=== PATIENT | female | born 1995 | race Caucasian/White ===

== ENCOUNTER 2022-01-18 06:27 | Emergency (ER) | payer MEDICAID, SELFPAY ==
[2022-01-18 06:31] VITALS: BP 104/82; PULSE 82; RESP 18; TEMP 36.1; O2SAT 98; BMI 37.6
--- NOTE | 2022-01-18 07:02 | CRLHL7_ITS ---
For Patients: As a result of the Century Cures Act, medical imaging exams and procedure reports are released immediately into your electronic medical record. You may view this report before your referring provider. If you have questions, please contact your health care provider. INDICATION: Bright red blood per rectum. Suspect colitis. Family history of Crohn`s. COMPARISON: None TECHNIQUE: CT examination of the abdomen and pelvis was performed following the uneventful intravenous administration of 98 cc of Isovue 370. Thin section axial images were obtained from the lung bases through the pubic symphysis. Oral contrast was not administered. Please note that all CT scans at this facility use dose modulation, iterative reconstruction, and/or weight-based dosing when appropriate to reduce radiation dose to as low as reasonably achievable. FINDINGS: LUNG BASES: The lung bases as visualized appear normal.The heart size is normal at the lung bases. LIVER/BILIARY SYSTEM:The liver is normal in size and configuration. There is no focal mass and there is no intra- or extra hepatic biliary ductal dilatation.Steatosis. Normal-appearing gallbladder ADRENALS: Normal KIDNEYS, URETERS and BLADDER:The kidneys appear normal. No visible mass, calculus or hydronephrosis. The ureters and bladder as visualized appear normal. SPLEEN:Normal appearance. PANCREAS: Appears normal. RETROPERITONEUM and MESENTERY: There is no mass, adenopathy or aortic aneurysm. GASTROINTESTINAL SYSTEM: There is no indication of proctitis, colitis or inflammatory bowel disease CT criteria. No obstruction. Appendix is well seen appears normal. Small bowel appears normal. Unusually prominent diverticular disease for a patient of this age. Most notably involving the sigmoid. I do not directly see bleeding on the current non angiographic exam. PELVIS: No mass, adenopathy or free fluid. OSSEOUS STRUCTURES and ABDOMINAL WALL: There is an age-appropriate appearance of the osseous structures.No significant abdominal wall defect. OTHER: No free fluid or free air. IMPRESSION: 1. No indication proctitis, colitis or any other identifiable inflammatory bowel disease by CT. 2. Unusually prominent diverticulosis for patient age, most notably sigmoid. I do not directly seen bleeding on the current examination. Please note that all CT scans at this facility use dose modulation, iterative reconstruction, and/or weight-based dosing when appropriate to reduce radiation dose to as low as reasonably achievable. Dictated by Jamal Lindo MD @ 01/18/2022 8:19:02 AM (Electronically Signed)
--- NOTE | 2022-01-18 07:09 | ED_ITS ---
HPI - Abdominal Pain General Chief Complaint: Diarrhea <Mamta Aggarwal MD - Last Filed: 01/18/22 08:17> Stated Complaint: Rectal bleeding <Mamta Aggarwal MD - Last Filed: 01/18/22 08:17> Time Seen by Provider: 01/18/22 06:43 <Mamta Aggarwal MD - Last Filed: 01/18/22 08:17> Source: patient <Mamta Aggarwal MD - Last Filed: 01/18/22 08:17> Mode of arrival: ambulatory <Mamta Aggarwal MD - Last Filed: 01/18/22 08:17> Limitations: no limitations <Mamta Aggarwal MD - Last Filed: 01/18/22 08:17> History of Present Illness HPI narrative: 26-year-old otherwise healthy female reports several episodes of bright red blood per rectum mixed with mucus since yesterday evening. States that she ate a typical dinner, then about an hour later had a crampy feeling that she was going to have diarrhea. She does have a notable prior history of irritable bowel syndrome. She states that when she went to the bathroom, she noted that it was bright red blood mixed with mucus and no stool. She carefully checked it was not vaginal bleeding. She has never had an episode similar to this. She has had a colonoscopy last year which was done because her brother was diagnosed with a high-grade colon polyp at age 30 after he had rectal bleeding. Both of her parents happened have Crohn's disease on my specific questioning, father's is very difficult to control. She had 2 other episodes throughout the night, mostly just mucus but blood mixed in. No rectal trauma or injury. No vaginal discharge. She does have some achy constant right lower quadrant abdominal pain that radiates to her back as well, assumes that they are related. No prior his tory of hemorrhoids or other similar episodes in the past. She has not had any fevers, there is no vomiting. Has not tried any medications, Imodium or other similar interventions to help with her symptoms. She denies any pertinent travel. 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 Past medical history is notable for irritable bowel syndrome. Surgical history is notable for prior shoulder surgery, uterine ablation and tubal ligation. She denies any long-term medications. Socially nonsmoker with no pertinent travel. Ros notable for the GI symptoms only otherwise negative times 12 systems. <Mamta Aggarwal MD - Last Filed: 01/18/22 08:17> Related Data Home Medications: Home Medications Medication Instructions Recorded Confirmed No Known Home Medications 01/18/22 01/18/22 <Mamta Aggarwal MD - Last Filed: 01/18/22 08:17> Allergies/Adverse Reactions: Allergies Allergy/AdvReac Type Severity Reaction Status Date / Time ibuprofen Allergy Severe Difficulty Verified 01/18/22 07:57 Breathing naproxen Allergy Intermediate Swelling Verified 01/18/22 07:57 of Lip/Tongue/Throat <Mamta Aggarwal MD - Last Filed: 01/18/22 08:17> [facility] Social History: Social History Smoking Status: Never smoker How often do you have a drink containing alcohol: monthly or less AUDIT-C Alcohol total score: 1 Non-prescribed substance use: denies use <Mamta Aggarwal MD - Last Filed: 01/18/22 08:17> Exam Const: Vital Signs, click to edit/add: Vital Signs - 24 hr 01/18/22 06:31 01/18/22 07:57 Temperature 97 F L Pulse Rate [Pulse Oximeter] 82 79 Respiratory Rate 18 16 Blood Pressure [Ri ght Upper Arm] 104/82 109/77 Pulse Oximetry 98 100 Oxygen Delivery Me thod Room Air Room Air <Mamta Aggarwal MD - Last Filed: 01/18/22 08:17> Vital Signs, click to edit/add: Vital Signs - 24 hr 01/18/22 06:31 01/18/22 07:57 Temperature 97 F L Pulse Rate [Pulse Oximeter] 82 79 Respiratory Rate 18 16 Blood Pressure [Ri ght Upper Arm] 104/82 109/77 Pulse Oximetry 98 100 Oxygen Delivery Me thod Room Air Room Air <Chantal Dey MD - Last Filed: 01/18/22 08:38> Documenting provider has reviewed patient's vital signs: yes <Mamta Aggarwal MD - Last Filed: 01/18/22 08:17> Common normals: no apparent distress <MD Yana Alfaro Last Filed: 01/18/22 08:17> Exam limitations: altered mental status <MD Yana Alfaro Last Filed: 01/18/22 08:17> General appearance: cooperative <MD Yana Alfaro Last Filed: 01/18/22 08:17> Other: Great historian <MD Yana Alfaro Last Filed: 01/18/22 08:17> HENMT: Common normals: normocephalic <MD Yana Alfaro Last Filed: 01/18/22 08:17> Head and scalp: normocephalic <MD Yana Alfaro Last Filed: 01/18/22 08:17> Mouth: oral and palatal mucosa normal <MD Yana Alfaro Last Filed: 01/18/22 08:17> Throat: posterior oropharynx normal <MD Yana Alfaro Last Filed: 01/18/22 08:17> Eye: Common normals: conjunctivae normal and no scleral icterus <MD Yana Alfaro Last Filed: 01/18/22 08:17> Conjunctiva: conjunctiva(e) normal <MD Yana Alfaro Last Filed: 01/18/22 08:17> Neck & C-Spine: Common normals: full ROM and no lymphadenopathy <MD Yana Alfaro Last Filed: 01/18/22 08:17> Resp: Common normals: normal respiratory effort and clear to auscultation bilaterally <MD Yana Alfaro Last Filed: 01/18/22 08:17> Effort & inspection: able to speak in complete sentences <MD Yana Alfaro Last Filed: 01/18/22 08:17> Auscultation: clear to auscultation bilaterally <MD Yana Alfaro Last Filed: 01/18/22 08:17> Cardio: Common normals: regular rate, regular rhythm, no murmurs and peripheral pulses 2+ throughout <MD Yana Alfaro Last Filed: 01/18/22 08:17> Rate: regular rate <Mamta Aggarwal MD - Last Filed: 01/18/22 08:17> Rhythm: regular rhythm <Mamta Aggarwal MD - Last Filed: 01/18/22 08:17> Peripheral pulses: pulses 2+ throughout <Mamta Aggarwal MD - Last Filed: 01/18/22 08:17> GI: Common normals: Normal to inspection, nondistended, normoactive bowel sounds present, no hepatosplenomegaly and no masses <Mamta Aggarwal MD - Last Filed: 01/18/22 08:17> Palpation: no hepatosplenomegaly <Mamta Aggarwal MD - Last Filed: 01/18/22 08:17> Other: Mildly tender to palpation the right lower quadrant but no rebound tenderness nor guarding. <Mamta Aggarwal MD - Last Filed: 01/18/22 08:17> : Other: Rectal exam showing normal external exam. Normal rectal tone. No significant hemorrhoids. No mass. Gloved finger exam showing no abnormalities. No stool or blood visible but occult guaiac is positive. <Mamta Aggarwal MD - Last Filed: 01/18/22 08:17> Extremity: Common normals: normal to inspection and no pedal edema <Mamta Aggarwal MD - Last Filed: 01/18/22 08:17> Neuro: Speech: speech normal <Mamta Aggarwal MD - Last Filed: 01/18/22 08:17> Motor exam: strength 5/5 throughout and no tremor noted <Mamta Aggarwal MD - Last Filed: 01/18/22 08:17> Psych: Common normals: cooperative, affect normal and activity/motor behavior normal <Mamta Aggarwal MD - Last Filed: 01/18/22 08:17> Insight: insight good <Mamta Aggarwal MD - Last Filed: 01/18/22 08:17> Judgement: judgment good <Mamta Aggarwal MD - Last Filed: 01/18/22 08:17> Skin: Common normals: no rashes or lesions noted <Mamta Aggarwal MD - Last Filed: 01/18/22 08:17> General skin exam: no rashes or lesions noted <Mamta Aggarwal MD - Last Filed: 01/18/22 08:17> Course Reevaluation(s) Reevaluation #1: Have reviewed her CT scan report. Will send patient out to collect stool cultures, ova parasite, C diff. will have her follow up in clinic or return to ED if worsening symptoms. At this time stable to discharge for further outpatient workup of her issues. <Chantal Dey MD - Last Filed: 01/18/22 08:38> Time: 08:34 <Chantal Dey MD - Last Filed: 01/18/22 08:38> Vital Signs Vital signs: Initial Vital Signs Temperature 97 F L 01/18/22 06:31 Temperature Source Temporal Artery Scan 01/18/22 06:31 Pulse Rate 82 01/18/22 06:31 Respiratory Rate 18 01/18/22 06:31 Blood Pressure 104/82 01/18/22 06:31 Blood Pressure Mean 89 01/18/22 06:31 Blood Pressure Position Sitting 01/18/22 06:31 Pulse Oximetry 98 01/18/22 06:31 Oxygen Delivery Method 01/18/22 06:31 Vital Signs Temperature 97 F L 01/18/22 06:31 Pulse Rate 82 01/18/22 06:31 Respiratory Rate 18 01/18/22 06:31 Blood Pressure 104/82 01/18/22 06:31 Pulse Oximetry 98 01/18/22 06:31 Oxygen Delivery Method 01/18/22 06:31 Temperature 97 F L 01/18/22 06:31 Pulse Rate 79 01/18/22 07:57 Respiratory Rate 16 01/18/22 07:57 Blood Pressure 109/77 01/18/22 07:57 Pulse Oximetry 100 01/18/22 07:57 Oxygen Delivery Method 01/18/22 07:57 <Mamta Aggarwal MD - Last Filed: 01/18/22 08:17> Initial Vital Signs Temperature 97 F L 01/18/22 06:31 Temperature Source Temporal Artery Scan 01/18/22 06:31 Pulse Rate 82 01/18/22 06:31 Respiratory Rate 18 01/18/22 06:31 Blood Pressure 104/82 01/18/22 06:31 Blood Pressure Mean 89 01/18/22 06:31 Blood Pressure Position Sitting 01/18/22 06:31 Pulse Oximetry 98 01/18/22 06:31 Oxygen Delivery Method 01/18/22 06:31 Vital Signs Temperature 97 F L 01/18/22 06:31 Pulse Rate 82 01/18/22 06:31 Respiratory Rate 18 01/18/22 06:31 Blood Pressure 104/82 01/18/22 06:31 Pulse Oximetry 98 01/18/22 06:31 Oxygen Delivery Method 01/18/22 06:31 Temperature 97 F L 01/18/22 06:31 Pulse Rate 79 01/18/22 07:57 Respiratory Rate 16 01/18/22 07:57 Blood Pressure 109/77 01/18/22 07:57 Pulse Oximetry 100 01/18/22 07:57 Oxygen Delivery Method 01/18/22 07:57 <Chantal Dey MD - Last Filed: 01/18/22 08:38> MDM - Abdominal Pain MDM Narrative Medical decision making narrative: Story is quite suspicious for some form of colitis either infectious or inflammatory. Discussed this with patient. Recommend CT scan and blood work, she is agreeable. She does not think that she needs anything for pain as of yet but will let me know if this changes. IV will be placed to facilitate IV contrast and patient will be updated once results are available. This will likely be after shift change, I will give report to Dr. Abdi. Most likely diagnoses include gastroenteritis, appendicitis, gynecological source, diverticulitis, obstruction. Update 8:10 a.m.: On I have looked at the CT and I need assistance from the radiologist in determining if there is any inflammation at that right lower quadrant. There is quite a bit of stool which I feel like is impairing my abili ty to interpret this. Labs are reassuring. There is no anemia, inflammatory markers look good, normal kidney function electrolytes, etc.. Pharyngeal diagnosis at this point is a diverticular bleed most likely but cannot exclude inflammatory bowel disease or infectious etiology. Patient will likely need a follow-up colonoscopy. Awaiting CT findings. I relayed this information thus far to patient and she is still comfortable declines pain medication. Awaiting CT findings, care handed over to Dr. Dey <Mamta Aggarwal MD - Last Filed: 01/18/22 08:17> Medical Records Medical records narrative: Investigated, no records available. <Mamta Aggarwal MD - Last Filed: 01/18/22 08:17> Lab Data Attestation: I reviewed the patient's lab results. <Mamta Aggarwal MD - Last Filed: 01/18/22 08:17> Labs: Lab Results 01/18/22 01/18/22 01/18/22 Range/Units 07:25 07:25 07:25 WBC 6.04 (4.50-11.00) K/uL RBC 4.14 (4.00-5.20) m/uL Hgb 12.9 (12.0-16.0) gm/dL Hct 36.7 (33.0-51.0) % MCV 89 (80-100) fL MCH 31 (26-34) pg MCHC 35 (32-36) gm/dL RDW Coeff of Ben 11.6 (11.5-15.5) % Plt Count 295 (140-440) K/uL Neut % (Auto) 57.9 (42.0-72.0) % Lymph % (Auto) 31.5 (20-44) % Maries % (Auto) 5.3 (0.0-11.0) % Eos % (Auto) 4.6 (0.0-7.0) % Baso % (Auto) 0.7 (0.0-3.0) % Neut # (Auto) 3.50 (1.7-7.0) K/uL Lymph # (Auto) 1.90 (0.90-2.90) K/uL Maries # (Auto) 0.30 (0.00-0.90) K/UL Eos # (Auto) 0.28 (0.00-0.50) K/uL Baso # (Auto) 0.04 (0.00-0.30) K/uL Abs Immat Gran (auto) 0.00 (0.00-0.30) K/uL INR 1.00 (0.91-1.10) Sodium 139 (135-149) mmol/L Potassium 3.7 (3.6-5.1) mmol/L Chloride 105 (96-114) mmol/L Carbon Dioxide 25 (20-32) mmol/L BUN 12 (5-24) mg/dL Creatinine 0.7 (0.5-1.5) mg/dL Estimated Creat Clear 117.39 Estimated GFR 121 ml/min Glucose 97 (60-115) mg/dL Calcium 9.2 (8.4-10.6) mg/dL Total Bilirubin 0.6 (0.1-1.5) mg/dL AST 20 (12-35) U/L ALT 15 (4-35) U/L Alkaline Phosphatase 65 (40-150) U/L C-Reactive Protein 0.6 (0.5-1.0) mg/dL Total Protein 7.0 (6.0-8.3) g/dL Albumin 4.5 (3.3-5.0) g/dL Lipase 31 (23-300) U/L Urine Color (Yellow) Urine Appearance (Clear) Urine pH (5.0-8.5) Ur Specific Telford (1.000-1.030) Urine Protein (Negative) Urine Glucose (UA) (Negative) Urine Ketones (Negative) Urine Blood (Negative) Urine Nitrite (Negative) Urine Bilirubin (Negative) Urine Urobilinogen (0.2-1.0) Ur Leukocyte Esterase (Negative) 01/18/22 Range/Units 07:45 WBC (4.50-11.00) K/uL RBC (4.00-5.20) m/uL Hgb (12.0-16.0) gm/dL Hct (33.0-51.0) % MCV (80-100) fL MCH (26-34) pg MCHC (32-36) gm/dL RDW Coeff of Ben (11.5-15.5) % Plt Count (140-440) K/uL Neut % (Auto) (42.0-72.0) % Lymph % (Auto) (20-44) % Maries % (Auto) (0.0-11.0) % Eos % (Auto) (0.0-7.0) % Baso % (Auto) (0.0-3.0) % Neut # (Auto) (1.7-7.0) K/uL Lymph # (Auto) (0.90-2.90) K/uL Maries # (Auto) (0.00-0.90) K/UL Eos # (Auto) (0.00-0.50) K/uL Baso # (Auto) (0.00-0.30) K/uL Abs Immat Gran (auto) (0.00-0.30) K/uL INR (0.91-1.10) Sodium (135-149) mmol/L Potassium (3.6-5.1) mmol/L Chloride (96-114) mmol/L Carbon Dioxide (20-32) mmol/L BUN (5-24) mg/dL Creatinine (0.5-1.5) mg/dL Estimated Creat Clear Estimated GFR ml/min Glucose (60-115) mg/dL Calcium (8.4-10.6) mg/dL Total Bilirubin (0.1-1.5) mg/dL AST (12-35) U/L ALT (4-35) U/L Alkaline Phosphatase (40-150) U/L C-Reactive Protein (0.5-1.0) mg/dL Total Protein (6.0-8.3) g/dL Albumin (3.3-5.0) g/dL Lipase (23-300) U/L Urine Color Yellow (Yellow) Urine Appearance Clear (Clear) Urine pH 7.0 (5.0-8.5) Ur Specific Telford 1.025 (1.000-1.030) Urine Protein Negative (Negative) Urine Glucose (UA) Negative (Negative) Urine Ketones Negative (Negative) Urine Blood Negative (Negative) Urine Nitrite Negative (Negative) Urine Bilirubin Negative (Negative) Urine Urobilinogen 0.2 (0.2-1.0) Ur Leukocyte Esterase Negative (Negative) <Mamta Aggarwal MD - Last Filed: 01/18/22 08:17> Lab Results 01/18/22 01/18/22 01/18/22 Range/Units 07:25 07:25 07:25 WBC 6.04 (4.50-11.00) K/uL RBC 4.14 (4.00-5.20) m/uL Hgb 12.9 (12.0-16.0) gm/dL Hct 36.7 (33.0-51.0) % MCV 89 (80-100) fL MCH 31 (26-34) pg MCHC 35 (32-36) gm/dL RDW Coeff of Ben 11.6 (11.5-15.5) % Plt Count 295 (140-440) K/uL Neut % (Auto) 57.9 (42.0-72.0) % Lymph % (Auto) 31.5 (20-44) % Maries % (Auto) 5.3 (0.0-11.0) % Eos % (Auto) 4.6 (0.0-7.0) % Baso % (Auto) 0.7 (0.0-3.0) % Neut # (Auto) 3.50 (1.7-7.0) K/uL Lymph # (Auto) 1.90 (0.90-2.90) K/uL Maries # (Auto) 0.30 (0.00-0.90) K/UL Eos # (Auto) 0.28 (0.00-0.50) K/uL Baso # (Auto) 0.04 (0.00-0.30) K/uL Abs Immat Gran (auto) 0.00 (0.00-0.30) K/uL INR 1.00 (0.91-1.10) Sodium 139 (135-149) mmol/L Potassium 3.7 (3.6-5.1) mmol/L Chloride 105 (96-114) mmol/L Carbon Dioxide 25 (20-32) mmol/L BUN 12 (5-24) mg/dL Creatinine 0.7 (0.5-1.5) mg/dL Estimated Creat Clear 117.39 Estimated GFR 121 ml/min Glucose 97 (60-115) mg/dL Calcium 9.2 (8.4-10.6) mg/dL Total Bilirubin 0.6 (0.1-1.5) mg/dL AST 20 (12-35) U/L ALT 15 (4-35) U/L Alkaline Phosphatase 65 (40-150) U/L C-Reactive Protein 0.6 (0.5-1.0) mg/dL Total Protein 7.0 (6.0-8.3) g/dL Albumin 4.5 (3.3-5.0) g/dL Lipase 31 (23-300) U/L Urine Color (Yellow) Urine Appearance (Clear) Urine pH (5.0-8.5) Ur Specific Telford (1.000-1.030) Urine Protein (Negative) Urine Glucose (UA) (Negative) Urine Ketones (Negative) Urine Blood (Negative) Urine Nitrite (Negative) Urine Bilirubin (Negative) Urine Urobilinogen (0.2-1.0) Ur Leukocyte Esterase (Negative) 01/18/22 Range/Units 07:45 WBC (4.50-11.00) K/uL RBC (4.00-5.20) m/uL Hgb (12.0-16.0) gm/dL Hct (33.0-51.0) % MCV (80-100) fL MCH (26-34) pg MCHC (32-36) gm/dL RDW Coeff of Ben (11.5-15.5) % Plt Count (140-440) K/uL Neut % (Auto) (42.0-72.0) % Lymph % (Auto) (20-44) % Maries % (Auto) (0.0-11.0) % Eos % (Auto) (0.0-7.0) % Baso % (Auto) (0.0-3.0) % Neut # (Auto) (1.7-7.0) K/uL Lymph # (Auto) (0.90-2.90) K/uL Maries # (Auto) (0.00-0.90) K/UL Eos # (Auto) (0.00-0.50) K/uL Baso # (Auto) (0.00-0.30) K/uL Abs Immat Gran (auto) (0.00-0.30) K/uL INR (0.91-1.10) Sodium (135-149) mmol/L Potassium (3.6-5.1) mmol/L Chloride (96-114) mmol/L Carbon Dioxide (20-32) mmol/L BUN (5-24) mg/dL Creatinine (0.5-1.5) mg/dL Estimated Creat Clear Estimated GFR ml/min Glucose (60-115) mg/dL Calcium (8.4-10.6) mg/dL Total Bilirubin (0.1-1.5) mg/dL AST (12-35) U/L ALT (4-35) U/L Alkaline Phosphatase (40-150) U/L C-Reactive Protein (0.5-1.0) mg/dL Total Protein (6.0-8.3) g/dL Albumin (3.3-5.0) g/dL Lipase (23-300) U/L Urine Color Yellow (Yellow) Urine Appearance Clear (Clear) Urine pH 7.0 (5.0-8.5) Ur Specific Telford 1.025 (1.000-1.030) Urine Protein Negative (Negative) Urine Glucose (UA) Negative (Negative) Urine Ketones Negative (Negative) Urine Blood Negative (Negative) Urine Nitrite Negative (Negative) Urine Bilirubin Negative (Negative) Urine Urobilinogen 0.2 (0.2-1.0) Ur Leukocyte Esterase Negative (Negative) <Chantal Dey MD - Last Filed: 01/18/22 08:38> Imaging Data CT scan - abdomen: Attestation: I have reviewed the pertinent imaging results. <Chantal Lin MD - Last Filed: 01/18/22 08:38> Radiologist's impression: Patient: FRANCIA CILNE Facility:?[facility] Patient ID:?[id number] Site Patient ID:?[id number]. Site :?[id number] Study:?CT Abdomen/Pelvis W/98CC [id number]/11/2022 7:56:18 AM Ordering Physician:Nuris Oleary Final Report: INDICATION: Bright red blood per rectum. Suspect colitis. Family history of Crohn`s. COMPARISON: None TECHNIQUE: CT examination of the abdomen and pelvis was performed following the uneventful intravenous administration of 98 cc of Isovue 370. Thin section axial images were obtained from the lung bases through the pubic symphysis. Oral contrast was not administered. Please note that all CT scans at this facility use dose modulation, iterative reconstruction, and/or weight-based dosing when appropriate to reduce radiation dose to as low as reasonably achievable. FINDINGS: LUNG BASES: The lung bases as visualized appear normal.The heart size is normal at the lung bases. LIVER/BILIARY SYSTEM:The liver is normal in size and configuration. There is no focal mass and there is no intra- or extra hepatic biliary ductal dilatation.Steatosis. Normal-appearing gallbladder ADRENALS: Normal KIDNEYS, URETERS and BLADDER:The kidneys appear normal. No visible mass, calculus or hydronephrosis. The ureters and bladder as visualized appear normal. SPLEEN:Normal appearance. PANCREAS: Appears normal. RETROPERITONEUM and MESENTERY: There is no mass, adenopathy or aortic aneurysm. GASTROINTESTINAL SYSTEM: There is no indication of proctitis, colitis or inflamm atory bowel disease CT criteria. No obstruction. Appendix is well seen appears normal. Small bowel appears normal. Unusually prominent diverticular disease for a patient of this age. Most notably involving the sigmoid. I do not directly see bleeding on the current non angiographic exam. PELVIS: No mass, adenopathy or free fluid. OSSEOUS STRUCTURES and ABDOMINAL WALL: There is an age-appropriate appearance of the osseous structures.No significant abdominal wall defect. OTHER: No free fluid or free air. IMPRESSION: 1. No indication proctitis, colitis or any other identifiable inflammatory bowel disease by CT. 2. Unusually prominent diverticulosis for patient age, most notably sigmoid. I do not directly seen bleeding on the current examination. Please note that all CT scans at this facility use dose modulation, iterative reconstruction, and/or weight-based dosing when appropriate to reduce radiation dose to as low as reasonably achievable. Dictated by Jamal Lindo MD @ 01/18/2022 8:19:02 AM (Electronic Signature) <Chantal Dey MD - Last Filed: 01/18/22 08:38> Discharge Plan Discharge Clinical Impression: Diverticular hemorrhage <Mamta Aggarwal MD - Last Filed: 01/18/22 08:17> Patient Disposition: Home w/ Parent or Adult <Mamta Aggarwal MD - Last Filed: 01/18/22 08:17> Condition: Improved <Mamta Aggarwal MD - Last Filed: 01/18/22 08:17> Instructions: Rectal Bleeding (ED) <Mamta Aggarwal MD - Last Filed: 01/18/22 08:17> Additional Instructions: Please collect stool studies as ordered and return back here to the hospital once collected. Should you develop increasing abdominal pain, worsening bloody stools, or vomiting and cannot take orals, do need to seek re- evaluation. Otherwise, need to get a clinic appointment scheduled, may need to have colonoscopy done again. There could be infectious causes for your symptoms but antibiotics are not recommended unless the sources known or if you are significantly worsening. Inflammatory bowel disease is a possibility as well. <Mamta Aggarwal MD - Last Filed: 01/18/22 08:17> Activity Level: Activity as Tolerated and No strenuous activity <Mamta Aggarwal MD - Last Filed: 01/18/22 08:17> Activity as Tolerated and No strenuous activity <Chantal Dey MD - Last Filed: 01/18/22 08:38> Diet Detail: Soft diet with lots of liquids for the next 2 days. <Mamta Aggarwal MD - Last Filed: 01/18/22 08:17> Soft diet with lots of liquids for the next 2 days. <Chantal Dey MD - Last Filed: 01/18/22 08:38> Prescriptions: No Action No Known Home Medications <Mamta Aggarwal MD - Last Filed: 01/18/22 08:17> Follow Up/Referrals: Provider,Not a Local [Primary Care Provider] - 2 Days (In 2-3 days to recheck hemoglobin and arrange outpatient colonoscopy) <Mamta Aggarwal MD - Last Filed: 01/18/22 08:17> Stand Alone Forms: [facility] Info Instructions <Mamta Aggarwal MD - Last Filed: 01/18/22 08:17>
[2022-01-18 07:33] LABS: Basophils Absolute Auto 0.04 K/uL (0.00-0.30); Basophils Percent Auto 0.7 % (0.0-3.0); Eosinophils Absolute Auto 0.28 K/uL (0.00-0.50); Eosinophils Percent Auto 4.6 % (0.0-7.0); Hematocrit 36.7 % (33.0-51.0); Hemoglobin* 12.9 gm/dL (12.0-16.0); Lymphocytes Percent Auto 31.5 % (20-44); Mean Corpuscular HGB Conc 35 gm/dL (32-36); Mean Corpuscular Hemoglobin 31 pg (26-34); Mean Corpuscular Volume 89 fL (80-100); Monocytes Percent Auto 5.3 % (0.0-11.0); Neutrophils Percent Auto 57.9 % (42.0-72.0); Platelet Count* 295 K/uL (140-440); RDW Coefficient of Variation % 11.6 % (11.5-15.5); Red Blood Count 4.14 m/uL (4.00-5.20); White Blood Count* 6.04 K/uL (4.50-11.00)
[2022-01-18 07:37] LABS: Slide Review Reflex No
--- OUTSIDE RECORDS SUMMARY | 2022-01-18 07:46 | XMS_ITS | Encounter Summary ---
:1995 Author Organization [place] Address [address] [place] [address] Care Team Providers Name Role Phone No Ref-Primary, Physician Primary Care Provider [phone] Kari Bingham MD Unavailable [phone] Kari Bingham MD Unavailable [phone] Reason for Visit Reason Comments Referral Encounter Details Date Type Department Care Team Description 01/02/2018 [facility] Ernst Lopez Refe [facility] [address] [address] [phone] Social History Tobacco Use Types Packs/Day Years Used Date Smoking Tobacco: Never Smokeless Tobacco: Never Alcohol Use Standard Drinks/Week Comments No 0 (1 standard drink = 0.6 oz pure alcoho l) Sex Assigned at Date Recorded Not on file COVID-19 Exposure Response Date Recorded In the last month, have you been in contact with No / Unsure 04/20/2020 3:05 PM HYSTER MACHINE OPERATOR someone who was confirmed or suspected to have Coronavirus / COVID-19? documented as of this encounter Plan of Treatment Not on filedocumented as of this encounter Visit Diagnoses Diagnosis Internal hemorrhoid Internal hemorrhoids without mention of complication documented in this encounter Care Teams Drop Wire Hanger Relationship Specialty Start Date End Date No Ref-Primary, Physician PCP - General 10/12/17 11/01/20 Kari Bingham MD Ophthalmology 04/15/20 MD Ruth [address] [address] Kari Bingham Assigned Surgical Provider 10/22/21 MD Ruth [address] [address] documented as of this encounter
--- OUTSIDE RECORDS SUMMARY | 2022-01-18 07:46 | XMS_ITS | Encounter Summary ---
:1995 Author Organization [place] Address [address] [place] [address] Care Team Providers Name Role Phone Kari Bingham MD Unavailable [phone] Kari Bingham MD Unavailable [phone] Joel Lin MD Unavailable Salvatore Jerry MD Primary Care Provider [phone] Encounter Details Date Type Department Care Team Description 11/02/2020 Emergency [facility] Emergency Dept [address] [place] [address] Social History Tobacco Use Types Packs/Day Years Used Date Smoking Tobacco: Never Smokeless Tobacco: Never Alcohol Use Standard Drinks/Week Comments No 0 (1 standard drink = 0.6 oz pure alcoho l) Sex Assigned at Date Recorded Not on file COVID-19 Exposure Response Date Recorded In the last month, have you been in contact with No / Unsure 11/02/2020 8:26 PM CDT someone who was confirmed or suspected to have Coronavirus / COVID-19? documented as of this encounter Last Filed Vital Signs Vital Sign Reading Time Taken Comments Blood Pressure 136/87 11/02/2020 8:24 PM CDT Pulse 85 11/02/2020 8:24 PM CDT Temperature 36.8 ??C (98.3 ??F) 11/02/2020 8:24 PM CDT Respiratory Rate 18 11/02/2020 8:24 PM CDT Oxygen Saturation 100% 11/02/2020 8:24 PM CDT Inhaled Oxygen Concentration - - Weight - - Height - - Body Mass Index - - documented in this encounter ED Notes Azul Mojica RN - 11/02/2020 8:29 PM CDT BG 92 in triage Azul Mojica RN - 11/02/2020 8:21 PM CDT Pt reports right hand tremors in the last 2 weeks. Pt reports tremors are intermittent. Reports headache and blurry vision started associated when tremors come but since Monday, blurry vision and hand tremors have been constant. Reports slight relief if she eats otherwise has been constant. Denies being diabetic. ABCs intact. A&Ox3 documented in this encounter Plan of Treatment Not on filedocumented as of this encounter Procedures Procedure Name Priority Date/Time Associated Diagnosis Comme nts GLUCOSE BY METER STAT 11/02/2020 8:28 PM Resul ts for this CDT procedure are i n the results section. documented in this encounter Results Glucose by meter (11/02/2020 8:28 PM CDT) P athologist Signature GLUCOSE BY 92 70 - 99 11/02/2020 [facility] METER POCT mg/dL 8:36 PM CDT POC Specimen Anatomical Collection Method Collection Time Receive d Time (Source) Location / / Volume Laterality Blood BLOOD SPECIMEN / 11/02/2020 8:28 PM 11/02 8:36 Unknown CDT PM CDT Provider Unknown LAB - BEAK[facility] POCT Performing Organization Address City/State/ZIP Code Phon e Number [place] [address] Care Lab [address] Lab (1st floor, no room number) documented in this encounter Visit Diagnoses Not on filedocumented in this encounter Care Teams Marshmallow Machine Worker Relationship Specialty Start Date End Date Salvatore Jerry MD PCP - General 11/02/20 Kari Bingham MD Ophthalmology 04/15/20 MD Ruth [address] [place] [address] Kari Bingham Assigned Surgical Provider 10/22/21 MD Ruth [address] [place] [address] Joel Lin MD Assigned PCP 09/23/20 11/21/[address] [place] [address] [id number] documented as of this encounter
--- OUTSIDE RECORDS SUMMARY | 2022-01-18 07:46 | XMS_ITS | Encounter Summary ---
:1995 Author Organization [place] Address [address] [place] [address] Care Team Providers Name Role Phone No Ref-Primary, Physician Primary Care Provider [phone] Reason for Visit Reason Comments Follow Up 6 month follow up non ischem ic Central Retinal Vein Occlusion OS Encounter Details Date Type Department Care Team Description 11/29/2017 Office Visit [facility] Eye DOREEN Bingham ( [facility] Kari Miranda, retinal vein Patrice Ramos MD occlusion) (Primary Building [address] [facility] Dx) [address] [facility] [address] [place] [id number] [phone] Social History Tobacco Use Types Packs/Day Years Used Date Smoking Tobacco: Never Smokeless Tobacco: Never Alcohol Use Standard Drinks/Week Comments No 0 (1 standard drink = 0.6 oz pure alcoho l) Sex Assigned at Date Recorded Not on file documented as of this encounter Progress Notes Kari Bingham MD - 11/29/2017 10:15 AM CDT I have confirmed the patient's and reviewed Past Medical History, Past Surgical History, Social History, Family History, Problem List, Medication List and agree with Tech note. CC -??fup central retinal vein occlusion left eye Interval history No change in vision HPI - notices transient decreased vision right eye when covering left,like a curtain covering it in the far periphery then returns to baseline. Floaters stable. Denies flashes Past History Akilah Mills is a?? 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 Lab workup normal, stopped OCPs. Had avastin injection for CME 02/10 with resolution. She states that the floaters are black lines with a baer shadow and intermittent. At any given time, there are 2 floaters and they arevisible >15 times daily CBC- normal, ESR- normal, lupus anticoagulant - negative, PT- normal , PTT- normal, INR- normal, Activated Protein C Resistance - normal, Factor V Leiden- negative, anti-cardiolipin antibody-negative, vasculitis panel (myeloperoxidase antibody & proteinase 3 antibody) - negative, ANCA- negative, RPR-negative, quantiferon gold- negative, SIMRAN- negative, BMP-within normal limits, ? PAST OCULAR HISTORY None FOHx/FMHx: mother with recurrent clots, unclear etiology (mentioned possible Takaysu Arteritis) RETINAL IMAGING: OCT?? 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 LE: (transits) slowed venous filling, extensive blocking from IRH, late leakage from ONH and in macula, diffuse staining of veins, no obvious ischemia OVF 30-2 04-05-16 OD - normal likely OS - diffuse depression, better than prior ASSESSMENT & PLAN 1. Subjective visual disturbance, both eyes -ocular migraine vs PVD -exam and oct grossly normal -VA 20/20 OU -recheck VF 1 year 2.?? 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 H/o CME OS ?- resolved after Avastin #1 on 02/11/16 ?- observe today 4.?? H/o Pain OS with eye movement ?- eval by Dr. Christopher for optic neuritis with MRI negative 5. 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 Dry Eye Syndrome, both eyes - encouraged artificial tears 3-4x daily ? RTC 9 months for dilated fundus exam Kari Bingham MD PhD. Professor & Chair documented in this encounter Nursing Notes Alva Pineda COMT - 11/29/2017 10:15 AM CDT Chief Complaints and History of Present Illnesses Patient presents with ??? 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 No eye pain today. Occasional floaters in BE, no changes. Alva MORTENSEN November 29, 2017 10:41 AM documented in this encounter Plan of Treatment Not on filedocumented as of this encounter Visit Diagnoses Diagnosis CRVO (central retinal vein occlusion) - Primary Central vein occlusion of retina documented in this encounter Care Teams Vascular Ultrasound Technologist Relationship Specialty Start Date End Date No Ref-Primary, Physician PCP - General 10/12/17 11/01/20 documented as of this encounter
--- OUTSIDE RECORDS SUMMARY | 2022-01-18 07:46 | XMS_ITS | Encounter Summary ---
:1994 Author Organization [place] Address [address] [place] [address] Care Team Providers Name Role Phone No Ref-Primary, Physician Primary Care Provider [phone] Kari Bingham MD Unavailable [phone] Kari Bingham MD Unavailable [phone] Joel Lin MD Unavailable Encounter Details Date Type Department Care Team Description 01/25/2018 Records - [facility] CONVERSION Provider, Historica l Social History Tobacco Use Types Packs/Day Years Used Date Smoking Tobacco: Never Smokeless Tobacco: Never Alcohol Use Standard Drinks/Week Comments No 0 (1 standard drink = 0.6 oz pure alcoho l) Sex Assigned at Date Recorded Not on file COVID-19 Exposure Response Date Recorded In the last month, have you been in contact with No / Unsure 04/20/2020 3:05 PM FLAT SORTING MACHINE CLERK someone who was confirmed or suspected to have Coronavirus / COVID-19? documented as of this encounter Plan of Treatment Not on filedocumented as of this encounter Visit Diagnoses Not on filedocumented in this encounter Care Teams Return To Vendor Relationship Specialty Start Date End Date No Ref-Primary, Physician PCP - General 10/12/17 11/01/20 Kari Bingham MD Ophthalmology 04/15/20 MD Ruth 420 [facility] [address] [place] [address] Kari Bingham Assigned Surgical Provider 10/22/21 MD Ruth 420 [facility] [address] [place] [address] Joel Lin MD Assigned PCP 09/23/20 11/21/[address] [place] [id number] documented as of this encounter
--- OUTSIDE RECORDS SUMMARY | 2022-01-18 07:46 | XMS_ITS | Encounter Summary ---
:1995 Author Organization [place] Address [address] [place] [address] Care Team Providers Name Role Phone No Ref-Primary, Physician Primary Care Provider [phone] Kari Bingham MD Unavailable [phone] Reason for Visit Reason Comments Central Retinal Vein Occlusion Follow Up Encounter Details Date Type Department Care Team Description 04/20/2020 Office Visit [facility] Eye DOREEN Bingham ( central [facility] Kari Miranda, retinal vein Patrice Ramos MD occlusion) Building [address] [place] [id number] [address] Clin [address] [place] [id number] [phone] Social History Tobacco Use Types Packs/Day Years Used Date Smoking Tobacco: Never Smokeless Tobacco: Never Alcohol Use Standard Drinks/Week Comments No 0 (1 standard drink = 0.6 oz pure alcoho l) Sex Assigned at Date Recorded Not on file COVID-19 Exposure Response Date Recorded In the last month, have you been in contact with No / Unsure 04/20/2020 3:05 PM LEAD SYSTEMS ANALYST someone who was confirmed or suspected to have Coronavirus / COVID-19? documented as of this encounter Progress Notes Kari Bingham MD - 04/20/2020 3:00 PM CST I have confirmed the patient's and reviewed Past Medical History, Past Surgical History, Social History, Family History, Problem List, Medication List and agree with Tech note. 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 She is known to me with vitreous syneresis causing subjective floaters and also had a mild Central retinal vein occlusion in 2018 Assessment/plan: 1. Vitreomacular traction both eyes - OCT today shows vitreous bases attached to retina both eyes 2. 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 Professor & Chair SYSTEMS ANALYST documented in this encounter Nursing Notes Sanket Molina - 04/20/2020 3:00 PM CST Chief Complaints and History of Present Illnesses Patient presents with ??? Central Retinal Vein Occlusion Follow Up Chief Complaint(s) and History of Present Illness(es) Central Retinal Vein Occlusion Follow Up Laterality: left eye Associated symptoms: floaters and flashes (some LE). Negative for eye pain and dryness. Comments: (fatigue: LE) Pain scale: 0/10 Comments Akilah is here to follow up loreto CRVO (central retinal vein occlusion) LE. 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 The floaters have been present for a long time, but the flashes about a month. Sanket Molina COT 3:17 PM April 20, 2020 SYSTEMS ANALYST documented in this encounter Plan of Treatment Not on filedocumented as of this encounter Procedures Procedure Name Priority Date/Time Associated Comments Diagnosis OCT RETINA Routine 04/20/2020 3:43 PM CRVO (central Results for this SPECTRALIS OU (BOTH LEAD SYSTEMS ANALYST retinal vein procedur e are in EYE) occlusion) the results section. documented in this encounter Results OCT Retina Spectralis OU (both eyes) (04/20/2020 3:43 PM LEAD SYSTEMS ANALYST) Narrative Kari Bingham MD - 02/2021 3:43 PM LEAD SYSTEMS ANALYST Performed by: njo . Patient cooperation: Reliable . Right Eye Reliability of the test: Good . Findings normal/abnormal: Abnormal OCT . Interpretation: Retinal disease . Plan: Monitor . Interval: Same . Left Eye Reliability of the test: Good . Findings normal/abnormal: Abnormal OCT . Interpretation: Retinal disease . Plan: Monitor . Interval: Same . Kari Bingham MD OPHTHALMOLOGY documented in this encounter Visit Diagnoses Diagnosis CRVO (central retinal vein occlusion) Central vein occlusion of retina documented in this encounter Care Teams Shoe Packer Relationship Specialty Start Date End Date No Ref-Primary, Physician PCP - General 10/12/17 11/01/20 Kari Bingham MD MD Ophthalmology 04/15/[address] [place] [address] [address] [place], [place] [address]145 documented as of this encounter
--- OUTSIDE RECORDS SUMMARY | 2022-01-18 07:46 | XMS_ITS | Encounter Summary ---
:1994 Author Organization [facility] Address [address] [place] [address] Care Team Providers Name Role Phone Kari Bingham MD Unavailable [phone] Kari Bingham MD Unavailable [phone] Joel Lin MD Unavailable Salvatore Jerry MD Primary Care Provider [phone] Encounter Details Date Type Department Care Team Description 11/02/2020 Travel Social History Tobacco Use Types Packs/Day Years [...] on filedocumented in this encounter Care Teams Aco Coordinator Relationship Specialty Start Date End Date Salvatore Jerry MD PCP - General 11/02/20 Kari Bingham MD Ophthalmology 04/15/20 MD Ruth 420 [facility] [address] [place] [address] Kari Bingham Assigned Surgical Provider 10/22/21 MD Ruth 420 [facility] [address] [place], [place] [address] Joel Lin MD Assigned PCP 09/23/20 11/21/[address] [place] [address] documented as of this encounter
--- OUTSIDE RECORDS SUMMARY | 2022-01-18 07:46 | XMS_ITS | Encounter Summary ---
:1994 Author Organization [place] Address [address] [place] [address] Care Team Providers Name Role Phone No Ref-Primary, Physician Primary Care Provider [phone] Encounter Details Date Type Department Care Team Description 08/17/2018 Telephone [facility] [address] [facility] [address] Ruth MD [address]th Floor [address] [place] [address] [address] [place], [place] [phone] [place] [address] (Wo rk) Social History Tobacco Use Types Packs/Day Years Used Date Smoking Tobacco: Never Smokeless Tobacco: Never Alcohol Use Standard Drinks/Week Comments No 0 (1 standard drink = 0.6 oz pure alcoho l) Sex Assigned at Date Recorded Not on file documented as of this encounter Miscellaneous Notes Telephone Encounter - Yelitza North - 08/17/2018 2:18 PM CDT Called patient as she has not returned call to schedule. She stated symptoms were a lot better and did not want to schedule today. Also offered appointment tomorrow. She stated she would see how thingsgo through the weekend and will call if still having difficulties on Monday. Call sooner if worsening. Yelitza North on 08/17/2018 at 2:19 PM Telephone Encounter - Yelitza North - 08/17/2018 9:13 AM CDT Received call for patient she states she has increasing floaters in her right eye that she can barely see through them. Just started today. She has had floaters in the past but not this bad and reportsthat it is always in the left eye. Also reports pain that is increasing as the day goes on. I statedwith any new floaters and especially with pain we should have her seen as may be associated with inflammation in the eye. She is hesitant to schedule something today as she does not know if she can getoff work. Gave her triage direct number to contact me after she discusses with her employer. Yelitza North on 08/17/2018 at 9:18 AM documented in this encounter Plan of Treatment Not on filedocumented as of this encounter Visit Diagnoses Not on filedocumented in this encounter Care Teams Community Advocate Relationship Specialty Start Date End Date No Ref-Primary, Physician PCP - General 10/12/17 11/01/20 documented as of this encounter
--- OUTSIDE RECORDS SUMMARY | 2022-01-18 07:46 | XMS_ITS | Encounter Summary ---
:1995 Author Organization [place] Address [address] [place] [address] Care Team Providers Name Role Phone No Ref-Primary, Physician Primary Care Provider [phone] Kari Bingham MD Unavailable [phone] Encounter Details Date Type Department Care Team Description 04/20/2020 Travel Social History Tobacco Use Types Packs/Day Years Used Date Smoking Tobacco: Never Smokeless Tobacco: Never Alcohol Use Standard Drinks/Week Comments No 0 (1 standard drink = 0.6 oz pure alcoho l) Sex Assigned at Date Recorded Not on file COVID-19 Exposure Response Date Recorded In the last month, have you been in contact with No / Unsure 04/20/2020 3:05 PM DIRECTOR INSTRUCTIONAL MATERIAL someone who was confirmed or suspected to have Coronavirus / COVID-19? documented as of this encounter Plan of Treatment Not on filedocumented as of this encounter Visit Diagnoses Not on filedocumented in this encounter Care Teams Special Delivery Mail Carrier Relationship Specialty Start Date End Date No Ref-Primary, Physician PCP - General 10/12/17 11/01/20 Kari Bingham MD MD Ophthalmology 04/15/[address] [address] documented as of this encounter
--- OUTSIDE RECORDS SUMMARY | 2022-01-18 07:46 | XMS_ITS | Encounter Summary ---
:1995 Author Organization [facility] Address [address] [place] [address] Care Team Providers Name Role Phone No Ref-Primary, Physician Primary Care Provider [phone] Kari Bingham MD Unavailable [phone] Kari Bingham MD Unavailable [phone] Reason for Visit Reason Comments Other other; issues after bowel mo vements Encounter Details Date Type Department Care Team Description 11/15/2017 Office Visit - [facility] Joel Lin ids, internal; [facility] Moi Yanez MD [address] [id number] [phone] Social History Tobacco Use Types Packs/Day Years Used Date Smoking Tobacco: Never Smokeless Tobacco: Never Alcohol Use Standard Drinks/Week Comments No 0 (1 standard drink = 0.6 oz pure alcoho l) Sex Assigned at Date Recorded Not on file COVID-19 Exposure Response Date Recorded In the last month, have you been in contact with No / Unsure 04/20/2020 3:05 PM LOCKSTITCH ZIPPER SETTER someone who was confirmed or suspected to have Coronavirus / COVID-19? documented as of this encounter Last Filed Vital Signs Vital Sign Reading Time Taken Comments Blood Pressure - - Pulse - - Temperature - - Respiratory Rate - - Oxygen Saturation - - Inhaled Oxygen Concentration - - Weight 100.2 kg (221 lb) 11/15/2017 4:35 PM CDT Height - - Body Mass Index 34.61 10/12/2017 8:08 AM CDT documented in this encounter Progress Notes Joel Lin MD - 11/15/2017 4:15 PM CDT Subjective: This 21-year-old female comes in for evaluation regarding her bowels. She has had some constipation she states that after bowel movements she feels like there is some tissue sticking out and she has to push it back in. Patient had a recent laparoscopy to evaluate for endometriosis which was negative on 10/2017. Prior to that she had an abdominal CT scan which was negative other than a benign cyst on the ovary. Patient had had some right lower quadrant abdominal pain at the time She does have some irregular bowels mainly constipation. Also has an IUD in We discussed constipation issues regarding increasing water fruits and vegetables and taking MiraLAXdaily. She states that when she takes too much she has some diarrhea Regarding the rectal area she does occasionally get some blood and some itching. Tobacco status: She reports that she has never smoked. She has never used smokeless tobacco. Patient Active Problem List Diagnosis Date Noted ??? Moderate episode of recurrent major depressive disorder (H) 06/23/2017 ??? Binge eating disorder 06/23/2017 Current Outpatient Prescriptions Medication Sig Dispense Refill ??? hydrocortisone 25 mg suppository Insert one per rectum qhs 12 suppository 0 ??? sertraline (ZOLOFT) 50 MG tablet For the first week, split the tablet and take 25 mg once daily.After one week, take 50 mg once daily. 90 tablet 3 No current facility-administered medications for this visit. ROS: Review of systems negative other than as outlined above Objective: BP 112/70 (Patient Site: Left Arm, Patient Position: Sitting, Cuff Size: Adult Large) Pulse 78 Temp 98.2 ??F (36.8 ??C) (Oral) Resp 14 Wt 221 lb (100.2 kg) LMP 10/07/2017 (Exact Date) SpO2 97% BMI 35.4 kg/m2 Body mass index is 35.4 kg/(m^2). General appearance no acute distress vital signs are stable afebrile Abdomen soft bowel sounds normal no guarding or rebound back without CVA pain Skin was normal Rectal exam with anoscope showed evidence of a internal hemorrhoid at the 12 o'clock position. No other abnormalities noted Results for orders placed or performed in visit on 06/23/17 Thyroid Bland Result Value Ref Range TSH 1.44 0.30 - 5.00 uIU/mL Assessment: 1. Hemorrhoids, internal hydrocortisone 25 mg suppository 2. Constipation Internal hemorrhoids will treat with hydrocortisone suppository at bedtime for 12 nights Can use sitz bath during the daytime as well. If persisting problems see colorectal Main issue will be to continue to work on the constipation as outlined above Plan: As noted This data collection specialist uses voice recognition software, which may contain typographical errors. documented in this encounter Plan of Treatment Not on filedocumented as of this encounter Visit Diagnoses Diagnosis Hemorrhoids, internal Internal hemorrhoids without mention of complication Constipation Unspecified constipation documented in this encounter Care Teams Recycling Program Manager Relationship Specialty Start Date End Date No Ref-Primary, Physician PCP - General 10/12/17 11/01/20 Kari Bingham MD Ophthalmology 04/15/20 MD Ruth [address] [place] [address] Kari Bingham Assigned Surgical Provider 10/22/21 MD Ruth [address] [place] [phone] documented as of this encounter
--- OUTSIDE RECORDS SUMMARY | 2022-01-18 07:46 | XMS_ITS | Encounter Summary ---
:1995 Author Organization [facility] Address [address] [place] [address] Care Team Providers Name Role Phone No Ref-Primary, Physician Primary Care Provider [phone] Kari Bingham MD Unavailable [phone] Kari Bingham MD Unavailable [phone] Reason for Visit Reason Comments Hemorrhoids Encounter Details Date Type Department Care Team Description 01/23/2018 Communication - [facility] Centralized Provider, Hemo rrhoids [facility] Scheduling Historical [facility] [place] [address] Social History Tobacco Use Types Packs/Day Years Used Date Smoking Tobacco: Never Smokeless Tobacco: Never Alcohol Use Standard Drinks/Week Comments No 0 (1 standard drink = 0.6 oz pure alcoho l) Sex Assigned at Date Recorded Not on file COVID-19 Exposure Response Date Recorded In the last month, have you been in contact with No / Unsure 04/20/2020 3:05 PM 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 documented as of this encounter Plan of Treatment Not on filedocumented as of this encounter Visit Diagnoses Not on filedocumented in this encounter Care Teams Foundry Technician Relationship Specialty Start Date End Date No Ref-Primary, Physician PCP - General 10/12/17 11/01/20 Kari Bingham MD Ophthalmology 04/15/20 MD Ruth [address] [address] Kari Bingham Assigned Surgical Provider 10/22/21 MD Ruth [address] [place] [address] documented as of this encounter
--- OUTSIDE RECORDS SUMMARY | 2022-01-18 07:46 | XMS_ITS | Encounter Summary ---
:1995 Author Organization [facility] Address [address] [place] [address] Care Team Providers Name Role Phone No Ref-Primary, Physician Primary Care Provider [phone] Kari Bingham MD Unavailable [phone] Kari Bingham MD Unavailable [phone] Encounter Details Date Type Department Care Team Description 11/15/2017 [facility] Provider, Constantino mcneal Social History Tobacco Use Types Packs/Day Years Used Date Smoking Tobacco: Never Smokeless Tobacco: Never Alcohol Use Standard Drinks/Week Comments No 0 (1 standard drink = 0.6 oz pure alcoho l) Sex Assigned at Date Recorded Not on file COVID-19 Exposure Response Date Recorded In the last month, have you been in contact with No / Unsure 04/20/2020 3:05 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 documented as of this encounter Plan of Treatment Not on filedocumented as of this encounter Visit Diagnoses Not on filedocumented in this encounter Care Teams Deckhand Relationship Specialty Start Date End Date No Ref-Primary, Physician PCP - General 10/12/17 11/01/20 Kari Bingham MD Ophthalmology 04/15/20 MD Ruth [address] [facility] [address] [place], [place] [address] Kari Bingham Assigned Surgical Provider 10/22/21 MD Ruth [address] [address] documented as of this encounter
--- OUTSIDE RECORDS SUMMARY | 2022-01-18 07:46 | XMS_ITS | Clinical Summary ---
:1995 Author Organization [facility] Address [address] [place] [address] Care Team Providers Name Role Phone Kari Bingham MD Unavailable [phone] Salvatore Jerry MD Primary Care Provider [phone] Allergies Active Allergy Reactions Severity Noted Date Comments Naproxen Other (See Comments), Swelling, High 5 Anaphylaxis Medications No known medications Active Problems Problem Noted Date Dysmenorrhea 10/10/2017 Dyspareunia in female 10/10/2017 Family History Medical History Relation Comments Cancer Father History of cancer on the paternal side Cancer Mother History of cancer on the maternal side Coronary Artery Disease Mother Hypertension Mother Glaucoma No family hx of Macular Degeneration No family hx of Relation Status Comments Father Mother Social History Tobacco Use Types Packs/Day Years Used Date Smoking Tobacco: Never Smokeless Tobacco: Never Alcohol Use Standard Drinks/Week Comments No 0 (1 standard drink = 0.6 oz pure alcoho l) Sex Assigned at Date Recorded Not on file Last Filed Vital Signs Vital Sign Reading Time Taken Comments Blood Pressure 136/87 11/02/2020 8:24 PM CDT Pulse 85 11/02/2020 8:24 PM CDT Temperature 36.8 ??C (98.3 ??F) 11/02/2020 8:24 PM CDT Respiratory Rate 18 11/02/2020 8:24 PM CDT Oxygen Saturation 100% 11/02/2020 8:24 PM CDT Inhaled Oxygen Concentration - - Weight 100.2 kg (221 lb) 11/15/2017 4:35 PM CDT Height 170.2 cm (5' 7) 10/12/2017 8:08 AM CDT Body Mass Index 34.61 10/12/2017 8:08 AM CDT Plan of Treatment Health Maintenance Due Date Last Done Comments ADVANCE CARE PLANNING 1995 ANNUAL REVIEW OF HM ORDERS 1995 COVID-19 Vaccine (#1) 06/22/1995 HIV SCREENING 2009 HEPATITIS C SCREENING 2012 PAP 12/23/2015 PHQ-2 (once per calendar 04/10/2021 year) YEARLY PREVENTIVE VISIT 04/15/2021 04/15/2020 INFLUENZA VACCINE (#1) 2021 DTAP/TDAP/TD IMMUNIZATION 08/15/2022 08/15/2012, 07/28/2003 , (6 - Td or Tdap) 08/28/1995, Additional history exists HEPATITIS B IMMUNIZATION Completed 06/26/1995, 02/22/1995, 1994 IPV IMMUNIZATION Aged Out 08/28/1995, 06/26/1995, No long er eligible 02/22/1995 based on patient 's age to complete this topic MENINGITIS IMMUNIZATION Aged Out 11/14/2006 No longe r eligible based on patient 's age to complete this topic CHLAMYDIA SCREENING Discontinued 04/10/2014 Pneumococcal Vaccine: Aged Out No longer eligible Pediatrics (0 to 5 Years) based on patient's age and At-Risk Patients (6 to to co mplete this topic 64 Years) Insurance Payer Benefit Plan / Subscriber ID Effective Dates Phone Addre ss Type Group [facility] [id number] 2021-Present [phone] [address] [place] [address] Akilah Mills Personal/Family Self [address] (Home) [place] [address] Care Teams Cartography Technician Relationship Specialty Start Date End Date Salvatore Jerry MD PCP - General 11/02/20 Kari Bingham MD MD Ophthalmology 04/15/[address] [place] [address]
--- OUTSIDE RECORDS SUMMARY | 2022-01-18 07:46 | XMS_ITS | Encounter Summary ---
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 documented as of this encounter Plan of Treatment Not on filedocumented as of this encounter Visit Diagnoses Not on filedocumented in this encounter Care Teams Leakage Tester Relationship Specialty Start Date End Date No Ref-Primary, Physician PCP - General 10/12/17 11/01/20 Kari Bingham MD Ophthalmology 04/15/20 MD Ruth [address] [facility] [address] [place] [address] Kari Bingham Assigned Surgical Provider 10/22/21 MD Ruth [address] [facility] [address] [place] [address] Joel Lin MD Assigned PCP 09/23/20 11/21/[address] [place] [phone] documented as of this encounter
--- OUTSIDE RECORDS SUMMARY | 2022-01-18 07:46 | XMS_ITS | Encounter Summary ---
:1995 Author Organization [facility] Address [address] [place] [address]. [place] [address] Care Team Providers Name Role Phone No Ref-Primary, Physician Primary Care Provider [phone] Reason for Visit Auth/Cert Specialty Diagnoses / Procedures Referred By Contact Refer red To Contact Surgery Diagnoses INCREASING PELVIC PAIN Sh Periop Services Procedures LAPAROSCOPY OPERATIVE ADULT, OPERATIVE HYSTEROSCOPY WITH MORCELLATOR (MABRY & NEPHEW), REMOVE INTRAUTERINE DEVICE, INSERT INTRAUTERINE DEVICE [address], [address] [place] [address] Phone: Referral ID Status Reason Start Date Expiration Date Visits Requ ested Visits Authorized [id number] 1 1 Encounter Details Date Type Department Care Team Description 10/12/2017 Anesthesia Event [facility] Elisha Fitzpatrick MD [place] [address], [address] ANESTHES IOLOGY [address] [place] [address] [place] [address] [phone] (Wo rk) Anesthesia Record Procedure Summary Procedure Name Responsible Anesthesia Start Anesthesia Stop Anesthesiologist Time Time DIAGNOSTIC Arielle Fitzpatrick MD 10/12/17 0901 10/12/17 10 01 LAPAROSCOPY (Abdomen) Events Date Time Event Comment 10/12/2017 0837 0901 An Start 0901 An Start Data 0902 Present 0905 An Induction 0908 An Intubation 0909 AN START SEVO 0925 AN INCISION 0939 AN END SEVO 0954 AN Extubation 0955 an stop data 1001 An Stop Electronically s igned by Glo Mcclure on October 12, 2017 10:01 AM 1143 Present Name Total dexamethasone 4mg/mL 4 mg fentaNYL (SUBLIMAZE) injection 100 mcg glycopyrrolate 0.2mg/mL 0.6 mg lidocaine 2% 80 mg midazolam 1mg/mL 2 mg neostigmine 1mg/mL 4 mg ondansetron 2mg/mL 4 mg propofol (DIPRIVAN) injection 10 mg/mL vial 300 mg propofol infusion (mcg/kg/min) 518.61 mg rocuronium 10mg/mL 50 mg PRE OP antibiotics NOT needed for this surgical proced ure 1 each LR 1,200 mL Agents Name NO HELIOX O2 N2O Air Exp Sevoflurane Exp Isoflurane Exp Desflurane Exp N2O Ins Sevoflurane Ins Isoflurane Ins Desflurane O2 Auxiliary Blood No blood administrations on file. Lines, Drains, and Airways Type Details Placement Removal Incision/Surgical Site 10/12/17; 0941; 10/12/17 0941 by Abdomen; 2 Port Sites Mellisa Martinez RN Incision/Surgical Site 10/12/17; 0948; Vagina 10/12/17 0948 by Mellisa Martinez, SÁNCHEZ Peripheral IV 10/12/17; 0901; 20 G; 10/12/17 0901 by 10/12/17 1228 by Right; Hand Yelitza Stallworth, Torsten Parson RN RETIRED ETT 10/12/17; 0908; Mask 10/12/17 0908 by 10/12/17 0 954 by Ventilation: Easy; Glo Mcclure Dinero, Diana Ease of Intubation: PARAPROFESSIONAL AIDE CARD FEEDER ORLIN Thomson CARD FEEDER Easy; Airway Size: 7; Cuffed; Oral; Blade Type: Heather; Blade Size: 3; Place by: DD; Insertion Attempts: 1; Secured at (cm)to lip: 22 cm; Breath Sounds: Equal, clear and bilateral; End Tidal CO2: Present; Dentition: Intact, Unchanged; Grade View of Cords: 1 documented in this encounter Social History Tobacco Use Types Packs/Day Years Used Date Smoking Tobacco: Never Smokeless Tobacco: Never Alcohol Use Standard Drinks/Week Comments No 0 (1 standard drink = 0.6 oz pure alcoho l) Sex Assigned at Date Recorded Not on file documented as of this encounter OR Notes Anesthesia Postprocedure Evaluation - Arielle Fitzpatrick MD - 10/12/2017 11:43 AM CDT Patient: Akilah Mills Procedure(s): DIAGNOSTIC LAPAROSCOPY - Wound Class: II-Clean Contaminated Diagnosis:INCREASING PELVIC PAIN Diagnosis Additional Information: No value filed. Anesthesia Type: General, ETT Note: Anesthesia Post Evaluation Patient location during evaluation: PACU Patient participation: Able to fully participate in evaluation Level of consciousness: awake and alert Pain management: adequate Airway patency: patent Cardiovascular status: acceptable, hemodynamically stable and blood pressure returned to baseline Respiratory status: acceptable and nasal cannula Hydration status: acceptable PONV: none Anesthetic complications: None Last vitals: Vitals: 10/12/17 1045 10/12/17 1100 10/12/17 1115 BP: 106/70 (!) 89/66 97/62 Resp: 16 Temp: SpO2: 97% 99% 100% Electronically Signed By: Arielle Fitzpatrick MD October 12, 2017 11:43 AM Anesthesia Preprocedure Evaluation - Arielle Fitzpatrick MD - 10/12/2017 6:45 AM CDT Procedure: Procedure(s): LAPAROSCOPY DIAGNOSTIC (WINCH DRIVER) LAPAROSCOPIC ABLATION ENDOMETRIOSIS Preop diagnosis: INCREASING PELVIC PAIN Allergies Allergen Reactions ??? Naproxen Other (See Comments), Swelling and Anaphylaxis Past Medical History: Diagnosis Date ??? CRVO (central retinal vein occlusion) Past Surgical History: Procedure Laterality Date ??? SHOULDER SURGERY Left 03/2016 to remove bone spur ? ? TONSILLECTOMY & ADENOIDECTOMY 2001 Prior to Admission medications Medication Sig Start Date End Date Taking? Authorizing Provider paragard intrauterine copper 1 each by Intrauterine route once Reported, Patient No current [facility]-ordered facility-administered medications on file. Current Outpatient Prescriptions Ordered in [facility] Medication ??? paragard intrauterine copper Wt Readings from Last 1 Encounters: 03/18/16 90.4 kg (199 lb 4.8 oz) Temp Readings from Last 1 Encounters: 03/18/16 37.1 ??C (98.7 ??F) (Oral) BP Readings from Last 6 Encounters: 03/18/16 121/82 02/08/16 124/73 Pulse Readings from Last 4 Encounters: 03/18/16 93 02/08/16 89 Resp Readings from Last 1 Encounters: 02/08/16 16 SpO2 Readings from Last 1 Encounters: 02/08/16 98% Anesthesia Evaluation . ROS/MED HX ENT/Pulmonary: (-) tobacco use, asthma, COPD and sleep apnea Neurologic: (-) seizures, CVA and migraines Cardiovascular: (-) hypertension, CAD, SAUCEDA, arrhythmias, valvular problems/murmurs and dyslipidemia METS/Exercise Tolerance: >4 METS Hematologic: (-) history of blood clots, anemia and other hematologic disorder Musculoskeletal: (-) arthritis GI/Hepatic: (-) GERD and liver disease Renal/Genitourinary: (-) renal disease and nephrolithiasis Endo: (+) Other Endocrine Disorder pelvic pain, endometriosis. Psychiatric: - neg psychiatric ROS Infectious Disease: (-) Recent Fever Malignancy: Other: Physical Exam Normal systems: cardiovascular, pulmonary and dental Airway Mallampati: II TM distance: >3 FB Neck ROM: full Dental Cardiovascular Rhythm and rate: regular and normal (-) no murmur Pulmonary breath sounds clear to auscultation Anesthesia Plan History & Physical Review ASA Status: 2 . NPO Status: > 8 hours Plan for General and ETT with Propofol induction. Maintenance will be Balanced. PONV prophylaxis: Ondansetron (or other 5HT-3) and Dexamethasone or Solumedrol Propofol infusion Postoperative Care Postoperative pain management: Multi-modal analgesia. Consents Anesthetic plan, risks, benefits and alternatives discussed with: Patient.. . documented in this encounter Miscellaneous Notes Anesthesia Care Transfer Note - Glo Mcclure APRN CARD FEEDER - 10/12/2017 10:01 AM CDT Patient: Akilah Mills Procedure(s): DIAGNOSTIC LAPAROSCOPY - Wound Class: II-Clean Contaminated Diagnosis: INCREASING PELVIC PAIN Diagnosis Additional Information: No value filed. Anesthesia Type: General, ETT Note: Airway :Face Mask Patient transferred to:PACU Comments: Extubated awake in OR, exchanging well, to recovery, VSSHandoff Report: Identifed the Patient, Identified the Reponsible Provider, Reviewed the pertinent medical history, Discussed the surgical course, Reviewed Intra-OP anesthesia mangement and issues during anesthesia, Set expectations for post- procedure period and Allowed opportunity for questions and acknowledgement of understanding Vitals: (Last set prior to Anesthesia Care Transfer) CARD FEEDER VITALS 10/12/2017 0925 - 10/12/2017 1001 10/12/2017 Pulse: 83 SpO2: 97 % Resp Rate (observed): (!) 4 Electronically Signed By: Glo Mcclure APRN CARD FEEDER October 12, 2017 10:01 AM documented in this encounter Plan of Treatment Not on filedocumented as of this encounter Visit Diagnoses Not on filedocumented in this encounter Administered Medications Inactive Administered Medications - up to 3 most recent administrations Medication Order MAR Action Action Date Dose Rate Site dexamethasone (DECADRON) injection Given 10/12/2017 9:12 AM CDT 4 mg PRN, Administer over 1 Minutes, Starting on [place] 10/12/17 at 0912, Anesthesia Intra-op fentaNYL (PF) (SUBLIMAZE) injection Given 10/12/2017 9:28 AM CDT 50 mcg PRN, moderate to severe pain, Administer over 3-5 Minutes, Starting on Kenia 10/12/17 at 0905, Anesthesia Intra-op Given 10/12/2017 9:05 AM CDT 50 mcg glycopyrrolate (ROBINUL) injection Given 10/12/2017 9:41 AM CDT 0.6 mg PRN, Administer over 1-2 Minutes, Starting on Kenia 10/12/17 at 0941, Anesthesia Intra-op lactated ringers infusion New Bag 10/12/2017 9:42 AM CDT Intravenous, CONTINUOUS PRN, Anesthesia Intra-op, Starting on Kenia 10/12/17 at 0902, Until Kenia 10/12/17 at 1001 New Bag 10/12/2017 9:02 AM CDT lidocaine injection 2% (MDV) Given 10/12/2017 9:05 AM CDT 80 mg PRN, Starting on Kenia 10/12/17 at 0905, Anesthesia Intra-op midazolam (VERSED) injection Given 10/12/2017 9:02 AM CDT 2 mg Administer over 2 Minutes, PRN, anxiety, Starting on Kenia 18 at 0902, Anesthesia Intra-op neostigmine (PROSTIGMINE) injection Given 10/12/2017 9:41 AM CDT 4 mg Intravenous, PRN, Starting on Kneia 18 at 0941, Anesthesia Intra-op ondansetron (ZOFRAN) injection Given 10/12/2017 9:43 AM CDT 4 mg PRN, nausea, vomiting, Administer over 2-5 Minutes, Starting on Kenia 18 at 0943, Anesthesia Intra-op PRE OP antibiotics NOT needed for this Given 10/12/2017 9:12 AM CDT 1 each surgical procedure CONTINUOUS, Starting on Kenia 10/12/17 at 0815, Until Kenia 10/12/17 at 0957, PRE OP antibiotics NOT needed for this surgical procedure., Pre-procedure propofol (DIPRIVAN) infusion Rate/Dose 10/12/2017 9:12 150 mcg/kg/min 90.6 mL/hr Intravenous, CONTINUOUS PRN, Change AM CDT Starting on Kenia 18 at 0905, Anesthesia Intra-op New Bag 10/12/2017 9:05 AM CDT 200 mcg/kg/min 120.8 mL/hr propofol (DIPRIVAN) injection 10 mg/mL v ial Given 10/12/2017 9:05 AM CDT 300 mg PRN, Starting on Kenia 18 at 0905, Anesthesia Intra-op rocuronium (ZEMURON) injection Given 10/12/2017 9:05 AM CDT 50 mg PRN, Starting on Kenia 10/12/17 at 0905, Anesthesia Intra-op documented in this encounter Care Teams Ems Instructor Relationship Specialty Start Date End Date No Ref-Primary, Physician PCP - General 10/12/17 11/01/20 documented as of this encounter
--- OUTSIDE RECORDS SUMMARY | 2022-01-18 07:47 | XMS_ITS | Encounter Summary ---
:1995 Author Organization [facility] Address [address] [place] [address] Care Team Providers Name Role Phone Destiny Elizondo Primary Care Provider Reason for Visit Reason Comments Central Retinal Vein Occlusion Follow Up Encounter Details Date Type Department Care Team Description 04/05/2016 Office Visit [facility] Eye Jaja Fitzgerald RVO (central retinal Clinic - Fernanda Wilkerson MD vein occlusion) [facility] [address] [facility] [address] [place], [place] 9th [address] Clin [address] [address] [place], [place] [phone] (Work) [phone] Social History Tobacco Use Types Packs/Day Years Used Date Smoking Tobacco: Never Alcohol Use Standard Drinks/Week Comments No 0 (1 standard drink = 0.6 oz pure alcoho l) Sex Assigned at Date Recorded Not on file documented as of this encounter Progress Notes Jaja Fitzgerald MD - 04/05/2016 4:07 PM CST CC - CRVO OS HPI - No change since LAMIN. Saw hematology, stopped OCP, no other abnormal results. Past History Akilah Mills is a 20 year old year-old patient who initially presented for blurred va and moderate pain in the left eye x 3 weeks with worsening that persisted/worsened approximately 1 week prior to presentation Went to [facility] and then was sent to Dr Pyle as va kept getting worse. Was then sent to ED the day before presentation by Dr Pyle and told she may have a CRVO LE and told to see a retinal specialist. Intermittent blurriness and temporal visual field loss started 3 weeks ago, initially present only briefly upon wakening, but progressively increased duration and severity, about 2 weeks ago became constant and has progressively worsened VA and increased field loss. Pain started 1 week ago with eye movement. Went to [facility] 02/03/16, found swollen veins, sent to Dr. Navjot Pyle 02/05/16, saw bleeding in eye and CRVO per patient. Saw [facility] again 02/08/16 d/t worsening, advised to go to ED Monday night. CBC- normal, ESR- normal, lupus anticoagulant - negative, PT- normal , PTT- normal, INR- normal, Activated Protein C Resistance - normal, Factor V Leiden- negative, anti-cardiolipin antibody-negative, vasculitis panel (myeloperoxidase antibody & proteinase 3 antibody) - negative, ANCA- negative, RPR-negative, quantiferon gold- negative, SIMRAN- negative, BMP-within normal limits, UA- - will await H-O evaluation and allow them to order these along with any other indicated tests - if above w/u negative, consider sleep study PAST OCULAR HISTORY None FOHx/FMHx: mother with recurrent clots, unclear etiology (mentioned possible Takaysu Arteritis) RETINAL IMAGING: OCT 03-08-16 right eye- normal contour, no IRF/SRF, stable left eye - no fluid, greatly imrproved US OD- 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 H/o CME OS - resolved after Avastin #1 on 02/11/16 - observe today 3. H/o Pain OS with eye movement - eval by Dr. Christopher for optic neuritis with MRI negative return to clinic: 2 months, OCT OU Amado Fonseca MD Retina Fellow ATTESTATION ATTENDING ATTESTATION: Complete documentation of historical and exam elements from today's encounter can be found in the full encounter summary report (not redupilcated in this progress note). I personally obtained the chiefcomplaint(s) and hisotry of present illness., I have confirmed and edited as necessary the CC, HPI, PMH/PSH, Social history, FMH, ROS, and exam/neuro findings as obtained by the soil conservation technician or others. Tati examined this patient myself. and I personally viewed the image(s) and studies listed above andthe documentation reflects my findings and interpretation. Jaja Fitzgerald MD, PhD Virtual Assistant For Advertisers, Vitreoretinal Surgery Department of Ophthalmology [facility] EMS TEST ANALYST documented in this encounter Nursing Notes Kaitlyn Coleman COT - 04/05/2016 3:26 PM CST Chief Complaints and History of Present Illnesses Patient presents with ??? Central Retinal Vein Occlusion Follow Up HPI Affected eye(s): Left Symptoms: No decreased vision No floaters Flashes Frequency: Constant Do you have eye pain now?: No Comments: Flashes more frequent otherwise VA the same. D/c control, condoms now. Per pt recentBP on the was good. Carito CASTELLON April 05, 2016 3:21 PM EMS TEST ANALYST documented in this encounter Plan of Treatment Not on filedocumented as of this encounter Procedures Procedure Name Priority Date/Time Associated Comments Diagnosis OVF 30-2 TOP OU Routine 04/05/2016 4:26 PM CRVO (central Resul ts for this SYSTEMS TEST ANALYST retinal vein procedure are i n occlusion) the results section. ULTRASOUND B-SCAN OU Routine 04/05/2016 4:07 PM CRVO (central Results for this (BOTH EYES) SYSTEMS TEST ANALYST retinal vein procedure are i n occlusion) the results section. OCT RETINA Routine 04/05/2016 4:07 PM CRVO (central Results for this SPECTRALIS OU (BOTH SYSTEMS TEST ANALYST retinal vein procedur e are in EYE) occlusion) the results section. FUNDUS PHOTOS OU Routine 04/05/2016 4:06 PM CRVO (central Resu lts for this (BOTH EYES) SYSTEMS TEST ANALYST retinal vein procedure are i n occlusion) the results section. documented in this encounter Results OVF 30-2 TOP OU (04/05/2016 4:26 PM SYSTEMS TEST ANALYST) Jaja Urias MD - 04/05/2016 4:27 PM SYSTEMS TEST ANALYST Patient cooperation: Reliable . Right Eye Reliability of the test: Good . Findings: Visual napier normal . Interpretation: Normal . Plan: Monitor . Interval: Same . Left Eye Reliability of the test: Good . Findings: Nonspecific defect . Interpretation: Abnormal . Plan: Monitor . Interval: Better . Jaja Fitzgerald MD OPHTHALMOLOGY Ultrasound B-scan OU (both eyes) (04/05/2016 4:07 PM SYSTEMS TEST ANALYST) Jaja Urias MD - 04/05/2016 4:07 PM SYSTEMS TEST ANALYST Patient cooperation: Reliable . Reliability of the test: Good . Test Findings: Abnormal . Interpretation: Abnormal . Plan: Monitor . Interval: Initial . Jaja Fitzgerald MD OPHTHALMOLOGY OCT Retina Spectralis OU (both eyes) (04/05/2016 4:07 PM SYSTEMS TEST ANALYST) Jaja Urias MD - 04/05/2016 4:07 PM SYSTEMS TEST ANALYST Patient cooperation: Reliable . Right Eye Reliability of the test: Good . Findings normal/abnormal: Normal OCT . Interpretation: Retinal disease . Plan: Monitor . Interval: Same . Left Eye Reliability of the test: Good . Findings normal/abnormal: Normal OCT . Interpretation: Retinal disease . Plan: Monitor . Interval: Same . Jaja Fitzgerald MD OPHTHALMOLOGY Fundus Photos OU (both eyes) (04/05/2016 4:06 PM SYSTEMS TEST ANALYST) Jaja Urias MD - 04/05/2016 4:06 PM SYSTEMS TEST ANALYST Patient cooperation: Reliable . Right Eye Reliability of the test: Good . Findings: Normal disc/macula/vessels . Interpretation: Normal . Plan: Monitor . Interval: Initial . Left Eye Reliability of the test: Good . Findings: Abnormal . Interpretation: Abnormal . Plan: Monitor . Interval: Initial . Jaja Fitzgerald MD OPHTHALMOLOGY documented in this encounter Visit Diagnoses Diagnosis CRVO (central retinal vein occlusion) Central vein occlusion of retina documented in this encounter Care Teams Merchandise Clerk Relationship Specialty Start Date End Date Destiny Elizondo PCP - General 02/08/16 06/22/17 [facility] [address] [facility] [place] [id number] documented as of this encounter
--- OUTSIDE RECORDS SUMMARY | 2022-01-18 07:47 | XMS_ITS | Encounter Summary ---
:1995 Author Organization [facility] Address [address] [place] [address]. [place] [address] Care Team Providers Name Role Phone Destiny Elizondo Primary Care Provider Reason for Visit Reason Comments Follow Up Central Retinal Vein Occlus ion OS Encounter Details Date Type Department Care Team Description 06/02/2016 Office Visit [facility] Eye AMY BinghamVO ( central retinal vein occlusion) (Primary Dx); Clinic - [place] Kari Miranda, Subjective visual disturbanc e - Right Eye; Patrice Ramos MD Drusen of optic disc, bilateral Building [address] [facility] [address] Clin [address] [place] [id number] [phone] Social History Tobacco Use Types Packs/Day Years Used Date Smoking Tobacco: Never Alcohol Use Standard Drinks/Week Comments No 0 (1 standard drink = 0.6 oz pure alcoho l) Sex Assigned at Date Recorded Not on file documented as of this encounter Progress Notes Kari Bingham MD - 06/02/2016 8:15 AM CST CC -?? floaters both eyes HPI - No change since LAMIN.?? Past History Akilah Mills is a?? 20 year old year-old patient with history CRVO 02/2016. Lab workup normal, stopped OCPs. Had avastin injection for CME 02/10 with resolution. Presents with one week history of increasing floaters in left eye, and 1 day history of floaters. Denies flashing light, denies pain. Malcolm notes increasing glare. She states that the floaters are black lines with a baer shadow and intermittent. At any given time, there are 2 floaters and they are visible >15 times daily CBC- normal, ESR- normal, [...] (mentioned possible Takaysu Arteritis) RETINAL IMAGING: OCT?? 03-08-16 right eye- normal contour, no IRF/SRF, [...] OS - diffuse depression, better than prior OCT 04/26/16 and today OD normal contour, no srf/irf OS normal contour, no srf/irf ASSESSMENT & PLAN 1. Subjective visual disturbance, both eyes - ocular migraine favored (no evidence of pvd/breaks on exam) - VA 20/20 OU - RT/RD precautions 2.?? Central Retinal Vein Occlusion OS ?- young patient, unclear etiology ?- onset 02/11/16 ?- likely non-ischemic given excellent vision today ?- saw hematology stopped OCP ?- Possible ON drusen Right eye > Left eye (not seen by Bscan) ?- consider sleep study - rare vitreous cell noted today, has had extensive negative w/u - will monitor 3.?? H/o CME OS ?- resolved after Avastin #1 on 02/11/16 ?- observe today 4.?? H/o Pain OS with eye movement ?- eval by Dr. Christopher for optic neuritis with MRI negative 5. Optic disc drusen both eyes - to consider ON autofluorescence, TONYA OCT once disc edema resolves RTC: [address] Fitzgerald and repeat OVF both eyes Kari Bingham MD PhD. Professor & Chair [employer] MEDIA MARKETING SPECIALIST documented in this encounter Nursing Notes Cleo Verduzco - 06/02/2016 8:15 AM CST Chief Complaints and History of Present Illnesses Patient presents with ??? Follow Up For Central Retinal Vein Occlusion OS HPI Affected eye(s): Both Symptoms: Duration: 1 month Frequency: Constant Do you have eye pain now?: No Comments: Pt. States that she is doing great after having control nexplanon removed. No longer having any symptoms BE. Cleo Verduzco COT 8:13 AM June 02, 2016 AL MEDIA MARKETING SPECIALIST documented in this encounter Plan of Treatment Not on filedocumented as of this encounter Procedures Procedure Name Priority Date/Time Associated Comments Diagnosis FUNDUS AUTOFLUORESCENCE Routine 06/02/2016 9:36 CRVO (central Results for this IMAGE (FAF) OU (BOTH AM SOCIAL MEDIA MARKETING SPECIALIST retinal vein procedu re are in EYES) occlusion) the results Subjective visual section. disturbance - Right Eye OCT RETINA SPECTRALIS OU Routine 06/02/2016 9:36 CRVO (central Results for this (BOTH EYE) AM SOCIAL MEDIA MARKETING SPECIALIST retinal vein procedure are i n occlusion) the results Subjective visual section. disturbance - Right Eye documented in this encounter Results Fundus Autofluorescence Image (FAF) OU (both eyes) (06/02/2016 9:36 AM SOCIAL MEDIA MARKETING SPECIALIST) Kari Morris MD - 9:36 AM SOCIAL MEDIA MARKETING SPECIALIST Patient cooperation: Reliable . Best available. Right Eye Reliability of the test: Good . Findings: Irregular . Interpretation: Retinal Disease . Plan: Monitor . Interval: Same . Left Eye Reliability of the test: Good . Findings: Irregular . Interpretation: Retinal Disease . Plan: Monitor . Interval: Same . Notes Mild signal optic nerve head drusen Kari Bingham MD OPHTHALMOLOGY OCT Retina Spectralis OU (both eyes) (06/02/2016 9:36 AM SOCIAL MEDIA MARKETING SPECIALIST) Kari Morris MD - 9:36 AM SOCIAL MEDIA MARKETING SPECIALIST Performed by: dcm . Patient cooperation: Reliable . Right Eye [...] - Primary Central vein occlusion of retina Subjective visual disturbance - Right Ey e Subjective visual disturbance, unspecifi ed Drusen of optic disc, bilateral documented in this encounter Care Teams Rn Residential Relationship Specialty Start Date End Date Destiny Elizondo PCP - General 02/08/16 06/22/17 [facility] [address] [facility] [place] [address] documented as of this encounter
--- OUTSIDE RECORDS SUMMARY | 2022-01-18 07:47 | XMS_ITS | Encounter Summary ---
:1995 Author Organization [facility] Address [address] [place] [address] Care Team Providers Name Role Phone Destiny Elizondo Primary Care Provider Reason for Visit Reason Comments Central Retinal Vein Occlusion Follow Up orders only f or imaging on 08/18/16 visit Encounter Details Date Type Department Care Team Description 08/18/[address] [facility] Eye Amado Fonseca, Central vein Clinic - [place] occlusion of retina Patrice Ramos [facility] [employer] O F (Primary Dx) [facility] [address] [place] [address] [address] Clin [address] [place] [phone] Social History Tobacco Use Types Packs/Day Years Used Date Smoking Tobacco: Never Alcohol Use Standard Drinks/Week Comments No 0 (1 standard drink = 0.6 oz pure alcoho l) Sex Assigned at Date Recorded Not on file documented as of this encounter Plan of Treatment Not on filedocumented as of this encounter Procedures Procedure Name Priority Date/Time Associated Comments Diagnosis OCT RETINA Routine 08/18/2016 8:31 AM Central vein Results f or this SPECTRALIS OU (BOTH CDT occlusion of retina p rocedure are in EYE) the results section. documented in this encounter Results OCT Retina Spectralis OU (both eyes) (08/18/2016 8:31 AM CDT) Narrative Amado Fonseca MD - 08/18/2016 8: 31 AM CDT Performed by: dcm . Patient cooperation: Reliable . Right Eye Reliability of the test: Good . Findings normal/abnormal: Normal OCT, Normal fovea . Interpretation: Normal . Interval: Same . Left Eye Reliability of the test: Good . Findings normal/abnormal: Normal OCT, Normal fovea . Interpretation: Normal . Plan: Monitor . Interval: Same . Amado Fonseca MD OPHTHALMOLOGY documented in this encounter Visit Diagnoses Diagnosis Central vein occlusion of retina - Prima ry documented in this encounter Care Teams Truck Driving Relationship Specialty Start Date End Date Destiny Elizondo PCP - General 02/08/16 06/22/17 [facility] [address] [place] [address] documented as of this encounter
--- OUTSIDE RECORDS SUMMARY | 2022-01-18 07:47 | XMS_ITS | Encounter Summary ---
:1995 Author Organization [facility] Address [address] [place] [address] Care Team Providers Name Role Phone MikhailSeth mchughth Renata Primary Care Provider Reason for Visit Reason Comments Follow Up Central Retinal Vein Occlusi on OS Encounter Details Date Type Department Care Team Description 03/08/2016 Office Visit [facility] Eye Jaja Fitzgerald RVO (central retinal Clinic - Fernanda Wilkerson MD vein occlusion) [facility] [address] [place] [address] 9th [address] Clin [address] [address] [place], [place] [phone] (Work) [phone] Social History Tobacco Use Types Packs/Day Years Used Date Smoking Tobacco: Never Alcohol Use Standard Drinks/Week Comments No 0 (1 standard drink = 0.6 oz pure alcoho l) Sex Assigned at Date Recorded Not on file documented as of this encounter Progress Notes Jaja Fitzgerald MD - 03/08/2016 2:54 PM CST CC - Blurred painful LE HPI - Patient reports significant improvement in vision since injection on 02/09/2016. Past History Akilah Mills is a 20 [...] week ago with eye movement. Went to [facility] 02/03/16, found swollen veins, sent to Dr. Navjot Pyle 02/05/16, saw bleeding in eye and CRVO per patient. Saw Lash[facility] again 02/08/16 d/t worsening, advised to go to ED Monday night. CBC- normal, ESR- normal, lupus anticoagulant - negative, PT- normal , PTT- normal, INR- normal, Activated Protein C Resistance - normal, Factor V Leiden- negative, anti-cardiolipin antibody-pending, vasculitis panel (myeloperoxidase antibody & proteinase 3 [...] 03-08-16 right eye- normal contour, no IRF/SRF, TRANSFILL TECHNICIAN 266 left eye - no fluid, greatly imrproved FA 02-09-16 RE: normal LE: (transits) slowed venous filling, extensive blocking from IRH, late leakage from ONH and in macula, diffuse staining of veins, no obvious ischemia ASSESSMENT & PLAN 1. 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 CME OS - greatly improved after Avastin #1 on 02/11/16 - observe today 3. H/o Pain OS with eye movement - eval by Dr. Christopher for optic neuritis with MRI negative return to clinic: 3-4 weeks, OCT, B-scan (looking for optic disc drusen OU), Optos photos OU Amado Fonseca MD Retina Fellow ATTESTATION [...] and exam/neuro findings as obtained by the public health technician or others. Tati examined this patient myself. and I personally viewed the image(s) and studies listed above andthe documentation reflects my findings and interpretation. Jaja Fitzgerald MD, PhD Set Up Mold Technician, Vitreoretinal Surgery Department of Ophthalmology [facility] SFILL TECHNICIAN documented in this encounter Nursing Notes Cleo Verduzco - 03/08/2016 2:11 PM CST Chief Complaints and History of Present Illnesses Patient presents with ??? Follow Up For Central Retinal Vein Occlusion OS HPI Affected eye(s): Both Symptoms: Duration: 2 weeks Frequency: Constant Do you have eye pain now?: No Comments: Pt. States that VA has been improving LE. Has been having some discharge in the morning LEJabier Verduzco COT 2:11 PM March 08, 2016 SFILL TECHNICIAN documented in this encounter Plan of Treatment Not on filedocumented as of this encounter Procedures Procedure Name Priority Date/Time Associated Comments Diagnosis OCT RETINA Routine 03/08/2016 3:32 PM CRVO (central Results for this SPECTRALIS OU (BOTH TRANSFILL TECHNICIAN retinal vein procedur e are in EYE) occlusion) the results section. documented in this encounter Results Ultrasound B-scan OU (both eyes) (04/05/2016 4:07 PM TRANSFILL TECHNICIAN) Narrative Jaja Fitzgerald MD - 04/05/2016 4:07 PM TRANSFILL TECHNICIAN Patient cooperation: Reliable . Reliability of the test: Good . Test Findings: Abnormal . Interpretation: Abnormal . Plan: Monitor . Interval: Initial . Jaja Fitzgerald MD OPHTHALMOLOGY OCT Retina Spectralis OU (both eyes) (04/05/2016 4:07 PM TRANSFILL TECHNICIAN) Jaja Urias MD - 04/05/2016 4:07 PM TRANSFILL TECHNICIAN Patient cooperation: Reliable . Right Eye Reliability of the test: Good . Findings normal/abnormal: Normal OCT . Interpretation: Retinal disease . Plan: Monitor . Interval: Same . Left Eye Reliability of the test: Good . Findings normal/abnormal: Normal OCT . Interpretation: Retinal disease . Plan: Monitor . Interval: Same . Jaja Fitzgerald MD OPHTHALMOLOGY Fundus Photos OU (both eyes) (04/05/2016 4:06 PM TRANSFILL TECHNICIAN) Jaja Urias MD - 04/05/2016 4:06 PM TRANSFILL TECHNICIAN Patient cooperation: Reliable . Right Eye Reliability of the test: Good . Findings: Normal disc/macula/vessels . Interpretation: Normal . Plan: Monitor . Interval: Initial . Left Eye Reliability of the test: Good . Findings: Abnormal . Interpretation: Abnormal . Plan: Monitor . Interval: Initial . Jaja Fitzgerald MD OPHTHALMOLOGY OCT Retina Spectralis OU (both eyes) (03/08/2016 3:32 PM TRANSFILL TECHNICIAN) Jaja Urias MD - 03/08/2016 3:32 PM TRANSFILL TECHNICIAN Patient cooperation: Reliable . Right Eye Reliability of the test: Good . Findings normal/abnormal: Normal OCT . Interpretation: Normal . Plan: Monitor . Interval: Same . Left Eye Reliability of the test: Good . Findings normal/abnormal: Abnormal OCT , Normal fovea . Interpretation: Retinal disease . Plan: Monitor . Interval: Better . Jaja Fitzgerald MD OPHTHALMOLOGY documented in this encounter Visit Diagnoses Diagnosis CRVO (central retinal vein occlusion) Central vein occlusion of retina CRVO (central retinal vein occlusion) Central vein occlusion of retina documented in this encounter Care Teams Employment Educational Coord Relationship Specialty Start Date End Date Destiny Elizondo PCP - General 02/08/16 06/22/17 [facility] [address] [facility] [place] [id number] documented as of this encounter
--- OUTSIDE RECORDS SUMMARY | 2022-01-18 07:47 | XMS_ITS | Encounter Summary ---
:1995 Author Organization [facility] Address [address] [place] [address] Care Team Providers Name Role Phone Mikhail, Destiny Yanez Primary Care Provider Encounter Details Date Type Department Care Team Description 03/18/2016 Orders Only [facility] Central retinal vein [address] [facility] [address] occlusion of left eye 1st Floor [place] [phone] Social History Tobacco Use Types Packs/Day Years Used Date Smoking Tobacco: Never Alcohol Use Standard Drinks/Week Comments No 0 (1 standard drink = 0.6 oz pure alcoho l) Sex Assigned at Date Recorded Not on file documented as of this encounter Plan of Treatment Not on filedocumented as of this encounter Procedures Procedure Name Priority Date/Time Associated Comments Diagnosis CARDIOLIPIN CARLOS IGG Routine 03/18/2016 4:01 PM Central retinal Results for this AND IGM [facility] vein occlusion of procedure are in left eye the results section. BETA 2 GLYCOPROTEIN 1 Routine 03/18/2016 4:01 PM Central retin al Results for this ANTIBODY IGM [facility] vein occlusion of procedure are in left eye the results section. BETA 2 GLYCOPROTEIN 1 Routine 03/18/2016 4:01 PM Central retin al Results for this ANTIBODY IGG [facility] vein occlusion of procedure are in left eye the results section. documented in this encounter Results Cardiolipin Acrlos IgG and IgM (03/18/2016 4:01 PM [facility]) [facility] Method Time Signature Cardiolipin <1.6 0.0 [facility] Antibody IgG Negative 19.9 [place] [facility] New method in use March 07, 2016. GPL-U/mL [facility] Cardiolipin 0.5 0.0 - [facility] Antibody IgM 19.9 [facility] MPL-U/mL [facility] Comment: Negative New method in use March 07, 2016. Specimen Anatomical Collection Method Collection Time Receive d Time (Source) Location / / Volume Laterality 03/18/2016 4:01 PM 6 4:03 [facility] PM [facility] Nevaeh Corral PA LAB - BLOOD ORDERABLES Performing Organization Address City/[facility]/ZIP Code Phon e Number [facility] [address] [place] [address] [facility] Beta 2 Glycoprotein 1 Antibody IgM (03/18/2016 4:01 PM [facility]) Patholo gist Method Time Signature Beta 2 <0.9 <7 U/mL [facility] Glycoprotein 1 Negative [facility] Antibody IgM [facility] Specimen Anatomical Collection Method Collection Time Receive d Time (Source) Location / / Volume Laterality Blood specimen 03/18/2016 4:01 PM 016 4:03 (specimen) [facility] PM [facility] Nevaehdeshawn VeeEllis PA LAB - BLOOD ORDERABLES Performing Organization Address City/State/ZIP Code Phon e Number [facility] [address] [place] [address] [facility] Beta 2 Glycoprotein 1 Antibody IgG (03/18/2016 4:01 PM [facility]) Analysis Performed At Patho logist Time Signature Beta 2 0.8 <7 U/mL [facility] Glycoprotein 1 [facility] Antibody IgG [facility] Comment: Negative Specimen Anatomical Collection Method Collection Time Receive d Time (Source) Location / / Volume Laterality Blood specimen 03/18/2016 4:01 PM 016 4:03 (specimen) [facility] PM [facility] Nevaeh Veetier PA LAB - BLOOD ORDERABLES Performing Organization Address City/[facility]/ZIP Code Phon e Number [facility] [address] [place], [place] [id number] [place] [address] documented in this encounter Visit Diagnoses Diagnosis Central retinal vein occlusion of left e ye Central vein occlusion of retina documented in this encounter 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
--- OUTSIDE RECORDS SUMMARY | 2022-01-18 07:47 | XMS_ITS | Encounter Summary ---
:1995 Author Organization [facility] Address [address] [place] [address]. [place] [address] Care Team Providers Name Role Phone Destiny Elizondo Primary Care Provider Reason for Visit (Routine) - Closed Specialty Diagnoses / Procedures Referred By Contact Refer red To Contact Radiology / Radiology. Diagnoses Kristie De La Cruz [phone] Multi: Xray and 2 MRI exams Uu Mri Procedures MR BRAIN AND ORBITS [address] [place] [address] Phone: Referral ID Status Reason Start Date Expiration Date Visits Requ ested Visits Authorized [id number] Closed 02/10/2016 02/09/2017 1 1 Encounter Details Date Type Department Care Team Description 02/11/2016 Hospital Encounter [facility] Amado Fonseca (central [facility] Imaging MD [place] retinal vein [address] [facility] occlusion) [facility] [id number] [phone] [address] [place] [address] (Wo rk) Social History Tobacco Use Types Packs/Day Years Used Date Smoking Tobacco: Never Alcohol Use Standard Drinks/Week Comments No 0 (1 standard drink = 0.6 oz pure alcoho l) Sex Assigned at Date Recorded Not on file documented as of this encounter Medications at Time of Discharge Medication Sig Dispensed Refills Start Date End Date predniSONE (DELTASONE) Take 3.5 tablets (70 25 tablet 0 06/201503/18/2016 20 MG tabletIndications: mg) by mouth daily Left optic neuropathy documented as of this encounter Plan of Treatment Not on filedocumented as of this encounter Procedures Procedure Name Priority Date/Time Associated Diagnosis Comme nts MR BRAIN AND ORBITS Routine 02/11/2016 7:27 PM CRVO (central R esults for this W CONTRAST CDT retinal vein procedure are i n occlusion) the results section. documented in this encounter Results MR Brain and Orbits (02/11/2016 7:27 PM CDT) Anatomical Region Laterality Modality Head, SUBRAD MR NEURO, UMP MR NEURO Magn eti Resonance Specimen (Source) Anatomical Location Collection Method / Collectio n Time Received Time / Laterality Volume Impressions 02/12/2016 9:25 AM CDT Impression: ?? 1. Regarding the orbits and globes, no f indings to suggest optic neuritis. No orbital mass. 2. Regarding the remainder of the brain, no abnormalities are demonstrated. I have personally reviewed the examinati on and initial interpretation and I agree with the findings. NIKIA NO MD Narrative 02/12/2016 9:25 AM CDT MR BRAIN AND ORBITS 02/11/2016 7:27 PM Orbit MRI without and with contrast Brain MRI without and with contrast History: ??possible optic neuritis, Cent ral retinal vein occlusion, unspecified eye, stable. Comparison: No prior similar studies Technique: Orbits: Axial T1-weighted, and axial and coronal T2-weighted images obtained without intravenous contrast. P ost-intravenous contrast (using gadolinium) axial and coronal T1- weighted images were obtained with fat-saturation, focused on the orbi ts. Brain: Axial susceptibility-weighted, di ffusion-weighted and FLAIR sequences were obtained of the whole bra in without intravenous contrast, and postcontrast axial T1-weig hted images were obtained through the whole brain. Contrast: 10 mL Gadavist Findings: Regarding the orbits, no definite mass i s noted of the globe, conal structures, or within the orbital fat on either side. The optic nerves appear normal. Regarding the remainder of the brain, th e ventricles are proportionate to the cerebral sulci. There is no mass effect or midline shift intracranially. The major intracranial v ascular flow-voids are patent. Post-contrast images of the whole brain demonstrate no abnormal intra or extra-axial contrast enhancement. Procedure Note Nikia No MD - 02/12/2016 MR BRAIN AND ORBITS 02/11/2016 7:27 PM Orbit MRI without and with contrast Brain MRI without and with contrast History: possible optic neuritis, Centra l retinal vein occlusion, unspecified eye, stable. Comparison: No prior similar studies Technique: Orbits: Axial T1-weighted, and axial and coronal T2-weighted images obtained without intravenous contrast. P ost-intravenous contrast (using gadolinium) axial and coronal T1- weighted images were obtained with fat-saturation, focused on the orbi ts. Brain: Axial susceptibility-weighted, di ffusion-weighted and FLAIR sequences were obtained of the whole bra in without intravenous contrast, and postcontrast axial T1-weig hted images were obtained through the whole brain. Contrast: 10 mL Gadavist Findings: Regarding the orbits, no definite mass i s noted of the globe, conal structures, or within the orbital fat on either side. The optic nerves appear normal. Regarding the remainder of the brain, th e ventricles are proportionate to the cerebral sulci. There is no mass effect or midline shift intracranially. The major intracranial v ascular flow-voids are patent. Post-contrast images of the whole brain demonstrate no abnormal intra or extra-axial contrast enhancement. Impression: 1. Regarding the orbits and globes, no f indings to suggest optic neuritis. No orbital mass. 2. Regarding the remainder of the brain, no abnormalities are demonstrated. I have personally reviewed the examinati on and initial interpretation and I agree with the findings. 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
--- OUTSIDE RECORDS SUMMARY | 2022-01-18 07:47 | XMS_ITS | Encounter Summary ---
:1995 Author Organization Driver Address [address] [place] [address]. [place] [address] Care Team Providers Name Role Phone No Ref-Primary, Physician Primary Care Provider [phone] Reason for Visit Auth/Cert Specialty Diagnoses / Procedures Referred By Contact Refer red To Contact Surgery Diagnoses INCREASING PELVIC PAIN Sh Periop Services Procedures LAPAROSCOPY OPERATIVE ADULT, OPERATIVE HYSTEROSCOPY WITH MORCELLATOR (MABRY & NEPHEW), REMOVE INTRAUTERINE DEVICE, INSERT INTRAUTERINE DEVICE [address] [place] [address] Phone: Referral ID Status Reason Start Date Expiration Date Visits Requ ested Visits Authorized [id number] 1 1 Encounter Details Date Type Department Care Team Description 10/12/2017 Surgery [facility] Brian Ritter DIAGN OSTIC LAPAROSCOPY [place] Peri Blair Ding MD Services RETIRED [address] [place] [address] Surgery Details Date/Time Status Location OR Service Patient Case Case Traum a Class Class Type Case? 10/12/17 8:55 AM Posted Z SH SD SD 23 Gynecology Same Day Surgery Panel 1 Procedure LRB Anes Op Region Wound Class Commen ts DIAGNOSTIC N/A General Abdomen II-Clean Contaminated ROGER GNOSTIC LAPAROSCOPY LAPAROSCOPY Surgeon Surgeon Role Service Panel Brian Ritter MD Primary Gynecology 1 documented in this encounter Social History Tobacco Use Types Packs/Day Years Used Date Smoking Tobacco: Never Smokeless Tobacco: Never Alcohol Use Standard Drinks/Week Comments No 0 (1 standard drink = 0.6 oz pure alcoho l) Sex Assigned at Date Recorded Not on file documented as of this encounter Last Filed Vital Signs Vital Sign Reading Time Taken Comments Blood Pressure 101/69 10/12/2017 12:20 PM CDT Pulse - - Temperature 36.4 ??C (97.5 ??F) 10/12/2017 8:08 AM CDT Respiratory Rate 18 10/12/2017 12:20 PM CDT Oxygen Saturation 100% 10/12/2017 12:20 PM CDT Inhaled Oxygen Concentration - - Weight 100.7 kg (221 lb 14.4 oz) 10/12/2017 8:08 AM CDT Height 170.2 cm (5' 7) 10/12/2017 8:08 AM CDT Body Mass Index 34.75 10/12/2017 8:08 AM CDT documented in this encounter Discharge Instructions Discharge InstructionsMaribel Lainez RN - 10/12/2017 11:23 AM CDT Same Day Surgery Discharge Instructions for Sedation and General Anesthesia ?? It's not unusual to feel dizzy, light-headed or faint for up to 24 hours after surgery or while taking pain medication. If you have these symptoms: sit for a few minutes before standing and have someone assist you when you get up to walk or use the bathroom. ?? You should rest and relax for the next 24 hours. We recommend you make arrangements to have an adult stay with you for at least 24 hours after your discharge. Avoid hazardous and strenuous activity. ?? DO NOT DRIVE any vehicle or operate mechanical equipment for 24 hours following the end of your surgery. Even though you may feel normal, your reactions may be affected by the medication you have received. ?? Do not drink alcoholic beverages for 24 hours following surgery. ?? Slowly progress to your regular diet as you feel able. It's not unusual to feel nauseated and/or vomit after receiving anesthesia. If you develop these symptoms, drink clear liquids (apple juice, chaz sheldon, broth, 7-up, etc. ) until you feel better. If your nausea and vomiting persists for 24 hours, please notify your surgeon. ?? All narcotic pain medications, along with inactivity and anesthesia, can cause constipation. Drinking plenty of liquids and increasing fiber intake will help. ?? For any questions of a medical nature, call your surgeon. ?? Do not make important decisions for 24 hours. ?? If you had general anesthesia, you may have a sore throat for a couple of days related to the breathing tube used during surgery. You may use Cepacol lozenges to help with this discomfort. If it worsens or if you develop a fever, contact your surgeon. ?? If you feel your pain is not well managed with the pain medications prescribed by your surgeon, please contact your surgeon's office to let them know so they can address your concerns. [facility] D&C OR Laparoscopy Discharge Instructions ACTIVITY: You may restart normal activities as your abdominal discomfort disappears. You may expect some discomfort under the ribs and shoulder area for the first 24 hours. In nearly all cases, this will disappear shortly after the first day. It is certainly permissible to climb stairs, shower, and do ordinary,quiet activities. More vigorous activities such as sports, intercourse and work may be resumed in 48-72 hours as seems to befit your situation. OFFICE VISIT: Please call a day or two after your surgery to make an appointment in approximately 2 weeks to discuss the results of your surgery and have your check-up. VAGINAL DISCHARGE: You may have some bloody vaginal discharge for as long as one week. Ordinary tampons may be used after 3-4 days. INCISIONAL CARE: Keep incisions clean and dry for 24 hours. You may shower tomorrow. No bathing or swimming for 3-5 days. If you have steri-strips, they should remain in place 3-5 days, after which they can be removed. TEMPERATURE: If you develop a temperature elevation of 101?? or higher, please call our office immediately. RESTRICTIONS: Due to the effects of general anesthesia, please do not drive a car, drink alcoholic beverages, nor operate complex machinery in the first 24 hours following surgery. PLEASE FEEL FREE TO CALL OUR OFFICE IF ANY QUESTIONS OR PROBLEMS ARISE. [facility] Sanket Croft M.D. Michael Hood M.D. Brian Ritter M.D. Barbra Meza M.D. Liz Stinson M.D. Akilah Chaparro M.D. Vannessa Harriseler, M.D. Barbra Hernandez M.D. [facility] [address] [facility] [address] [facility] [address] [place] [address] (Telephone) [phone] (Telephone) [facility] If you have questions or concerns about your procedure, Call Dr. Ritter at [phone] Today you received Ibuprofen 800mg at 11:20am. documented in this encounter Medications at Time of Discharge Medication Sig Dispensed Refills Start Date End Date oxyCODONE IR Take 1-2 tablets (5-10 12 tablet 0 10/12/2017 04/20/2020 (ROXICODONE) 5 MG mg) by mouth every 3 tabletIndications: hours as needed for Dysmenorrhea pain or other (Moderate to Severe) paragard intrauterine 1 each by Intrauterine 0 04/20/2020 copper route once documented as of this encounter Progress Notes Brian Ritter MD - 10/12/2017 9:43 AM CDT Op note Diagnostic laparoscopy, Findings -normal pelvis ebl 10 c.c. documented in this encounter Nursing Notes Maribel Lainez RN - 10/12/2017 11:25 AM CDT PNDS met, po per I&O sheet. Pt dressed, up in recliner and transported to Phase 2. documented in this encounter Miscellaneous Notes Op Note - Brian Ritter MD - 10/12/2017 9:49 AM CDT Procedure Date: 10/12/2017 DATE OF SERVICE: 10/12/2017. PREOPERATIVE DIAGNOSIS: Worsening dysmenorrhea, dyspareunia. POSTOPERATIVE DIAGNOSIS: Worsening dysmenorrhea, dyspareunia. PROCEDURE: Laparoscopy. OPERATIVE PROCEDURE: The patient was prepped and draped in the lithotomy position under general anesthetic. Examination at this time revealed the uterus to be slightly bulky and anteverted. A single-tooth tenaculum was applied to the anterior lip of the cervix in a transverse manner and a cervical cannula inserted into the cervix. A small incision was made in the infraumbilical fold. Veress needle was inserted into the peritoneal cavity. Peritoneal cavity was insufflated with 3 liters of carbon dioxide. The Veress needle was then removed. The 5 mm expandable trocar and sheath were then inserted into the incision and the upper abdomen was visualized and found to be normal. Examination of the pelvisrevealed the vesicouterine fold of the peritoneum to be normal. With the aid of a suprapubic 5 mm accessory trocar site, the rest of the pelvis was visualized. Both tubes were normal to their pristine fimbriated ends. Both ovaries were normal on their medial and lateral aspects as were both ovarian fos sa. The cul-de-sac was negative. Uterosacral ligaments were negative as well. No abnormalities were detected. The procedure was then terminated. The peritoneal cavity was emptied of its gas. The incisions closed with Steri-Strips. Total estimated blood loss for the procedure was approximately 10 mL. The patient left the operating room in good condition. BRIAN RITTER MD MT: NTS Name: AKILAH CLINE Account: [id number] : 1995 Procedure Date: 10/12/2017 Document: [id number] documented in this encounter Plan of Treatment Not on filedocumented as of this encounter Procedures Procedure Name Priority Date/Time Associated Comments Diagnosis LAPAROSCOPY 10/12/2017 8:41 AM INCREASING PELVIC CDT PAIN HCG QUANTITATIVE STAT 10/12/2017 8:20 AM Resul ts for this CDT procedure are i n the results section. documented in this encounter Results HCG quantitative (10/12/2017 8:20 AM CDT) P athologist Signature HCG Quantitative <1 0 - 5 IU/L 10/12/2017 HONOBIA Serum 8:48 AM CDT [facility] Specimen Anatomical Collection Method Collection Time Receive d Time (Source) Location / / Volume Laterality Blood specimen 10/12/2017 8:20 AM 018 8:24 (specimen) CDT AM CDT Brian Ritter MD LAB - BLOOD ORDERA BLES Performing Organization Address City/State/ZIP Code Phon e Number M [facility] [address] [address] [phone] [facility] [address] [address], [facility] [phone] documented in this encounter Visit Diagnoses Not on filedocumented in this encounter Administered Medications Inactive Administered Medications - up to 3 most recent administrations Medication Order MAR Action Action Date Dose Rate Site albuterol neb solution 2.5 mg 2.5 mg, Nebulization, EVERY 4 HOURS PRN, shortness of breath / dyspnea, Starting on Kenia 10/12/17 at 1008, PACU fentaNYL (PF) (SUBLIMAZE) injection 25-50 Given 10/12/2017 10:21 AM CDT 50 mcg mcg 25-50 mcg, Intravenous, EVERY 2 MIN PRN, other, acute pain, Starting on Kenia 10/12/17 at 1008, MAX cumulative dose = 250 mcg. Use Fentanyl initially, as a short acting agent for acute pain control. If insufficient, or a longer acting agent is needed, begin Morphine or Hydromorphone if ordered. For ordered doses up to 100 mcg give IV Push undiluted over a minimum of 3-5 minutes., PACU Given 10/12/2017 10:12 AM CDT 50 mcg hydrALAZINE (APRESOLINE) injection 2.5-5 mg 2.5-5 mg, Intravenous, EVERY 10 MIN PRN, high blood pressure, for Systolic Blood Pressure greater than 160 and Heart Rate greater than 60 bpm., Starting on Kenia 10/12/17 at 1008, Max cumulative dose = 20 mg. FOR USE I N PACU ONLY, DC WHEN TRANSFERRED TO FLOOR. For ordered doses up to 40 mg, give IV Push undiluted over 1 minute., PACU HYDROmorphone (PF) (DILAUDID) injection 0.3-0.5 mg 0.3-0.5 mg, Intravenous, EVERY 5 MIN PRN , other, acute pain.?May administer if Respiratory Rate is greater than 10, Sta rting on Kenia 10/12/17 at 1008, If fentanyl is also ordered, use HYDROmorphone if pain control insuff icient with fentanyl or a longer acting agent is needed. Max cumul ative dose = 2 mg For ordered doses up to 4 mg give IV Push undiluted. Administer each 2mg over 2- 5 minutes., PACU ibuprofen (ADVIL/MOTRIN) tablet 800 mg Given 10/12/2017 11:21 AM CDT 800 mg 800 mg, Oral, ONCE, On Kenia 10/12/17 at 1100, For 1 dose, Patient takes ibuprofen 800mg at home and tolerates well., PACU lactated ringers infusion at 100 mL/hr, Intravenous, CONTINUOUS, C ontinue until IV catheter is weaned, PACU, Starting on Kenia 10/12/17 at 1015, Until Kenia 10/12/17 at 14 32 naloxone (NARCAN) injection 0.1-0.4 mg 0.1-0.4 mg, Intravenous, EVERY 2 MIN PRN , opioid reversal, Starting on Kenia 10/12/17 at 1008, For 24 hours, For apnea or imminent respirato ry arrest: give 0.4 mg IV undiluted Q 2 minutes PRN until desired degree of reversal is obtained, stop opioid and notify provider. Continue monitoring until dischar ge criteria are met for a minimum of 2 hours. For severe sedation, decrease in respiratory depth, quality or respiratory rate less than 8: give 0.1 m g IV Q 2 minutes x 3 doses, stop opioid and notify provider. Try to minimize reversa l of analgesia especially in end-of-life patients For ordered doses up to 2mg giv e IVP. Give each 0.4mg over 15 seconds in emergency situations. For non-emergent s ituations further dilute in 9mL of NS to facilitate titration of response., Post-procedure ondansetron (ZOFRAN) injection 4 mg 4 mg, Intravenous, EVERY 30 MIN PRN, jessenia sea, Administer over 2-5 Minutes, Starting on Kenia 10/12/17 at 1008, For 2 doses, MAX total dose = 8 mg, including OR dosing. If not resolved in 15 minutes, then go to step 2 [prochlo rperazine (COMPAZINE), if ordered]. Irritant. For ordered doses up to 4 mg, give IV Push undiluted over 2-5 minutes., PACU ondansetron (ZOFRAN-ODT) ODT tab 4 mg 4 mg, Oral, EVERY 30 MIN PRN, nausea, St arting on Kenia 10/12/17 at 1008, For 2 doses, MAX total dose = 8 mg, including OR dosi ng. If not resolved in 15 minutes, then go to step 2 [prochlorperazine (COMPAZINE), if ordered]. With dry hands, peel back foil backing and gently remove tablet; do not push ora l disintegrating tablet through foil backing; administer immediately on tongue and oral disintegrating tablet dissolves in seconds; then swallo w with saliva; liquid not required., PACU oxyCODONE IR (ROXICODONE) tablet 5 mg Given 10/12/2017 10:49 AM CDT 5 mg 5 mg, Oral, ONCE PRN, other, pain control or improvement in physical function.??, Starting on Kenia 10/12/17 at 1008, For 1 dose, Notify provider to assess for uncontrolled pain or analgesic side effects., Post-procedure prochlorperazine (COMPAZINE) injection 1 0 mg 10 mg, Intravenous, EVERY 6 HOURS PRN, nausea, vomitin g, Administer over 1-2 Minutes, Starting on Kenia 10/12/17 at 1008, This is Step 2 of the nausea and vomiting protocol. If nausea not resolved in 15 minutes, give m etoclopramide (REGLAN) if ordered (step 3 of nausea and vomiting protocol) For o rdered doses up to 10 mg, give IV Push undiluted. Each 5mg over 1 minute., PACU sodium chloride 0.9% Given 10/12/2017 9:25 AM 1,000 mLs Operative (bottle) irrigation CDT Site/Surgical S ite PRN, Starting on Kenia 10/12/17 at 0925, Intra-procedure documented in this encounter Active and Recently Administered Medications Times are shown in CDT. Scheduled Medication Order 10/10/2017 10/11/2017 10/12/2017 ibuprofen (ADVIL/MOTRIN) tablet 800 mg (COMPLETED) 1121 (Given - Provider: Maribel Lainez RN) 800 mg, Oral, ONCE, On Kenia 18 at 110 0, For 1 dose, Patient takes ibuprofen 800mg at home and tolerates well., PACU Continuous Medication Order 10/10/2017 10/11/2017 10/12/2017 lactated ringers infusion 1015 ( Canceled Entry - Provider: Orders Generic Provider - Comment: Automatically canceled at discontinue of medication order) at 100 mL/hr, Intravenous, CONTINUOUS, C ontinue until IV catheter is weaned, PACU, Starting Kenia 10/12/17 at 1015, Until Kenia 718 at 1432 PRE OP antibiotics NOT needed for this surgical procedure (CANCE LED) 0912 (Given - Provider: Glo Rutledge APRN CRNA) CONTINUOUS, Starting Kenia 10/12/17 at 0815, Until Kenia 718 at 0957, PRE OP antibiotics NOT needed for this surgical procedure., Pre-procedure PRN Medication Order 10/10/2017 10/11/2017 10/12/2017 albuterol neb solution 2.5 mg 2.5 mg, Nebulization, EVERY 4 HOURS PRN, shortness of breath / dyspnea, Starting Kenia 18 at 1008, PACU fentaNYL (PF) (SUBLIMAZE) injection 25-50 mcg 1012 (Given - Provider: Maribel Lainez RN)1021 (Given - Provider: Maribel Lainez RN) 25-50 mcg, Intravenous, EVERY 2 MIN PRN, Starting Kenia 7/18 at 1008, other, acute pain, MAX cumulative dose = 250 mcg. Use Fentanyl initially, as a short acting agent for acute pain control. If insuffi cient, or a longer acting agent is neede d, begin Morphine or Hydromorphone if ordered. For ordered doses up to 100 mcg give IV Push undiluted over a minimum of 3-5 minutes., PACU hydrALAZINE (APRESOLINE) injection 2.5-5 mg 2.5-5 mg, Intravenous, EVERY 10 MIN PRN, high blood pressure, for Systolic Blood Pressure greater than 160 and Heart Rate greater than 60 bpm., Starting Kenia 7/08/25 at 1008, Max cumulative dose = 20 mg. FOR USE IN PACU ONLY, DC WHEN TRANSFERRE D TO FLOOR. For ordered doses up to 40 mg, give IV Push undiluted over 1 minute., PACU HYDROmorphone (PF) (DILAUDID) injection 0.3-0.5 mg 0.3-0.5 mg, Intravenous, EVERY 5 MIN PRN , Starting Kenia 7/18 at 1008, Until Kenia 7/18 at 1432, other, acute pain.?May administer if Respiratory Rate is greater than 10, PACU, If fentanyl is also or dered, use HYDROmorphone if pain control insufficient with fentanyl or a longer acting agent is needed. Max cumulative dose = 2 mg For ordered doses up to 4 mg give IV Push undiluted. Administer each 2mg over 2-5 minutes. naloxone (NARCAN) injection 0.1-0.4 mg 0.1-0.4 mg, Intravenous, EVERY 2 MIN PRN , opioid reversal, Starting Kenia 718 at 1008, For 24 hours, For apnea or imminent respiratory arrest: give 0.4 mg IV undiluted Q 2 minutes PRN until desired deg ree of reversal is obtained, stop opioid and notify provider. Continue monitoring until discharge criteria are met for a minimum of 2 hours. For severe sedation, decrease in respiratory depth, quality o r respiratory rate less than 8: give 0.1 mg IV Q 2 minutes x 3 doses, stop opioid and notify provider. Try to minimize reversal of analgesia especially in end-of-life patients For ordered doses up to 2m g give IVP. Give each 0.4mg over 15 seco nds in emergency situations. For non- emergent situations further dilute in 9mL of NS to facilitate titration of response., Post-procedure NO Rho (D) immune globulin (RhoGam) needed - NOT obstetric patie nt CONTINUOUS PRN, Starting Kenia 10/12/17 at 1 008, Until Kenia 10/12/17 at 1432, Post-procedure ondansetron (ZOFRAN) injection 4 mg(Linked Group 1) 4 mg, Intravenous, EVERY 30 MIN PRN, jessenia sea, Administer over 2-5 Minutes, Starting Kenia 10/12/17 at 1008, For 2 doses, MAX total dose = 8 mg, including OR dosing. If not resolved in 15 minutes, then go to step 2 [prochlorperazine (COMPAZINE), if ordered]. Irritant. For ordered doses up to 4 mg, give IV Push undiluted over 2-5 minutes., PACU ondansetron (ZOFRAN-ODT) ODT tab 4 mg(Linked Group 1) 4 mg, Oral, EVERY 30 MIN PRN, nausea, St arting Kenia 10/12/17 at 1008, For 2 doses, MAX total dose = 8 mg, including OR dosing. If not resolved in 15 minutes, then go to step 2 [prochlorperazine (COMPAZINE) , if ordered]. With dry hands, peel back foil backing and gently remove tablet; do not push oral disintegrating tablet through foil backing; administer immediately on tongue and oral disintegrating tabl et dissolves in seconds; then swallow with saliva; liquid not re quired., PACU oxyCODONE IR (ROXICODONE) tablet 5 mg (COMPLETED) 1049 (Given - Provider: Maribel Lainez RN) 5 mg, Oral, ONCE PRN, other, pain contro l or improvement in physical function.??, Starting on Kenia 10/12/17 at 1008, For 1 dose, Notify provider to assess for uncontrolled pain or analgesic side effects., Post-procedure prochlorperazine (COMPAZINE) injection 10 mg 10 mg, Intravenous, EVERY 6 HOURS PRN, n ausea, vomiting, Administer over 1-2 Minutes, Starting Kenia 10/12/17 at 1008, This is Step 2 of the nausea and vomiting protocol. If nausea not resolved in 15 minute s, give metoclopramide (REGLAN) if order ed (step 3 of nausea and vomiting protocol) For ordered doses up to 10 mg, give IV Push undiluted. Each 5mg over 1 minute., PACU sodium chloride 0.9% (bottle) irrigation (CANCELED) 0925 (Given - Provider: Brian Ritter MD) PRN, Starting Kenia 10/12/17 at 0925, Intra-procedure Linked Groups Order Group 1: ondansetron (ZOFRAN-ODT) ODT tab 4 mgJump to med 4 mg, Oral, EVERY 30 MIN PRN, nausea, St arting Kenia 10/12/17 at 1008, For 2 doses
MAX total dose = 8 mg, including OR dosing. If not resolved in 15 minutes, then go to step 2 [prochlorperazine (CO MPAZINE), if ordered]. With dry donald ds, peel back foil backing and gently remove tablet; do not push oral disintegrating tablet through foil backing; administer immediately on tongue and oral di sintegrating tablet dissolves in seconds ; then swallow with saliva; liquid not required.
PACU Or ondansetron (ZOFRAN) injection 4 mgJump to med 4 mg, Intravenous, EVERY 30 MIN PRN, jessenia sea, Administer over 2-5 Minutes, Starting Kenia 10/12/17 at 1008, For 2 doses
MAX total dose = 8 mg, including OR dosing. If not resolved in 15 minutes, the n go to step 2 [prochlorperazine (COMPAZ INE), if ordered]. Irritant. For ordered doses up to 4 mg, give IV Push undiluted over 2-5 minutes.
PACU documented in this encounter Care Teams Torpedoman'S Mate Relationship Specialty Start Date End Date No Ref-Primary, Physician PCP - General 10/12/17 11/01/20 documented as of this encounter
--- OUTSIDE RECORDS SUMMARY | 2022-01-18 07:47 | XMS_ITS | Encounter Summary ---
:1995 Author Organization [place] Address [address] [place] [address]. [place] [address] Care Team Providers Name Role Phone Destiny Elizondo Primary Care Provider Reason for Visit Reason Comments Follow Up Central Retinal Vein Occlusi on OS Encounter Details Date Type Department Care Team Description 05/04/2016 Office Visit [facility] Eye AMY BinghamVO ( central retinal vein occlusion) (Primary Dx); [place] - [place] Kari Miranda, Subjective visual disturbanc e - Right Eye Patrice Ramos MD Building [address] [facility] [address] [address] [address] [place] [id number] [phone] Social History Tobacco Use Types Packs/Day Years Used Date Smoking Tobacco: Never Alcohol Use Standard Drinks/Week Comments No 0 (1 standard drink = 0.6 oz pure alcoho l) Sex Assigned at Date Recorded Not on file documented as of this encounter Progress Notes Kari Bingham MD - 05/04/2016 8:47 AM CST CC -?? floaters both eyes [...] diffuse depression, better than prior OCT 04/26/16 OD normal contour, no srf/irf OS normal [...] for optic neuritis with MRI negative 5. ? 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 Amilcar Fonseca MD Retina Fellow Attestation: I have seen and examined the patient with Dr. Fonseca and agree with the findings in this note. Kari Bingham MD PhD. Professor & Chair L MANAGER documented in this encounter Nursing Notes Maureen Woody - 05/04/2016 8:21 AM CST Chief Complaints and History of Present Illnesses Patient presents with ??? Follow Up For Central Retinal Vein Occlusion OS HPI Affected eye(s): Left Symptoms: No blurred vision No decreased vision Do you have eye pain now?: No Comments: Pt states vision and eyes are stable since last visit. Maureen CASTELLON 8:21 AM May 04, 2016 L MANAGER documented in this encounter Plan of Treatment Not on filedocumented as of this encounter Visit Diagnoses Diagnosis CRVO (central retinal vein occlusion) - Primary Central vein occlusion of retina Subjective visual disturbance - Right Ey e Subjective visual disturbance, unspecifi ed documented in this encounter Care Teams Criminal Defense Attorney Relationship Specialty Start Date End Date Destiny Elizondo PCP - General 02/08/16 06/22/17 [facility] [id number] [place] [id number] documented as of this encounter
--- OUTSIDE RECORDS SUMMARY | 2022-01-18 07:47 | XMS_ITS | Encounter Summary ---
:1995 Author Organization [place] Address [address] [place] [address] Care Team Providers Name Role Phone No Ref-Primary, Physician Primary Care Provider [phone] Kari Bingham MD Unavailable [phone] Kari Bingham MD Unavailable [phone] Ernst Lopez MD Primary Care Provider Encounter Details Date Type Department Care Team Description 06/26/2017 [facility] - [facility] Ernst Lopez, [facility] [address] [address] [phone] Social History Tobacco Use Types Packs/Day Years Used Date Smoking Tobacco: Never Smokeless Tobacco: Never Alcohol Use Standard Drinks/Week Comments No 0 (1 standard drink = 0.6 oz pure alcoho l) Sex Assigned at Date Recorded Not on file COVID-19 Exposure Response Date Recorded In the last month, have you been in contact with No / Unsure 04/20/2020 3:05 PM AVICULTURIST someone who was confirmed or suspected to have Coronavirus / COVID-19? documented as of this encounter Plan of Treatment Not on filedocumented as of this encounter Visit Diagnoses Not on filedocumented in this encounter Care Teams Mink Farmer Relationship Specialty Start Date End Date No Ref-Primary, PCP - General 10/12/17 11/01/20 Physician Ernst Lopez MD PCP - General Family Practice 06/23/17 10/11/17 Kari Bingham MD Ophthalmology 04/15/20 MD Ruth [address] [place] [address] Kari Bingham Assigned Surgical 04/26/20 MD Ruth Provider [address] [place] [address] documented as of this encounter
--- OUTSIDE RECORDS SUMMARY | 2022-01-18 07:47 | XMS_ITS | Encounter Summary ---
:1995 Author Organization [place] Address [address] [place] [address] Care Team Providers Name Role Phone Destiny Elizondo Primary Care Provider Reason for Visit Reason Onset Date Comments Floaters Both Eyes 04/26/2016 Encounter Details Date Type Department Care Team Description 04/26/2016 Telephone [facility] Eye Jaja Fitzgerald loaters Both Eyes [facility] [place] [facility] [place] [address] [facility] [address] [place] [address] Social History Tobacco Use Types Packs/Day Years Used Date Smoking Tobacco: Never Alcohol Use Standard Drinks/Week Comments No 0 (1 standard drink = 0.6 oz pure alcoho l) Sex Assigned at Date Recorded Not on file documented as of this encounter Miscellaneous Notes Telephone Encounter - Tevin Zhang RN - 04/26/2016 1:23 PM CST 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 Pt calling in reporting bilateral large floaters-- giant lines in vision Visual acuity and peripheral vision stable No flashing Pt scheduled today for archie Zhang RN 1:25 PM 04/26/2016 PLANNING ADVISOR documented in this encounter Plan of Treatment Not on filedocumented as of this encounter Visit Diagnoses Not on filedocumented in this encounter Care Teams Shipyard Supervisor Relationship Specialty Start Date End Date Destiny Elizondo PCP - General 02/08/16 06/22/17 [facility] [id number] documented as of this encounter
--- OUTSIDE RECORDS SUMMARY | 2022-01-18 07:47 | XMS_ITS | Encounter Summary ---
:1995 Author Organization [place] Address [address] [place] [address] Care Team Providers Name Role Phone Destiny Elizondo Primary Care Provider Encounter Details Date Type Department Care Team Description 02/09/[address] [facility] Eye Jaja Fitzgerald RVO (central retinal Clinic - Fernanda Wilkerson MD vein occlusion) [address] ( Primary Dx) [address] 9[address] Fl Clin 9A [address] [place], [place] [phone] (Wo rk) [address] [phone] Social History Tobacco Use Types Packs/Day Years Used Date Smoking Tobacco: Never Alcohol Use Standard Drinks/Week Comments No 0 (1 standard drink = 0.6 oz pure alcoho l) Sex Assigned at Date Recorded Not on file documented as of this encounter Plan of Treatment Not on filedocumented as of this encounter Results OCT Retina Spectralis OU (both eyes) (02/09/2016 12:34 PM CDT) Jaja Urias MD - 02/09/2016 12:34 PM CDT Patient cooperation: Reliable . Right Eye Reliability of the test: Good . Findings normal/abnormal: Abnormal OCT . Interpretation: Retinal disease . Plan: Monitor . Interval: Same . Left Eye Reliability of the test: Good . Findings normal/abnormal: Abnormal OCT . Interpretation: Retinal disease . Plan: Monitor . Interval: Same . Jaja Fitzgerald MD OPHTHALMOLOGY documented in this encounter Visit Diagnoses Diagnosis CRVO (central retinal vein occlusion) Central vein occlusion of retina CRVO (central retinal vein occlusion) - Primary Central vein occlusion of retina documented in this encounter Care Teams Complementary Health Therapists Relationship Specialty Start Date End Date Destiny Elizondo PCP - General 02/08/16 06/22/17 [facility] [address] [place] [address] documented as of this encounter
--- OUTSIDE RECORDS SUMMARY | 2022-01-18 07:47 | XMS_ITS | Encounter Summary ---
:1995 Author Organization [place] Address [address] [place] [address] Care Team Providers Name Role Phone No Ref-Primary, Physician Primary Care Provider [phone] Kari Bingham MD Unavailable [phone] Kari Bingham MD Unavailable [phone] Ernst Lopez MD Primary Care Provider Encounter Details Date Type Department Care Team Description 08/03/2017 [facility] [place] [facility] Provider, Constantino mcneal Social [...] with No / Unsure 04/20/2020 3:05 PM IT SYSTEMS ENGINEER someone who was confirmed or suspected to have Coronavirus / COVID-19? documented as of this encounter Plan of Treatment Not on filedocumented as of this encounter Visit Diagnoses Not on filedocumented in this encounter Care Teams Cabin Equipment Supervisor Relationship Specialty Start Date End Date No Ref-Primary, PCP - General 10/12/17 11/01/20 Physician Ernst Lopez MD PCP - General Family Practice 06/23/17 10/11/17 Kari Bingham MD Ophthalmology 04/15/20 MD Ruth [address] [address] Kari Bingham Assigned Surgical 04/26/20 MD Ruth Provider [address] [place] [phone] documented as of this encounter
--- OUTSIDE RECORDS SUMMARY | 2022-01-18 07:47 | XMS_ITS | Encounter Summary ---
:1995 Author Organization [place] Address [address] [place] [address] Care Team Providers Name Role Phone Destiny Elizondo Primary Care Provider Reason for Visit Reason Comments Consult consult with clotting disord er, ruth flores Encounter Details Date Type Department Care Team Description 03/18/2016 Office Visit [facility] Nevaeh Corral PA Central retinal vein Hemophilia Other [address] [facility] occl usion of left eye Services [place] [address] (Primary Dx) [address] [place], [place] 3rd Floor [address] [place], [place] [phone] (Wo rk) [address] [phone] Social History Tobacco Use Types Packs/Day Years Used Date Smoking Tobacco: Never Alcohol Use Standard Drinks/Week Comments No 0 (1 standard drink = 0.6 oz pure alcoho l) Sex Assigned at Date Recorded Not on file documented as of this encounter Last Filed Vital Signs Vital Sign Reading Time Taken Comments Blood Pressure 121/82 03/18/2016 2:56 PM LAWN MOWER OPERATOR Pulse 93 03/18/2016 2:56 PM LAWN MOWER OPERATOR Temperature 37.1 ??C (98.7 ??F) 03/18/2016 2:56 PM LAWN MOWER OPERATOR Respiratory Rate - - Oxygen Saturation - - Inhaled Oxygen Concentration - - Weight 90.4 kg (199 lb 4.8 oz) 03/18/2016 2:56 PM LAWN MOWER OPERATOR Height 167.6 cm (5' 6) 03/18/2016 2:56 PM LAWN MOWER OPERATOR Body Mass Index 32.17 03/18/2016 2:56 PM LAWN MOWER OPERATOR documented in this encounter Progress Notes Nevaeh Corral PA - 03/18/2016 3:26 PM CST Images from the original note were not included. [facility] [address] [place] [address], [address], [place] [address] , . [place] [facility] [place]: Patient: Akilah Mills : 1995 RENEE: March 18, 2016 Reason: CRVO occlusion HPI: This is a 20 year old female with a history of CRVO diagnosed 02/09/16. She states she had symptoms for about 3 weeks of intermittent vision loss before diagnosis. She saw ophthalmology and was given a dose of Avastin and started on prednisone. MRI did not reveal optic neuritis thus steroids were not continued. She did have initial thrombophilia work-up with Factor V Leiden and Lupus antibody negative. She did not have Cardiolipin or Beta 2 glycoprotein antibodies done. She denies previous history of thrombosis. She has one child who is 10 months old and had a Nexplanon placed about 6 months ago. She states she was on Depo- Provera when she became with her child. She had right shoulder surgery one week ago to remove a bone spur. She had no complications with this. ROS: Denies any bleeding issues. No gum bleeding, No nose bleeds. Denies any hematuria or blood in stools. Denies any ecchymosis. Denies any lower extremities swelling or pain. Denies any fever, no chest pain. Denies any shortness of breath. Past Medical History: History reviewed. No pertinent past medical history. Past Surgical History: History reviewed. No pertinent past surgical history. Medications: Current Outpatient Prescriptions Medication Sig Dispense Refill ??? HYDROXYZINE PAMOATE PO Take 25 mg by mouth every 4 hours as needed for itching ??? OXYCODONE HCL PO Take 5 mg by mouth every 4 hours as needed Allergies: Allergies Allergen Reactions ??? Naproxen Social History: Denies any tobacco use. No significant alcohol use. Denies any illicit drug use. 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 Family History: Akilah's mother has had multiple deep vein thromboses-she believes all in the legs. She is not clear on the circumstances around this but states one of these was right after her mother experienced a 2nd trimester loss. Objectives: Pleasant 20 year old female in no acute distress. Vitals: B/P: 121/82, T: 98.7, P: 93, R: Data Unavailable, Wt: 199 lbs 4.8 oz Exam: No exam was done today. She reports normal vision. Labs: Thrombophilia testing done to date: Factor V Leiden/ACP resistance: negative Lupus antibody: negative Cardiolipin and Beta 2 IgG and IgM drawn today and pending Assessment: In summary, Akilah is a 20 year old female who recently experienced a left CRVO. She has had near complete resolution of vision issues. Etiology of this event is unclear but concerning is her recent start of Nexplanon for control and mother's history of clotting. Plan: 1. We discussed that generally we do not think of progestin only control increasing risk of venous thrombosis but when Nexplanon was researched this issue was listed as a contraindication to ongoing use. I have contacted the manufactor [employer] and asked for more information on this issue. If I hear anything back from the company I will contact Taylor. She is planning to have her Nexplanon replaced with an IUD. 2. For prevention of possible recurrent events we will complete the thrombophilia tests which have been associated with CRVO. These tests were negative and thus we are not recommending aspirin therapy. 3. If Taylor is considering we would like to discuss to possibility of preventative anticoagulation given her personal and family history of thrombosis. Plan was discussed with Dr. Tevin Ortez-Director of the [facility]. The patient is given our center's contact information and is instructed to call if she should have any further questions or concerns. Otherwise, we will plan on seeing her back when she is considering Total Time Spent: 60 minutes, all 60 minutes was spent on [id number] consultation of the patient and coordination ofcare in regard to CRVO Nevaeh Corral MPH, PA-C Physician Home Maker [facility] [phone]-main line [phone] pager MOWER OPERATOR documented in this encounter Nursing Notes Merle Yang CMA - 03/18/2016 2:56 PM CST Chief Complaint Patient presents with ??? Consult consult with clotting disorder, ruth flores Initial BP 121/82 mmHg Pulse 93 Temp(Src) 98.7 ??F (37.1 ??C) (Oral) Ht 1.676 m (5' 6) Wt 90.402 kg (199 lb 4.8 oz) BMI 32.18 kg/m2 Estimated body mass index is 32.18 kg/(m^2) as calculated from the following: Height as of this encounter: 1.676 m (5' 6). Weight as of this encounter: 90.402 kg (199 lb 4.8 oz). BP completed using cuff size: regular MOWER OPERATOR documented in this encounter Plan of Treatment Not on filedocumented as of this encounter Results Beta 2 Glycoprotein 1 Antibody IgM (03/18/2016 4:01 PM LAWN MOWER OPERATOR) Patholo gist Method Time Signature Beta 2 <0.9 <7 U/mL [facility] Glycoprotein 1 Negative [place] [facility] Antibody IgM [facility] Specimen Anatomical Collection Method Collection Time Receive d Time (Source) Location / / Volume Laterality Blood specimen 03/18/2016 4:01 PM 016 4:03 (specimen) LAWN MOWER OPERATOR PM LAWN MOWER OPERATOR Nevaeh Corral PA LAB - BLOOD ORDERABLES Performing Organization Address City/[facility] Code Phon e Number [address] Beta 2 Glycoprotein 1 Antibody IgG (03/18/2016 4:01 PM LAWN MOWER OPERATOR) Analysis Performed At Patho logist Time Signature Beta 2 0.8 <7 U/mL [facility] Glycoprotein 1 [place] [facility] Antibody IgG [facility] Comment: Negative Specimen Anatomical Collection Method Collection Time Receive d Time (Source) Location / / Volume Laterality Blood specimen 03/18/2016 4:01 PM 016 4:03 (specimen) LAWN MOWER OPERATOR PM LAWN MOWER OPERATOR Nevaeh Corral PA LAB - BLOOD ORDERABLES Performing Organization Address City/[facility] Code Phon e Number [address] documented in this encounter Visit Diagnoses Diagnosis Central retinal vein occlusion of left e ye - Primary Central vein occlusion of retina documented in this encounter Care Teams Lcpc Relationship Specialty Start Date End Date Destiny Elizondo PCP - General 02/08/16 06/22/17 [facility] [address] [facility] [place] [address] documented as of this encounter
--- OUTSIDE RECORDS SUMMARY | 2022-01-18 07:47 | XMS_ITS | Encounter Summary ---
:1995 Author Organization [place] Address [address] [place] [address] Care Team Providers Name Role Phone Destiny Elizondo Primary Care Provider Encounter Details Date Type Department Care Team Description 02/11/2016 Orders Only [facility] Eye Jaja Fitzgerald entral vein Clinic [facility] MD Rock occlusion of retina Ibrahim [address] ( Primary Dx) [address] 9[address] Fl Clin 9A [address] [place], [place] [phone] (Wo rk) [address] [phone] Social History Tobacco Use Types Packs/Day Years Used Date Smoking Tobacco: Never Alcohol Use Standard Drinks/Week Comments No 0 (1 standard drink = 0.6 oz pure alcoho l) Sex Assigned at Date Recorded Not on file documented as of this encounter Plan of Treatment Not on filedocumented as of this encounter Visit Diagnoses Diagnosis Central vein occlusion of retina - Prima ry documented in this encounter Care Teams Shoe Fitter Relationship Specialty Start Date End Date Destiny Elizondo PCP - General 02/08/16 06/22/17 [facility] [address] [place] [address] documented as of this encounter
--- OUTSIDE RECORDS SUMMARY | 2022-01-18 07:47 | XMS_ITS | Encounter Summary ---
:1995 Author Organization [place] Address [address] [place] [address] Care Team Providers Name Role Phone No Ref-Primary, Physician Primary Care Provider [phone] Kari Bingham MD Unavailable [phone] aKri Bingham MD Unavailable [phone] Ernst Lopez MD Primary Care Provider Encounter Details Date Type Department Care Team Description 06/23/2017 [facility] [facility] Provider, Constantino mcneal [...] No / Unsure 04/20/2020 3:05 PM DIRECTOR OF MARKET RESEARCH someone who was confirmed or suspected to have Coronavirus / COVID-19? documented as of this encounter Plan of Treatment Not on filedocumented as of this encounter Visit Diagnoses Not on filedocumented in this encounter Care Teams Senior Payroll Manager Relationship Specialty Start Date End Date No Ref-Primary, PCP - General 10/12/17 11/01/20 Physician Ernst Lopez MD PCP - General Family Practice 06/23/17 10/11/17 Kari Bingham MD Ophthalmology 04/15/20 MD Ruth [address] [address] Kari Bingham Assigned Surgical 04/26/20 MD Ruth Provider [address] [place] [phone] documented as of this encounter
--- OUTSIDE RECORDS SUMMARY | 2022-01-18 07:47 | XMS_ITS | Encounter Summary ---
:1995 Author Organization [place] Address [address] [place] [address] Care Team Providers Name Role Phone No Ref-Primary, Physician Primary Care Provider [phone] Kari Bingham MD Unavailable [phone] Kari Bingham MD Unavailable [phone] Ernst Lopez MD Primary Care Provider Encounter Details Date Type Department Care Team Description 08/03/2017 [facility] [place] E-VISITS Provider, Constantino mcneal Social [...] with No / Unsure 04/20/2020 3:05 PM OIL FIELD OPERATOR someone who was confirmed or suspected to have Coronavirus / COVID-19? documented as of this encounter Plan of Treatment Not on filedocumented as of this encounter Visit Diagnoses Not on filedocumented in this encounter Care Teams Chiller Tender Relationship Specialty Start Date End Date No Ref-Primary, PCP - General 10/12/17 11/01/20 Physician Ernst Lopez MD PCP - General Family Practice 06/23/17 10/11/17 Kari Bingham MD Ophthalmology 04/15/20 MD Ruth [address] [address] Kari Bingham Assigned Surgical 04/26/20 MD Ruth Provider [address] [place] [phone] documented as of this encounter
--- OUTSIDE RECORDS SUMMARY | 2022-01-18 07:47 | XMS_ITS | Encounter Summary ---
:1995 Author Organization [place] Address [address] [place] [address] Care Team Providers Name Role Phone Destiny Elizondo Primary Care Provider Reason for Visit Reason Comments Follow Up large floater in both eyes Encounter Details Date Type Department Care Team Description 04/26/2016 Office Visit [facility] Eye Rc Lin MD [address] [place] [address] [phone] Subjective visual disturbance - Right Ey e (Primary Dx); Clinic - Gonsalo Núñez MD [address] [place] [address] [phone] CRVO (central retinal vein occlusion) [address] [address] [place] [phone] Social History Tobacco Use Types Packs/Day Years Used Date Smoking Tobacco: Never Alcohol Use Standard Drinks/Week Comments No 0 (1 standard drink = 0.6 oz pure alcoho l) Sex Assigned at Date Recorded Not on file documented as of this encounter Progress Notes Gonsalo Barraza MD - 04/26/2016 4:14 PM CST CC -?? floaters both eyes HPI [...] and oct grossly normal -[place] 20/20 OU -schedule retina follow up one week RTC precautions discussed 2.?? Central Retinal Vein Occlusion OS ?- young patient, unclear etiology ?- onset 02/11/16 ?- likely non-ischemic given excellent vision today ?- saw hematology stopped OCP ?-Possible ON drusen Right eye > Left eye (not seen by Bscan) ?- consider sleep study 3.?? H/o CME OS ?- resolved after Avastin #1 on 02/11/16 ?- observe today 4.?? H/o Pain OS with eye movement ?- eval by Dr. Christopher for optic neuritis with MRI negative 5. ? 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 Aram Barraza MD PGY2, Dept of Ophthalmology [phone] Attending Physician Attestation: I have seen and examined this patient. I have confirmed and edited as necessary the chief complaint(s), history of present illness, review of systems, relevant history,and examination findings as documented by others. I have personally reviewed the relevant tests, images, and reports as documented above. I have confirmed and edited as necessary the assessment and plan and agree with this note. - Aram Lin MD 3:27 PM 04/27/2016 ER/WAITRESS CABIN CLASS documented in this encounter Nursing Notes Mellisa Rubio COA - 04/26/2016 3:00 PM CST Chief Complaints and History of Present Illnesses Patient presents with ??? Follow Up For large floater in both eyes HPI Affected eye(s): Both Symptoms: Decreased vision (Comment: left eye seems a little worse) Floaters (Comment: both eyes) No flashes Duration: 1 day Do you have eye pain now?: No Comments: Pt here for floaters, both eyes Pt has had floaters in the left eye that had gotten worse over the last week or so Floater in right eye started yesterday Mellisa Rubio COA 2:59 PM April 26, 2016 ER/WAITRESS CABIN CLASS documented in this encounter Plan of Treatment Not on filedocumented as of this encounter Visit Diagnoses Diagnosis Subjective visual disturbance - Right Ey e - Primary Subjective visual disturbance, unspecifi ed CRVO (central retinal vein occlusion) Central vein occlusion of retina documented in this encounter Care Teams Assistant Public Defender Relationship Specialty Start Date End Date Destiny Elizondo PCP - General 02/08/16 06/22/17 [facility] [address] [facility] [address] documented as of this encounter
--- OUTSIDE RECORDS SUMMARY | 2022-01-18 07:47 | XMS_ITS | Encounter Summary ---
:1995 Author Organization [place] Address [address] [place] [address] Care Team Providers Name Role Phone Destiny Elizondo Primary Care Provider Encounter Details Date Type Department Care Team Description 04/26/2016 Orders Only Gonsalo Camacho CRVO (centr al retinal Ophthalmology Nils Bolden MD vein occlusion) [address] [place] [address], (Primary Dx) 4th Floor CLINIC [address] [place] [id number] (Wo rk) Social History Tobacco Use Types Packs/Day Years Used Date Smoking Tobacco: Never Alcohol Use Standard Drinks/Week Comments No 0 (1 standard drink = 0.6 oz pure alcoho l) Sex Assigned at Date Recorded Not on file documented as of this encounter Plan of Treatment Pending Results Name Type Priority Associated Diagnoses Date/Ti ny OCT Retina Spectralis Opht Imaging Routine CRVO (central retin al 04/26/2016 1:50 PM OU (both eyes) vein occlusion) MACHINE STAPLER documented as of this encounter Visit Diagnoses Diagnosis CRVO (central retinal vein occlusion) - Primary Central vein occlusion of retina documented in this encounter Care Teams Counterintelligence Specialist Relationship Specialty Start Date End Date Destiny Elizondo PCP - General 02/08/16 06/22/17 [facility] [address] [place] [address] documented as of this encounter
--- OUTSIDE RECORDS SUMMARY | 2022-01-18 07:47 | XMS_ITS | Encounter Summary ---
:1995 Author Organization [facility] Address [address] [place] [address] Care Team Providers Name Role Phone No Ref-Primary, Physician Primary Care Provider Kari Bingham MD Unavailable [phone] Kari Bingham MD Unavailable Ernst Lopez MD Primary Care Provider Reason for Visit Reason Comments Other Other; [facility] Encounter Details Date Type Department Care Team Description 06/23/2017 Office Visit - [facility] Moderate episode of recurrent major depressive disorder (H); [facility] Moi Dukes MD Binge eating disorder [address] [facility] [address] [place] [address] [phone] Social History Tobacco Use Types Packs/Day Years Used Date Smoking Tobacco: Never Smokeless Tobacco: Never Alcohol Use Standard Drinks/Week Comments No 0 (1 standard drink = 0.6 oz pure alcoho l) Sex Assigned at Date Recorded Not on file COVID-19 Exposure Response Date Recorded In the last month, have you been in contact with No / Unsure 04/20/2020 3:05 PM ARCH SUPPORT TECHNICIAN someone who was confirmed or suspected to have Coronavirus / COVID-19? documented as of this encounter Last Filed Vital Signs Vital Sign Reading Time Taken Comments Blood Pressure - - Pulse - - Temperature - - Respiratory Rate - - Oxygen Saturation - - Inhaled Oxygen Concentration - - Weight 96.8 kg (213 lb 5 oz) 06/23/2017 10:31 AM CDT Height - - Body Mass Index 34.43 03/18/2016 2:56 PM ARCH SUPPORT TECHNICIAN documented in this encounter Progress Notes Ernst Lopez MD - 06/23/2017 10:20 AM CDT Over 25 minutes spent greater than 50% of this counseling regarding following issues: Problem List Items Addressed This Visit Unprioritized Moderate episode of recurrent major depressive disorder - Primary Recurrence of depression from adolescence Entertained possibility of bipolar, patient does have rapid mood swings However does not describe anything that truly sounds like faheem Tolerated sertraline in the past Started sertraline 25 mg upping to 50 mg, follow-up 3-4 weeks, referral for therapy. Did not address possibility of in the near future, has a 2-year-old currently. Need to do that both her sertraline would be the best choice Relevant Medications sertraline (ZOLOFT) 50 MG tablet Other Relevant Orders Referral for Psychotherapy Evaluation- Routine Thyroid [place] Binge eating disorder New behavior with depression Patient looking for options for help Recommend because when she has the urge to eat, rule to not eat for 4 5 minutes serve the urge Possibly could be addressed with CBT given referral for depression Consider referral to eating disorder clinic in the future Could consider topiramate in addition to sertraline though patient of childbearing age Relevant Medications sertraline (ZOLOFT) 50 MG tablet TSH ordered Depressed Mood Narrative: goes up and down- then gets very low Sometime up and down in the same day Has started binge eating in the last year Ups are not faheem Duration:this time- had baby 2 years ago, had post depression Onset: after Timing (constant verses episodic): Patient's symptoms come and go with large mood fluctuations throughout the day but always returns to depression Recent life stressors/ Triggers: of child, no other stressors reported Anxiety? Yes, social anxiety since the depression became severe Avoiding social activities? Yes. She has a stable partner but generally stays in the house Physical symptoms: Tired Sleeping well? Yes- but also sleepy Thoughts of harming/killing self? no Severity/ Degree to which it interferes with living: yes Alcohol or other substances/ history of addiction? no/ Personal history of depression of other mental illness? Yes- see below- yes Family history of anxiety of other mental illness? Mom has depression Any history of faheem? Elevated mood? Maybe at time Any history of hallucinations/ voices? no Anything that you have found helpful? Previously was on sertraline which after causing her to feel very tired for a while, started helping Current or previous use of antidepressant medications? Sertraline Current of previous work with a therapist? Yes, referred today well Regular exercise? No-blood boyfriends trying to get her out to do things and knows that she should PHQ9= 17 Comments: previously treated in childhood Tough relationship with dad Had some over the top Adopted brother passing away seem to trigger it. Thinks she may have been diagnosed with bipolar butknows that she was treated with Zoloft alone and tolerated it well. Was never in the hospital. Eventually, depression got better and she stopped taking medication. Did fairly well until she had her baby and thinks she suffered from depression. Patient also reports that she binge eats over the last few months as well. Large amounts and does feel guilty afterwards. She and her boyfriend have been working to try to mitigate this somewhat. She reports that he has been fairly helpful but wondering if there is anything else she can do. documented in this encounter Plan of Treatment Not on filedocumented as of this encounter Procedures Procedure Name Priority Date/Time Associated Diagnosis Comme nts TSH WITH FREE T4 Routine 06/23/2017 11:24 AM Resu lts for this REFLEX CDT procedure are i n the results section. documented in this encounter Results TSH with free T4 reflex (06/23/2017 11:24 AM CDT) P athologist Signature TSH 1.44 0.30 - 5.00 06/23/2017 [facility] uIU/mL 8:00 PM CDT [facility] Specimen Anatomical Collection Method / Collection Time Recei samuel Time (Source) Location / Volume Laterality Blood specimen Venipuncture / 06/23/2017 11:24 018 2:32 (specimen) Unknown AM CDT PM CDT Ernst Lopez MD LAB - BLOOD ORDERABLES Performing Organization Address City/State/ZIP Code Phon e Number [facility] [place] [address] [phone] [facility] [address] [facility] documented in this encounter Visit Diagnoses Diagnosis Moderate episode of recurrent major depr essive disorder (H) Binge eating disorder documented in this encounter Care Teams Hunting Sales Leader Relationship Specialty Start Date End Date No Ref-Primary, PCP - General 10/12/17 11/01/20 Physician Ernst Lopez MD PCP - General Family Practice 06/23/17 10/11/17 Kari Bingham MD Ophthalmology 04/15/20 MD Ruth [address] [address] Kari Bingham Assigned Surgical 04/26/20 MD Ruth Provider [address] [address] documented as of this encounter
--- OUTSIDE RECORDS SUMMARY | 2022-01-18 07:47 | XMS_ITS | Encounter Summary ---
:1995 Author Organization [facility] Address [address] [place] [address] Care Team Providers Name Role Phone Destiny Elizondo Primary Care Provider Reason for Visit (Routine) - Closed Specialty Diagnoses / Procedures Referred By Contact Refer red To Contact Radiology / Radiology. Diagnoses Kristie De La Cruz [id number] Multi: Xray and 2 MRI exams Uu Xray Procedures XR CHEST 2 VIEWS [address] [place] [address] Phone: Referral ID Status Reason Start Date Expiration Date Visits Requ ested Visits Authorized [id number] Closed 02/10/2016 02/09/2017 1 1 Encounter Details Date Type Department Care Team Description 02/11/2016 Hospital Encounter [facility] Amado Fonseca (central [facility] Imaging MD Haroon retinal vein [address] [facility] mirian diez) [place], [place] [address] [phone] [address] [place], [place] [phone] (Wo rk) Social History Tobacco Use Types [...] Name Priority Date/Time Associated Diagnosis Comme nts XR CHEST 2 VIEWS Routine 02/11/2016 8:30 PM CRVO (central Resu lts for this CDT retinal vein procedure are i n occlusion) the results section. documented in this encounter Results XR Chest 2 Views (02/11/2016 8:30 PM CDT) Anatomical Region Laterality Modality Chest Computed Radiography Specimen (Source) Anatomical Location Collection Method / Collectio n Time Received Time / Laterality Volume Impressions 02/11/2016 9:55 PM CDT IMPRESSION: No acute cardiopulmonary findings. I have personally reviewed the examinati on and initial interpretation and I agree with the findings. RODRÍGUEZ MENSAH MD Narrative 02/11/2016 9:55 PM CDT EXAM: XR CHEST 2 VW ??02/11/2016 8:30 PM HISTORY: ??Central retinal vein occlusio n, unspecified eye, stable ?? COMPARISON: ??None available FINDINGS: ??PA and lateral views of the chest are obtained. The cardiomediastinal silhouette is unre markable. The costophrenic angles are sharp. There is no pleural ef fusion or pneumothorax. The pulmonary vasculature is distinct. No fo denisse airspace opacity. Normal lung volumes. The visualized upper abdomen is unremark able. No acute osseous abnormality. Procedure Note Rodríguez Mensah MD - 2015 EXAM: XR CHEST 2 VW 02/11/2016 8:30 PM HISTORY: Central retinal vein occlusion, unspecified eye, stable COMPARISON: None available FINDINGS: PA and lateral views of the ch est are obtained. The cardiomediastinal silhouette is unre markable. The costophrenic angles are sharp. There is no pleural ef fusion or pneumothorax. The pulmonary vasculature is distinct. No fo denisse airspace opacity. Normal lung volumes. The visualized upper abdomen is unremark able. No acute osseous abnormality. IMPRESSION: No acute cardiopulmonary fin dings. I have personally reviewed the examinati on and initial interpretation and I agree with the findings. RODRÍGUEZ MENSAH MD Amado Fonseca MD [facility] DIAGNOSTIC IMAGING ORDER BEHZAD documented in this encounter Visit Diagnoses Diagnosis CRVO (central retinal vein occlusion) Central vein occlusion of retina documented in this encounter Care Teams Vocal Artist Relationship Specialty Start Date End Date Destiny Elizondo PCP - General 02/08/16 06/22/17 [facility] [address] [facility] [place] [address] documented as of this encounter
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
--- OUTSIDE RECORDS SUMMARY | 2022-01-18 07:47 | XMS_ITS | Encounter Summary ---
:1995 Author Organization [facility] Address [address] [place] [address] Care Team Providers Name Role Phone Destiny Elizondo Primary Care Provider Reason for Visit Reason Comments Follow Up CRVO (central retinal vein o cclusion Encounter Details Date Type Department Care Team Description 05/31/2017 Office Visit [facility] Eye DOREEN Bingham ( [facility] Kari Miranda, retinal vein Patrice Ramos MD occlusion) Building [address] [facility] [address] [address] [address] [address] [place] [phone] Social History Tobacco Use Types Packs/Day Years Used Date Smoking Tobacco: Never Smokeless Tobacco: Never Alcohol Use Standard Drinks/Week Comments No 0 (1 standard drink = 0.6 oz pure alcoho l) Sex Assigned at Date Recorded Not on file documented as of this encounter Progress Notes Kari Bingham MD - 05/31/2017 10:15 AM CST I have confirmed the patient's and [...] 02/09/16, unclear etiology - stopped OCP per hemonc ?- s/p Avastin x1 02/2016 ?- likely [...] encouraged artificial tears 3-4x daily ? RTC 6 months Caleb Tabares MD, PhD Vitreoretinal Surgery Fellow Attestation: I have seen and examined the patient with Dr. Tabares and agree with the findings in this note, as well as the interpretations of the diagnostic tests. Kari Bingham MD PhD. Professor & Chair EDICAL SCIENTIST documented in this encounter Nursing Notes Cleo Verduzco - 05/31/2017 10:15 AM CST Chief Complaints and History of Present Illnesses Patient presents with ??? Follow Up For CRVO (central retinal vein occlusion HPI Affected eye(s): Right Symptoms: Duration: 6 months Frequency: Constant Do you have eye pain now?: No Comments: Pt. States that some mornings, RE feels like it can't open. RE is open but it feels like it is closed. No change in VA BE. Still a lot floaters RE. No flashes BE, Cleo Verduzco COT 10:53 AM May 31, 2017 EDICAL SCIENTIST documented in this encounter Plan of Treatment Not on filedocumented as of this encounter Procedures Procedure Name Priority Date/Time Associated Comments Diagnosis OCT RETINA Routine 05/31/2017 11:36 AM CRVO (central Results for this SPECTRALIS OU (BOTH BIOMEDICAL SCIENTIST retinal vein procedur e are in EYE) occlusion) the results section. documented in this encounter Results OCT Retina Spectralis OU (both eyes) (04/20/2020 3:43 PM BIOMEDICAL SCIENTIST) Kari Morris MD - 02/2021 3:43 PM BIOMEDICAL SCIENTIST Performed by: njo . Patient cooperation: Reliable . Right Eye Reliability of the test: Good . Findings normal/abnormal: Abnormal OCT . Interpretation: Retinal disease . Plan: Monitor . Interval: Same . Left Eye Reliability of the test: Good . Findings normal/abnormal: Abnormal OCT . Interpretation: Retinal disease . Plan: Monitor . Interval: Same . Kari Bingham MD OPHTHALMOLOGY OCT Retina Spectralis OU (both eyes) (05/31/2017 11:36 AM BIOMEDICAL SCIENTIST) Kari Morris MD - 07/2017 8:30 AM CDT Performed by: dcm . Patient [...] retina documented in this encounter Care Teams Record Filing Clerk Relationship Specialty Start Date End Date Destiny Elizondo PCP - General 02/08/16 06/22/17 [facility] [address] [facility] [place] [id number] documented as of this encounter
--- OUTSIDE RECORDS SUMMARY | 2022-01-18 07:47 | XMS_ITS | Encounter Summary ---
:1995 Author Organization [facility] Address [address] [place] [address] Care Team Providers Name Role Phone No Ref-Primary, Physician Primary Care Provider [phone] Kari Bingham MD Unavailable [phone] Kari Bingham MD Unavailable [phone] Ernst Lopez MD Primary Care Provider Reason for Visit Reason Comments Follow Up Patient presented for follow up psychotherapy appointment to address symptoms of depression, anxi ety and binge eating. Encounter Details Date Type Department Care Team Description [facility] Mental Health & A, [facility] Binge eating disorder Addiction [address] [place] [address] [phone] Social History Tobacco Use Types Packs/Day Years Used Date Smoking Tobacco: Never Smokeless Tobacco: Never Alcohol Use Standard Drinks/Week Comments No 0 (1 standard drink = 0.6 oz pure alcoho l) Sex Assigned at Date Recorded Not on file COVID-19 Exposure Response Date Recorded In the last month, have you been in contact with No / Unsure 04/20/2020 3:05 PM 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 documented as of this encounter Progress Notes Maureen Medley - 08/17/2017 8:00 AM CDT Mental Health Visit Note 08/17/2017 Start time: 8:10am Stop Time: 9:00am Session # 2 Akilah Mills is a 21 y.o. female is being seen today for Chief Complaint Patient presents with ??? Follow Up Patient presented for follow up psychotherapy appointment to address symptoms of depression, anxiety and binge eating. . New symptoms or complaints: feelings of grief with mother's day approaching. Functional Impairment: Personal: 3 Family: 3 Work: 2 Social:3 Clinical assessment of mental status: Grooming: Well groomed Attire: Appropriate Age: Appears Stated Behavior Towards Examiner: Cooperative Motor Activity: Within normal Eye Contact: Appropriate Mood: Euthymic, Sad when talking about loss. Affect: Congruent w/content of speech, Tearful, Anxious and Depressed Speech/Language: Within normal and Soft Attention: Within normal Concentration: Within normal Thought Process: Within normal Thought Content: Hallucinations: Within noraml Delusions: Within normal Orientation: X 3 Memory: No Evidence of Impairment Judgement: No Evidence of Impairment Estimated Intelligence: Average Demonstrated Insight: Adequate Fund of Knowledge: adequate Suicidal/Homicidal Ideation present: None Reported This Session Patient's impression of their current status: Patient reports work and home life are going well. Shehas been doing morning yoga with her son and doing the practices that were reviewed at last session.She finds the breathing to be helpful. She notes her anxiety has been pretty good even though she has been busy the last 2 weeks. She does express some external stressors regarding a family member with cancer and recently reconnecting with her step father. The contact with her step-father has been positive, although emotional. They have been talking daily and he is now an additional support for her. She reports noticing symptoms of depression once or twice. Her brother and sister in law are experiencing some stressors that patient reports feeling depressed about. She denies any episodes of binge eating. She is packing lunches and using serving sizes. She is taking Zoloft and feels it is helping. Therapist impression of patients current state: Patient presented for follow up psychotherapy session. Mood was euthymic and she was soft spoken. Overall, she is showing signs of improvement in anxiety, depression and binge-eating. She has been planning meals and taking an active role in developing healthier eating habits. Developed insight into how she implemented this sudden change as she has been very successful. She was able to identify that naming the being-eating and admitting in session has helped create this action. Provided positive reinforcement for healthy habits she is developing and noepisodes of binging since last session. Good medication adherence. Provided positive reinforcement for patient engaging in morning yoga practices using the mindfulness movements previously discussed. Encouraged patient to continue implementing deep breathing and yoga/calming movements to manage stress. Processed feelings of grief/loss regarding her grandmother's and Mother's Day this weekend. Discussed ways to honor her grandmother's memory and also normalized feelings of grief. Type of psychotherapeutic technique provided: Insight oriented, Client centered, CBT and motivational interviewing, Progress toward short term goals:Progress as expected, improvements with symptoms. Has been doing mindfulness and relaxation practices to help manage anxiety. Review of fdc goals: Not done at today's visit. Plan Effective 08/03/2017-11/02/2017 Diagnosis: 1. Moderate episode of recurrent major depressive disorder 2. Binge eating disorder Plan and Follow up: Patient is scheduled for follow up psychotherapy every 2 weeks. Patient is scheduled for appointment on 08/31/17. Discharge Criteria/Planning: Patient will continue with follow-up until therapy can be discontinued without return of signs and symptoms. Maureen RAY 08/17/2017 documented in this encounter Plan of Treatment Not on filedocumented as of this encounter Visit Diagnoses Diagnosis Moderate episode of recurrent major depr essive disorder (H) Binge eating disorder documented in this encounter Care Teams Modular Home Crew Member Relationship Specialty Start Date End Date No Ref-Primary, PCP - General 10/12/17 11/01/20 Physician Ernst Lopez MD PCP - General Family Practice 06/23/17 10/11/17 Kari Bingham MD Ophthalmology 04/15/20 MD Ruth [address] [place] [address] Kari Bingham Assigned Surgical 04/26/20 MD Ruth Provider [address] [id number] documented as of this encounter
--- OUTSIDE RECORDS SUMMARY | 2022-01-18 07:47 | XMS_ITS | Encounter Summary ---
:1995 Author Organization [facility] Address [address] [place] [address] Care Team Providers Name Role Phone No Ref-Primary, Physician Primary Care Provider [phone] Kari Bingham MD Unavailable [phone] Kari Bingham MD Unavailable [phone] Ernst Lopez MD Primary Care Provider Reason for Visit Reason Comments Follow Up Patient presented for initia l follow up psychotherapy appointment to address symptoms of depressi on, eating disorder, anxiety . Encounter Details Date Type Department Care Team Description 08/03/2017 [facility] of [facility] Mental Health & A, [facility] Binge eating disorder Addiction [place] [address] [place] [address] [address] [place] [address] [phone] Social History Tobacco Use Types Packs/Day Years Used Date Smoking Tobacco: Never Smokeless Tobacco: Never Alcohol Use Standard Drinks/Week Comments No 0 (1 standard drink = 0.6 oz pure alcoho l) Sex Assigned at Date Recorded Not on file COVID-19 Exposure Response Date Recorded In the last month, have you been in contact with No / Unsure 04/20/2020 3:05 PM BROADCAST OPERATIONS 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 documented as of this encounter Progress Notes Maureen Medley - 08/03/2017 8:00 AM CDT Mental Health Visit Note 08/03/2017 Start time: 8:18am Stop Time: 9:00am Session # 1 (initial after DA) Akilah Mills is a 21 y.o. female is being seen today for Chief Complaint Patient presents with ??? Follow Up Patient presented for initial follow up psychotherapy appointment to address symptoms of depression, eating disorder, anxiety and irritability. . New symptoms or complaints: Anxiety- especially in social situations. Functional Impairment: Personal: 3 Family: 3 Work: 2 Social:3 Clinical assessment of mental status: Grooming: Well groomed Attire: Appropriate Age: Appears Stated Behavior Towards Examiner: Cooperative Motor Activity: Within normal Eye Contact: Appropriate Mood: Euthymic Affect: Congruent w/content of speech, Anxious and Depressed Speech/Language: Within normal and [...] impression of their current status: Patient reports a busy morning at home as she is in the process of potty training her 2 year old. She stated work is going well and things at home are well. Her mood is good with some down moments, but it doesn't last long. She has been taking Zoloftfor 2 weeks and reports it is going well. She contacted [facility] about their eating disorder treatment program, but it does not work with her work schedule. She has been packing her food to bring to work and trying not to snack after dinner. She reports 3 binge episodes in the last 2 weeks where she went to a drive through and snuck food. She notes this is significant improvement. She is open to additi onal support for binge eating if she can find something that works with her schedule. She reports a concern about anxiety, especially in social situations. She reports always feeling anxious in social setting and that it is getting worse. She tends to over think and often wants to back out of the social engagement. She endorses physical symptoms of sweating and shaking. She doesn't like to go to stores alone and does better if her 2 year old son is present. She reports fear of judgment and criticism and how to respond if someone talks to her. She reports general anxiety that comes with high stress moment and recalled some times from school. She reports anxiety started in middle school. She is sle eping well. Therapist impression of patients current state: Patient presented for initial follow up psychotherapy session. She arrived late, was well groomed, and oriented. Mood was euthymic and she was soft spoken. She provided relatively short responses and did not come to session with many concerns. Reviewed re commendations from DA and established treatment plan together. She appears to be functioning well atwork and at home. She continues to have discord with her father and brother, but has created healthyboundaries for those relationships as her father and brother have their own stressors at the moment.She does not want a goal for interpersonal stress as she is happy with the boundaries she has established in those relationships. Therapist recommended looking into a support group for binge-eating as the outpatient treatment centers don't work for her work schedule. Provided psycho-education on anxiety symptoms as she has not learned about anxiety in past therapy. It appears her past therapy was focused on the diagnosis of bipolar disorder and her relationship with her father. She did not learn anycoping skills in past therapy; therefore learning more skills to use outside of session would be helpful. Patient learned belly breathing today and therapist also modeled some calming mindfulness movements. Patient appeared shy and hesitant to engage in the movements in front of therapist. However, she was paying attention and appeared receptive to trying at home to decrease anxiety. Prior to next session, she plans to practice diaphragm breathing and mindfulness movements to manage anxiety. Patient completed Mood Disorder Questionnaire ([employer]) and scored 8: irritability, self-confident,rapid speech, distractible, increased energy, more active, more socially outgoing, risky behavior. Type of psychotherapeutic technique provided: Insight oriented, Client centered, Solution-focused and Mindfulness, Somatic Experiencing Progress toward short term goals:Progress as expected, patient presented for initial follow up session to establish therapeutic relationship and goals for treatment. Review of technician terminal and repeater goals: Treatment Plan updated. Plan Effective 08/03/2017-11/02/2017 Diagnosis: 1. Moderate episode of recurrent major depressive disorder 2. Binge eating disorder Plan and Follow up: Patient is scheduled for follow up psychotherapy every 2 weeks. Discharge Criteria/Planning: Patient will continue with follow-up until therapy can be discontinued without return of signs and symptoms. Maureen RAY 08/03/2017 documented in this encounter Plan of Treatment Not on filedocumented as of this encounter Visit Diagnoses Diagnosis Moderate episode of recurrent major depr essive disorder (H) Binge eating disorder documented in this encounter Care Teams Long Chain Dyeing Machine Operator Relationship Specialty Start Date End Date No Ref-Primary, PCP - General 10/12/17 11/01/20 Physician Ernst Lopez MD PCP - General Family Practice 06/23/17 10/11/17 Kari Bingham MD Ophthalmology 04/15/20 MD Ruth [address] [place] [address] Kari Bingham Assigned Surgical 04/26/20 MD Ruth Provider [address] [id number] documented as of this encounter
--- OUTSIDE RECORDS SUMMARY | 2022-01-18 07:47 | XMS_ITS | Encounter Summary ---
:1995 Author Organization [facility] Address [address] [place] [address] Care Team Providers Name Role Phone No Ref-Primary, Physician Primary Care Provider [phone] Reason for Visit Auth/Cert Specialty Diagnoses / Procedures Referred By Contact Refer red To Contact Surgery Diagnoses INCREASING PELVIC PAIN Sh Periop Services Procedures LAPAROSCOPY OPERATIVE ADULT, OPERATIVE HYSTEROSCOPY WITH MORCELLATOR (MABRY & NEPHEW), REMOVE INTRAUTERINE DEVICE, INSERT INTRAUTERINE DEVICE [address], [address] [place] [address] Phone: Referral ID Status Reason Start Date Expiration Date Visits Requ ested Visits Authorized [id number] 1 1 Encounter Details Date Type Department Care Team Description 10/12/2017 Hospital Encounter [facility], Dysm enorrhea (Primary [place] Phase II Brian Pinto Dx) [address] [place], [place] RETIRED [id number] Social History Tobacco Use Types Packs/Day Years [...] know so they can address your concerns. [facility] D&C OR Laparoscopy Discharge Instructions ACTIVITY: [...] Liz Stinson M.D. Akilah Chaparro M.D. Vannessa Harris M.D. Barbra Hernandez M.D. [facility] [address] [facility] [address] [facility] [address] [place] [address] [place] [address] (Telephone) [phone] (Telephone) Counts Include [address] [facility] At [facility] If you have questions or concerns about your procedure, Call Dr. Ritter at [phone] Today you received Ibuprofen 800mg at 11:20am. [...] documented in this encounter Nursing Notes Maribel Laniez RN - 10/12/2017 11:25 AM CDT PNDS [...] MD MT: NTS Name: AKILAH CLINE Account: [id number] : 1995 Procedure Date: 10/12/2017 Document: [id number] documented in this encounter Plan of Treatment [...] Quantitative <1 0 - 5 IU/L 10/12/2017 CLAIBORNE Serum 8:48 AM CDT [facility] Specimen Anatomical Collection Method Collection Time Receive d Time (Source) Location / / Volume Laterality Blood specimen 10/12/2017 8:20 AM 018 8:24 (specimen) CDT AM CDT Brian Ritter MD LAB - BLOOD ORDERA BLES Performing Organization Address City/State/ZIP Code Phon e Number M [facility] [address] [place] [phone] [facility] [address] [place] [address], [place] [phone] documented in this encounter Visit Diagnoses Diagnosis Dysmenorrhea - Primary Dysmenorrhea Dyspareunia in female documented in this encounter Administered Medications Inactive [...] greater than 60 bpm., Starting on Kenia 7/5/18 at 1008, Max cumulative dose = 20 [...] undiluted. Each 5mg over 1 minute., PACU documented in this encounter Active and Recently Administered Medications Times are shown in CDT. Scheduled Medication Order 10/10/2017 10/11/2017 10/12/2017 ibuprofen (ADVIL/MOTRIN) tablet 800 mg (COMPLETED) 1121 (Given - Provider: Maribel Lainez, SÁNCHEZ) 800 mg, Oral, ONCE, On Kenia 18 [...] Starting Kenia 10/12/17 at 1015, Until Kenia 10/12/17 at 1432 PRE OP antibiotics NOT needed for this surgical procedure (CANCE LED) 0912 (Given - Provider: Glo Rutledge APRN CRNA) CONTINUOUS, Starting Kenia 10/12/17 at 0815, Until Kenia 10/12/17 [...] Intravenous, EVERY 2 MIN PRN, Starting Kenia 718 at 1008, other, acute pain, MAX cumulative [...] Rate greater than 60 bpm., Starting Kenia 10/12/17 at 1008, Max cumulative dose = 20 mg. FOR USE IN PACU ONLY, DC WHEN TRANSFERRE D TO FLOOR. For ordered doses up to 40 mg, give IV Push undiluted over 1 minute., PACU HYDROmorphone (PF) (DILAUDID) injection 0.3-0.5 mg 0.3-0.5 mg, Intravenous, EVERY 5 MIN PRN , Starting Kenia 718 at 1008, Until Kenia 718 at 1432, other, acute pain.?May administer if [...] MIN PRN , opioid reversal, Starting Kenia 10/12/17 at 1008, For 24 hours, [...] obstetric patie nt CONTINUOUS PRN, Starting Kenia 718 at 1 008, Until Kenia 718 at 1432, Post-procedure ondansetron (ZOFRAN) injection 4 [...]
PACU documented in this encounter Care Teams Psychology Teacher Relationship Specialty Start Date End Date No Ref-Primary, Physician PCP - General 10/12/17 11/01/20 documented as of this encounter
--- OUTSIDE RECORDS SUMMARY | 2022-01-18 07:47 | XMS_ITS | Encounter Summary ---
:1995 Author Organization [facility] Address [address] [place] [address]. [place] [address] Care Team Providers Name Role Phone Destiny Elizondo Primary Care Provider Reason for Visit Reason Comments Consult For Central Retinal Vein Occlusi on OS Encounter Details Date Type Department Care Team Description 02/11/2016 Office Visit [facility] Eye Gee Christopher MD Subjective visual disturbance (Primary D x); Clinic - [address] Left optic neuropathy; Patrice Ramos [place], [place] CRVO (central retinal vein occlusion) - Left Eye Building [address] [place] [address] [facility] Clin [address] (Work) [place] [address] Social History Tobacco Use Types Packs/Day Years Used Date Smoking Tobacco: Never Alcohol Use Standard Drinks/Week Comments No 0 (1 standard drink = 0.6 oz pure alcoho l) Sex Assigned at Date Recorded Not on file documented as of this encounter Progress Notes Haroon Christohper MD - 02/11/2016 10:21 AM CDT Assessment & Plan Akilah Mills is a 20 year old female with the following diagnoses: 1. Subjective visual disturbance 2. Left optic neuropathy 3. CRVO (central retinal vein occlusion) - Left Eye She had onset of new periocular headaches 2 months ago and progressive vision loss in the left eye starting 3 weeks ago. There is associated pain with eye movements. She has a left afferent pupillary defect and color vision deficit. Her left optic nerve is severely swollen with surrounding hemorrhagesand she has a left CRVO. This may be all ischemic Central retinal vein occlusion but the pain is a bit unusual plus she is very young. The concern with the pain is that this an inflammatory optic neuropathy. She is set to haveMRI tonight. Blood work up ordered by Dr. Fitzgerald has been negative thus far. Her mother has a history of blood clots and miscarriages. She has already be referred to heme/onc for evaluation of clotting disorder. Will start her on 70 mg prednisone daily for the next 6 days. Will call her with MRI results. If abnormal, then will do inflammatory optic neuritis work-up. If negative, then will stop prednisone and give her the diagnosis of ischemic Central retinal vein occlusion. Her mother has a history concerningfor a blood clotting disorder and would recommend hypercoagulable work-up. Attending Physician Attestation: I have seen and [...] plan and agree with this note. - Haroon Christopher MD 10:21 AM 02/11/2016 documented in this encounter Nursing Notes Cleo Verduzco - 02/11/2016 8:23 AM CDT Chief Complaints and History of Present Illnesses Patient presents with ??? Consult For Central Retinal Vein Occlusion OS HPI Affected eye(s): Left Symptoms: Duration: 2 days Frequency: Constant Do you have eye pain now?: Yes Location: OS Pain Level: Mild Pain (3) Pain Duration: 2 days Pain Frequency: Constant Pain Characteristics: Aching Comments: Pt. States that she started having migraines headaches about 2 months ago. Headaches are frequent, lasting about 4-5 days and then only 1 day headache free. Pt.noticed blurred vision about 3 weeks ago, usually upon waking and then improving throughout the day. Each day VA became worse and blurriness is now constant. LE has had a pulling pain that worsens when moving LE. No c/o VA or comfort RE. Cleo Verduzco COT 8:23 AM February 11, 2016 documented in this encounter Plan of Treatment Not on filedocumented as of this encounter Procedures Procedure Name Priority Date/Time Associated Diagnosis Comme nts GLAUCOMA TOP OU Routine 02/11/2016 11:28 AM Subjective visual Results for this CDT disturbance procedure are i n the results section. documented in this encounter Results Glaucoma Top OU (02/11/2016 11:28 AM CDT) Narrative Haroon Christopher MD - 02/11/2016 11:28 AM CDT Performed by: Jennifer Borrego . Patient cooperation: Reliable . Good fixation. Right Eye Reliability of the test: Good . Test Findings Free Text: superonasal d efect . Interpretation: Abnormal . Plan: Monitor . Interval: Initial . Left Eye Reliability of the test: Fair . Findings: Depressed mean deviation . Test Findings Free Text: dense tempora l defect with smaller defects nasally . Interpretation: Abnormal . Plan: Monitor . Interval: Initial . Haroon Christopher MD OPHTHALMOLOGY documented in this encounter Visit Diagnoses Diagnosis Subjective visual disturbance - Primary Subjective visual disturbance, unspecifi ed Left optic neuropathy Other optic neuritis CRVO (central retinal vein occlusion) - Left Eye Central vein occlusion of retina documented in this encounter Care Teams Buckle Gluer Relationship Specialty Start Date End Date Destiny Elizondo PCP - General 02/08/16 06/22/17 [facility] [address] [facility] [place] [address] documented as of this encounter
--- OUTSIDE RECORDS SUMMARY | 2022-01-18 07:47 | XMS_ITS | Encounter Summary ---
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 involvement at this time. Therapist???s Signature/Supervision/co-signature statement: FLOR Smith 07/17/2017 documented in this encounter Plan of Treatment Not on filedocumented as of this encounter Visit Diagnoses Diagnosis Binge eating disorder Moderate episode of recurrent major depr essive disorder (H) documented in this encounter Care Teams Ham Passer Relationship Specialty Start Date End Date No Ref-Primary, PCP - General 10/12/17 11/01/20 Physician Ernst Lopez MD PCP - General Family Practice 06/23/17 10/11/17 Kari Bingham MD Ophthalmology 04/15/20 MD Ruth [address] [address] Kari Bingham Assigned Surgical 04/26/20 MD Ruth Provider [address] [address] documented as of this encounter
--- OUTSIDE RECORDS SUMMARY | 2022-01-18 07:47 | XMS_ITS | Encounter Summary ---
:1995 Author Organization [place] Address [address] [place] [address] Care Team Providers Name Role Phone Destiny Elizondo Primary Care Provider Encounter Details Date Type Department Care Team Description 02/11/2016 Orders Only [facility] Eye Jaja Fitzgerald entral vein Clinic [facility] MD Rock occlusion of retina Ibrahim [address] ( Primary Dx) [address] 9[address] Fl Clin 9A [address] [place], [place] [phone] (Wo rk) [address] [phone] Social History Tobacco Use Types Packs/Day Years [...] ry documented in this encounter Care Teams Dot Etcher Relationship Specialty Start Date End Date Destiny Elizondo PCP - General 02/08/16 06/22/17 [facility] [address] [place] [address] documented as of this encounter
--- OUTSIDE RECORDS SUMMARY | 2022-01-18 07:47 | XMS_ITS | Encounter Summary ---
:1995 Author Organization [place] Address [address] [place] [address] Care Team Providers Name Role Phone Destiny Elizondo Primary Care Provider Reason for Visit Reason Onset Date Comments Results 02/12/2016 Encounter Details Date Type Department Care Team Description 02/12/2016 Telephone [facility] Haroon Christopher MD Results - [address] [place] [address] [place] [address] [place] [phone] Social History Tobacco Use Types Packs/Day Years Used Date Smoking Tobacco: Never Alcohol Use Standard Drinks/Week Comments No 0 (1 standard drink = 0.6 oz pure alcoho l) Sex Assigned at Date Recorded Not on file documented as of this encounter Miscellaneous Notes Telephone Encounter - Linda Govea - 02/12/2016 3:[address] Christopher, patient was called and informed that her MRI was negative and she did not have optic neuritis. She reported that her vision has not improved on the prednisone. She will follow up with Dr Fitzgerald at the end of February as scheduled. documented in this encounter Plan of Treatment Not on filedocumented as of this encounter Visit Diagnoses Not on filedocumented in this encounter Care Teams Cashier Wrapper Relationship Specialty Start Date End Date Destiny Elizondo PCP - General 02/08/16 06/22/17 [facility] [address] [facility] [place] [address] documented as of this encounter
--- OUTSIDE RECORDS SUMMARY | 2022-01-18 07:47 | XMS_ITS | Encounter Summary ---
:1995 Author Organization [place] Address [address] [place] [address]. [place] [address] Care Team Providers Name Role Phone Destiny Elizondo Primary Care Provider Reason for Visit Reason Comments Follow Up 2.5 month f/u CRVO, left eye - new waves Encounter Details Date Type Department Care Team Description 08/18/2016 Office Visit [facility] Eye Amado Fonseca CRVO ( central retinal vein occlusion) (Primary Dx); Clinic - Fernanda Patiño MD Dry eye syndrome, bilateral Ibrahim Wangensteen [facility] [address] [facility] [address] Clin [address] [place] [address] [phone] (Wo rk) Social History Tobacco Use Types Packs/Day Years Used Date Smoking Tobacco: Never Alcohol Use Standard Drinks/Week Comments No 0 (1 standard drink = 0.6 oz pure alcoho l) Sex Assigned at Date Recorded Not on file documented as of this encounter Progress Notes Amado Fonseca MD - 08/18/2016 7:45 AM CDT CC -?? floaters both eyes Interval History - vision improving, bubble getting smaller, no pain HPI - No change since LAMIN.?? Past [...] (mentioned possible Takaysu Arteritis) RETINAL IMAGING: OCT?? 08/18/16 right eye- normal contour, stable left eye - normal contour, no fluid, stable US (prior) OD- likely ONH drusen OS- ?mild ONH drusen FA 02-09-16 RE: normal ?? LE: (transits) slowed venous filling, extensive blocking from IRH, late leakage from ONH and in macula, diffuse staining of veins, no obvious ischemia OVF 30-2 04-05-16 OD - normal likely OS - diffuse depression, better than prior ASSESSMENT & PLAN 1. Dry Eye Syndrome, both eyes - left > right, likely source of monocular diplopia and vision changes - encouraged artificial tears 3-4x daily 2.?? Central Retinal Vein Occlusion OS ?- young patient, unclear etiology ?- onset 02/11/16 ?- likely non-ischemic given excellent vision ?- saw hematology stopped OCP ?- Possible ON drusen Right eye > Left eye (not seen by Bscan) - no fluid today? 3.?? H/o CME OS ?- resolved after Avastin #1 on 02/11/16 ?- observe today 4.?? H/o Pain OS with eye movement ?- eval by Dr. Christopher for optic neuritis with MRI negative 5. Optic disc drusen both eyes - to consider ON autofluorescence, TONYA OCT once disc edema resolves RTC: 3 months with OVF, OCT; sooner for changes ATTESTATION I have confirmed the CC, PMH, HPI, history, ROS, and exam findings by the cardiopulmonary technician and eeg tech or others, and modified by me where needed. I have confirmed and edited as necessary the relevant ophthalmic history, ROS, eye exam findings, and the neuro exam findings as obtained by others. I have seen and examinedthis patient. I was present for critical portions of the procedure carried out by the resident/fellow and immediately available for the entire procedure and I personally viewed the image(s) and I agreewith the interpretation as documented by the resident/fellow/or others and edited by me. Amado Fonseca MD Retina Fellow documented in this encounter Nursing Notes Mellisa Rubio COA - 08/18/2016 7:45 AM CDT Chief Complaints and History of Present Illnesses Patient presents with ??? Follow Up For 2.5 month f/u CRVO, left eye - new waves HPI Affected eye(s): Left Symptoms: No decreased vision Double vision (Comment: left eye only occasionally) Floaters (Comment: floaters all the time; stable) No flashes Duration: 3 months Do you have eye pain now?: No Comments: 2.5 month f/u CRVO, left eye Pt states she is noting episodes of wavy/staticky vision in the left eye Also having episodes of double vision in the left eye only - doesn't coincide with the staticky vision Mellisa Rubio COA 7:37 AM August 18, 2016 documented in this encounter Plan of Treatment Not on filedocumented as of this encounter Visit Diagnoses Diagnosis CRVO (central retinal vein occlusion) - Primary Central vein occlusion of retina Dry eye syndrome, bilateral documented in this encounter Care Teams Obstetrics Nurse Relationship Specialty Start Date End Date Destiny Elizondo PCP - General 02/08/16 06/22/17 [facility] [address] [facility] [place] [address] documented as of this encounter
--- OUTSIDE RECORDS SUMMARY | 2022-01-18 07:47 | XMS_ITS | Encounter Summary ---
:1995 Author Organization [place] Address [address] [place] [address] Care Team Providers Name Role Phone Destiny Elizondo Primary Care Provider Encounter Details Date Type Department Care Team Description 02/22/[address] [facility] Eye Jaja Fitzgerald entral vein Clinic [facility] MD Rock occlusion of retina Ibrahim [address] ( Primary Dx) [address] 9[address] Fl Clin 9A [address] [place], [place] [phone] (Wo rk) [address] [phone] Social History Tobacco Use Types Packs/Day Years [...] ry documented in this encounter Care Teams Radiator Core Tester Relationship Specialty Start Date End Date Destiny Elizondo PCP - General 02/08/16 06/22/17 [facility] [address] [place] [address] documented as of this encounter
--- OUTSIDE RECORDS SUMMARY | 2022-01-18 07:47 | XMS_ITS | Encounter Summary ---
:1995 Author Organization [facility] Address [address] [place] [address] Care Team Providers Name Role Phone Mikhail Destiny Renata Primary Care Provider Reason for Visit Reason Comments Follow Up CRVO Encounter Details Date Type Department Care Team Description 12/01/2016 Office Visit [facility] Eye DOREEN Bingham ( [facility] Kari Miranda, retinal vein Patrice Ramos MD occlusion) (Primary Building [address] [facility] Dx) [address] [facility] [address] 9[address] Clin [address] [place] [phone] Social History Tobacco Use Types Packs/Day Years Used Date Smoking Tobacco: Never Smokeless Tobacco: Never Alcohol Use Standard Drinks/Week Comments No 0 (1 standard drink = 0.6 oz pure alcoho l) Sex Assigned at Date Recorded Not on file documented as of this encounter Progress Notes Kari Bingham MD - 12/01/2016 7:30 AM CDT I have confirmed the patient's and reviewed Past Medical History, Past Surgical History, Social History, Family History, Problem List, Medication List and agree with Tech note. CC -?? floaters both eyes HPI - notices transient decreased vision right [...] (mentioned possible Takaysu Arteritis) RETINAL IMAGING: OCT?? 12/01/16 right eye- normal contour, no IRF/SRF, stable [...] 20/20 OU -recheck VF 1 year 2.?? Central Retinal Vein Occlusion OS ?- young patient, unclear etiology ?- onset 02/09/16 - s/p Avastin x1 02/2016 ?- likely non-ischemic [...] tears 3-4x daily ? RTC 6 months Gonsalo Barraza MD PGY2, Dept of Ophthalmology [phone] ATTESTATION: I have seen and examined the patient with Dr. Barraza and agree with the findings in this note, aswell as the interpretations of the diagnostic tests. Kari Bingham MD PhD. Professor & Chair documented in this encounter Nursing Notes Yohana King - 12/01/2016 7:30 AM CDT Chief Complaints and History of Present Illnesses Patient presents with ??? Follow Up For CRVO HPI Affected eye(s): Both Symptoms: Frequency: Constant Do you have eye pain now?: No Comments: Noticing out of the RE that objects and letter will disappear then come right back +floaters but not new Yohana King COT 7:57 AM December 01, 2016 documented in this encounter Plan of Treatment Not on filedocumented as of this encounter Procedures Procedure Name Priority Date/Time Associated Comments Diagnosis OCT RETINA Routine 12/01/2016 10:15 AM CRVO (central Results for this SPECTRALIS OU (BOTH CDT retinal vein procedur e are in EYE) occlusion) the results section. documented in this encounter Results OCT Retina Spectralis OU (both eyes) (05/31/2017 11:36 AM GUIDANCE COUNSELOR) Kari Morris MD - 07/2017 8:30 AM [...] OPHTHALMOLOGY OCT Retina Spectralis OU (both eyes) (12/01/2016 10:15 AM CDT) Kari Morris MD - 10:15 AM CDT Performed by: dcm . Patient [...] - Primary Central vein occlusion of retina CRVO (central retinal vein occlusion) Central vein occlusion of retina documented in this encounter Care Teams Tig Welder Relationship Specialty Start Date End Date Destiny Elizondo PCP - General 02/08/16 06/22/17 [facility] [address] [place] [address] documented as of this encounter
--- OUTSIDE RECORDS SUMMARY | 2022-01-18 07:48 | XMS_ITS | Encounter Summary ---
:1995 Author Organization [place] Address [address] [place] [address] Care Team Providers Name Role Phone Denny Thomas MD Primary Care Provider Unavailable Destiny Elizondo Primary Care Provider Reason for Visit Reason Comments Consult screening Ultrasound screening Encounter Details Date Type Department Care Team Description 10/28/2014 PRE VISIT [facility] Samantha, Consult (s creening); Maternal Medicine Noemi, SÁNCHEZ Ultr asound (screening) Center [place] [address] [facility] [address] [place] [address] Social History Tobacco Use Types Packs/Day Years Used Date Smoking Tobacco: Never Assessed Sex Assigned at Date Recorded Not on file documented as of this encounter Plan of Treatment Not on filedocumented as of this encounter Visit Diagnoses Not on filedocumented in this encounter Care Teams Field Services Director Relationship Specialty Start Date End Date Denny Thomas MD PCP - General 10/22/14 02/07/16 Destiny Elizondo PCP - General 02/08/16 06/22/17 [facility] [address] [place] [address] documented as of this encounter
--- OUTSIDE RECORDS SUMMARY | 2022-01-18 07:48 | XMS_ITS | Encounter Summary ---
:1995 Author Organization [place] Address [address] [place] [address]. [place] [address] Care Team Providers Name Role Phone Doctor, None Primary Care Provider Unavailable Destiny Elizondo Primary Care Provider No Ref-Primary, Physician Primary Care Provider [phone] Kari Bingham MD Unavailable [phone] Kari Bingham MD Unavailable [phone] Ernst Lopez MD Primary Care Provider Reason for Visit Reason Comments Establish Care starting in Feb-Mar pt would have lower back spasms. pt states it would be so bad she would fa ll to the ground and not be able to move. Encounter Details Date Type Department Care Team Description 08/15/2014 Office Visit - [facility] Brett Booth MD [facility] [address] [place] [address] [address] [place] [address] [facility] [place] [address] Social History Tobacco Use Types Packs/Day Years Used Date Smoking Tobacco: Never Assessed Sex Assigned at Date Recorded Not on file COVID-19 Exposure Response Date Recorded In the last month, have you been in contact with No / Unsure 04/20/2020 3:05 PM [employer] someone who was confirmed or suspected to have Coronavirus / COVID-19? documented as of this encounter Last Filed Vital Signs Vital Sign Reading Time Taken Comments Blood Pressure - - Pulse - - Temperature - - Respiratory Rate - - Oxygen Saturation - - Inhaled Oxygen Concentration - - Weight 83.5 kg (184 lb 1.6 oz) 08/15/2014 11:50 AM CDT Height 168.3 cm (5' 6.25) 08/15/2014 11:50 AM CDT Body Mass Index 29.49 08/15/2014 11:50 AM CDT documented in this encounter Progress Notes Brett Booth MD - 08/15/2014 11:55 AM CDT ASSESSMENT: Episodic low back pain: X-ray was done since symptoms have been present for many months. No significant abnormalities were detected. Her spells sound like muscle spasm. Since episodes begin very acutely and are short lived, indications would probably not be of major benefit. A physical therapy approach may be of benefit. Health maintenance: She otherwise has been in good health. She is a former smoker, but quit in April. Family history is notable for a mother with a history of ovarian cancer and myocardial infarction. Akilah may benefit from heightened screening in the future. PLAN: LS-spine x-ray was done and reviewed. No significant abnormalities were detected Refer for physical therapy for the episodic low back pain. Old records will be reviewed when available Orders Placed This Encounter Procedures ??? XR Lumbar Spine 2 or 3 VWS Standing Status: Future Number of Occurrences: 1 Standing Expiration Date: 08/16/2015 Order Specific Question: Reason for Exam: Answer: recurrent low back pain Order Specific Question: Is the patient ? Answer: No Order Specific Question: Can the procedure be changed per Radiologist protocol? Answer: Yes ??? Ambulatory referral to Physical Therapy Referral Priority: Routine Referral Type: Physical Therapy Referral Reason: Evaluation and Treatment Requested Specialty: Physical Therapy Number of Visits Requested: 1 There are no discontinued medications. Return if symptoms worsen or fail to improve. ASSESSED PROBLEMS: Problem List Items Addressed This Visit None Visit Diagnoses Low back pain - Primary Relevant Orders XR Lumbar Spine 2 or 3 VWS Ambulatory referral to Physical Therapy CHIEF COMPLAINT: Chief Complaint Patient presents with ??? Establish Care starting in Feb-Mar pt would have lower back spasms. pt states it would be so bad she would fall tothe ground and not be able to move. ??? Establish Care pt states that since Apr it has been progressively getting worse- now happens at least once (if notmore times) a day. ??? Establish Care pt states that the feeling of not being able to control her body/movements last 1-2 min, but the intense pain will last for an hour or more. HISTORY OF PRESENT ILLNESS: Akilah is a 18 y.o. female presenting to the clinic today to establish care and to discuss lower back pain. This began a couple months ago. She describes attacks in her lower back, causing her to fall on the floor in pain. These episodes seem random, but they are becoming more frequent. Attacks arenot brought on by activity; they do not seem to be related to periods. She gains control of her bodywithin one and a half minutes, and pain totally dissipates within 15 minutes . Pain does not radiate. No past back injury. She walks for exercise. REVIEW OF SYSTEMS: She has tendonitis in her left shoulder. Her growth plate is not attached in this shoulder. She has been on muscle relaxants in the past. Comprehensive review of systems is negative, aside from positive responses to asthma and depression. She reports these are not a major issue currently. PFSH: Tonsils and adenoids have been removed, at age [age]. History of cancer on both sides of the family.Hypertension runs on the maternal side. TOBACCO USE: VITALS: Filed Vitals: 08/15/14 1150 BP: 120/74 Pulse: 80 PHYSICAL EXAM: Constitutional: Reveals an alert, pleasant, healthy appearing young female. Affect appropriate, she does not appear to be acutely ill. Vitals: per nursing notes. HEENT: Atraumatic. Neck: Supple, no bruits, adenopathy, or thyromegaly. Back: No abnormal kyphosis or scoliosis. Flexion of the spine appears normal. No localized tenderness over the spine or SI joints. Negative straight leg raise, full internal and external rotation of the hips. Deep tendon reflexes are brisk and symmetrical. Toe raises and heel walking are normal. Xray: Normal Xray ANALYSIS AND SUMMARY OF OLD RECORDS (2): None. RECORDS REQUESTED (1): OTHER HISTORY SUMMARIZED (2) RADIOLOGY TESTS SUMMARIZED (1) (XRAY/CT/MRI/DXA): Today's Xray. LABS REVIEWED (1): None. MEDICINE TEST SUMMARIZED (1) (EKG/ECHO/COLONOSCOPY/EGD): None. INDEPENDENT REVIEW OF EKG OR X-RAY (2): Today's xray, as above The visit lasted a total of 16 minutes face to face with the patient. Over 50% of the time was spentcounseling and educating the patient about her lower back pain. I, Clif Farmer, am scribing for and in the presence of, Dr. Booth. I, Dr. Booth, personally performed the services described in this documentation, as scribed by Clif Farmer in my presence, and it is both accurate and complete. MEDICATIONS: No current outpatient prescriptions on file. No current facility-administered medications for this visit. Total Data Points: 3 documented in this encounter Plan of Treatment Not on filedocumented as of this encounter Visit Diagnoses Diagnosis Low back pain Lumbago documented in this encounter Care Teams Gastroenterology Professor Relationship Specialty Start Date End Date Doctor, Denny, PCP - General 10/22/14 02/07/16 Destiny Elizondo PCP - General 02/08/16 06/22/17 [facility] [address] [place], [place] [address] No Ref-Primary, PCP - General 10/12/17 11/01/20 Physician Ernst Lopez MD PCP - General Family Practice 06/23/17 10/11/17 Kari Bingham MD Ophthalmology 04/15/20 MD Ruth [address] [place] [address] Kari Bingham Assigned Surgical 04/26/20 MD Ruth Provider [address] [place] [address] documented as of this encounter
--- OUTSIDE RECORDS SUMMARY | 2022-01-18 07:48 | XMS_ITS | Encounter Summary ---
:1995 Author Organization [place] Address [address] [place] [address] Care Team Providers Name Role Phone Destiny Elizondo Primary Care Provider Reason for Referral Consultation - Closed Specialty Diagnoses / Procedures Referred By Contact Refer red To Contact Diagnoses CRVO (central retinal vein occlusion) Amado Contreras MD [facility] [address] [address] [place] [id number] [phone] Referral ID Status Reason Start Date Expiration Date Visits Requ ested Visits Authorized [id number] Closed 02/09/2016 02/08/2017 1 1 - Closed Specialty Diagnoses / Procedures Referred By Contact Refer red To Contact Diagnoses CRVO (central retinal vein occlusion) Amado Contreras MD [facility] [address] [address] [place], [place] [address] 4 Referral ID Status Reason Start Date Expiration Date Visits Requ ested Visits Authorized [id number] Closed 02/09/2016 02/08/2017 1 1 Reason for Visit Reason Comments Consult For Vision loss. Sent by ED OS Encounter Details Date Type Department Care Team Description 02/09/2016 Office Visit [facility] Eye Kamila Keller RVO (central retinal Clinic - Fernanda Wilkerson MD vein occlusion) Patrice [place] [address] [facility] [address] [place], [place] 9th Fl Clin 9[address] [address] [place], [place] [phone] (Work) [phone] Social History Tobacco Use Types Packs/Day Years Used Date Smoking Tobacco: Never Alcohol Use Standard Drinks/Week Comments No 0 (1 standard drink = 0.6 oz pure alcoho l) Sex Assigned at Date Recorded Not on file documented as of this encounter Progress Notes Kamila Keller MD - 02/09/2016 10:29 AM CDT CC - Blurred painful LE HPI - Akilah Cline is a 20 year old year-old patient presenting for blurred va and moderate pain in the left eye x 3 weeks. Has had intermittent vision loss/blurring OS that persisted/worsened approximately 1 week ago. Went to [facility] and then was sent to Dr Pyle as va kept getting worse. Was thensent to ED yesterday by Dr Pyle and told she may [...] ago with eye movement. Went to [facility] 02/03/16, found swollen veins, sent to Dr. Navjot Pyle 02/05/16, saw bleeding in eye and CRVO per patient. Saw Lashanda again 02/08/16 d/t worsening, advised to go to ED Monday night. PAST OCULAR HISTORY None FOHx/FMHx: mother with recurrent clots, unclear etiology (mentioned possible Takaysu Arteritis) RETINAL IMAGING: OCT 02-09-16 right eye- normal contour, no IRF/SRF, STATIONARY ENGINEER APPRENTICE 266 left eye - extensive IRF/SRF, distorted foveal contour, STATIONARY ENGINEER APPRENTICE 538 FA 02-09-16 RE: normal LE: (transits) slowed venous filling, extensive blocking from IRH, late leakage from ONH and in macula, diffuse staining of veins, no obvious ischemia ASSESSMENT & PLAN 1. Central Retinal Vein Occlusion OS - presence of APD concerning for ischemic, although VA better than typical for ischemic - blocking from heme and lower lid artifact make determining amount of capillary nonperfusion difficult - young patient, unclear etiology - BP OK in ED, is on OCP but no smoking - will place Hematology-Oncology consult for assessment - Hypercoagulatbility w/u ordered CBC, ESR, CRP, PT, PTT, Protein C, Protein S, Activated Protein C Resistance, Factor V Leiden, anti-cardiolipin antibody, lupus anticoagulant - if above w/u negative, consider sleep study - possible family history of vasculitis - Additional w/u given peculiar systemic family history: SIMRAN, ANCA, RPR, quantiferon gold, BMP, UA,TILESETTER - plan for avastin OS today with f/u in 4 weeks - will also check b-scan of optic discs OU at retina f/u - possibility for optic disc drusen, givenfullness OD (none apparent on FAF, but may be buried) 2. Pain OS with eye movement - concerning for optic neuritis, atypical for CRVO - pain atypical for CRVO, possibility of optic neuritis contributing, but atypical - plan for MRI brain/orbits with contrast and referral to Dr. Christopher, Neuro-Ophth return to clinic: 1 month, OCT, B-scan (looking for optic disc drusen OU) Amado Contreras MD [facility] ATTESTATION ATTENDING ATTESTATION: Complete documentation of historical and exam elements from today's encounter can be found in the full encounter summary report (not redupilcated in this progress note). I personally obtained the chiefcomplaint(s) and hisotry of present illness., I have confirmed and edited as necessary the CC, HPI, PMH/PSH, Social history, FMH, ROS, and exam/neuro findings as obtained by the automotive tire technician or others. Ihave examined this patient myself. and I personally viewed the image(s) and studies listed above andthe documentation reflects my findings and interpretation. Kamila Keller MD, PhD Director Of Music Therapy, Vitreoretinal Surgery Department of Ophthalmology [facility] documented in this encounter Nursing Notes Maureen Woody - 02/09/2016 10:05 AM CDT Chief Complaints and History of Present Illnesses Patient presents with ??? Consult For Vision loss. Sent by ED OS HPI Affected eye(s): Left Symptoms: Blurred vision Decreased vision Do you have eye pain now?: Yes Location: OS Pain Level: Mild Pain (3), Moderate Pain (4) Pain Duration: 3 weeks Pain Frequency: Intermittent Other: pulling pain when she moves her eye. Comments: States vision loss started three weeks ago. Went to [facility] and then was sent to Dr. Pyle. Vision keeps progressively getting worse so was sent to the ED department yesterday by Dr. Pyle. Was at a visit with him and was told since it ws so much worse, he wanted her to go to the ED. Went to ED and was referred her for a retinal specialist. Pt does report she was told by Dr. Pyle thatsea had a CRVO in her LE. Maureen Woody COA 10:05 AM February 09, 2016 documented in this encounter Plan of Treatment Scheduled Referrals Name Type Priority Associated Diagnoses Order S chedule Neuro Eye Referral Referral TIFFANY CRVO (central retinal Ordered: 02/09/2016 vein occlusion) ONC/HEME ADULT REFERRAL Referral TIFFANY CRVO (central ret inal Ordered: 02/09/2016 vein occlusion) documented as of this encounter Procedures Procedure Name Priority Date/Time Associated Comments Diagnosis AVASTIN (BEVACIZUMAB) Routine 02/09/2016 3:36 CRVO (central Re sults for this 1.25 MG INTRAVITREAL PM CDT retinal vein procedu re are in INJECTION OS (LEFT EYE) occlusion) the results section. MYELOPEROXIDASE AND Routine 02/09/2016 2:34 CRVO (central Resu lts for this PROTEINASE 3 PANEL PM CDT retinal vein procedure are in occlusion) the results section. M TUBERCULOSIS BY Routine 02/09/2016 2:33 CRVO (central Result s for this QUANTIFERON PM CDT retinal vein procedure are i n occlusion) the results section. RPR SCREEN WITH REFLEX Routine 02/09/2016 2:33 CRVO (central R esults for this TO CONFIRM PM CDT retinal vein procedure are i n occlusion) the results section. LUPUS ANTICOAGULANT Routine 02/09/2016 2:33 CRVO (central Resu lts for this PANEL PM CDT retinal vein procedure are i n occlusion) the results section. FACTOR 5 LEIDEN MUTATION Routine 02/09/2016 2:33 CRVO (central Results for this ANALYSIS PM CDT retinal vein procedure are i n occlusion) the results section. ERYTHROCYTE Routine 02/09/2016 2:33 CRVO (central Results for this SEDIMENTATION RATE AUTO PM CDT retinal vein proc edure are in occlusion) the results section. CARDIOLIPIN ANTIBODY IGA Routine 02/09/2016 2:33 CRVO (central Results for this PM CDT retinal vein procedure are i n occlusion) the results section. ANTINUCLEAR ANTIBODY Routine 02/09/2016 2:33 CRVO (central Res ults for this SCREEN BY EIA PM CDT retinal vein procedure are in occlusion) the results section. ANTINEUTROPHIL Routine 02/09/2016 2:33 CRVO (central Results f or this CYTOPLASMIC CARLOS IGG PM CDT retinal vein procedur e are in occlusion) the results section. ACTIVATED PROTEIN C Routine 02/09/2016 2:33 CRVO (central Resu lts for this RESISTANCE PM CDT retinal vein procedure are i n occlusion) the results section. BASIC METABOLIC PANEL Routine 02/09/2016 2:33 CRVO (central Re sults for this PM CDT retinal vein procedure are i n occlusion) the results section. CBC WITH PLATELETS Routine 02/09/2016 2:33 CRVO (central Resul ts for this PM CDT retinal vein procedure are i n occlusion) the results section. ROUTINE UA WITH Routine 02/09/2016 2:21 CRVO (central Results for this MICROSCOPIC PM CDT retinal vein procedure are i n occlusion) the results section. FLUORESCEIN ANGIOGRAPHY Routine 02/09/2016 12:35 CRVO (central Results for this OU (BOTH EYES) PM CDT retinal vein procedure are in occlusion) the results section. FUNDUS AUTOFLUORESCENCE Routine 02/09/2016 12:35 CRVO (central Results for this IMAGE (FAF) OU (BOTH PM CDT retinal vein procedu re are in EYES) occlusion) the results section. FUNDUS PHOTOS OU (BOTH Routine 02/09/2016 12:34 CRVO (central Results for this EYES) PM CDT retinal vein procedure are i n occlusion) the results section. OCT RETINA SPECTRALIS OU Routine 02/09/2016 12:34 CRVO (centra l Results for this (BOTH EYE) PM CDT retinal vein procedure are i n occlusion) the results section. documented in this encounter Results OCT Retina Spectralis OU (both eyes) (03/08/2016 3:32 PM STATIONARY ENGINEER APPRENTICE) Narrative Kamila Keller MD - 03/08/2016 3:32 PM STATIONARY ENGINEER APPRENTICE Patient cooperation: Reliable . Right Eye Reliability of the test: Good . Findings normal/abnormal: Normal OCT . Interpretation: Normal . Plan: Monitor . Interval: Same . Left Eye Reliability of the test: Good . Findings normal/abnormal: Abnormal OCT , Normal fovea . Interpretation: Retinal disease . Plan: Monitor . Interval: Better . Kamila Keller MD OPHTHALMOLOGY XR Chest 2 Views (02/11/2016 8:30 PM CDT) Anatomical Region Laterality Modality Chest Computed Radiography Specimen (Source) Anatomical Location Collection Method / Collectio n Time Received Time / Laterality Volume Impressions 02/11/2016 9:55 PM CDT IMPRESSION: No acute cardiopulmonary findings. I have personally reviewed the examinati on and initial interpretation and I agree with the findings. RODRÍGUEZ ARTEAGA MD Narrative 02/11/2016 9:55 PM CDT EXAM: XR CHEST 2 VW ??02/11/2016 8:30 PM HISTORY: ??Central retinal vein occlusio n, unspecified eye, stable ?? COMPARISON: ??None available FINDINGS: ??PA and lateral views of the chest are obtained. The cardiomediastinal silhouette is unre markable. The costophrenic angles are sharp. There is no pleural ef fusion or pneumothorax. The pulmonary vasculature is distinct. No fo dneisse airspace opacity. Normal lung volumes. The visualized upper abdomen is unremark able. No acute osseous abnormality. Procedure Note Rodríguez Arteaga MD - 2015 EXAM: XR CHEST 2 [...] and I agree with the findings. RODRÍGUEZ ARTEAGA MD Amado Contreras MD IMG DIAGNOSTIC IMAGING ORDER BEHZAD MR Brain and Orbits (02/11/2016 7:27 PM CDT) Anatomical Region Laterality Modality Head, SUBRAD MR NEURO, UMP MR NEURO Magn etic Resonance Specimen (Source) Anatomical Location Collection Method [...] and I agree with the findings. NIKIA HERRERA MD Narrative 02/12/2016 9:25 AM CDT MR [...] or extra-axial contrast enhancement. Procedure Note Nikia Herrera MD - 02/12/2016 MR BRAIN AND ORBITS [...] and I agree with the findings. NIKIA HERRERA MD Amado Contreras MD IMG MRI ORDERABLES Avastin (Bevacizumab) 1.25MG Intravitreal Injection OS (left eye) (02/09/2016 3:36 PM CDT) Kamila Urias MD / Kristie Leone COT - 02/09/2016 3:36 PM CDT Sign in/Time Out: Correct patient, Correct medication, Correct procedure, Correct site, Sign in communication comp leted . Time out performed at: 12:00 AM . Plan: Injections . Pre-Procedure Pain: 0 . Post-Procedure Pain: 0 . Sign Out: Sign out discussion complete d, Patient counseled on signs and symptoms for which to call and/or return to clinic, Patient tolerated procedure well with no complications . Notes PROCEDURE DESCRIPTION: ??After informed consent was obtained, the site of the left eye was marked and verified. ?? A drop of proparacaine followed by a drop of Betadine and viscous lidocaine jelly were placed in the eyes. ? A sterile lid speculum was placed. ??Denisse ipers were used to nemesio the conjunctivae 3.5 mm posterior to the petersen bus inferotemporally and an extra drop of Betadine was placed on the nemesio. ??A TB syringe with a 32-gauge needle was used to inject 0.05 ml of Nessa stin into the vitreous. ??The patient's vision was verified to be at l east hand motions in each eye afterwards. The excess Betadine was rins ed from the eyes. ??The patient tolerated the procedure well with no com plications. Pain assessment afterwards revealed a pa in rating of 0 out of 10. Lot:[id number] Exp:03-08-16 Eye:SOY Leone COT 2:31 PM February 09, 2016 Amado Contreras MD OPHTHALMOLOGY Vasculitis panel (02/09/2016 2:34 PM CDT) Component Value Ref Test Analysis Performed At [facility] Prismatic Range Method Time Signature Myeloperoxidase <0.2 0.0 - UNIVERSITY Antibody IgG Negative 0.9 AI OF [place] Antibody index (AI) values reflect qualitative changes in a ntibody MEDICAL concentration that cannot be directly associated with clinical condition or [facility] disease state. CAMPUS Proteinase 3 <0.2 0.0 - UNIVERSITY Antibody IgG Negative 0.9 AI OF [place] Antibody index (AI) values reflect qualitative changes in a ntibody MEDICAL concentration that cannot be directly associated with clinical condition or [facility] disease state. MAZON Specimen Anatomical Collection Method Collection Time Receive d Time (Source) Location / / Volume Laterality Blood specimen 02/09/2016 2:34 PM 016 2:36 (specimen) CDT PM CDT Amado Contreras MD LAB - BLOOD ORDERABLES Performing Organization Address City/State/ZIP Code Phon e Number [facility] [address] [place] [address] [facility] Antinuclear antibody screen by EIA (02/09/2016 2:33 PM CDT) [facility] Prismatic Method Time Signature SIMRAN Screen by <1.0 <1.0 UNIVERSITY OF EIA Interpretation: ??Negative [facility] Specimen Anatomical Collection Method Collection Time Receive d Time (Source) Location / / Volume Laterality 02/09/2016 2:33 PM 6 2:35 CDT PM CDT Amado Contreras MD LAB - BLOOD ORDERABLES Performing Organization Address City/[facility] Code Phon e Number [facility] [address] M Tuberculosis by Quantiferon (02/09/2016 2:33 PM CDT) [facility] Method Time Signature M Tuberculosis Negative NEG UNIVERSITY OF Result [facility] M Tuberculosis 0.29 IU/mL UNIVERSITY OF Antigen Value [facility] Comment: This is a qualitative test. ??The TB ant igen IU/mL value is required for documentation on certain government rep orting forms but this value should not be used to monitor disease progression or response to therapy. Diagnosing or excluding tuberculosis di sease, and assessing the probability of LTBI, require a combination of epidemio logical, historical, medical and diagnostic findings that should be take n into account when interpreting QuantiFERON TB results. Specimen Anatomical Collection Method Collection Time Receive d Time (Source) Location / / Volume Laterality Blood specimen 02/09/2016 2:33 PM 016 2:35 (specimen) CDT PM CDT Amado Contreras MD LAB - BLOOD ORDERABLES Performing Organization Address [facility] Code Phon e Number [facility] [address] RPR screen with reflex to confirm (02/09/2016 2:33 PM CDT) [facility] Signature Rapid Plasma Negative NEG UNIVERSITY OF Reagin [facility] Specimen Anatomical Collection Method Collection Time Receive d Time (Source) Location / / Volume Laterality Blood specimen 02/09/2016 2:33 PM 016 2:35 (specimen) CDT PM CDT Amado Contreras MD LAB - BLOOD ORDERABLES Performing Organization Address City/[facility] Code Phon e Number [facility] [address] Antineutrophil cytoplasmic Carlos IgG (02/09/2016 2:33 PM CDT) Component Value Ref Test Analysis Performed At [facility] Range Method Time Signature Neutrophil <1:20 UNIVERSITY OF Cytoplasmic IgG Reference range: <1:20 M N MEDICAL Antibody (Note) [facility] The ANCA IFA is <1:20; therefore, no further testing will CAMPUS be performed. INTERPRETIVE INFORMATION: Anti-Neutrophil Cyto Ab, IgG Neutrophil Cytoplasmic Antibodies (C-ANCA = granular cytoplasmic staining, P-ANCA = perinuclear staining) are found in the serum of over 90 percent of patients with certain necrotizing systemic vasculitides, and usually in less than 5 percent of patients with collagen vascular disease or arthritis. Performed by [employer], [address] [place] [id number] [email or web address], Alexx Lemons MD, Lab. Director Specimen Anatomical Collection Method Collection Time Receive d Time (Source) Location / / Volume Laterality Blood specimen 02/09/2016 2:33 PM 016 2:35 (specimen) CDT PM CDT Amado Contreras MD LAB - BLOOD ORDERABLES Performing Organization Address City/[facility] Code Phon e Number [address] Cardiolipin antibody IgA (02/09/2016 2:33 PM CDT) Component Value Ref Test Analysis Performed At [facility] Thermal Nomad Method Time Signature Cardiolipin Canceled, Test credited 0 - 11 UNIV ERSITY OF Antibody IgA Specimen not received APL [facility] EDICAL IgA also helps indentify an additional group [facility] of patients whose only presentation is MAZON thrombocytopenia. Assayed at [facility], [place] [address] Specimen Anatomical Collection Method Collection Time Receive d Time (Source) Location / / Volume Laterality Blood specimen 02/09/2016 2:33 PM 016 2:35 (specimen) CDT PM CDT Amado Contreras MD LAB - BLOOD ORDERABLES Performing Organization Address City/[facility] Phon e Number [address] Factor 5 leiden mutation analysis (02/09/2016 2:33 PM CDT) Component Value Ref Test Analysis Performed At [facility] Prismatic Range Method Time Signature Maria Victoriaath Report Patient Name: AKILAH CLINE MR#: [id number] Specimen #: [id number] Collected: 02/09/2016 14:33 Received: 02/10/2016 11:31 Reported: 02/14/2016 11:31 Ordering Phy(s): KAMILA KELLER Additional Phy(s): AMADO CONTRERAS TEST(S) REQUESTED: Factor 5 Leiden Mutation by PCR SPECIMEN DESCRIPTION: Blood METHODOLOGY: ?? The regions of genomic DNA containing the G1 691A Factor 5 gene mutation (Factor V Leiden) and the Factor 2(Prothrombin [id number]) gene mutation were simultaneously amplified using the polyme rase chain reaction. ??The amplified products were digested with restri ction endonuclease TaqI and products were analyzed by gel electrop horesis. RESULTS: Factor V 1691G>A (Leiden) ??RESULTS: Mutation analyzed: ? 1691G>A Factor V 1691G>A (Leiden) ??Interpretation: ?ABSENT Factor V 1691G>A (Leiden) mutation ??genotype: ?G/G INTERPRETATION: The patient is negative for the Factor V 1691G>A (Leiden) mu tation. COMMENTS: If a patient is the recipient of an allogeneic bone marrow t ransplant, this test must be done on a pre-transplant sample or buccal swab. ??A previous allogeneic bone marrow transplant will interfere wi th test results. ??Call the [facility]([phone]) for instructions on sample collection for these patients. This test was developed and its performance characteristics determined by the [facility], ??[facility]. It has not been cleared or approved by the FDA. The laboratory is regulated under CLIA as qualified to perform high-complexity testing. This test is used for clinical purp oses. It should not be regarded as investigational or for research. Electronically Signed Out By: Rachel Anne M.D., [facility] CPT Codes: A: 66093-L0APZ, A6101-[id number] TESTING LAB LOCATION: [address] [address] COLLECTION SITE: Client: ??[facility] Location: ??LUCIANA (B) Specimen Anatomical Collection Method Collection Time Receive d Time (Source) Location / / Volume Laterality Blood specimen 02/09/2016 2:33 PM 016 (specimen) CDT 11:31 AM CDT Kamila Keller MD LAB - GENOMICS Performing Organization Address City/State/ZIP Code Phon e Number [place] Activated protein C resistance (02/09/2016 2:33 PM CDT) P athologist Signature Activated Prot 2.72 >2.12 UN[facility]ITY OF C [facility] MEDICAL [facility] CENTER [facility] Comment: NORMAL Activated Protein C Ratio:The pat ient does not have Activated Protein C Resistance. Specimen Anatomical Collection Method Collection Time Receive d Time (Source) Location / / Volume Laterality Blood specimen 02/09/2016 2:33 PM 016 2:35 (specimen) CDT PM CDT Amado Contreras MD LAB - BLOOD ORDERABLES Performing Organization Address City/[facility]/ZIP Code Phon e Number [facility] [address] [place] [address] [facility] LUPUS BATTERY (INR,PTT,TT) (02/09/2016 2:33 PM CDT) Component Value Ref Test Analysis Performed At [facility] gist Range Method Time Signature Lupus Result Negative NEG [facility] (Note) OR MEDICAL COMMENTS: [facility] The INR is normal. MAZON APTT ratio is elevated. Platelet Neutralization is negative. APTT 1:2 Mix ratio is normal. DRVVT Screen ratio is normal. Thrombin time is normal. NEGATIVE TEST; A LUPUS ANTICOAGULANT WAS NOT DETECTED IN THI S SPECIMEN WITHIN THE LIMITS OF THE TESTING REPERTOIRE. If the clinical picture is strongly suggestive of an antipho spholipid syndrome, recommend anticardiolipin and [id number]-[id number] (IgG and IgM) antibody tests. Platelet Neutralization and APTT 1:2 Mix ratio are suggestiv e of factor deficiency. Recommend factors 8, 9, 11 and 12 (factors VIII, IX, XI, and XII) levels if clinically indicated. Jagdish Sandy M.D. [phone] 02/11/2016 INR = 1.11 ?? Reference range: 0.86-1.14 Thrombin Time= 15.3 ?? Reference range: 13.0-19.0 sec APTT: ?Ratio Patient ??= 1.26 1:2 Mix ??= 1.05 Reference: Negative: Less than or equal to 1.16 Positive: Greater than or equal to 1.17 Platelet Neutralization (seconds): PTT Buffer-PTT Platelet Lysate = -4 Reference: Negative: Less than or equal to 0 Positive: Greater than or equal to 1 DILUTE JORGE L [facility]ER [facility] TEST: Screen Ratio = 0.96 ??Normal is less than 1.21 Specimen Anatomical Collection Method Collection Time Receive d Time (Source) Location / / Volume Laterality Blood specimen 02/09/2016 2:33 PM 016 2:35 (specimen) CDT PM CDT Amado Contreras MD LAB - BLOOD ORDERABLES Performing Organization Address City/[facility] Code Phon e Number [address] Erythrocyte sedimentation rate auto (02/09/2016 2:33 PM CDT) P athologist Signature Sed Rate 6 0 - 20 mm/h [facility] Specimen Anatomical Collection Method Collection Time Receive d Time (Source) Location / / Volume Laterality Blood specimen 02/09/2016 2:33 PM 016 2:35 (specimen) CDT PM CDT Amado Contreras MD LAB - BLOOD ORDERABLES Performing Organization Address City/[facility] Code Phon e Number [address] (ABNORMAL) Basic metabolic panel (02/09/2016 2:33 PM CDT) Patholo gist Method Time Signature Sodium 142 133 - 144 UNIVERSITY OF mmol/L [facility] Potassium 3.4 3.4 - 5.3 UN[facility]ITY OF mmol/L [facility] Chloride 110 (H) 94 - 109 [facility] OF mmol/L [facility] Carbon Dioxide 23 20 - 32 UN[facility]ITY OF mmol/L [facility] Anion Gap 9 3 - 14 [facility] mmol/L [facility] Glucose 113 (H) 70 - 99 [facility] mg/dL [facility] Urea Nitrogen 10 7 - 30 [facility] mg/dL [facility] Creatinine 0.58 0.52 - [facility] 1.04 [facility] mg/dL [facility] GFR Estimate >90 >60 [facility] Non GFR Calc mL/min/1. [place] MEDICAL 7m2 [facility] GFR Estimate >90 >60 [facility] If Black GFR Calc mL/min/1. [place] M EDICAL 7m2 [facility] Calcium 8.9 8.5 - [facility] 10.1 OR MEDICAL mg/dL [facility] Specimen Anatomical Collection Method Collection Time Receive d Time (Source) Location / / Volume Laterality Blood specimen 02/09/2016 2:33 PM 016 2:35 (specimen) CDT PM CDT Amado Contreras MD LAB - BLOOD ORDERABLES Performing Organization Address City/State/ZIP Code Phon e Number [facility] [address] CBC with platelets (02/09/2016 2:33 PM CDT) P athologist Signature WBC 5.6 4.0 - 11.0 [facility] 10e9/L [facility] RBC Count 4.12 3.8 - 5.2 [facility] 10e12/L [facility] Hemoglobin 12.8 11.7 - [facility] 15.7 g/dL [facility] Hematocrit 36.9 35.0 - [facility] 47.0 % [facility] MCV 90 78 - 100 [facility] fl [facility] MCH 31.1 26.5 - [facility] 33.0 pg [facility] MCHC 34.7 31.5 - [facility] 36.5 g/dL [facility] RDW 12.2 10.0 - [facility] 15.0 % [facility] Platelet Count 276 150 - 450 [facility] 10e9/L [facility] Specimen Anatomical Collection Method Collection Time Receive d Time (Source) Location / / Volume Laterality Blood specimen 02/09/2016 2:33 PM 016 2:35 (specimen) CDT PM CDT Amado Contreras MD LAB - BLOOD ORDERABLES Performing Organization Address City/State/ZIP Code Phon e Number [facility] [address] (ABNORMAL) Routine UA with microscopic - No culture (02/09/2016 2:21 PM CDT) Patholo gist Method Time Signature Color Urine Yellow [facility] Appearance Urine Slightly [facility] Cloudy [facility] Glucose Urine Negative NEG mg/dL [facility] Bilirubin Urine Negative NEG [facility] Ketones Urine Negative NEG mg/dL [facility] Specific [place] 1.006 1.003 - [facility]ITY Urine 1.035 [facility] Blood Urine Negative NEG [facility] pH Urine 7.0 5.0 - 7.0 [facility] pH [facility] Protein Albumin Negative NEG mg/dL [facility] Urine [facility] Urobilinogen Normal 0.0 - 2.0 [place] [facility] mg/dL mg/dL [facility] Nitrite Urine Negative NEG [facility] Leukocyte Moderate (A) NEG [facility] Esterase Urine [facility] Source Midstream [facility] Urine [facility] WBC Urine 6 (H) 0 - 2 [facility] /HPF [facility] RBC Urine 1 0 - 2 [facility] /HPF [facility] Bacteria Urine Few (A) NEG /HPF [facility] Squamous 26 (H) 0 - 1 [facility] Epithelial /HPF /HPF [facility] Transitional Epi <1 0 - 1 [facility] /HPF [facility] Mucous Urine Present (A) NEG /LPF [facility] Specimen Anatomical Collection Method Collection Time Receive d Time (Source) Location / / Volume Laterality Urine specimen 02/09/2016 2:21 PM 016 2:22 (specimen) CDT PM CDT Amado Contreras MD LAB - URINE ORDERABLES Performing Organization Address City/State/ZIP Code Phon e Number [facility] [address] [place] [address] [facility] Fluorescein Angiography OU (both eyes) (02/09/2016 12:35 PM CDT) Narrative Kamila Keller MD - 02/09/2016 12:35 PM CDT Patient cooperation: Reliable . On Optos. . Right Eye Reliability of the test: Good . Timing: Arm to eye normal . Filling: Normal . Leakage: None . Test Findings: Normal . Interpretation: Normal . Plan: Monitor . Interval: Initial . Left Eye Reliability of the test: Good . Timing: Arm to eye normal . Filling: CRVO . Leakage: Present . Test Findings: Abnormal . Interpretation: Abnormal . Plan: Monitor . Interval: Initial . Kamila Keller MD OPHTHALMOLOGY Fundus Autofluorescence Image (FAF) OU (both eyes) (02/09/2016 12:35 PM CDT) Kamila Urias MD - 02/09/2016 12:35 PM CDT Patient cooperation: Reliable . Right Eye Reliability of the test: Good . Findings: Regular . Interpretation: Normal . Plan: Monitor . Interval: Initial . Left Eye Reliability of the test: Good . Findings: Irregular . Interpretation: Abnormal . Plan: Monitor . Interval: Initial . Kamila Keller MD OPHTHALMOLOGY Fundus Photos OU (both eyes) (02/09/2016 12:34 PM CDT) Kamila Urias MD - 02/09/2016 12:34 PM CDT Patient cooperation: Reliable . Right Eye Reliability of the test: Good . Findings: Normal disc/macula/vessels . Interpretation: Normal . Plan: Monitor . Interval: Initial . Left Eye Reliability of the test: Good . Findings: Abnormal . Interpretation: Abnormal . Plan: Monitor . Kamila Keller MD OPHTHALMOLOGY OCT Retina Spectralis OU (both eyes) (02/09/2016 12:34 PM CDT) Kamila Urias MD - 02/09/2016 12:34 PM CDT Patient cooperation: Reliable . Right Eye Reliability of the test: Good . Findings normal/abnormal: Abnormal OCT . Interpretation: Retinal disease . Plan: Monitor . Interval: Same . Left Eye Reliability of the test: Good . Findings normal/abnormal: Abnormal OCT . Interpretation: Retinal disease . Plan: Monitor . Interval: Same . Kamila Keller MD OPHTHALMOLOGY documented in this encounter Visit Diagnoses Diagnosis CRVO (central retinal vein occlusion) Central vein occlusion of retina CRVO (central retinal vein occlusion) Central vein occlusion of retina CRVO (central retinal vein occlusion) Central vein occlusion of retina CRVO (central retinal vein occlusion) Central vein occlusion of retina documented in this encounter Care Teams Food Safety Scientist Relationship Specialty Start Date End Date Destiny Elizondo PCP - General 02/08/16 06/22/17 [facility] [address] [place] [address] documented as of this encounter
--- OUTSIDE RECORDS SUMMARY | 2022-01-18 07:48 | XMS_ITS | Encounter Summary ---
:1995 Author Organization [place] Address [address] [place] [address] Care Team Providers Name Role Phone Doctor, Denny ANDREWS Primary Care Provider Unavailable Destiny Elizondo Primary Care Provider No Ref-Primary, Physician Primary Care Provider [phone] Kari Bingham MD Unavailable [phone] Kari Bingham MD Unavailable [phone] Ernst Lopez MD Primary Care Provider Encounter Details Date Type Department Care Team Description 08/15/2014 Communication - [facility] Provider, Constantino mcneal Social History Tobacco Use Types Packs/Day Years Used Date Smoking Tobacco: Never Assessed Sex Assigned at Date Recorded Not on file COVID-19 Exposure Response Date Recorded In the last month, have you been in contact with No / Unsure 04/20/2020 3:05 PM ELECTRICIAN RADIO someone who was confirmed or suspected to have Coronavirus / COVID-19? documented as of this encounter Plan of Treatment Not on filedocumented as of this encounter Visit Diagnoses Not on filedocumented in this encounter Care Teams Exterior Work Helper Relationship Specialty Start Date End Date Doctor, MD Denny PCP - General 10/22/14 02/07/16 Destiny Elizondo PCP - General 02/08/16 06/22/17 [facility] [address] [place] [address] No Ref-Primary, PCP - General 10/12/17 11/01/20 Physician Ernst Lopez MD PCP - General Family Practice 06/23/17 10/11/17 Kari Bingham MD Ophthalmology 04/15/20 MD Ruth [address] [place] [address] Kari Bingham Assigned Surgical 04/26/20 MD Ruth Provider [address] [address] documented as of this encounter
--- OUTSIDE RECORDS SUMMARY | 2022-01-18 07:48 | XMS_ITS | Encounter Summary ---
:1995 Author Organization [place] Address [address] [place] [address]. [place] [address] Care Team Providers Name Role Phone Doctor, None MD Primary Care Provider Unavailable Destiny Elizondo Primary Care Provider No Ref-Primary, Physician Primary Care Provider [phone] Kari Bingham MD Unavailable [phone] Kari Bingham MD Unavailable [phone] Ernst Lopez MD Primary Care Provider Encounter Details Date Type Department Care Team Description 08/15/2014 Records - [facility] Brett Booth MD Low back pain Clinic [address] [address] [facility] [place] [address] Social History Tobacco Use Types Packs/Day Years Used Date Smoking Tobacco: Never Assessed Sex Assigned at Date Recorded Not on file COVID-19 Exposure Response Date Recorded In the last month, have you been in contact with No / Unsure 04/20/2020 3:05 PM SYSTEMS INTEGRATOR someone who was confirmed or suspected to have Coronavirus / COVID-19? documented as of this encounter Plan of Treatment Not on filedocumented as of this encounter Procedures Procedure Name Priority Date/Time Associated Diagnosis Comme nts XR LUMBAR SPINE 05/13 Routine 08/15/2014 12:21 PM Low back pain Results for this VIEWS CDT procedure are i n the results section. documented in this encounter Results XR Lumbar Spine 2/3 Views (08/15/2014 12:21 PM CDT) Anatomical Region Laterality Modality Spine, T-spine, L-spine, Abdomen/Pelvis Other Specimen (Source) Anatomical Location Collection Method / Collectio n Time Received Time / Laterality Volume Narrative 08/16/2014 9:24 PM CDT XR LUMBAR SPINE 2 OR 3 VWS08/15/2014 12:21 PMINDICATION: Lumbar pain.COMPARISON: None.FINDINGS: The sacroiliac joints are within normal limits. There is good anatomic alignment of the lumbar spine. Verteb ral body heights and the disc space heig hts are well-maintained without. There is no randy dence of discrete pars defect.This report was electronically interpreted by: Dr. Tisha Patiño MD ON 08/16/2014 at 21:24 Procedure Note Tisha Patiño MD - 09/13/2020 XR LUMBAR SPINE 2 OR 3 VWS08/15/2014 12:21 PMINDICATION: Lumbar pain.COMPARISON: None.FINDINGS: The sacroiliac joints are within normal limits. There is good anatomic alignment of the lumbar spine. Vertebral body heights and the disc space heights are well-maintained without. There is no randy dence of discrete pars defect.This report was electronically interpreted by: Dr. Tisha Patiño MD ON 08/16/2014 at 21:24 Brett Booth MD IMG DIAGNOSTIC IMAGING ORDER BEHZAD documented in this encounter Visit Diagnoses Diagnosis Low back pain Lumbago documented in this encounter Care Teams Outsole Skiver Relationship Specialty Start Date End Date Doctor, Denny, PCP - General 10/22/14 02/07/16 Destiny Elizondo PCP - General 02/08/16 06/22/17 [facility] [address] [facility] [place] [address] No Ref-Primary, PCP - General 10/12/17 11/01/20 Physician Ernst Lopez MD PCP - General Family Practice 06/23/17 10/11/17 Kari Bingham MD Ophthalmology 04/15/20 MD Ruth [address] [place] [address] Kari Bingham Assigned Surgical 04/26/20 MD Ruth Provider [address] [place] [address] documented as of this encounter
--- OUTSIDE RECORDS SUMMARY | 2022-01-18 07:48 | XMS_ITS | Encounter Summary ---
:1995 Author Organization [place] Address [address] [place] [address] Care Team Providers Name Role Phone Unavailable Primary Care Provider Unavailable Reason for Referral - Closed Specialty Diagnoses / Procedures Referred By Contact Refer red To Contact Diagnoses Unspecified complication of , antepartum Sh Maternal Med [address] [facility] [address] [place] [phone] Referral ID Status Reason Start Date Expiration Date Visits Requ ested Visits Authorized [id number] Closed 10/15/2014 10/15/2015 1 1 Encounter Details Date Type Department Care Team Description 10/15/2014 Orders Only [facility] Brian Lopez Unspe cified Maternal Blair Ding, [facility] Ovidio medina MD , antepartum [address] [facility] RETIRED (Primary Dx) [facility] [address] [place] [address] Social History Tobacco Use Types Packs/Day Years Used Date Smoking Tobacco: Never Assessed Sex Assigned at Date Recorded Not on file documented as of this encounter Plan of Treatment Scheduled Referrals Name Type Priority Associated Diagnoses Order S kay [facility] Referral Routine Complication of 1 Occurrences starting , antepartum 2014 until 10/16/2015 documented as of this encounter Visit Diagnoses Diagnosis Unspecified complication of , a ntepartum - Primary documented in this encounter
--- OUTSIDE RECORDS SUMMARY | 2022-01-18 07:48 | XMS_ITS | Encounter Summary ---
:1994 Author Organization [place] Address [address] [place] [address] Care Team Providers Name Role Phone Denny Thomas MD Primary Care Provider Unavailable Destiny Elizondo Primary Care Provider No Ref-Primary, Physician Primary Care Provider [phone] Kari Bingham MD Unavailable [phone] Kari Bingham MD Unavailable [phone] Ernst Lopez MD Primary Care Provider Encounter Details Date Type Department Care Team Description 08/26/2014 Count Includes [facility] Provider, [facility] Information Management [address] [place] [phone] Social History Tobacco Use Types Packs/Day Years Used Date Smoking Tobacco: Never Assessed Sex Assigned at Date Recorded Not on file COVID-19 Exposure Response Date Recorded In the last month, have you been in contact with No / Unsure 04/20/2020 3:05 PM CLERK ANALYST someone who was confirmed or suspected to have Coronavirus / COVID-19? documented as of this encounter Plan of Treatment Not on filedocumented as of this encounter Visit Diagnoses Not on filedocumented in this encounter Care Teams Park Maintenance Technician Relationship Specialty Start Date End Date Denny Thomas MD PCP - General 10/22/14 02/07/16 Destiny Elizondo PCP - General 02/08/16 06/22/17 [facility] [address] [place] [address] [place] [address] No Ref-Primary, PCP - General 10/12/17 11/01/20 Physician Ernst Lopez MD PCP - General Family Practice 06/23/17 10/11/17 Kari Bingham MD Ophthalmology 04/15/20 MD Ruth [address] [place] [address] Kari Bingham Assigned Surgical 04/26/20 MD Ruth Provider [address] [place] [address] documented as of this encounter
--- OUTSIDE RECORDS SUMMARY | 2022-01-18 07:48 | XMS_ITS | Encounter Summary ---
:1995 Author Organization [place] Address [address] [place] [address] Care Team Providers Name Role Phone DoctorDenny MD Primary Care Provider Unavailable Destiny Elizondo Primary Care Provider No Ref-Primary, Physician Primary Care Provider [phone] Kari Bingham MD Unavailable [phone] Kari Bingham MD Unavailable [phone] Ernst Lopez MD Primary Care Provider Encounter Details Date Type Department Care Team Description 09/05/2014 Office Visit - [facility] Provider, [facility] [address] [phone] Social History Tobacco Use Types Packs/Day Years Used Date Smoking Tobacco: Never Assessed Sex Assigned at Date Recorded Not on file COVID-19 Exposure Response Date Recorded In the last month, have you been in contact with No / Unsure 04/20/2020 3:05 PM VISUAL SUPERVISOR someone who was confirmed or suspected to have Coronavirus / COVID-19? documented as of this encounter Plan of Treatment Not on filedocumented as of this encounter Visit Diagnoses Not on filedocumented in this encounter Care Teams Private Eye Relationship Specialty Start Date End Date Denny Thomas MD PCP - General 10/22/14 02/07/16 Destiny Elizondo PCP - General 02/08/16 06/22/17 [facility] [address] [place], [place] [address] No Ref-Primary, PCP - General 10/12/17 11/01/20 Physician Ernst Lopez MD PCP - General Family Practice 06/23/17 10/11/17 Kari Bingham MD Ophthalmology 04/15/20 MD Ruth [address] [place] [address] Kari Bingham Assigned Surgical 04/26/20 MD Ruth Provider [address] [place] [address] documented as of this encounter
--- OUTSIDE RECORDS SUMMARY | 2022-01-18 07:48 | XMS_ITS | Encounter Summary ---
:1995 Author Organization [place] Address [address] [place] [address]. [place] [address] Care Team Providers Name Role Phone Denny Thomas MD Primary Care Provider Unavailable Destiny Elizondo Primary Care Provider No Ref-Primary, Physician Primary Care Provider Kari Bingham MD Unavailable [phone] Kari Bingham MD Unavailable [phone] Ernst Lopez MD Primary Care Provider Reason for Visit Reason Comments Care Encounter Details Date Type Department Care Team Description 09/12/2014 [facility] Brett Booth MD Care [address] [address] [facility] [place] [address] Social History Tobacco Use Types Packs/Day Years Used Date Smoking Tobacco: Never Assessed Sex Assigned at Date Recorded Not on file COVID-19 Exposure Response Date Recorded In the last month, have you been in contact with No / Unsure 04/20/2020 3:05 PM STATION MANAGER someone who was confirmed or suspected to have Coronavirus / COVID-19? documented as of this encounter Plan of Treatment Not on filedocumented as of this encounter Visit Diagnoses Not on filedocumented in this encounter Care Teams Machine Design Engineer Relationship Specialty Start Date End Date Denny Thomas MD PCP - General 10/22/14 02/07/16 Destiny Elizondo PCP - General 02/08/16 06/22/17 [facility] [address] [facility] [place] [address] No Ref-Primary, PCP - General 10/12/17 11/01/20 Physician Ernst Lopez MD PCP - General Family Practice 06/23/17 10/11/17 Kari Bingham MD Ophthalmology 04/15/20 MD Ruth [address] [place] [address] Kari Bingham Assigned Surgical 04/26/20 MD Ruth Provider [address] [place] [address] documented as of this encounter
--- OUTSIDE RECORDS SUMMARY | 2022-01-18 07:48 | XMS_ITS | Encounter Summary ---
:1994 Author Organization [place] Address [address] [place] [address] Care Team Providers Name Role Phone Doctor, None Primary Care Provider Unavailable Destiny Elizondo Primary Care Provider No Ref-Primary, Physician Primary Care Provider [phone] Kari Bingham MD Unavailable [phone] Kari Bingham MD Unavailable [phone] Ernst Lopez MD Primary Care Provider Encounter Details Date Type Department Care Team Description 10/13/2011 Records - [facility] Provider, [facility] DEPARTMENT [address] [place] [phone] Social History Tobacco Use Types Packs/Day Years Used Date Smoking Tobacco: Never Assessed Sex Assigned at Date Recorded Not on file COVID-19 Exposure Response Date Recorded In the last month, have you been in contact with No / Unsure 04/20/2020 3:05 PM INFORMATION TECHNOLOGY ADVISOR someone who was confirmed or suspected to have Coronavirus / COVID-19? documented as of this encounter Plan of Treatment Not on filedocumented as of this encounter Procedures Procedure Name Priority Date/Time Associated Diagnosis Comme nts XR SHOULDER LEFT 2 Routine 10/13/2011 12:00 AM Re sults for this VIEWS CDT procedure are i n the results section. documented in this encounter Results XR Shoulder Left 2 Views (10/13/2011 12:00 AM CDT) Anatomical Region Laterality Modality Shoulder, Chest, Arm Left Other Specimen (Source) Anatomical Location Collection Method / Collectio n Time Received Time / Laterality Volume Narrative 10/13/2011 12:00 AM CDT See Historical Hospital Medical Record f or documentation Procedure Note Provider, Historical - 09/10/2020Formatt ing of this note might be different from the original. See Historical Hospital Medical Record f or documentation Historical Provider IMG DIAGNOSTIC IMAGING ORDER BEHZAD documented in this encounter Visit Diagnoses Not on filedocumented in this encounter Care Teams Blood Bank Technologist Relationship Specialty Start Date End Date Doctor, Denny, PCP - General 10/22/14 02/07/16 Destiny Elizondo PCP - General 02/08/16 06/22/[address] [facility] [address] [place], [place] [address] No Ref-Primary, PCP - General 10/12/17 11/01/20 Physician Ernst Lopez MD PCP - General Family Practice 06/23/17 10/11/17 Kari Bingham MD Ophthalmology 04/15/20 MD Ruth [address] [place] [address] Kari Bingham Assigned Surgical 04/26/20 MD Ruth Provider [address] [address] documented as of this encounter
--- OUTSIDE RECORDS SUMMARY | 2022-01-18 07:49 | XMS_ITS | Clinical Summary ---
:1995 Author Organization [facility] [facility] [employer] [facility] [place] [address] Care Team Providers Name Role Phone Areli [facility] Primary Care Provi moy Allergies Active Allergy Reactions Severity Noted Date Comments Naproxen Headache, Throat Swelling/Closing High 015 Medications No known medications Active Problems Problem Noted Date Iron deficiency anemia due to chronic blood loss 06/15 Spotting during 09/16/2014 Irregular bleeding 12/20/2013 Asthma 10/13/2012 Immunizations Name Administration Dates Next Due DTP-HIB 08/28/1995, 06/26/1995 DTaP 02/22/1995 Hepatitis A (Peds) 05/31/2007, 11/14/2006 Hepatitis B (Peds) 1994 Hepatitis B, Unspecified 06/26/1995, 02/22/1995 Hib Conjugate, Unspecified 02/22/1995 MMR 09/05/2003, 07/28/2003 Meningococcal Vaccine (Menomune) 11/14/2006 Polio Virus, Unspecified 08/28/1995, 06/26/1995, 02/22/1995 Td (Age >=7 Years) 07/28/2003 Tdap 11/14/2006 Social History Tobacco Use Types Packs/Day Years Used Date Former Smoker Cigarettes 0.3 Quit: 01/16/20 14 Smokeless Tobacco: Never Used Tobacco Cessation: Ready to Quit: No; Co unseling Given: Yes Alcohol Use Standard Drinks/Week Comments Yes 3 (1 standard drink = 0.6 oz pure alcoho l) ocassionally 3 drinks/mo Alcohol Habits Answer Date Recorded How often do you have a drink containing Not asked alcohol? How many drinks containing alcohol do you have Not asked on a typical day when you are drinking? How often do you have six or more drinks on Not asked one occasion? Comment: ocassionally 3 drinks/mo 06/22/2021 Sex Assigned at Date Recorded Not on file Obstetrics History Para Term AB IAB SAB Ectopic Multiple Living Live Births 1 0 0 0 0 0 0 0 0 0 Date Outcome GA Total Labor/2nd/3rd Weight Sex Delivery Anes PTL Kourtney A 1 A5 Name Clin Labor Last Filed Vital Signs Vital Sign Reading Time Taken Comments Blood Pressure 118/70 10/04/2021 3:13 PM CDT Pulse 80 10/04/2021 3:13 PM CDT Temperature 36.4 ??C (97.6 ??F) 06/22/2021 11:09 AM CDT Respiratory Rate 14 06/22/2021 11:09 AM CDT Oxygen Saturation 97% 06/22/2021 11:09 AM CDT Inhaled Oxygen Concentration - - Weight 112 kg (247 lb) 10/04/2021 3:13 PM CDT Height 167.6 cm (5' 6) 10/04/2021 3:13 PM CDT Body Mass Index 39.87 10/04/2021 3:13 PM CDT Plan of Treatment Health Maintenance Due Date Last Done Comments Pneumococcal series for age 19-64 2000 (1 - PCV) Depression screening for age 12+ 2006 Hepatitis C screening for age 0912/22/2012 18-79 Pap test for age 21-65 12/23/2015 Tetanus booster 11/14/2016 11/14/2006, 07/28/2003 COVID-19 vaccine series (2 - 10/06/2020 09/08/2020 Moderna series) Influenza for age 9-49 12/09/2021 BMI (ht and wt on same day) for 10/04/2022 10/04/2021, 06/08, age 18+ 03/23/2018, Additional history exists Tdap Completed 11/14/2006 Results Not on filefrom Last 3 Months Insurance Payer Benefit Plan / Subscriber ID Effective Dates Phone Addre ss Type Group FOUZIA FRAGOSO MA [id number] 2021-Present [address] [place] [address] [address] (Home) [place] [address] [employer] Employer 04/10/2000 [phone] [facility]/Sarahy 0 (Home) [phone] [facility] [place] 3 (Work) [id number] Care Teams Project Financial Analyst Relationship Specialty Start Date End [facility] - [facility] [place] [address] Areli [place], [place] [id number]
[2022-01-18 07:50] LABS: Albumin* 4.5 g/dL (3.3-5.0); Chloride* 105 mmol/L (96-114); Sodium* 139 mmol/L (135-149)
[2022-01-18 07:51] LABS: Potassium* 3.7 mmol/L (3.6-5.1)
[2022-01-18 07:53] LABS: Alkaline Phosphatase* 65 U/L (40-150); Aspartate Amino Transferase* 20 U/L (12-35); Bilirubin Total* 0.6 mg/dL (0.1-1.5); Blood Urea Nitrogen* 12 mg/dL (5-24); Carbon Dioxide* 25 mmol/L (20-32); Creatinine* 0.7 mg/dL (0.5-1.5); Est. Creatinine Clearance* 117.39; Estimated Glomerular Filt Rate 121 ml/min; Glucose* 97 mg/dL (60-115); Lipase* 31 U/L (23-300); Prothrombin Time 13.6 Seconds
[2022-01-18 07:54] LABS: Alanine Aminotransferase* 15 U/L (4-35); Calcium* 9.2 mg/dL (8.4-10.6)
[2022-01-18 07:56] LABS: C Reactive Protein* 0.6 mg/dL (0.5-1.0)
[2022-01-18 07:57] VITALS: BP 109/77; PULSE 79; RESP 16; O2SAT 100
[2022-01-18 08:07] LABS: Appearance Urine Clear (Clear); Bilirubin Urine Negative (Negative); Blood Urine Negative (Negative); Color Urine Yellow (Yellow); Glucose Urine Negative (Negative); Ketones Urine Negative (Negative); Leukocyte Esterase Urine Negative (Negative); Nitrite Urine Negative (Negative); Protein Urine Negative (Negative); Specific Gravity Urine 1.025 (1.000-1.030); Urobilinogen Urine 0.2 (0.2-1.0)
[2022-01-19 21:26] LABS: CDIFFEPI 027 PRESUMPTIVE NEGATIVE (Negative)
[2022-01-19 21:28] LABS: C.Difficile POSITIVE (Negative)
[2022-01-30 12:45] LABS: Ova and Parasite, Fecal Negative (Negative)
== END 2022-01-18 09:00 | disposition home or self-care (01) ==
PROVIDERS: Emergency Provider Family Medicine
DX: K57.91 Diverticulosis of intestine, part unspecified, without perforation or abscess with bleeding (principal)
CPT/HCPCS: 36415; 74177; 80053; 81003; 83690; 85025; 85610; 86140; 87045; 87046; 87077; 87147; 87177; 87209; 87427; 87493; 99284; Q9967

== ENCOUNTER 2022-01-20 11:38 | Emergency (ER) | payer MEDICAID, SELFPAY ==
[2022-01-20 11:47] VITALS: BP 133/90; PULSE 79; RESP 16; TEMP 36.8; O2SAT 99; BMI 37.6
--- NOTE | 2022-01-20 12:11 | ED_ITS ---
HPI - Abdominal Pain General Chief Complaint: Abdominal Pain Stated Complaint: C diff/pain Time Seen by Provider: 01/20/22 11:47 History of Present Illness HPI narrative: This 26-year-old female was seen a few days ago because of some blood in the toilet and occasional diarrhea. She had CT scan and labs drawn which returned with reassuring results. A stool culture was acquired and results came back today that it is positive for Clostridium difficile. A nurse called her with these results and the patient decided to come in. She states that she is having some increased abdominal pain. She states that she has not been on antibiotic treatment for more than several months. 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 She does not report any fevers. Related Data Home Medications Medication Instructions Recorded Confirmed No Known Home Medications 01/18/22 01/18/22 Previous Rx's Medication Instructions Recorded hydrocodone 5 mg-acetaminophen 325 1 tab PO Q4-6H PRN pain #15 tabs 01/20/22 mg tablet ondansetron HCl 4 mg tablet 4 mg PO Q6H #20 tabs 01/20/22 vancomycin 125 mg capsule 125 mg PO QID #40 caps 01/20/22 (Vancocin) Allergies Allergy/AdvReac Type Severity Reaction Status Date / Time ibuprofen Allergy Severe Difficulty Verified 01/18/22 07:57 Breathing naproxen Allergy Intermediate Swelling Verified 01/18/22 07:57 of Lip/Tongue/Throat Review of Systems Status of ROS Reports: 10 or more systems reviewed and unremarkable except as noted in History and below Narrative Constitutional: No fevers, no weight gain or loss. Eyes: No discharge. No vision changes. HENT: No congestion, no sore throat, no ear pain. Cardiovascular: No chest pain, no palpitations. Respiratory: No shortness of breath, no wheezes, no cough. Gastrointestinal: Diffuse abdominal pain. Occasional diarrhea which is containing mucus and blood. Genitourinary: No dysuria, no hematuria. Musculoskeletal: Normal range of motion. Skin: No rashes, no pruritis. Neurological: No dizziness, weakness, sensory change, speech change. Endo/Heme/Allergies: No bruising or bleeding. No polydipsia. Pysch: no suicidality, no anxiety, no insomnia. All other systems reviewed and are negative. PFSH PFSH Social History Smoking Status: Never smoker How often do you have a drink containing alcohol: monthly or less AUDIT-C Alcohol total score: 1 Non-prescribed substance use: denies use Exam Narrative: Exam Narrative: Constitutional: Well-developed, well-nourished, no acute distress. HEENT: Normocephalic, atraumatic. Neck: Normal range of motion. Nontender. Supple. Heart: Intact distal pulses. Lungs: No chest discomfort. No wheezes, rhonchi, or rales. Abdomen: Nontender. Back: Normal range of motion. Extremities: Normal range of motion. No injury. Skin: Intact. No rash. Warm. No erythema or pallor. Neurologic: No altered sensation. No weakness. Alert and oriented. Psychiatric: No suicidality. No anxiety or depression. No insomnia. Nursing notes and vitals signs are reviewed. Const: Vital Signs, click to edit/add: Vital Signs - 24 hr 01/20/22 11:47 Temperature 98.3 F Pulse Rate [Left P ulse Oximeter] 79 Respiratory Rate 16 Blood Pressure [Ri ght Upper Arm] 133/90 H Pulse Oximetry 99 Oxygen Delivery Me thod Room Air Course Vital Signs Vital signs: Initial Vital Signs Temperature 98.3 F 01/20/22 11:47 Temperature Source Temporal Artery Scan 01/20/22 11:47 Pulse Rate 79 01/20/22 11:47 Pulse Rhythm 01/20/22 11:47 Pulse Strength 3+ Normal 01/20/22 11:47 Respiratory Rate 16 01/20/22 11:47 Blood Pressure 133/90 H 01/20/22 11:47 Blood Pressure Mean 104 01/20/22 11:47 Pulse Oximetry 99 01/20/22 11:47 Oxygen Delivery Method 01/20/22 11:47 Vital Signs Temperature 98.3 F 01/20/22 11:47 Pulse Rate 79 01/20/22 11:47 Respiratory Rate 16 01/20/22 11:47 Blood Pressure 133/90 H 01/20/22 11:47 Pulse Oximetry 99 01/20/22 11:47 Oxygen Delivery Method 01/20/22 11:47 Temperature 98.3 F 01/20/22 11:47 Pulse Rate 79 01/20/22 11:47 Respiratory Rate 16 01/20/22 11:47 Blood Pressure 133/90 H 01/20/22 11:47 Pulse Oximetry 99 01/20/22 11:47 Oxygen Delivery Method 01/20/22 11:47 MDM - Abdominal Pain MDM Narrative Medical decision making narrative: This patient comes in after hearing that her stool culture returns positive for Clostridium difficile. This is a non fulminant 1st time occurrence of this condition. A prescription for vancomycin 125 mg every 6 hours for 10 days is supplied. She also received prescription for Zofran and a few tablets of [place]. I advised her regarding signs and symptoms that would indicate a need for return and re-evaluation. Hopefully this regimen will be sufficient to correct this problem. If recurrence happens then she will need to follow-up with her primary physician for ongoing treatment. Discharge Plan Discharge Clinical Impression: C. difficile colitis Patient Disposition: Home, Self-Care Condition: Unchanged Additional Instructions: Take medication as prescribed. Follow up with MD if not improving or return if worsening. Avoid returning to work until symptoms resolve. Prescriptions: New hydrocodone-acetaminophen 5-325 mg tablet 1 tab PO Q4-6H PRN (Reason: pain) Qty: 15 0RF ondansetron HCl 4 mg tablet 4 mg PO Q6H Qty: 20 0RF vancomycin [Vancocin] 125 mg capsule 125 mg PO QID Qty: 40 0RF No Action No Known Home Medications Follow Up/Referrals: Provider,Not a Local [Primary Care Provider] - Stand Alone Forms: Initial [employer] Info Instructions
--- OUTSIDE RECORDS SUMMARY | 2022-01-20 12:12 | XMS_ITS | Encounter Summary ---
:1995 Author Organization [facility] Address [address] [place] [address] Care Team Providers Name Role Phone No Ref-Primary, Physician Primary Care Provider [phone] Kari Bingham MD Unavailable [phone] Kari Bingham MD Unavailable [phone] Reason for Visit Reason Comments Referral Encounter Details Date Type Department Care Team Description 01/02/2018 [facility] Ernst Lopez Refe [facility] [address] [address] [phone] Social History Tobacco Use Types Packs/Day Years Used Date Smoking Tobacco: Never Smokeless Tobacco: Never Alcohol Use Standard Drinks/Week Comments No 0 (1 standard drink = 0.6 oz pure alcoho l) Sex Assigned at Date Recorded Not on file COVID-19 Exposure Response Date Recorded In the last month, have you been in contact with No / Unsure 04/20/2020 3:05 PM LEGEND MAKER someone who was confirmed or suspected to have Coronavirus / COVID-19? documented as of this encounter Plan of Treatment Not on filedocumented as of this encounter Visit Diagnoses Diagnosis Internal hemorrhoid Internal hemorrhoids without mention of complication documented in this encounter Care Teams Assistant Golf Professional Relationship Specialty Start Date End Date No Ref-Primary, Physician PCP - General 10/12/17 11/01/20 Kari Bingham MD Ophthalmology 04/15/20 MD Ruth [address] [address] Kari Bingham Assigned Surgical Provider 10/22/21 MD Ruth [address] [address] documented as of this encounter
--- OUTSIDE RECORDS SUMMARY | 2022-01-20 12:12 | XMS_ITS | Encounter Summary ---
:1995 Author Organization [facility] Address [address] [place] [address] Care Team Providers Name Role Phone No Ref-Primary, Physician Primary Care Provider [phone] Kari Bingham MD Unavailable [phone] Encounter Details Date Type Department Care Team [...] with No / Unsure 04/20/2020 3:05 PM AIRCRAFT SERVICER someone who was confirmed or suspected to have Coronavirus / COVID-19? documented as of this encounter Plan of Treatment Not on filedocumented as of this encounter Visit Diagnoses Not on filedocumented in this encounter Care Teams Barge Master Relationship Specialty Start Date End Date No Ref-Primary, Physician PCP - General 10/12/17 11/01/20 Kari Bingham MD MD Ophthalmology 04/15/[address] [address] documented as of this encounter
--- OUTSIDE RECORDS SUMMARY | 2022-01-20 12:12 | XMS_ITS | Encounter Summary ---
:1995 Author Organization [facility] Address [address] [place] [address] Care Team Providers Name Role Phone No Ref-Primary, Physician Primary Care Provider [phone] Kari Bingham MD Unavailable [phone] Kari Bingham MD Unavailable [phone] Reason for Visit Reason Comments Other other; issues after bowel mo vements Encounter Details Date Type Department Care Team Description 11/15/2017 Office Visit - [facility] Joel Lin ids, internal; [facility] Moi Yanez MD [address] [address] [phone] Social History Tobacco Use Types Packs/Day Years Used Date Smoking Tobacco: Never Smokeless Tobacco: Never Alcohol Use Standard Drinks/Week Comments No 0 (1 standard drink = 0.6 oz pure alcoho l) Sex Assigned at Date Recorded Not on file COVID-19 Exposure Response Date Recorded In the last month, have you been in contact with No / Unsure 04/20/2020 3:05 PM SEWING DEMONSTRATOR someone who was confirmed or suspected to [...] or performed in visit on 06/23/17 Thyroid Borden Result Value Ref Range TSH 1.44 0.30 [...] as outlined above Plan: As noted This investment manager uses voice recognition software, which may contain typographical errors. documented in this encounter Plan of Treatment Not on filedocumented as of this encounter Visit Diagnoses Diagnosis Hemorrhoids, internal Internal hemorrhoids without mention of complication Constipation Unspecified constipation documented in this encounter Care Teams Desk Assistant Relationship Specialty Start Date End Date No Ref-Primary, Physician PCP - General 10/12/17 11/01/20 Kari Bingham MD Ophthalmology 04/15/20 MD Ruth [address] [place] [address] Kari Bingham Assigned Surgical Provider 10/22/21 MD Ruth [address] [place] [phone] documented as of this encounter
--- OUTSIDE RECORDS SUMMARY | 2022-01-20 12:12 | XMS_ITS | Encounter Summary ---
:1995 Author Organization [facility] Address [address] [place] [address] Care Team Providers Name Role Phone No Ref-Primary, Physician Primary Care Provider [phone] Kari Bingham MD Unavailable [phone] Kari Bingham MD Unavailable [phone] Joel Lin MD Unavailable Encounter Details Date Type Department Care Team Description 01/22/2018 Records - [facility] CONVERSION Provider, Historica l Social History Tobacco [...] with No / Unsure 04/20/2020 3:05 PM NUCLEAR OPERATOR someone who was confirmed or suspected to have Coronavirus / COVID-19? documented as of this encounter Plan of Treatment Not on filedocumented as of this encounter Visit Diagnoses Not on filedocumented in this encounter Care Teams Vulcan Crewmember Relationship Specialty Start Date End Date No Ref-Primary, Physician PCP - General 10/12/17 11/01/20 Kari Bingham MD Ophthalmology 04/15/20 MD Ruth [address] [facility] [address] [place] [address] Kari Bingham Assigned Surgical Provider 10/22/21 MD Ruth [address] [facility] [address] [place] [address] Joel Lin MD Assigned PCP 09/23/20 11/21/[address] [place] [phone] documented as of this encounter
--- OUTSIDE RECORDS SUMMARY | 2022-01-20 12:12 | XMS_ITS | Encounter Summary ---
:1995 Author Organization [place] [facility] Address [address] [place] [address] Care Team Providers Name Role Phone No Ref-Primary, Physician Primary Care Provider [phone] Kari Bingham MD Unavailable [phone] Kari Bingham MD Unavailable [phone] Reason for Visit Reason Comments Hemorrhoids Encounter Details Date Type Department Care Team Description 01/23/2018 Communication - [place] [facility] Centralized Provider, Hemo rrhoids [facility] Scheduling Historical [facility] [place] [address] Social History Tobacco Use Types Packs/Day Years Used Date Smoking Tobacco: Never Smokeless Tobacco: Never Alcohol Use Standard Drinks/Week Comments No 0 (1 standard drink = 0.6 oz pure alcoho l) Sex Assigned at Date Recorded Not on file COVID-19 Exposure Response Date Recorded In the last month, have you been in contact with No / Unsure 04/20/2020 3:05 PM SOLUTION DEVELOPER someone who was confirmed or suspected to have Coronavirus / COVID-19? documented as of this encounter Plan of Treatment Not on filedocumented as of this encounter Visit Diagnoses Not on filedocumented in this encounter Care Teams Hostel Parent Relationship Specialty Start Date End Date No Ref-Primary, Physician PCP - General 10/12/17 11/01/20 Kari Bingham MD Ophthalmology 04/15/20 MD Ruth [address] [place] [address] [address] Kari Bingham Assigned Surgical Provider 10/22/21 MD Ruth [address] [place] [address] documented as of this encounter
--- OUTSIDE RECORDS SUMMARY | 2022-01-20 12:12 | XMS_ITS | Encounter Summary ---
:1995 Author Organization [facility] Address [address] [place] [address]. [place] [address] Care Team Providers Name Role Phone No Ref-Primary, Physician Primary Care Provider [phone] Reason for Visit Auth/Cert Specialty Diagnoses / Procedures Referred By Contact Refer red To Contact Surgery Diagnoses INCREASING PELVIC PAIN Sh Periop Services Procedures LAPAROSCOPY OPERATIVE ADULT, OPERATIVE HYSTEROSCOPY WITH MORCELLATOR (MABRY & NEPHEW), REMOVE INTRAUTERINE DEVICE, INSERT INTRAUTERINE DEVICE [address] [place] [address] Phone: Referral ID Status Reason Start Date Expiration Date Visits Requ ested Visits Authorized [id number] 1 1 Encounter Details Date Type Department Care Team Description 10/12/2017 Anesthesia Event [facility] Elisha Fitzpatrick MD [place] [facility] v[facility] [place] [address], [address] ANESTHES IOLOGY [address] [place] [address] [place] [address] [phone] (Wo rk) Anesthesia Record Procedure Summary Procedure [...] Glo Mcclure Dinero, Diana Ease of Intubation: XRAY TECH SHANK SORTER ORLIN Thomson SHANK SORTER Easy; Airway Size: 7; Cuffed; Oral; Blade [...] 6:45 AM CDT Procedure: Procedure(s): LAPAROSCOPY DIAGNOSTIC (BITUMASTIC APPLIER) LAPAROSCOPIC ABLATION ENDOMETRIOSIS Preop diagnosis: INCREASING PELVIC [...] Intrauterine route once Reported, Patient No current [facility]-ordered facility-administered medications on file. Current Outpatient Prescriptions Ordered in [facility] Medication ??? paragard intrauterine copper Wt [...] Care Transfer Note - Glo Mcclure APRN SHANK SORTER - 10/12/2017 10:01 AM CDT Patient: Akilah [...] (Last set prior to Anesthesia Care Transfer) SHANK SORTER VITALS 10/12/2017 0925 - 10/12/2017 1001 10/12/2017 Pulse: 83 SpO2: 97 % Resp Rate (observed): (!) 4 Electronically Signed By: Glo Mcclure APRN SHANK SORTER October 12, 2017 10:01 AM documented in [...] CDT 4 mg Intravenous, PRN, Starting on Kenia 18 at 0941, Anesthesia Intra-op ondansetron (ZOFRAN) [...] Intra-op documented in this encounter Care Teams Printer Machine Relationship Specialty Start Date End Date No Ref-Primary, Physician PCP - General 10/12/17 11/01/20 documented as of this encounter
--- OUTSIDE RECORDS SUMMARY | 2022-01-20 12:12 | XMS_ITS | Encounter Summary ---
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 OS Encounter Details Date Type Department Care Team Description 11/29/2017 Office Visit [facility] Eye DOREEN Bingham ( [facility] Kari Miranda, retinal vein Patrice Ramos MD occlusion) (Primary Building [address] [facility] D[facility]) [address] [facility] [address] [place] [id number] [phone] Social History Tobacco Use Types Packs/Day Years [...] retina documented in this encounter Care Teams Voip Technician Relationship Specialty Start Date End Date No Ref-Primary, Physician PCP - General 10/12/17 11/01/20 documented as of this encounter
--- OUTSIDE RECORDS SUMMARY | 2022-01-20 12:12 | XMS_ITS | Encounter Summary ---
:1995 Author Organization [facility] Address [address] [place] [address] Care Team Providers Name Role Phone No Ref-Primary, Physician Primary Care Provider [phone] Kari Bingham MD Unavailable [phone] Kari Bingham MD Unavailable [phone] Joel Lin MD Unavailable Encounter Details Date Type Department Care Team Description 01/25/2018 Records - [facility] CONVERSION Provider, Historica l Social [...] with No / Unsure 04/20/2020 3:05 PM ORNAMENTAL MACHINE OPERATOR someone who was confirmed or suspected to have Coronavirus / COVID-19? documented as of this encounter Plan of Treatment Not on filedocumented as of this encounter Visit Diagnoses Not on filedocumented in this encounter Care Teams Splunk Dashboard Developer Relationship Specialty Start Date End Date No Ref-Primary, Physician PCP - General 10/12/17 11/01/20 Kari Bingham MD Ophthalmology 04/15/20 MD Ruth 420 [facility] [address] [place] [address] Kari Bingham Assigned Surgical Provider 10/22/21 MD Ruth 420 [facility] [address] [place] [address] Joel Lin MD Assigned PCP 09/23/20 11/21/[address] [place] [phone] documented as of this encounter
--- OUTSIDE RECORDS SUMMARY | 2022-01-20 12:12 | XMS_ITS | Encounter Summary ---
:1995 Author Organization [facility] Address [address] [place] [address] Care Team Providers Name Role Phone No Ref-Primary, Physician Primary Care Provider [phone] Kari Bingham MD Unavailable [phone] Kari Bingham MD Unavailable [phone] Encounter Details Date Type Department Care Team Description [facility]/15/2017 [facility] Provider, Constantino [...] with No / Unsure 04/20/2020 3:[address] EXAMINER someone who was confirmed or suspected to have Coronavirus / COVID-19? documented as of this encounter Plan of Treatment Not on filedocumented as of this encounter Visit Diagnoses Not on filedocumented in this encounter Care Teams Liquefaction Supervisor Relationship Specialty Start Date End Date No Ref-Primary, Physician PCP - General 10/12/17 11/01/20 Kari Bingham MD Ophthalmology 04/15/20 MD Ruth 420 [facility] [address] [place], [place] [address] Kari Bingham Assigned Surgical Provider 10/22/21 MD Ruth [address] [address] documented as of this encounter
--- OUTSIDE RECORDS SUMMARY | 2022-01-20 12:12 | XMS_ITS | Encounter Summary ---
:1995 Author Organization [place] Address [address] [place] [address] Care Team Providers Name Role Phone No Ref-Primary, Physician Primary Care Provider [phone] Kari Bingham MD Unavailable [phone] Reason for Visit Reason Comments Central Retinal Vein Occlusion Follow Up Encounter Details Date Type Department Care Team Description 04/20/2020 Office Visit [facility] Eye DOREEN Bingham ( central [facility] Kari Miranda, retinal vein Patrice Ramos MD occlusion) Building [address] [place] [id number] [address] Clin [address] [place] [phone] Social History Tobacco Use Types Packs/Day Years Used Date Smoking Tobacco: Never Smokeless Tobacco: Never Alcohol Use Standard Drinks/Week Comments No 0 (1 standard drink = 0.6 oz pure alcoho l) Sex Assigned at Date Recorded Not on file COVID-19 Exposure Response Date Recorded In the last month, have you been in contact with No / Unsure 04/20/2020 3:05 PM UTILITY WORKER PRODUCTION someone who was confirmed or suspected to [...] Kari Bingham MD PhD. 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 The floaters have been present for a long time, but the flashes about a month. Sanket Molina COT 3:17 PM April 20, 2020 ITY WORKER PRODUCTION documented in this encounter Plan of Treatment Not on filedocumented as of this encounter Procedures Procedure Name Priority Date/Time Associated Comments Diagnosis OCT RETINA Routine 04/20/2020 3:43 PM CRVO (central Results for this SPECTRALIS OU (BOTH UTILITY WORKER PRODUCTION retinal vein procedur e are in EYE) occlusion) the results section. documented in this encounter Results OCT Retina Spectralis OU (both eyes) (04/20/2020 3:43 PM UTILITY WORKER PRODUCTION) Narrative Kari Bingham MD - 02/2021 3:43 PM UTILITY WORKER PRODUCTION Performed by: njo . Patient cooperation: Reliable [...] retina documented in this encounter Care Teams Protection Agent Relationship Specialty Start Date End Date No Ref-Primary, Physician PCP - General 10/12/17 11/01/20 Kari Bingham MD MD Ophthalmology 04/15/[address] [place] [address] [address] [place], [place] [address] documented as of this encounter
--- OUTSIDE RECORDS SUMMARY | 2022-01-20 12:12 | XMS_ITS | Clinical Summary ---
:1995 Author Organization [place] Address [address] [place] [address] Care Team Providers Name Role Phone Kari Bingham MD Unavailable [phone] Salvatore Jerry MD Primary Care Provider [phone] Allergies Active Allergy Reactions Severity Noted [...] Dates Phone Addre ss Type Group [facility] [email or web address] 2021-Present [phone] [address] [place] [address] Akilah Mills Personal/Family Self [address] (Home) [place] [address] Care Teams Erp Technical Lead Relationship Specialty Start Date End Date Salvatore Jerry MD PCP - General 11/02/20 Kari iBngham MD MD Ophthalmology 04/15/[address] [place] [address]
--- OUTSIDE RECORDS SUMMARY | 2022-01-20 12:12 | XMS_ITS | Encounter Summary ---
:1995 Author Organization [place] Address [address] [place] [address] Care Team Providers Name Role Phone No Ref-Primary, Physician Primary Care Provider [phone] Encounter Details Date Type Department Care Team Description 08/17/2018 Telephone [facility] [address] [facility] [address] Ruth MD 4th Floor [address] [place] [address] 434 [place], [place] [phone] [place] [address] (Wo rk) Social History Tobacco [...] on filedocumented in this encounter Care Teams Caustic Liquor Maker Relationship Specialty Start Date End Date No Ref-Primary, Physician PCP - General 10/12/17 11/01/20 documented as of this encounter
--- OUTSIDE RECORDS SUMMARY | 2022-01-20 12:12 | XMS_ITS | Encounter Summary ---
:1995 Author Organization [place] Address [address] [place] [address] Care Team Providers Name Role Phone Kari Bingham MD Unavailable [phone] Kari Bingham MD Unavailable [phone] Joel Lin MD Unavailable Salvatore Jerry MD Primary Care Provider [phone] Encounter Details Date Type Department Care Team Description 11/02/2020 Emergency [facility] Emergency Dept [address] [place] [address] Social History Tobacco Use Types Packs/Day Years [...] Code Phon e Number [place] [address] Care Lab [address] Lab (1st floor, no room number) documented in this encounter Visit Diagnoses Not on filedocumented in this encounter Care Teams Commercial Crabber Relationship Specialty Start Date End Date Salvatore Jerry MD PCP - General 11/02/20 Kari Bingham MD Ophthalmology 04/15/20 MD Ruth [address] [place] [address] Kari Bingham Assigned Surgical Provider 10/22/21 MD Ruth [address] [place] [address] Joel Lin MD Assigned PCP 09/23/20 11/21/[address] [place] [address] [id number] documented as of this encounter
--- OUTSIDE RECORDS SUMMARY | 2022-01-20 12:12 | XMS_ITS | Encounter Summary ---
:1995 Author Organization [place] Address [address] [place] [address] Care Team Providers Name Role Phone Kari Bingham MD Unavailable [phone] Kari Bingham MD Unavailable [phone] Joel Lin MD Unavailable Salvatore Jerry MD Primary Care Provider [phone] Encounter Details Date Type Department Care Team [...] on filedocumented in this encounter Care Teams Channel Cementer Insole Machine Relationship Specialty Start Date End Date Salvatore Jerry MD PCP - General 11/02/20 Kari Bingham MD Ophthalmology 04/15/20 MD Ruth [address] [facility] [address] [place] [address] Kari Bingham Assigned Surgical Provider 10/22/21 MD Ruth 420 [facility] [address] [place], [place] [address] Joel Lin MD Assigned PCP 09/23/20 11/21/[address] [place] [address] documented as of this encounter
--- OUTSIDE RECORDS SUMMARY | 2022-01-20 12:13 | XMS_ITS | Encounter Summary ---
:1995 Author Organization [place] Address [address] [place] [address] Care Team Providers Name Role Phone Destiny Elizondo Primary Care Provider Reason for Visit Reason Comments Follow Up CRVO (central retinal vein o cclusion Encounter Details Date Type Department Care Team Description 05/31/2017 Office Visit [facility] Eye DOREEN Bingham ( [facility] [place] Kari Miranda, retinal vein Patrice Ramos MD occlusion) Building [address] [facility] [address] [address] [facility] Clin [address] [place] [address] [phone] Social History Tobacco Use Types Packs/Day Years [...] Kari Bingham MD PhD. Professor & Chair ING MACHINE OPERATOR HELPER ARC documented in this encounter Nursing Notes Cleo [...] Verduzco COT 10:53 AM May 31, 2017 ING MACHINE OPERATOR HELPER ARC documented in this encounter Plan of Treatment Not on filedocumented as of this encounter Procedures Procedure Name Priority Date/Time Associated Comments Diagnosis OCT RETINA Routine 05/31/2017 11:36 AM CRVO (central Results for this SPECTRALIS OU (BOTH WELDING MACHINE OPERATOR HELPER ARC retinal vein procedur e are in EYE) occlusion) the results section. documented in this encounter Results OCT Retina Spectralis OU (both eyes) (04/20/2020 3:43 PM WELDING MACHINE OPERATOR HELPER ARC) Kari [place] MD - 02/2021 3:43 PM WELDING MACHINE OPERATOR HELPER ARC Performed by: njo . Patient cooperation: Reliable [...] Spectralis OU (both eyes) (05/31/2017 11:36 AM WELDING MACHINE OPERATOR HELPER ARC) Kari [place] MD - 07/2017 8:30 AM [...] retina documented in this encounter Care Teams Electric Wheelchair Repairer Relationship Specialty Start Date End Date Destiny Elizondo PCP - General 02/08/16 06/22/17 [facility] [address] [facility] [place] [address] documented as of this encounter
--- OUTSIDE RECORDS SUMMARY | 2022-01-20 12:13 | XMS_ITS | Encounter Summary ---
:1995 Author Organization [place] Address [address] [place] [address]. [place] [address] Care Team Providers Name Role Phone Destiny Elizondo Primary Care Provider Reason for Visit Reason Comments Consult For Central Retinal Vein Occlusi on OS Encounter Details Date Type Department Care Team Description 02/11/2016 Office Visit [facility] Eye Gee Christopher MD Subjective visual disturbance (Primary D x); Clinic - [address] Left optic neuropathy; Patrice Ramos [place], [place] CRVO (central retinal vein occlusion) - Left Eye Building [address] [place] [address] [facility] Clin [address] (Work) [place] [address] Social History Tobacco Use Types Packs/Day Years Used Date Smoking Tobacco: Never Alcohol Use Standard Drinks/Week Comments No 0 (1 standard drink = 0.6 oz pure alcoho l) Sex Assigned at Date Recorded Not on file documented as of this encounter Progress Notes Haroon Christopher MD - 02/11/2016 10:21 AM CDT Assessment [...] retina documented in this encounter Care Teams Egg Packer Relationship Specialty Start Date End Date Destiny Elizondo PCP - General 02/08/16 06/22/17 [facility] [address] [facility] [place] [address] documented as of this encounter
--- OUTSIDE RECORDS SUMMARY | 2022-01-20 12:13 | XMS_ITS | Encounter Summary ---
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); [facility] Moi Dukes MD Binge eating disorder 980 [facility] 980 [place] [address] [phone] Social History Tobacco Use Types Packs/Day Years Used Date Smoking Tobacco: Never Smokeless Tobacco: Never Alcohol Use Standard Drinks/Week Comments No 0 (1 standard drink = 0.6 oz pure alcoho l) Sex Assigned at Date Recorded Not on file COVID-19 Exposure Response Date Recorded In the last month, have you been in contact with No / Unsure 04/20/2020 3:05 PM MEDICAL ASSISTANT SUPERVISOR someone who was confirmed or suspected [...] Body Mass Index 34.43 03/18/2016 2:56 PM MEDICAL ASSISTANT SUPERVISOR documented in this encounter Progress Notes Ernst [...] Orders Referral for Psychotherapy Evaluation- Routine Thyroid [place] Binge eating disorder New behavior with depression [...] 06/23/2017 [facility] uIU/mL 8:00 PM CDT [facility] Specimen Anatomical Collection Method / Collection Time Recei samuel Time (Source) Location / Volume Laterality Blood specimen Venipuncture / 06/23/2017 11:24 018 2:32 (specimen) Unknown AM CDT PM CDT Ernst Lopez MD LAB - BLOOD ORDERABLES Performing Organization Address City/State/ZIP Code Phon [place] [address] [facility] [address] [facility] documented in this encounter Visit Diagnoses Diagnosis Moderate episode of recurrent major depr essive disorder (H) Binge eating disorder documented in this encounter Care Teams Track Production Engineer Relationship Specialty Start Date End Date No Ref-Primary, PCP - General 10/12/17 11/01/20 Physician Ernst Lopez MD PCP - General Family Practice 06/23/17 10/11/17 Kari Bingham MD Ophthalmology 04/15/20 MD Ruth [address] [place] [address] [address] Kari Bingham Assigned Surgical 04/26/20 MD Ruth Provider [address] [place] [address] [address] documented as of this encounter
--- OUTSIDE RECORDS SUMMARY | 2022-01-20 12:13 | XMS_ITS | Encounter Summary ---
:1995 Author Organization [place] Address [address] [place] [address] Care Team Providers Name Role Phone Destiny Elizondo Primary Care Provider Encounter Details Date Type Department Care Team Description 02/09/2016 Orders Only [facility] Eye Jaja Fitzgerald RVO (central retinal Clinic - Fernanda Wilkerson MD vein occlusion) [address] ( Primary Dx) [address] 9[address] Fl Clin 9A [address] [place], [place] [phone] (Wo rk) [address] [phone] Social History Tobacco Use Types Packs/Day Years [...] retina documented in this encounter Care Teams Tape Machine Tailer Relationship Specialty Start Date End Date Destiny Elizondo PCP - General 02/08/16 06/22/17 [facility] [address] [place] [address] documented as of this encounter
--- OUTSIDE RECORDS SUMMARY | 2022-01-20 12:13 | XMS_ITS | Encounter Summary ---
:1995 Author Organization [place] Address [address] [place] [address] Care Team Providers Name Role Phone No Ref-Primary, Physician Primary Care Provider [phone] Kari Bingham MD Unavailable [phone] Kari Bingham MD Unavailable [phone] Ernst Lopez MD Primary Care Provider Encounter Details Date Type Department Care Team Description 08/03/2017 [facility] Provider, Constantino mcneal [...] with No / Unsure 04/20/2020 3:05 PM CYBER ENGINEER someone who was confirmed or suspected to have Coronavirus / COVID-19? documented as of this encounter Plan of Treatment Not on filedocumented as of this encounter Visit Diagnoses Not on filedocumented in this encounter Care Teams Rotary Furnace Tender Relationship Specialty Start Date End Date No Ref-Primary, PCP - General 10/12/17 11/01/20 Physician Ernst Lopez MD PCP - General Family Practice 06/23/17 10/11/17 Kari Bingham MD Ophthalmology 04/15/20 MD Ruth [address] [address] Kari Bingham Assigned Surgical 04/26/20 MD Ruth Provider [address] [place] [id number] documented as of this encounter
--- OUTSIDE RECORDS SUMMARY | 2022-01-20 12:13 | XMS_ITS | Encounter Summary ---
:1995 Author Organization [place] Address [address] [place] [address] Care Team Providers Name Role Phone Destiny Elizondo Primary Care Provider Reason for Visit Reason Comments Follow Up large floater in both eyes Encounter Details Date Type Department Care Team Description 04/26/[address] [facility] Eye Rc Lin MD [address] [place] [address] Subjective visual disturbance - Right Ey e (Primary Dx); Clinic - Gonsalo Núñez MD [address] [place] [phone] CRVO (central retinal vein occlusion) [address] Clin [address] [place] [phone] Social History Tobacco Use Types Packs/Day Years [...] Aram Barraza MD PGY2, Dept of Ophthalmology [phone] Attending Physician Attestation: I have seen and [...] - Aram Lin MD 3:27 PM 04/27/2016 L BRAKE FORM OPERATOR documented in this encounter Nursing Notes Mellisa [...] [place] COA 2:59 PM April 26, 2016 L BRAKE FORM OPERATOR documented in this encounter Plan of Treatment Not on filedocumented as of this encounter Visit Diagnoses Diagnosis Subjective visual disturbance - Right Ey e - Primary Subjective visual disturbance, unspecifi ed CRVO (central retinal vein occlusion) Central vein occlusion of retina documented in this encounter Care Teams Maid Cleaning Cooking Relationship Specialty Start Date End Date Destiny Elizondo PCP - General 02/08/16 06/22/17 [facility] [place] [facility] [address] [facility] [place] [address] documented as of this encounter
--- OUTSIDE RECORDS SUMMARY | 2022-01-20 12:13 | XMS_ITS | Encounter Summary ---
:1995 Author Organization [place] Address [address] [place] [address] Care Team Providers Name Role Phone Destiny Elizondo Primary Care Provider Encounter Details Date Type Department Care Team Description 02/22/2016 Orders Only [facility] Eye Jaja Fitzgerald entral vein Clinic [facility] MD [place] occlusion of retina Ibrahim [address] ( Primary Dx) [address] 9[address] Fl Clin 9A [address] [place], [place] [phone] (Wo rk) [address] [phone] Social History Tobacco Use Types Packs/Day Years [...] ry documented in this encounter Care Teams Delimber Operator Relationship Specialty Start Date End Date Destiny Elizondo PCP - General 02/08/16 06/22/17 [facility] [address] [place] [address] documented as of this encounter
--- OUTSIDE RECORDS SUMMARY | 2022-01-20 12:13 | XMS_ITS | Encounter Summary ---
:1995 Author Organization [place] Address [address] [place] [address]. [place] [address] Care Team Providers Name Role Phone Destiny Elizondo Primary Care Provider Reason for Visit (Routine) - Closed Specialty Diagnoses / Procedures Referred By Contact Refer red To Contact Radiology / Radiology. Diagnoses Kristie De La Cruz [id number] Multi: Xray and 2 MRI exams Uu Mri Procedures MR BRAIN AND ORBITS [address] [place] [address] Phone: Referral ID Status Reason Start Date Expiration Date Visits Requ ested Visits Authorized [id number] Closed 02/10/2016 02/09/2017 1 1 Encounter Details Date Type Department Care Team Description 02/11/2016 Hospital Encounter [facility] Amado Fonseca (central [facility] Imaging MD [place] retinal vein [address] [facility] occlusion) [facility] [address] [address] [phone] [address] [place] [address] (Wo rk) Social History Tobacco Use Types [...] or extra-axial contrast enhancement. Procedure Note Nikia oN MD - 02/12/2016 MR BRAIN AND ORBITS [...] findings. NIKIA NO MD Amado Fonseca MD [facility] MRI ORDERABLES documented in this encounter Visit [...] dose documented in this encounter Care Teams Retail Agent Relationship Specialty Start Date End Date Destiny Elizondo PCP - General 02/08/16 06/22/17 [facility] 57[address] [facility] [place] [address] documented as of this encounter
--- OUTSIDE RECORDS SUMMARY | 2022-01-20 12:13 | XMS_ITS | Encounter Summary ---
:1995 Author Organization [place] Address [address] [place] [address] Care Team Providers Name Role Phone Destiny Elizondo Primary Care Provider Reason for Visit (Routine) - Closed Specialty Diagnoses / Procedures Referred By Contact Refer red To Contact Radiology / Radiology. Diagnoses Kristie De La Cruz [id number] Multi: Xray and 2 MRI exams Uu Xray Procedures XR CHEST 2 VIEWS [address] [place] [address] Phone: Referral ID Status Reason Start Date Expiration Date Visits Requ ested Visits Authorized [id number] Closed 02/10/2016 02/09/2017 1 1 Encounter Details Date Type Department Care Team Description 02/11/[address] [facility] Amado Fonseca (central [facility] Imaging MD [place] retinal vein 500 [facility] mirian diez) [place], [place] [address] [address] [address] [place], [place] [phone] (Wo rk) Social History Tobacco Use Types [...] retina documented in this encounter Care Teams Security Operations Engineer Relationship Specialty Start Date End Date Destiny Elizondo PCP - General 02/08/16 06/22/17 [facility] [address] [facility] [place] [address] documented as of this encounter
--- OUTSIDE RECORDS SUMMARY | 2022-01-20 12:13 | XMS_ITS | Encounter Summary ---
:1995 Author Organization [place] Address [address] [place] [address]. [place] [address] Care Team Providers Name Role Phone No Ref-Primary, Physician Primary Care Provider [phone] Reason for Visit Auth/Cert Specialty Diagnoses / Procedures Referred By Contact Refer red To Contact Surgery Diagnoses INCREASING PELVIC PAIN Sh Periop Services Procedures LAPAROSCOPY OPERATIVE ADULT, OPERATIVE HYSTEROSCOPY WITH MORCELLATOR (MABRY & NEPHEW), REMOVE INTRAUTERINE DEVICE, INSERT INTRAUTERINE DEVICE [address] [place] [address] Phone: Referral ID Status Reason Start Date Expiration Date Visits Requ ested Visits Authorized [id number] 1 1 Encounter Details Date Type Department Care Team Description 10/12/2017 Surgery [facility] Brian Ritter DIAGN OSTIC LAPAROSCOPY [place] Peri Blair Ding MD Services RETIRED [address] [place] [address] Surgery Details Date/Time Status Location [...] know so they can address your concerns. [facility] D&C OR Laparoscopy Discharge Instructions ACTIVITY: [...] M.D. Vannessa Harriseler, M.D. Barbra Hernandez M.D. [facility] 9550 [facility] [address] [facility] [address] [place] [address] (Telephone) [phone] (Telephone) [facility] If you have questions or concerns about your procedure, Call Dr. Ritter at [phone] Today you received Ibuprofen 800mg at 11:20am. [...] MD MT: NTS Name: AKILAH CLINE Account: [id number] : 1995 Procedure Date: 10/12/2017 Document: [id number] documented in this encounter Plan of Treatment [...] Quantitative <1 0 - 5 IU/L 10/12/2017 [place] Serum 8:48 AM CDT [facility] Specimen Anatomical Collection Method Collection Time Receive d Time (Source) Location / / Volume Laterality Blood specimen 10/12/2017 8:20 AM 018 8:24 (specimen) CDT AM CDT Brian Ritter MD LAB - BLOOD ORDERA BLES Performing Organization Address City/State/ZIP Code Phon e Number [facility] [address] [place] [address] [phone] [facility] [address] [place] [address], [facility] [phone] documented in this encounter Visit Diagnoses Not [...] 2 MIN PRN , opioid reversal, Starting [place] 718 at 1008, For 24 hours, For [...]
PACU documented in this encounter Care Teams Professional Skater Relationship Specialty Start Date End Date No Ref-Primary, Physician PCP - General 10/12/17 11/01/20 documented as of this encounter
--- OUTSIDE RECORDS SUMMARY | 2022-01-20 12:13 | XMS_ITS | Encounter Summary ---
:1994 Author Organization [place] Address [address] [place] [address] Care Team Providers Name Role Phone Mikhail, Destiny Yanez Primary Care Provider Encounter Details Date Type Department Care Team Description 03/18/2016 Orders Only [facility] Central retinal vein [address] [facility] SE occlusion of left eye 1st Floor [place] [phone] Social History Tobacco Use Types Packs/Day [...] Central retinal Results for this AND IGM LEAD JAVA DEVELOPER ARCHITECT vein occlusion of procedure are in left eye the results section. BETA 2 GLYCOPROTEIN 1 Routine 03/18/2016 4:01 PM Central retin al Results for this ANTIBODY IGM LEAD JAVA DEVELOPER ARCHITECT vein occlusion of procedure are in left eye the results section. BETA 2 GLYCOPROTEIN 1 Routine 03/18/2016 4:01 PM Central retin al Results for this ANTIBODY IGG LEAD JAVA DEVELOPER ARCHITECT vein occlusion of procedure are in left eye the results section. documented in this encounter Results Cardiolipin Carlos IgG and IgM (03/18/2016 4:01 PM LEAD JAVA DEVELOPER ARCHITECT) [facility] Method Time Signature Cardiolipin <1.6 0.0 - [facility] Antibody IgG Negative 19.9 [place] [facility] New method in use March 07, 2016. GPL-U/mL [facility] Cardiolipin 0.5 0.0 - [facility] Antibody IgM 19.9 [place] [facility] MPL-U/mL [facility] Comment: Negative New method in use March 07, 2016. Specimen Anatomical Collection Method Collection Time Receive d Time (Source) Location / / Volume Laterality 03/18/2016 4:01 PM 6 4:03 LEAD JAVA DEVELOPER ARCHITECT PM LEAD JAVA DEVELOPER ARCHITECT Nevaeh Corral PA LAB - BLOOD ORDERABLES Performing Organization Address City/[facility]/ZIP Code Phon e Number [facility] [address] [place] [address] [facility] Beta 2 Glycoprotein 1 Antibody IgM (03/18/2016 4:01 PM LEAD JAVA DEVELOPER ARCHITECT) Patholo gist Method Time Signature Beta 2 <0.9 <7 U/mL [facility] Glycoprotein 1 Negative [place] [facility] Antibody IgM [facility] Specimen Anatomical Collection Method Collection Time Receive d Time (Source) Location / / Volume Laterality Blood specimen 03/18/2016 4:01 PM 016 4:03 (specimen) LEAD JAVA DEVELOPER ARCHITECT PM LEAD JAVA DEVELOPER ARCHITECT Nevaehdeshawn VeeEllis PA LAB - BLOOD ORDERABLES Performing Organization Address City/State/ZIP Code Phon e Number [facility] [address] [place] [address] [facility] Beta 2 Glycoprotein 1 Antibody IgG (03/18/2016 4:01 PM LEAD JAVA DEVELOPER ARCHITECT) Analysis Performed At Patho logist Time Signature Beta 2 0.8 <7 U/mL [facility] Glycoprotein 1 [place] [facility] Antibody IgG [facility] Comment: Negative Specimen Anatomical Collection Method Collection Time Receive d Time (Source) Location / / Volume Laterality Blood specimen 03/18/2016 4:01 PM 016 4:03 (specimen) LEAD JAVA DEVELOPER ARCHITECT PM LEAD JAVA DEVELOPER ARCHITECT Nevaeh Veetier PA LAB - BLOOD ORDERABLES Performing Organization Address City/[facility]/ZIP Code Phon e Number [facility] [address] [place], [place] [phone] [place] [address] documented in this encounter Visit Diagnoses Diagnosis Central retinal vein occlusion of left e ye Central vein occlusion of retina documented in this encounter Care Teams Executive Meeting Manager Relationship Specialty Start Date End Date Destiny Elizondo PCP - General 02/08/16 06/22/17 [facility] [address] [facility] [address] documented as of this encounter
--- OUTSIDE RECORDS SUMMARY | 2022-01-20 12:13 | XMS_ITS | Encounter Summary ---
:1994 Author Organization [place] Address [address] [place] [address] Care Team Providers Name Role Phone No Ref-Primary, Physician Primary Care Provider [phone] Kari Bingham MD Unavailable [phone] Kari Bingham MD Unavailable [phone] Ernst Lopez MD Primary Care Provider Encounter Details Date Type Department Care Team Description 08/03/2017 [facility] Provider, Constantino mcneal [...] with No / Unsure 04/20/2020 3:05 PM LEASE PURCHASE TRUCK DRIVER someone who was confirmed or suspected to have Coronavirus / COVID-19? documented as of this encounter Plan of Treatment Not on filedocumented as of this encounter Visit Diagnoses Not on filedocumented in this encounter Care Teams Insulator Apprentice Relationship Specialty Start Date End Date No Ref-Primary, PCP - General 10/12/17 11/01/20 Physician Ernst Lopez MD PCP - General Family Practice 06/23/17 10/11/17 Kari Bingham MD Ophthalmology 04/15/20 MD Ruth [address] [address] Kari Bingham Assigned Surgical 04/26/20 MD Ruth Provider [address] [place] [address] [phone] documented as of this encounter
--- OUTSIDE RECORDS SUMMARY | 2022-01-20 12:13 | XMS_ITS | Encounter Summary ---
:1994 Author Organization [place] Address [address] [place] [address] Care Team Providers Name Role Phone MikhailSeth mchughth Renata Primary Care Provider Reason for Visit Reason Comments Follow Up Central Retinal Vein Occlusi on OS Encounter Details Date Type Department Care Team Description 03/08/2016 Office Visit [facility] Eye Jaja Fitzgerald RVO (central retinal Clinic - Fernanda Wilkerson MD vein occlusion) Ibrahim [address] [place] [address] 9th Fl Clin 9A [address] [place], [place] [phone] (Work) [phone] Social History Tobacco Use Types Packs/Day Years [...] week ago with eye movement. Went to [place] 02/03/16, found swollen veins, sent to Dr. [...] 03-08-16 right eye- normal contour, no IRF/SRF, NUMERICAL TOOL PROGRAMMER 266 left eye - no fluid, greatly [...] with hematology - limited lab w/u at [facility] negative so far for hypercoaguable or inflammatory [...] and exam/neuro findings as obtained by the cable splicing technician or others. Tati examined this patient myself. and I personally viewed the image(s) and studies listed above andthe documentation reflects my findings and interpretation. Jaja Fitzgerald MD, PhD Study Coordinator, Vitreoretinal Surgery Department of Ophthalmology [facility] RICAL TOOL PROGRAMMER documented in this encounter Nursing Notes Cleo [...] Verduzco COT 2:11 PM March 08, 2016 RICAL TOOL PROGRAMMER documented in this encounter Plan of Treatment Not on filedocumented as of this encounter Procedures Procedure Name Priority Date/Time Associated Comments Diagnosis OCT RETINA Routine 03/08/2016 3:32 PM CRVO (central Results for this SPECTRALIS OU (BOTH NUMERICAL TOOL PROGRAMMER retinal vein procedur e are in EYE) occlusion) the results section. documented in this encounter Results Ultrasound B-scan OU (both eyes) (04/05/2016 4:07 PM NUMERICAL TOOL PROGRAMMER) Narrative Jaja Fitzgerald MD - 04/05/2016 4:07 PM NUMERICAL TOOL PROGRAMMER Patient cooperation: Reliable . Reliability of the test: Good . Test Findings: Abnormal . Interpretation: Abnormal . Plan: Monitor . Interval: Initial . Jaja Fitzgerald MD OPHTHALMOLOGY OCT Retina Spectralis OU (both eyes) (04/05/2016 4:07 PM NUMERICAL TOOL PROGRAMMER) Jaja Urias MD - 04/05/2016 4:07 PM NUMERICAL TOOL PROGRAMMER Patient cooperation: Reliable . Right Eye Reliability of the test: Good . Findings normal/abnormal: Normal OCT . Interpretation: Retinal disease . Plan: Monitor . Interval: Same . Left Eye Reliability of the test: Good . Findings normal/abnormal: Normal OCT . Interpretation: Retinal disease . Plan: Monitor . Interval: Same . Jaja Fitzgerald MD OPHTHALMOLOGY Fundus Photos OU (both eyes) (04/05/2016 4:06 PM NUMERICAL TOOL PROGRAMMER) Jaja Urias MD - 04/05/2016 4:06 PM NUMERICAL TOOL PROGRAMMER Patient cooperation: Reliable . Right Eye Reliability of the test: Good . Findings: Normal disc/macula/vessels . Interpretation: Normal . Plan: Monitor . Interval: Initial . Left Eye Reliability of the test: Good . Findings: Abnormal . Interpretation: Abnormal . Plan: Monitor . Interval: Initial . Jaja Fitzgerald MD OPHTHALMOLOGY OCT Retina Spectralis OU (both eyes) (03/08/2016 3:32 PM NUMERICAL TOOL PROGRAMMER) Jaja Urias MD - 03/08/2016 3:32 PM NUMERICAL TOOL PROGRAMMER Patient cooperation: Reliable . Right Eye Reliability [...] retina documented in this encounter Care Teams Telephone Coin Box Collector Relationship Specialty Start Date End Date Destiny Elizondo PCP - General 02/08/16 06/22/17 [facility] [address] [facility] [place] [address] documented as of this encounter
--- OUTSIDE RECORDS SUMMARY | 2022-01-20 12:13 | XMS_ITS | Encounter Summary ---
:1994 Author Organization [place] Address [address] [place] [address] Care Team Providers Name Role Phone No Ref-Primary, Physician Primary Care Provider [phone] Kari Bingham MD Unavailable [phone] Kari Bingham MD Unavailable [phone] Ernst Lopez MD Primary Care Provider Reason for Visit Reason Comments Other Appointment reminder; psycho therapy evaluation on 07/17/17 Encounter Details Date Type Department Care Team Description 07/13/2017 [facility] Maureen Khan Other [facility] reminder; Addiction [place] [address] [facility] [address] [place] [phone] Social History Tobacco Use Types Packs/Day Years Used Date Smoking Tobacco: Never Smokeless Tobacco: Never Alcohol Use Standard Drinks/Week Comments No 0 (1 standard drink = 0.6 oz pure alcoho l) Sex Assigned at Date Recorded Not on file COVID-19 Exposure Response Date Recorded In the last month, have you been in contact with No / Unsure 04/20/2020 3:05 PM BUDGET CLERK someone who was confirmed or suspected to have Coronavirus / COVID-19? documented as of this encounter Plan of Treatment Not on filedocumented as of this encounter Visit Diagnoses Not on filedocumented in this encounter Care Teams Wrecker Driver Relationship Specialty Start Date End Date No Ref-Primary, PCP - General 10/12/17 11/01/20 Physician Ernst Lopez MD PCP - General Family Practice 06/23/17 10/11/17 Kari Bingham MD Ophthalmology 04/15/20 MD Ruth [address] [place] [address] Kari Bingham Assigned Surgical 04/26/20 MD Ruth Provider [address] [address] documented as of this encounter
--- OUTSIDE RECORDS SUMMARY | 2022-01-20 12:13 | XMS_ITS | Encounter Summary ---
:1994 Author Organization [place] Address [address] [place] [address] Care Team Providers Name Role Phone No Ref-Primary, Physician Primary Care Provider [phone] Kari Bingham MD Unavailable Kari Bingham MD Unavailable [phone] Ernst Lopez MD Primary Care Provider Reason for Visit Reason Comments Follow Up Patient presented for initia l follow up psychotherapy appointment to address symptoms of depressi on, eating disorder, anxiety . Encounter Details Date Type Department Care Team Description 08/03/2017 [facility] of [facility] (H); [facility] Mental [facility] & A, [facility] Binge eating disorder Addiction [place] [address] [place] [address] [address] [place] [address] [phone] Social History Tobacco Use Types Packs/Day Years Used Date Smoking Tobacco: Never Smokeless Tobacco: Never Alcohol Use Standard Drinks/Week Comments No 0 (1 standard drink = 0.6 oz pure alcoho l) Sex Assigned at Date Recorded Not on file COVID-19 Exposure Response Date Recorded In the last month, have you been in contact with No / Unsure 04/20/2020 3:05 PM PUNCH HAND someone who was confirmed or suspected to [...] relationship and goals for treatment. Review of roof bolter operator goals: Treatment Plan updated. Plan Effective 08/03/2017-11/02/2017 [...] disorder documented in this encounter Care Teams Manager Universal Relationship Specialty Start Date End Date No Ref-Primary, PCP - General 10/12/17 11/01/20 Physician Ernst Lopez MD PCP - General Family Practice 06/23/17 10/11/17 Kari Bingham MD Ophthalmology 04/15/20 MD Ruth [address] [place] [address] Kari Bingham Assigned Surgical 04/26/20 MD Ruth Provider [address] [phone] documented as of this encounter
--- OUTSIDE RECORDS SUMMARY | 2022-01-20 12:13 | XMS_ITS | Encounter Summary ---
:1994 Author Organization [place] Address [address] [place] [address]. [place] [address] Care Team Providers Name Role Phone Destiny Elizondo Primary Care Provider Reason for Visit Reason Comments Follow Up 2.5 month f/u CRVO, left eye - new waves Encounter Details Date Type Department Care Team Description 08/18/[address] [facility] Eye Amado Fonseca CRVO ( central retinal vein occlusion) (Primary Dx); Clinic - Fernanda Patiño MD Dry eye syndrome, bilateral Ibrahim Wangensteen [facility] [address] [facility] [address] Clin [address] [place] [address] [phone] (Wo rk) Social History Tobacco Use Types [...] history, ROS, and exam findings by the wheel alignment technician or others, and modified by me where [...] bilateral documented in this encounter Care Teams Microbiology Professor Relationship Specialty Start Date End Date Destiny Elizondo PCP - General 02/08/16 06/22/17 [facility] [address] [facility] [place] [address] documented as of this encounter
--- OUTSIDE RECORDS SUMMARY | 2022-01-20 12:13 | XMS_ITS | Encounter Summary ---
:1994 Author Organization [place] Address [address] [place] [address] Care Team Providers Name Role Phone No Ref-Primary, Physician Primary Care Provider [phone] Kari Bingham MD Unavailable [phone] Kari Bingham MD Unavailable [phone] Ernst Lopez MD Primary Care Provider Encounter Details Date Type Department Care Team Description 06/26/2017 [facility] Ernst Lopez, [facility] [address] [address] [phone] Social History Tobacco Use Types Packs/Day Years Used Date Smoking Tobacco: Never Smokeless Tobacco: Never Alcohol Use Standard Drinks/Week Comments No 0 (1 standard drink = 0.6 oz pure alcoho l) Sex Assigned at Date Recorded Not on file COVID-19 Exposure Response Date Recorded In the last month, have you been in contact with No / Unsure 04/20/2020 3:05 PM ELECTRICAL MAINTENANCE ENGINEER someone who was confirmed or suspected to have Coronavirus / COVID-19? documented as of this encounter Plan of Treatment Not on filedocumented as of this encounter Visit Diagnoses Not on filedocumented in this encounter Care Teams Nuclear Equipment Design Engineer Relationship Specialty Start Date End Date No Ref-Primary, PCP - General 10/12/17 11/01/20 Physician Ernst Lopez MD PCP - General Family Practice 06/23/17 10/11/17 Kari Bingham MD Ophthalmology 04/15/20 MD Ruth [address] [place] [address] Kari Bingham Assigned Surgical 04/26/20 MD Ruth Provider [address] [place] [address] documented as of this encounter
--- OUTSIDE RECORDS SUMMARY | 2022-01-20 12:13 | XMS_ITS | Encounter Summary ---
:1994 Author Organization [place] Address [address] [place] [address] Care Team Providers Name Role Phone Destiny Elizondo Primary Care Provider Encounter Details Date Type Department Care Team Description 04/26/2016 Orders Only Gonsalo Camacho CRVO (centr al retinal Ophthalmology Nils Bolden MD vein occlusion) [address] [place] [address], (Primary Dx) 4th Floor CLINIC [address] [place] [phone] (Wo rk) Social History Tobacco Use Types Packs/Day Years Used Date Smoking Tobacco: Never Alcohol Use Standard Drinks/Week Comments No 0 (1 standard drink = 0.6 oz pure alcoho l) Sex Assigned at Date Recorded Not on file documented as of this encounter Plan of Treatment Pending Results Name Type Priority Associated Diagnoses Date/Ti wa OCT Retina Spectralis Opht Imaging Routine CRVO (central retin al 04/26/2016 1:50 PM OU (both eyes) vein occlusion) LOSS CONTROL CONSULTANT documented as of this encounter Visit Diagnoses Diagnosis CRVO (central retinal vein occlusion) - Primary Central vein occlusion of retina documented in this encounter Care Teams Adult Education Teacher Relationship Specialty Start Date End Date Destiny Elizondo PCP - General 02/08/16 06/22/17 [facility] [address] [place] [address] documented as of this encounter
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
--- OUTSIDE RECORDS SUMMARY | 2022-01-20 12:13 | XMS_ITS | Encounter Summary ---
:1994 Author Organization [place] Address [address] [place] [address]. [place] [address] Care Team Providers Name Role Phone Destiny Elizondo Primary Care Provider Reason for Visit Reason Comments Follow Up Central Retinal Vein Occlusi on OS Encounter Details Date Type Department Care Team Description 05/04/2016 Office Visit [facility] Eye AMY BinghamVO ( central retinal vein occlusion) (Primary Dx); Clinic - [place] Kari Miranda, Subjective visual disturbanc e - Right Eye Patrice Ramos MD Building [address] [facility] [address] [place] [address] 9th In Clin [address] [place] [phone] Social History Tobacco Use Types Packs/Day Years [...] Kari Bingham MD PhD. Professor & Chair S SANDER BELT documented in this encounter Nursing Notes Maureen [...] Maureen CASTELLON 8:21 AM May 04, 2016 S SANDER BELT documented in this encounter Plan of Treatment Not on filedocumented as of this encounter Visit Diagnoses Diagnosis CRVO (central retinal vein occlusion) - Primary Central vein occlusion of retina Subjective visual disturbance - Right Ey e Subjective visual disturbance, unspecifi ed documented in this encounter Care Teams Word Processor Relationship Specialty Start Date End Date Destiny Elizondo PCP - General 02/08/16 06/22/17 [facility] [address] [place] [id number] documented as of this encounter
--- OUTSIDE RECORDS SUMMARY | 2022-01-20 12:13 | XMS_ITS | Encounter Summary ---
:1995 Author Organization [place] Address [address] [place] [address] Care Team Providers Name Role Phone No Ref-Primary, Physician Primary Care Provider [phone] Reason for Visit Auth/Cert Specialty Diagnoses / Procedures Referred By Contact Refer red To Contact Surgery Diagnoses INCREASING PELVIC PAIN Sh Periop Services Procedures LAPAROSCOPY OPERATIVE ADULT, OPERATIVE HYSTEROSCOPY WITH MORCELLATOR (MABRY & NEPHEW), REMOVE INTRAUTERINE DEVICE, INSERT INTRAUTERINE DEVICE [address], [address] [place] [address] Phone: Referral ID Status Reason Start Date Expiration Date Visits Requ ested Visits Authorized [id number] 1 1 Encounter Details Date Type Department Care Team Description 10/12/2017 Hospital Encounter [facility] Czerniecki, Dysm enorrhea (Primary [place] Phase II Brian Pinto Dx) [address] MD [place], [place] RETIRED [address] Social History Tobacco Use [...] know so they can address your concerns. [facility] D&C OR Laparoscopy Discharge Instructions ACTIVITY: [...] M.D. Vannessa Harris M.D. Barbra Hernandez M.D. [facility] 9[address] [facility] [address] 9475 [facility] [address] [place] [address] [place] Laboy [address] (Telephone) [phone] (Telephone) [facility] If you have questions or concerns about your procedure, Call Dr. Ritter at [phone] Today you received Ibuprofen 800mg at 11:20am. [...] MD MT: NTS Name: AKILAH CLINE Account: [id number] : 1995 Procedure Date: 10/12/2017 Document: [id number] documented in this encounter Plan of Treatment [...] Quantitative <1 0 - 5 IU/L 10/12/2017 SHELBY Serum 8:48 AM CDT [facility] Specimen Anatomical Collection Method Collection Time Receive d Time (Source) Location / / Volume Laterality Blood specimen 10/12/2017 8:20 AM 018 8:24 (specimen) CDT AM CDT Brian Ritter MD LAB - BLOOD ORDERA BLES Performing Organization Address City/State/ZIP Code Phon e Number M [facility] [address] [place] [address] [phone] [facility] [address] [place] [address], U [phone] documented in this encounter Visit Diagnoses Diagnosis [...] 4 mg, Intravenous, EVERY 30 MIN PRN, jessneia sea, Administer over 2-5 Minutes, Starting on [...]
PACU documented in this encounter Care Teams Culinary Worker Relationship Specialty Start Date End Date No Ref-Primary, Physician PCP - General 10/12/17 11/01/20 documented as of this encounter
--- OUTSIDE RECORDS SUMMARY | 2022-01-20 12:13 | XMS_ITS | Encounter Summary ---
:1995 Author Organization [place] Address [address] [place] [address] Care Team Providers Name Role Phone Destiny Elizondo Primary Care Provider Encounter Details Date Type Department Care Team Description 02/11/[address] [facility] Eye Jaja Fitzgerald entral vein Clinic [facility] [place] occlusion of retina Ibrahim [address] ( Primary Dx) [address] 9th Fl Clin 9A [address] [place], [place] [phone] (Wo rk) [address] [phone] Social History Tobacco Use Types Packs/Day Years [...] ry documented in this encounter Care Teams Clinical Education Academic Coordinator Relationship Specialty Start Date End Date Destiny Elizondo PCP - General 02/08/16 06/22/17 [facility] [address] [place] [address] documented as of this encounter
--- OUTSIDE RECORDS SUMMARY | 2022-01-20 12:13 | XMS_ITS | Encounter Summary ---
:1995 Author Organization [place] Address [address] [place] [address] Care Team Providers Name Role Phone Destiny Elizondo Primary Care Provider Encounter Details Date Type Department Care Team Description 02/11/2016 Orders Only [facility] Eye Jaja Fitzgerald entral vein Clinic [facility] [place] occlusion of retina Ibrahim [address] ( Primary Dx) [address] 9th Fl Clin 9A [address] [place], [place] [phone] (Wo rk) [address] [phone] Social History Tobacco Use Types Packs/Day Years [...] ry documented in this encounter Care Teams News Photographer Relationship Specialty Start Date End Date Destiny Elizondo PCP - General 02/08/16 06/22/17 [facility] [address] [place] [address] documented as of this encounter
--- OUTSIDE RECORDS SUMMARY | 2022-01-20 12:13 | XMS_ITS | Encounter Summary ---
:1995 Author Organization [place] Address [address] [place] [address] Care Team Providers Name Role Phone No Ref-Primary, Physician Primary Care Provider [phone] Kari Bingham MD Unavailable [phone] Kari Bingham MD Unavailable [phone] Ernst Lopez MD Primary Care Provider Encounter Details Date Type Department Care Team Description 06/23/2017 [facility] Provider, Constantino [...] with No / Unsure 04/20/2020 3:05 PM HEALTH PROMOTION MANAGER someone who was confirmed or suspected to have Coronavirus / COVID-19? documented as of this encounter Plan of Treatment Not on filedocumented as of this encounter Visit Diagnoses Not on filedocumented in this encounter Care Teams Dialysis Rn Relationship Specialty Start Date End Date No Ref-Primary, PCP - General 10/12/17 11/01/20 Physician Ernst Lopez MD PCP - General Family Practice 06/23/17 10/11/17 Kari Bingham MD Ophthalmology 04/15/20 MD Ruth [address] [address] Kari Bingham Assigned Surgical 04/26/20 MD Ruth Provider [address] [place] [phone] documented as of this encounter
--- OUTSIDE RECORDS SUMMARY | 2022-01-20 12:13 | XMS_ITS | Encounter Summary ---
:1995 Author Organization [place] Address [address] [place] [address] Care Team Providers Name Role Phone No Ref-Primary, Physician Primary Care Provider [phone] Kari Bingham MD Unavailable [phone] Kari Bingham MD Unavailable [phone] Ernst Lopez MD Primary Care Provider Reason for Visit Reason Comments Follow Up Patient presented for follow up psychotherapy appointment to address symptoms of depression, anxi ety and binge eating. Encounter Details Date Type Department Care Team Description [facility] of [facility] & A, [facility] Binge eating disorder Addiction [address] [place] [phone] Social History Tobacco Use Types Packs/Day Years Used Date Smoking Tobacco: Never Smokeless Tobacco: Never Alcohol Use Standard Drinks/Week Comments No 0 (1 standard drink = 0.6 oz pure alcoho l) Sex Assigned at Date Recorded Not on file COVID-19 Exposure Response Date Recorded In the last month, have you been in contact with No / Unsure 04/20/2020 3:05 PM STATE FARM AGENT someone who was confirmed or suspected to [...] practices to help manage anxiety. Review of custodial goals: Not done at today's visit. Plan [...] disorder documented in this encounter Care Teams Outpatient Receptionist Relationship Specialty Start Date End Date No Ref-Primary, PCP - General 10/12/17 11/01/20 Physician Ernst Lopez MD PCP - General Family Practice 06/23/17 10/11/17 Kari Bingham MD Ophthalmology 04/15/20 MD Ruth [address] [place] [address] Kari Bingham Assigned Surgical 04/26/20 MD Ruth Provider [address] [id number] documented as of this encounter
--- OUTSIDE RECORDS SUMMARY | 2022-01-20 12:13 | XMS_ITS | Encounter Summary ---
:1995 Author Organization [place] Address [address] [place] [address]. [place] [address] Care Team Providers Name Role Phone Destiny Elizondo Primary Care Provider Reason for Visit Reason Comments Follow Up Central Retinal Vein Occlus ion OS Encounter Details Date Type Department Care Team Description 06/02/2016 Office Visit [facility] Eye AMY BinghamVO ( central retinal vein occlusion) (Primary Dx); Clinic - [place] Kari Miranda, Subjective visual disturbanc e - Right Eye; Patrice Ramos MD [place] of optic disc, bilateral Building [address] [facility] [address] Clin 9A [place] [address] [phone] Social History Tobacco Use Types Packs/Day Years [...] both eyes - to consider ON autofluorescence, TONAY OCT once disc edema resolves RTC: [address] Fitzgerald and repeat OVF both eyes Kari Bingham MD PhD. Professor & Chair LATOR TESTER documented in this encounter Nursing Notes Cleo [...] Verduzco COT 8:13 AM June 02, 2016 LATOR TESTER documented in this encounter Plan of Treatment Not on filedocumented as of this encounter Procedures Procedure Name Priority Date/Time Associated Comments Diagnosis FUNDUS AUTOFLUORESCENCE Routine 06/02/2016 9:36 CRVO (central Results for this IMAGE (FAF) OU (BOTH AM REGULATOR TESTER retinal vein procedu re are in EYES) occlusion) the results Subjective visual section. disturbance - Right Eye OCT RETINA SPECTRALIS OU Routine 06/02/2016 9:36 CRVO (central Results for this (BOTH EYE) AM REGULATOR TESTER retinal vein procedure are i n occlusion) the results Subjective visual section. disturbance - Right Eye documented in this encounter Results Fundus Autofluorescence Image (FAF) OU (both eyes) (06/02/2016 9:36 AM REGULATOR TESTER) Kari Morris MD - 9:36 AM REGULATOR TESTER Patient cooperation: Reliable . Best available. Right [...] Spectralis OU (both eyes) (06/02/2016 9:36 AM REGULATOR TESTER) Kari Morris MD - 9:36 AM REGULATOR TESTER Performed by: dcm . Patient cooperation: Reliable [...] bilateral documented in this encounter Care Teams Molder Helper Relationship Specialty Start Date End Date Destiny Elizondo PCP - General 02/08/16 06/22/17 [facility] [address] [facility] [address] documented as of this encounter
--- OUTSIDE RECORDS SUMMARY | 2022-01-20 12:13 | XMS_ITS | Encounter Summary ---
:1995 Author Organization [place] Address [address] [place] [address] Care Team Providers Name Role Phone No Ref-Primary, Physician Primary Care Provider [phone] Kari Bingham MD Unavailable [phone] Kari Bingham MD Unavailable [phone] Ernst Lopez MD Primary Care Provider Reason for Visit Reason Comments Treatment Plan Encounter Details Date Type Department Care Team Description 08/03/2017 Ambulatory - [facility] [place] Maureen Medley, [facility] Mental Health & CRYSTALIZER OPERATOR Addiction [facility] [address] [place] [address] [place] [address] [phone] (Work) [phone] Social History Tobacco Use Types Packs/Day Years Used Date Smoking Tobacco: Never Smokeless Tobacco: Never Alcohol Use Standard Drinks/Week Comments No 0 (1 standard drink = 0.6 oz pure alcoho l) Sex Assigned at Date Recorded Not on file COVID-19 Exposure Response Date Recorded In the last month, have you been in contact with No / Unsure 04/20/2020 3:05 PM MICROCOMPUTER SUPPORT SPECIALIST someone who was confirmed or suspected to [...] old, female. She does not identify as uatsdin or spiritual. She learned to be kind [...] on filedocumented in this encounter Care Teams Tele Rn Relationship Specialty Start Date End Date No Ref-Primary, PCP - General 10/12/17 11/01/20 Physician Ernst Lopez MD PCP - General Family Practice 06/23/17 10/11/17 Kari Bingham MD Ophthalmology 04/15/20 MD Ruth [address] [place] [phone] Kari Bingham Assigned Surgical 04/26/20 MD Ruth Provider [address] [place] [phone] documented as of this encounter
--- OUTSIDE RECORDS SUMMARY | 2022-01-20 12:13 | XMS_ITS | Encounter Summary ---
:1995 Author Organization [place] Address [address] [place] [address] Care Team Providers Name Role Phone Mikhail Destiny Renata Primary Care Provider Reason for Visit Reason Comments Follow Up CRVO Encounter Details Date Type Department Care Team Description 12/01/2016 Office Visit [facility] Eye DOREEN Bingham ( [facility] Kari Miranda, retinal vein Patrice Ramos MD occlusion) (Primary Building [address] [facility] Dx) [address] [facility] [address] 9th [address] Clin 9A [place] [phone] [phone] Social History Tobacco Use Types Packs/Day Years [...] Gonsalo Barraza MD PGY2, Dept of Ophthalmology [phone] ATTESTATION: I have seen and examined the [...] Spectralis OU (both eyes) (05/31/2017 11:36 AM OFFICE MESSENGER HELPER) Kari Morris MD - 07/2017 8:30 AM [...] retina documented in this encounter Care Teams Medical Dosimetrist Relationship Specialty Start Date End Date Destiny Elizondo PCP - General 02/08/16 06/22/17 [facility] 5700 [place] [address] documented as of this encounter
--- OUTSIDE RECORDS SUMMARY | 2022-01-20 12:13 | XMS_ITS | Encounter Summary ---
:1995 Author Organization [place] Address [address] [place] [address] Care Team Providers Name Role Phone Destiny Elizondo Primary Care Provider Reason for Visit Reason Onset Date Comments Floaters Both Eyes 04/26/2016 Encounter Details Date Type Department Care Team Description 04/26/2016 Telephone [facility] Eye Jaja Fitzgerald loaters Both Eyes [facility] [place] [facility] [place] [address] [facility] Clin 9A [place] [address] Social History Tobacco Use Types [...] for archie Zhang RN 1:25 PM 04/26/2016 PREPARATORY OPERATOR documented in this encounter Plan of Treatment Not on filedocumented as of this encounter Visit Diagnoses Not on filedocumented in this encounter Care Teams Gerentological Physiotherapist Relationship Specialty Start Date End Date Destiny Elizondo PCP - General 02/08/16 06/22/17 [facility] [address] [facility] [phone] documented as of this encounter
--- OUTSIDE RECORDS SUMMARY | 2022-01-20 12:13 | XMS_ITS | Encounter Summary ---
:1995 Author Organization [place] Address [address] [place] [address] Care Team Providers Name Role Phone Destiny Elizondo Primary Care Provider Reason for Visit Reason Comments Central Retinal Vein Occlusion Follow Up Encounter Details Date Type Department Care Team Description 04/05/2016 Office Visit [facility] Eye Jaja Fitzgerald RVO (central retinal Clinic - Fernanda Wilkerson MD vein occlusion) [facility] 516 [facility] 911 6 [place], [place] 9th [place] Clin 9A [address] [place], [place] [phone] [address] (Work) [phone] Social History Tobacco Use Types Packs/Day Years [...] ago with eye movement. Went to [employer] 02/03/16, found swollen veins, sent to Dr. [...] and exam/neuro findings as obtained by the armorer technician or others. Tati examined this patient myself. and I personally viewed the image(s) and studies listed above andthe documentation reflects my findings and interpretation. Jaja Fitzgerald MD, PhD Director Of Events, Vitreoretinal Surgery Department of Ophthalmology [facility] SUPERVISOR documented in this encounter Nursing Notes Kaitlyn [...] Carito CASTELLON April 05, 2016 3:21 PM SUPERVISOR documented in this encounter Plan of Treatment Not on filedocumented as of this encounter Procedures Procedure Name Priority Date/Time Associated Comments Diagnosis OVF 30-2 TOP OU Routine 04/05/2016 4:26 PM CRVO (central Resul ts for this PIT SUPERVISOR retinal vein procedure are i n occlusion) the results section. ULTRASOUND B-SCAN OU Routine 04/05/2016 4:07 PM CRVO (central Results for this (BOTH EYES) PIT SUPERVISOR retinal vein procedure are i n occlusion) the results section. OCT RETINA Routine 04/05/2016 4:07 PM CRVO (central Results for this SPECTRALIS OU (BOTH PIT SUPERVISOR retinal vein procedur e are in EYE) occlusion) the results section. FUNDUS PHOTOS OU Routine 04/05/2016 4:06 PM CRVO (central Resu lts for this (BOTH EYES) PIT SUPERVISOR retinal vein procedure are i n occlusion) the results section. documented in this encounter Results OVF 30-2 TOP OU (04/05/2016 4:26 PM PIT SUPERVISOR) Jaja Urias MD - 04/05/2016 4:27 PM PIT SUPERVISOR Patient cooperation: Reliable . Right Eye Reliability of the test: Good . Findings: Visual napier normal . Interpretation: Normal . Plan: Monitor . Interval: Same . Left Eye Reliability of the test: Good . Findings: Nonspecific defect . Interpretation: Abnormal . Plan: Monitor . Interval: Better . Jaja Fitzgerald MD OPHTHALMOLOGY Ultrasound B-scan OU (both eyes) (04/05/2016 4:07 PM PIT SUPERVISOR) Jaja Urias MD - 04/05/2016 4:07 PM PIT SUPERVISOR Patient cooperation: Reliable . Reliability of the test: Good . Test Findings: Abnormal . Interpretation: Abnormal . Plan: Monitor . Interval: Initial . Jaja Fitzgerald MD OPHTHALMOLOGY OCT Retina Spectralis OU (both eyes) (04/05/2016 4:07 PM PIT SUPERVISOR) Jaja Urias MD - 04/05/2016 4:07 PM PIT SUPERVISOR Patient cooperation: Reliable . Right Eye Reliability of the test: Good . Findings normal/abnormal: Normal OCT . Interpretation: Retinal disease . Plan: Monitor . Interval: Same . Left Eye Reliability of the test: Good . Findings normal/abnormal: Normal OCT . Interpretation: Retinal disease . Plan: Monitor . Interval: Same . Jaja Fitzgerald MD OPHTHALMOLOGY Fundus Photos OU (both eyes) (04/05/2016 4:06 PM PIT SUPERVISOR) Jaja Urias MD - 04/05/2016 4:06 PM PIT SUPERVISOR Patient cooperation: Reliable . Right Eye Reliability [...] retina documented in this encounter Care Teams Correction Warden Relationship Specialty Start Date End Date Destiny Elizondo PCP - General 02/08/16 06/22/17 [facility] [address] [facility] [place] [address] documented as of this encounter
--- OUTSIDE RECORDS SUMMARY | 2022-01-20 12:13 | XMS_ITS | Encounter Summary ---
:1995 Author Organization [place] Address [address] [place] [address] Care Team Providers Name Role Phone Destiny Elizondo Primary Care Provider Reason for Visit Reason Comments Central Retinal Vein Occlusion Follow Up orders only f or imaging on 08/18/16 visit Encounter Details Date Type Department Care Team Description 08/18/2016 Orders Only [facility] Eye Amado Fonseca, Central vein Clinic - [place] occlusion of retina Patrice Ramos [facility] F (Primary Dx) [facility] [address] [place] [address] [address] [place] Clin 9A [address] [place] [phone] Social History Tobacco Use Types Packs/Day Years [...] ry documented in this encounter Care Teams Quality Control Checker Relationship Specialty Start Date End Date Destiny Elizondo PCP - General 02/08/16 06/22/17 [facility] 5700 [place] [address] documented as of this encounter
--- OUTSIDE RECORDS SUMMARY | 2022-01-20 12:13 | XMS_ITS | Encounter Summary ---
:1995 Author Organization [place] Address [address] [place] [address] Care Team Providers Name Role Phone Destiny Elizondo Primary Care Provider Reason for Visit Reason Comments Consult consult with clotting disord er, ruth flores Encounter Details Date Type Department Care Team Description 03/18/2016 Office Visit [facility] Nevaeh Corral PA Central retinal vein Hemophilia Other [address] [address] [facility] occl usion of left eye Services [place] [address] (Primary Dx) [address] [place], [place] 3rd Floor [address] [place], [place] [phone] (Wo rk) [address] [phone] Social History Tobacco Use Types Packs/Day Years Used Date Smoking Tobacco: Never Alcohol Use Standard Drinks/Week Comments No 0 (1 standard drink = 0.6 oz pure alcoho l) Sex Assigned at Date Recorded Not on file documented as of this encounter Last Filed Vital Signs Vital Sign Reading Time Taken Comments Blood Pressure 121/82 03/18/2016 2:56 PM INSPECTOR MULTIFOCAL LENS Pulse 93 03/18/2016 2:56 PM INSPECTOR MULTIFOCAL LENS Temperature 37.1 ??C (98.7 ??F) 03/18/2016 2:56 PM INSPECTOR MULTIFOCAL LENS Respiratory Rate - - Oxygen Saturation - - Inhaled Oxygen Concentration - - Weight 90.4 kg (199 lb 4.8 oz) 03/18/2016 2:56 PM INSPECTOR MULTIFOCAL LENS Height 167.6 cm (5' 6) 03/18/2016 2:56 PM INSPECTOR MULTIFOCAL LENS Body Mass Index 32.17 03/18/2016 2:56 PM INSPECTOR MULTIFOCAL LENS documented in this encounter Progress Notes Nevaeh Corral PA - 03/18/2016 3:26 PM CST Images from the original note were not included. [facility] [address] [place] [address] 713, [address], [place] [address] , . Patient seen at: [facility] Outpatient Visit Note: Patient: Akilah Mills : [...] ongoing use. I have contacted the manufactor That{img} and asked for more information on this [...] minutes, all 60 minutes was spent on avaw-bm-vyiw consultation of the patient and coordination ofcare in regard to CRVO Nevaeh Corral MPH, PA-C Physician Bandage Wrapping Machine Operator [facility] [phone] [phone] pager [employer] documented in this encounter Nursing Notes Merle [...] oz). BP completed using cuff size: regular [employer] documented in this encounter Plan of Treatment Not on filedocumented as of this encounter Results Beta 2 Glycoprotein 1 Antibody IgM (03/18/2016 4:01 PM INSPECTOR MULTIFOCAL LENS) Patholo gist Method Time Signature Beta 2 <0.9 <7 U/mL [facility] Glycoprotein 1 Negative [place] [facility] Antibody IgM [facility] Specimen Anatomical Collection Method Collection Time Receive d Time (Source) Location / / Volume Laterality Blood specimen 03/18/2016 4:01 PM 016 4:03 (specimen) INSPECTOR MULTIFOCAL LENS PM INS[employer] Nevaeh Corral PA LAB - BLOOD ORDERABLES Performing Organization Address City/[facility] Code Phon e Number [address] Beta 2 Glycoprotein 1 Antibody IgG (03/18/2016 4:01 PM INSPECTOR MULTIFOCAL LENS) Analysis Performed At Patho logist Time Signature Beta 2 0.8 <7 U/mL [facility] Glycoprotein 1 [place] [facility] Antibody IgG [facility] Comment: Negative Specimen Anatomical Collection Method Collection Time Receive d Time (Source) Location / / Volume Laterality Blood specimen 03/18/2016 4:01 PM 016 4:03 (specimen) INSPECTOR MULTIFOCAL LENS PM INSPECTOR MULTIF[employer]AL LENS Nevaeh Corral PA LAB - BLOOD ORDERABLES Performing Organization Address City/[facility] Code Phon e Number [address] documented in this encounter Visit Diagnoses Diagnosis 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
--- OUTSIDE RECORDS SUMMARY | 2022-01-20 12:13 | XMS_ITS | Encounter Summary ---
:1994 Author Organization [facility] Address [address] [place] [address] Care Team Providers Name Role Phone Destiny Elizondo Primary Care Provider Reason for Visit Reason Onset Date Comments Results 02/12/2016 Encounter Details Date Type Department Care Team Description 02/12/2016 Telephone [facility] Haroon Christopher MD Results - [phone] [place] [address] [place] [address] [place] [phone] Social History Tobacco Use Types Packs/Day [...] on filedocumented in this encounter Care Teams Crab Fisherman Relationship Specialty Start Date End Date Destiny Elizondo PCP - General 02/08/16 06/22/17 [facility] [address] [facility] [place] [address] documented as of this encounter
--- OUTSIDE RECORDS SUMMARY | 2022-01-20 12:14 | XMS_ITS | Encounter Summary ---
:1994 Author Organization [facility] Address [address] [place] [address]. [place] [address] Care Team Providers Name Role Phone Doctor, None MD Primary Care Provider Unavailable Destiny Elizondo Primary Care Provider No Ref-Primary, Physician Primary Care Provider [phone] Kari Bingham MD Unavailable [phone] Kari Bingham MD Unavailable [phone] Ernst Lopez MD Primary Care Provider Encounter Details Date Type Department Care Team Description 08/15/2014 Records - [facility] Brett Booth MD Low back pain Clinic [address] [address] [facility] [place] [address] Social History Tobacco Use Types Packs/Day Years Used Date Smoking Tobacco: Never Assessed Sex Assigned at Date Recorded Not on file COVID-19 Exposure Response Date Recorded In the last month, have you been in contact with No / Unsure 04/20/2020 3:05 PM SPA DIRECTOR/FINANCE someone who was confirmed or suspected to [...] Lumbago documented in this encounter Care Teams Blacksmith Apprentice Relationship Specialty Start Date End Date Doctor, Denny, PCP - General 10/22/14 02/07/16 Destiny Elizondo PCP - General 02/08/16 06/22/17 [facility] [address] [facility] [place] [address] No Ref-Primary, PCP - General 10/12/17 11/01/20 Physician Ernst Lopez MD PCP - General Family Practice 06/23/17 10/11/17 Kari Bingham MD Ophthalmology 04/15/20 MD Ruth [address] [place] [address] Kari Bingham Assigned Surgical 04/26/20 MD Ruth Provider [address] [place] [address] documented as of this encounter
--- OUTSIDE RECORDS SUMMARY | 2022-01-20 12:14 | XMS_ITS | Encounter Summary ---
:1994 Author Organization [place] Address [address] [place] [address] Care Team Providers Name Role Phone Denny Thomas MD Primary Care Provider Unavailable Destiny Elizondo Primary Care Provider Reason for Visit Reason Comments Consult screening Ultrasound screening Encounter Details Date Type Department Care Team Description 10/28/2014 PRE VISIT [facility] Samantha, Consult (s creening); Maternal Medicine Noemi, [place] Ultr asound (screening) [facility] [place] [address] [facility] [address] [place] [address] Social History Tobacco Use Types Packs/Day Years Used Date Smoking Tobacco: Never Assessed Sex Assigned at Date Recorded Not on file documented as of this encounter Plan of Treatment Not on filedocumented as of this encounter Visit Diagnoses Not on filedocumented in this encounter Care Teams Button Tufter Relationship Specialty Start Date End Date Denny Thomas MD PCP - General 10/22/14 02/07/16 Destiny Elizondo PCP - General 02/08/16 06/22/17 [facility] [address] [place] [address] documented as of this encounter
--- OUTSIDE RECORDS SUMMARY | 2022-01-20 12:14 | XMS_ITS | Encounter Summary ---
:1994 Author Organization [facility] Address [address] [place] [address]. [place] [address] Care Team Providers Name Role Phone Doctor, Denny ANDREWS Primary Care Provider Unavailable Destiny Elizondo Primary Care Provider No Ref-Primary, Physician Primary Care Provider [phone] Kari Bingham MD Unavailable [phone] Kari Bingham MD Unavailable [phone] Ernst Lopez MD Primary Care Provider Encounter Details Date Type Department Care Team Description 09/12/2014 [facility] Jeffy Petersen MD Amenorr batool; [facility] Provider, Historical Vaginal bleeding [place] [address] [place] [address] Social History Tobacco Use Types Packs/Day Years Used Date Smoking Tobacco: Never Assessed Sex Assigned at Date Recorded Not on file COVID-19 Exposure Response Date Recorded In the last month, have you been in contact with No / Unsure 04/20/2020 3:05 PM CEMENT OR CONCRETE FINISHING SUPERVISOR someone who was confirmed or suspected to have Coronavirus / COVID-19? documented as of this encounter Plan of Treatment Not on filedocumented as of this encounter Visit Diagnoses Diagnosis Amenorrhea Absence of menstruation Vaginal bleeding Other specified noninflammatory disorder of vagina documented in this encounter Care Teams Drill Bit Sharpener Relationship Specialty Start Date End Date Denny Thomas MD PCP - General 10/22/14 02/07/16 Destiny Elizondo PCP - General 02/08/16 06/22/17 [facility] [address] [place], [place] [address] No Ref-Primary, PCP - General 10/12/17 11/01/20 Physician Ernst Lopez MD PCP - General Family Practice 06/23/17 10/11/17 Kari Bingham MD Ophthalmology 04/15/20 MD Ruth [address] [place] [address] Kari Bingham Assigned Surgical 04/26/20 MD Ruth Provider [address] [address] documented as of this encounter
--- OUTSIDE RECORDS SUMMARY | 2022-01-20 12:14 | XMS_ITS | Encounter Summary ---
:1994 Author Organization [facility] Address [address] [place] [address] Care Team Providers Name Role Phone DoctorDenny MD Primary Care Provider Unavailable Destiny Elizondo Primary Care Provider No Ref-Primary, Physician Primary Care Provider [phone] Kari Bingham MD Unavailable [phone] Kari Bingham MD Unavailable [phone] Ernst Lopez MD Primary Care Provider Encounter Details Date Type Department Care Team Description 09/05/2014 Office Visit - [facility] Provider, [facility] [address] [id number] Social History Tobacco Use Types Packs/Day Years Used Date Smoking Tobacco: Never Assessed Sex Assigned at Date Recorded Not on file COVID-19 Exposure Response Date Recorded In the last month, have you been in contact with No / Unsure 04/20/2020 3:05 PM ASSOCIATE FINANCIAL PLANNER someone who was confirmed or suspected to have Coronavirus / COVID-19? documented as of this encounter Plan of Treatment Not on filedocumented as of this encounter Visit Diagnoses Not on filedocumented in this encounter Care Teams Principal Automation Engineer Relationship Specialty Start Date End Date Denny Thomas MD PCP - General 10/22/14 02/07/16 Destiny Elizondo PCP - General 02/08/16 06/22/17 [facility] [address] [place] [place], [place] [address] No Ref-Primary, PCP - General 10/12/17 11/01/20 Physician Ernst Lopez MD PCP - General Family Practice 06/23/17 10/11/17 Kari Bingham MD Ophthalmology 04/15/20 MD Ruth [address] [place] [address] Kari Bingham Assigned Surgical 04/26/20 MD Ruth Provider [address] [place] [address] documented as of this encounter
--- OUTSIDE RECORDS SUMMARY | 2022-01-20 12:14 | XMS_ITS | Encounter Summary ---
:1994 Author Organization [facility] Address [address] [place] [address] Care Team Providers Name Role Phone Unavailable Primary Care Provider Unavailable Reason for Referral - Closed Specialty Diagnoses / Procedures Referred By Contact Refer red To Contact Diagnoses Unspecified complication of , antepartum Sh Maternal Med [address] [facility] [address] [place] [phone] Referral ID Status Reason Start Date Expiration Date Visits Requ ested Visits Authorized [id number] Closed 10/15/2014 10/15/2015 1 1 Encounter Details Date Type Department Care Team Description 10/15/2014 Orders Only [facility] Brian Lopez Unspe cified Maternal Blair Ding, [facility] Ovidio medina MD , antepartum [address] [facility] RETIRED (Primary Dx) [facility] [address] [place] [address] Social History Tobacco Use Types [...]
--- OUTSIDE RECORDS SUMMARY | 2022-01-20 12:14 | XMS_ITS | Encounter Summary ---
:1994 Author Organization [facility] Address [address] [place] [address]. [place] [address] Care Team Providers Name Role Phone Destiny Elizondo Primary Care Provider Reason for Visit Reason Comments Loss of Vision Pt c/o loss of vision in L e ye. Pt has blood clots and bleeding behind eye. Pt notes sent by eye do ctor. Encounter Details Date Type Department Care Team Description 02/08/2016 Emergency [facility] Paty Dumont MD Vision loss, left eye Emergency Department [address] [facility] [address] [place] [phone] Social History Tobacco Use Types Packs/Day Years Used Date Smoking Tobacco: Never Alcohol Use Standard Drinks/Week Comments No 0 (1 standard drink = 0.6 oz pure alcoho l) Sex Assigned at Date Recorded Not on file documented as of this encounter Last Filed Vital Signs Vital Sign Reading Time Taken Comments Blood Pressure 124/73 02/08/2016 9:36 PM CDT Pulse 89 02/08/2016 9:36 PM CDT Temperature 36.4 ??C (97.5 ??F) 02/08/2016 9:36 PM CDT Respiratory Rate 16 02/08/2016 9:36 PM CDT Oxygen Saturation 98% 02/08/2016 9:36 PM CDT Inhaled Oxygen Concentration - - Weight 88.4 kg (194 lb 14.2 oz) 02/08/2016 9:53 PM CDT Height - - Body Mass Index 31.22 08/15/2014 11:50 AM CDT documented in this encounter Discharge Instructions Discharge InstructionsAmado Dumont MD - 02/08/2016 10:43 PM CDT Go to the [facility] to be seen by the retina specialist tomorrow morning at 9:15 AM. 9th Floor [facility]. Do not have anything to eat or drink after midnight. [facility], 9th Floor, [address] [place] [address] Eye Clinic (phone: ). documented in this encounter ED Notes Amado Dumont MD - 02/08/2016 10:21 PM CDT History Chief Complaint Patient presents with ??? Loss of Vision Pt c/o loss of vision in L eye. Pt has blood clots and bleeding behind eye. Pt notes sent by eye doctor. HPI Akilah Mills is a 20 year old female who presents to emergency department with progressively worsening vision in her left eye. Patient states that for the past 2-3 weeks, she has had disturbed vision in her left eye. Initially, the patient states that her vision was blurry in the morning. Over thepast week, her symptoms progressed to involve constant blurred vision. Today, the patient began to see sparkles of light along with her blurred vision in the left eye. The patient was seen by an vice president network 5 days ago. At that time, flame hemorrhages were identified in the left eye and Central retinal vein occlusion was suspected. The patient had photographs obtained 3 days ago which revealed flame hemorrhages. Patient was seen today by the vice president network and her symptoms and findings had worsened so she was sent to the emergency department of the [facility]. Patient states that she's been having migraine headaches for the past 2 months. She denies any headache currently. She denies any weakness or numbness. She denies any incoordination. She denies nausea and vomiting. Patient arrives with prescriptions from clinic vice president network with recommendation for hypercoagulable workup as well as MRI. I have reviewed the Medications, Allergies, Past Medical and Surgical History, and Social History inthe [employer] system. Review of Systems Eyes: Positive for visual disturbance. Neurological: Positive for headaches. All other systems reviewed and are negative. Physical Exam BP: 124/73 mmHg Pulse: 89 Temp: 97.5 ??F (36.4 ??C) Resp: 16 Weight: 88.4 kg (194 lb 14.2 oz) SpO2: 98 % Physical Exam Constitutional: She is oriented to person, place, and time. She appears well- developed and well-nourished. HENT: Head: Normocephalic and atraumatic. Eyes: Conjunctivae are normal. Fundoscopic exam: The left eye shows hemorrhage. Neck: Normal range of motion. Neck supple. Cardiovascular: Normal rate, regular rhythm, normal heart sounds and intact distal pulses. Pulmonary/Chest: Effort normal and breath sounds normal. No respiratory distress. Neurological: She is alert and oriented to person, place, and time. She has normal strength. Coordination and gait normal. Nursing note and vitals reviewed. ED Course Procedures Critical Care time: Discussed with on-call ophthalmology resident-Dr. Lane. He recommends retinal specialist follow-up at 9:15 tomorrow morning. Ophtho- did not feel that lab or MRI imaging would necessarily be helpful tonight so will defer until after retinal specialist evaluation tomorrow. Assessments & Plan (with Medical Decision Making) 20 year old female with several weeks of increasing visual disturbance from her left eye. Outside clinic ophthalmology evaluation thus far has revealed some retinal hemorrhages and reported concern forcentral retinal vein occlusion. Her visual disturbance has been worse for approximately one week. She was sent to the emergency department today for [facility] ophthalmology evaluation. The patient will be seen by the retinal specialist at 9:15 AM. No further diagnostic evaluation was desired by the vice president network tonight. Patient will follow-up in the morning. She will be NPO after midnight. I have reviewed the nursing notes. I have reviewed the findings, diagnosis, plan and need for follow up with the patient. There are no discharge medications for this patient. Final diagnoses: Vision loss, left eye 02/08/2016 [facility], EMERGENCY DEPARTMENT Amado Dumont MD 02/09/16 0040 documented in this encounter Plan of Treatment Not on filedocumented as of this encounter Visit Diagnoses Diagnosis Vision loss, left eye Unqualified visual loss, one eye documented in this encounter Care Teams Director Funds Development Relationship Specialty Start Date End Date Destiny Elizondo PCP - General 02/08/16 06/22/17 [facility] [address] [place] [address] documented as of this encounter
--- OUTSIDE RECORDS SUMMARY | 2022-01-20 12:14 | XMS_ITS | Encounter Summary ---
:1994 Author Organization [facility] [place] Address [address] [place] [address]. [place] [address] Care Team Providers Name Role Phone Doctor, None Primary Care Provider Unavailable Destiny Elizondo Primary Care Provider No Ref-Primary, Physician Primary Care Provider Kari Bingham MD Unavailable [phone] Kari Bingham MD Unavailable [phone] Ernst Lopez MD Primary Care Provider Reason for Visit Reason Comments Establish Care starting in Feb-Mar pt would have lower back spasms. pt states it would be so bad she would fa ll to the ground and not be able to move. 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 I, [facility] Farmer, am scribing for and in the [...] Lumbago documented in this encounter Care Teams Jockey Room Custodian Relationship Specialty Start Date End Date Doctor, Denny, PCP - General 10/22/14 02/07/16 Destiny Elizondo PCP - General 02/08/16 06/22/17 [facility] [address] [place], [place] [id number] No Ref-Primary, PCP - General 10/12/17 11/01/20 Physician Ernst Lopez MD PCP - General Family Practice 06/23/17 10/11/17 Kari Bingham MD Ophthalmology 04/15/20 MD Ruth [address] [place] [address] Kari Bingham Assigned Surgical 04/26/20 MD Ruth Provider [address] [place] [address] documented as of this encounter
--- OUTSIDE RECORDS SUMMARY | 2022-01-20 12:14 | XMS_ITS | Encounter Summary ---
:1994 Author Organization [facility] Address [address] [place] [address]. [place] [address] Care Team Providers Name Role Phone Dneny Thomas MD Primary Care Provider Unavailable Destiny Elizondo Primary Care Provider No Ref-Primary, Physician Primary Care Provider [phone] Kari Bingham MD Unavailable [phone] Kari Bingham MD Unavailable [phone] Ernst Lopez MD Primary Care Provider Reason for Visit Reason Comments Care Encounter Details Date Type Department Care Team Description 09/12/2014 [facility] Brett Booth MD Care [address] [address] [facility] [place] [address] Social History Tobacco Use Types Packs/Day Years Used Date Smoking Tobacco: Never Assessed Sex Assigned at Date Recorded Not on file COVID-19 Exposure Response Date Recorded In the last month, have you been in contact with No / Unsure 04/20/2020 3:05 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 documented as of this encounter Plan of Treatment Not on filedocumented as of this encounter Visit Diagnoses Not on filedocumented in this encounter Care Teams Manager Graphic Relationship Specialty Start Date End Date Denny Thomas MD PCP - General 10/22/14 02/07/16 Destiny Elizondo PCP - General 02/08/16 06/22/17 [facility] [address] [facility] [place] [id number] No Ref-Primary, PCP - General 10/12/17 11/01/20 Physician Ernst Lopez MD PCP - General Family Practice 06/23/17 10/11/17 Kari Bingham MD Ophthalmology 04/15/20 MD Ruth [address] [place] [address] Kari Bingham Assigned Surgical 04/26/20 MD Ruth Provider [address] [place] [address] documented as of this encounter
--- OUTSIDE RECORDS SUMMARY | 2022-01-20 12:14 | XMS_ITS | Encounter Summary ---
:1994 Author Organization [facility] Address [address] [place] [address] Care Team Providers Name Role Phone Doctor, Denny ANDREWS Primary Care Provider Unavailable Destiny Elizondo Primary Care Provider No Ref-Primary, Physician Primary Care Provider [phone] Kari Bingham MD Unavailable [phone] Kari Bingham MD Unavailable [phone] Ernst Lopez MD Primary Care Provider Encounter [...] with No / Unsure 04/20/2020 3:05 PM SHALE MINER someone who was confirmed or suspected to have Coronavirus / COVID-19? documented as of this encounter Plan of Treatment Not on filedocumented as of this encounter Visit Diagnoses Not on filedocumented in this encounter Care Teams Library Services Assistant Relationship Specialty Start Date End Date Doctor, MD Denny PCP - General 10/22/14 02/07/16 Destiny Elizondo PCP - General 02/08/16 06/22/17 [facility] [address] [place] [address] No Ref-Primary, PCP - General 10/12/17 11/01/20 Physician Ernst Lopez MD PCP - General Family Practice 06/23/17 10/11/17 Kari Bingham MD Ophthalmology 04/15/20 MD Ruth [address] [place] [address] Kari Bingham Assigned Surgical 04/26/20 MD Ruth Provider [address] [address] documented as of this encounter
--- OUTSIDE RECORDS SUMMARY | 2022-01-20 12:14 | XMS_ITS | Encounter Summary ---
:1995 Author Organization [place] Address [address] [place] [address] Care Team Providers Name Role Phone Destiny Elizondo Primary Care Provider Reason for Referral Consultation - Closed Specialty Diagnoses / Procedures Referred By Contact Refer red To Contact Diagnoses CRVO (central retinal vein occlusion) Amado Contreras MD [facility] [address] [address] [place] [id number] [phone] Referral ID Status Reason Start Date Expiration Date Visits Requ ested Visits Authorized [id number] Closed 02/09/2016 02/08/2017 1 1 - Closed Specialty Diagnoses / Procedures Referred By Contact Refer red To Contact Diagnoses CRVO (central retinal vein occlusion) Amado Contreras MD [facility] [address] [place], [place] [address] 4 Referral ID Status Reason Start Date Expiration Date Visits Requ ested Visits Authorized [id number] Closed 02/09/2016 02/08/2017 1 1 Reason for Visit Reason Comments Consult For Vision loss. Sent by ED OS Encounter Details Date Type Department Care Team Description 02/09/[address] 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 Ihave examined this patient myself. and I personally viewed the image(s) and studies listed above andthe documentation reflects my findings and interpretation. Kamila Keller MD, PhD Cardiothoracic Anesthesia Technician, Vitreoretinal Surgery Department of Ophthalmology [facility] documented in this encounter Nursing Notes Maureen [...] started three weeks ago. Went to [facility] and then was sent to Dr. Pyle. [...] Spectralis OU (both eyes) (03/08/2016 3:32 PM TICKET WORKER) Narrative Kamila Keller MD - 03/08/2016 3:32 PM TICKET WORKER Patient cooperation: Reliable . Right Eye Reliability [...] in rating of 0 out of 10. Lot:[id number] Exp:03-08-16 Eye:SOY Leone COT 2:31 PM February 09, 2016 Amado Contreras MD OPHTHALMOLOGY Vasculitis panel (02/09/2016 2:34 PM CDT) Component Value Ref Test Analysis Performed At [facility] fitaborate Range Method Time Signature Myeloperoxidase <0.2 0.0 - UNIVERSITY Antibody IgG Negative 0.9 AI OF [place] Antibody index (AI) values reflect qualitative changes in a ntibody MEDICAL concentration that cannot be directly associated with clinical condition or [facility] disease state. CAMPUS Proteinase 3 <0.2 0.0 - UNIVERSITY Antibody IgG Negative 0.9 AI OF [place] Antibody index (AI) values reflect qualitative changes in a ntibody MEDICAL concentration that cannot be directly associated with clinical condition or [facility] disease state. [place] Specimen Anatomical Collection Method Collection Time Receive d Time (Source) Location / / Volume Laterality Blood specimen 02/09/2016 2:34 PM 016 2:36 (specimen) CDT PM CDT Amado Contreras MD LAB - BLOOD ORDERABLES Performing Organization Address City/State/ZIP Code Phon e Number [facility] [address] [place] [address] [facility] Antinuclear antibody screen by EIA (02/09/2016 2:33 PM CDT) [facility] fitaborate Method Time Signature SIMRAN Screen by <1.0 <1.0 UNIVERSITY OF EIA Interpretation: ??Negative [facility] Specimen Anatomical Collection Method Collection Time Receive d Time (Source) Location / / Volume Laterality 02/09/2016 2:33 PM 6 2:35 CDT PM CDT Amado Contreras MD LAB - BLOOD ORDERABLES Performing Organization Address City/[facility] Code Phon e Number [facility] [address] M Tuberculosis by Quantiferon (02/09/2016 2:33 PM CDT) [facility] Method Time Signature M Tuberculosis Negative NEG UNIVERSITY OF Result [facility] M Tuberculosis 0.29 IU/mL UNIVERSITY OF Antigen Value [facility] Comment: This is a qualitative test. ??The [...] LAB - BLOOD ORDERABLES Performing Organization Address [facility] Code Phon e Number [facility] [address] RPR screen with reflex to confirm (02/09/2016 2:33 PM CDT) [facility] Time Signature Rapid Plasma Negative NEG UNIVERSITY OF Reagin [facility] Specimen Anatomical Collection Method Collection Time Receive d Time (Source) Location / / Volume Laterality Blood specimen 02/09/2016 2:33 PM 016 2:35 (specimen) CDT PM CDT Amado Contreras MD LAB - BLOOD ORDERABLES Performing Organization Address City/[facility] Code Phon e Number [facility] [address] Antineutrophil cytoplasmic Carlos IgG (02/09/2016 2:33 PM CDT) Component Value Ref Test Analysis Performed At [facility] Range Method Time Signature Neutrophil <1:20 UNIVERSITY [...] collagen vascular disease or arthritis. Performed by [facility], [address] [place] [address] [email or web address], Alexx Lemons MD, Lab. Director Specimen Anatomical Collection Method Collection Time Receive d Time (Source) Location / / Volume Laterality Blood specimen 02/09/2016 2:33 PM 016 2:35 (specimen) CDT PM CDT Amado Contreras MD LAB - BLOOD ORDERABLES Performing Organization Address City/[facility] Code Phon e Number [address] Cardiolipin antibody IgA (02/09/2016 2:33 PM CDT) Component Value Ref Test Analysis Performed At [facility] [employer] Method Time Signature Cardiolipin Canceled, Test credited 0 - 11 UNIV ERSITY OF Antibody IgA Specimen not received APL [facility] EDICAL IgA also helps indentify an additional group [facility] of patients whose only presentation is [place] thrombocytopenia. Assayed at [facility], [place] [address] Specimen Anatomical Collection Method Collection Time Receive d Time (Source) Location / / Volume Laterality Blood specimen 02/09/2016 2:33 PM 016 2:35 (specimen) CDT PM CDT Amado Contreras MD LAB - BLOOD ORDERABLES Performing Organization Address City/[facility] Phon e Number [address] Factor 5 leiden mutation analysis (02/09/2016 2:33 PM CDT) Component Value Ref Test Analysis Performed At [facility] fitaborate Range Method Time Signature Maria Victoriaath Report Patient Name: AKILAH CLINE MR#: [id number] Specimen #: [id number] Collected: 02/09/2016 14:33 Received: 02/10/2016 11:31 Reported: 02/14/2016 11:31 Ordering Phy(s): KAMILA KELLER Additional Phy(s): AMADO CONTRERAS TEST(S) REQUESTED: Factor 5 Leiden Mutation by PCR SPECIMEN DESCRIPTION: Blood METHODOLOGY: ?? The regions of genomic DNA containing the G1 691A Factor 5 gene mutation (Factor V Leiden) and the Factor 2(Prothrombin [id number]) gene mutation were simultaneously amplified using the [...] th test results. ??Call the Molecular Diagn[facility] Lab([phone]) for instructions on sample collection for these patients. This test was developed and its performance characteristics determined by the [facility], ??[facility] Laboratory. It has not been cleared or approved by the FDA. The laboratory is regulated under CLIA as qualified to perform high-complexity testing. This test is used for clinical purp oses. It should not be regarded as investigational or for research. Electronically Signed Out By: Rachel Anne M.D., [facility] CPT Codes: A: 83755-V2AZS, C4138-ENCPMW TESTING LAB LOCATION: [address] [address] COLLECTION SITE: Client: ??[facility] Location: ??[place] (B) Specimen Anatomical Collection Method Collection Time Receive d Time (Source) Location / / Volume Laterality Blood specimen 02/09/2016 2:33 PM 016 (specimen) CDT 11:31 AM CDT Kamila Keller MD LAB - GENOMICS Performing Organization Address City/State/ZIP Code Phon e Number [place] Activated protein C resistance (02/09/2016 2:33 PM CDT) P athologist Signature Activated Prot 2.72 >2.12 UN[facility]ITY OF C [facility] MEDICAL [facility] CENTER [facility] Comment: NORMAL Activated Protein C Ratio:The pat ient does not have Activated Protein C Resistance. Specimen Anatomical Collection Method Collection Time Receive d Time (Source) Location / / Volume Laterality Blood specimen 02/09/2016 2:33 PM 016 2:35 (specimen) CDT PM CDT Amado Contreras MD LAB - BLOOD ORDERABLES Performing Organization Address City/[facility]/ZIP Code Phon e Number [facility] [address] [place] [address] [facility] LUPUS BATTERY (INR,PTT,TT) (02/09/2016 2:33 PM CDT) Component Value Ref Test Analysis Performed At [facility] gist Range Method Time Signature Lupus Result Negative NEG [facility] (Note) [place] MEDICAL COMMENTS: [facility] The INR is normal. [place] APTT ratio is elevated. Platelet Neutralization is negative. APTT 1:2 Mix ratio is normal. DRVVT Screen ratio is normal. Thrombin time is normal. NEGATIVE TEST; A LUPUS ANTICOAGULANT WAS NOT DETECTED IN THI S SPECIMEN WITHIN THE LIMITS OF THE TESTING REPERTOIRE. If the clinical picture is strongly suggestive of an antipho spholipid syndrome, recommend anticardiolipin and [id number] (IgG and IgM) antibody tests. Platelet Neutralization and APTT 1:2 Mix ratio are suggestiv e of factor deficiency. Recommend factors 8, 9, 11 and 12 (factors VIII, IX, XI, and XII) levels if clinically indicated. Jagdish Sandy M.D. [phone] 02/11/2016 INR = 1.11 ?? Reference range: [...] LAB - BLOOD ORDERABLES Performing Organization Address City/[facility] Code Phon e Number [address] Erythrocyte sedimentation rate auto (02/09/2016 2:33 PM CDT) P athologist Signature Sed Rate 6 0 - 20 mm/h [facility] Specimen Anatomical Collection Method Collection Time Receive d Time (Source) Location / / Volume Laterality Blood specimen 02/09/2016 2:33 PM 016 2:35 (specimen) CDT PM CDT Amado Contreras MD LAB - BLOOD ORDERABLES Performing Organization Address City/[facility] Code Phon e Number [address] (ABNORMAL) Basic metabolic panel (02/09/2016 2:33 PM CDT) Patholo gist Method Time Signature Sodium 142 133 - 144 UNIVERSITY OF mmol/L [facility] Potassium 3.4 3.4 - 5.3 [facility] OF mmol/L [facility] Chloride 110 (H) 94 - 109 [facility] OF mmol/L [facility] Carbon Dioxide 23 20 - 32 [facility] OF mmol/L [facility] Anion Gap 9 3 - 14 [facility] mmol/L [facility] Glucose 113 (H) 70 - 99 [facility] OF mg/dL [facility] Urea Nitrogen 10 7 - 30 [facility] OF mg/dL [facility] Creatinine 0.58 0.52 - UNIVERSITY OF 1.04 [facility] mg/dL [facility] GFR Estimate >90 >60 UN[facility]ERS[facility] OF Non GFR Calc mL/min/1. [place] MEDICAL 7m2 [facility] GFR Estimate >90 >60 [facility] OF If Black GFR Calc mL/min/1. [place] M EDICAL 7m2 [facility] Calcium 8.9 8.5 - [facility] 10.1 [place] MEDICAL mg/dL [facility] Specimen Anatomical Collection Method Collection Time Receive d Time (Source) Location / / Volume Laterality Blood specimen 02/09/2016 2:33 PM 016 2:35 (specimen) CDT PM CDT Amado Contreras MD LAB - BLOOD ORDERABLES Performing Organization Address City/State/ZIP Code Phon e Number [facility] [address] CBC with platelets (02/09/2016 2:33 PM CDT) P athologist Signature WBC 5.6 4.0 - 11.0 UNIVERSITY OF 10e9/L [facility] RBC Count 4.12 3.8 - 5.2 [facility] OF 10e12/L [facility] Hemoglobin 12.8 11.7 - UNIVERSITY OF 15.7 g/dL [facility] Hematocrit 36.9 35.0 - UN[facility]ITY OF 47.0 % [facility] MCV 90 78 - 100 [facility] OF fl [facility] MCH 31.1 26.5 - UN[facility] OF 33.0 pg [facility] MCHC 34.7 31.5 - UN[facility]ERSITY OF 36.5 g/dL [facility] RDW 12.2 10.0 - [facility]ITY OF 15.0 % [facility] Platelet Count 276 150 - 450 UN[facility]ITY OF 10e9/L [facility] Specimen Anatomical Collection Method Collection Time Receive d Time (Source) Location / / Volume Laterality Blood specimen 02/09/2016 2:33 PM 016 2:35 (specimen) CDT PM CDT Amado Contreras MD LAB - BLOOD ORDERABLES Performing Organization Address City/State/ZIP Code Phon e Number [facility] [address] (ABNORMAL) Routine UA with microscopic - No culture (02/09/2016 2:21 PM CDT) Patholo gist Method Time Signature Color Urine Yellow [facility] Appearance Urine Slightly [facility]ITY OF Cloudy [facility] Glucose Urine Negative NEG mg/dL [facility] Bilirubin Urine Negative NEG [facility] Ketones Urine Negative NEG mg/dL [facility] Specific [place] 1.006 1.003 - UNIVERSITY Urine 1.035 [facility] Blood Urine Negative NEG [facility] pH Urine 7.0 5.0 - 7.0 [facility]ITY OF pH [facility] Protein Albumin Negative NEG mg/dL [facility] OF Urine [facility] Urobilinogen Normal 0.0 - 2.0 [place] mg/dL mg/dL [facility] Nitrite Urine Negative NEG [facility] Leukocyte Moderate (A) NEG [facility] OF Esterase Urine [facility] Source Midstream UNIVERSITY Urine [facility] WBC Urine 6 (H) 0 - 2 [facility]ITY OF /HPF [facility] RBC Urine 1 0 - 2 [facility] OF /HPF [facility] Bacteria Urine Few (A) NEG /HPF [facility] Squamous 26 (H) 0 - 1 [facility] OF Epithelial /HPF /HPF [facility] Transitional Epi <1 0 - 1 [facility]ITY OF /HPF [facility] Mucous Urine Present (A) NEG /LPF [facility] Specimen Anatomical Collection Method Collection Time Receive d Time (Source) Location / / Volume Laterality Urine specimen 02/09/2016 2:21 PM 016 2:22 (specimen) CDT PM CDT Amado Contreras MD LAB - URINE ORDERABLES Performing Organization Address City/State/ZIP Code Phon e Number [facility] [address] [place] [address] [facility] Fluorescein Angiography OU (both eyes) (02/09/2016 12:35 [...] retina documented in this encounter Care Teams Information Technology Professor Relationship Specialty Start Date End Date Destiny Elizondo PCP - General 02/08/16 06/22/17 [facility] [address] [place] [address] documented as of this encounter
--- OUTSIDE RECORDS SUMMARY | 2022-01-20 12:14 | XMS_ITS | Encounter Summary ---
:1995 Author Organization [place] Address [address] [place] [address] Care Team Providers Name Role Phone Doctor, None Primary Care Provider Unavailable Destiny Elizondo Primary Care Provider No Ref-Primary, Physician Primary Care Provider [phone] Kari Bingham MD Unavailable [phone] Kari Bingham MD Unavailable Ernst Lopez MD Primary Care Provider Encounter Details Date Type Department Care Team Description 10/13/2011 Records - [facility] Provider, [facility] DEPARTMENT [address] [place] [id number] Social History Tobacco Use Types Packs/Day Years Used Date Smoking Tobacco: Never Assessed Sex Assigned at Date Recorded Not on file COVID-19 Exposure Response Date Recorded In the last month, have you been in contact with No / Unsure 04/20/2020 3:05 PM COST ACCOUNTING ANALYST someone who was confirmed or suspected [...] on filedocumented in this encounter Care Teams Roofer Vinyl Coating Relationship Specialty Start Date End Date Doctor, Denny, PCP - General 10/22/14 02/07/16 Destiny Elizondo PCP - General 02/08/16 06/22/[address] [facility] [address] [place], [place] [address] No Ref-Primary, PCP - General 10/12/17 11/01/20 Physician Ernst Lopez MD PCP - General Family Practice 06/23/17 10/11/17 Kari Bingham MD Ophthalmology 04/15/20 MD Ruth [address] [place] [address] Kari Bingham Assigned Surgical 04/26/20 MD Ruth Provider [address] [address] documented as of this encounter
--- OUTSIDE RECORDS SUMMARY | 2022-01-20 12:14 | XMS_ITS | Encounter Summary ---
:1995 Author Organization [place] Address [address] [place] [address] Care Team Providers Name Role Phone Denny Thomas MD Primary Care Provider Unavailable Destiny Elizondo Primary Care Provider No Ref-Primary, Physician Primary Care Provider [phone] Kari Bingham MD Unavailable Kari Bingham MD Unavailable [phone] Ernst Lopez MD Primary Care Provider Encounter Details Date Type Department Care Team Description 08/26/2014 [facility] Provider, [facility] Information Management [address] [place] [phone] Social History Tobacco Use Types Packs/Day Years Used Date Smoking Tobacco: Never Assessed Sex Assigned at Date Recorded Not on file COVID-19 Exposure Response Date Recorded In the last month, have you been in contact with No / Unsure 04/20/2020 3:05 PM PRODUCT DEVELOPMENT ENGINEER someone who was confirmed or suspected to have Coronavirus / COVID-19? documented as of this encounter Plan of Treatment Not on filedocumented as of this encounter Visit Diagnoses Not on filedocumented in this encounter Care Teams Race And Sports Book Writer Relationship Specialty Start Date End Date Denny Thomas MD PCP - General 10/22/14 02/07/16 Destiny Elizondo PCP - General 02/08/16 06/22/17 [facility] [address] [place] [address] [id number] No Ref-Primary, PCP - General 10/12/17 11/01/20 Physician Ernst Lopez MD PCP - General Family Practice 06/23/17 10/11/17 Kari Bingham MD Ophthalmology 04/15/20 MD Ruth [address] [place] [address] Kari Bingham Assigned Surgical 04/26/20 MD Ruth Provider [address] [place] [address] documented as of this encounter
--- OUTSIDE RECORDS SUMMARY | 2022-01-20 12:15 | XMS_ITS | Clinical Summary ---
:1995 Author Organization [employer] [facility] [place] [address] Care Team Providers Name Role Phone Areli [facility] Primary Care Provi moy Allergies Active Allergy [...] Addre ss Type Group FOUZIA FRAGOSO MA [id number] 2021-Present [address] [place] [address] [address] (Home) [place] [address] [employer] Employer 04/10/2000 [phone] [facility]Sarah[place] 0 (Home) [phone] [place] 3 (Work) [address] Care Teams Studio Grip Relationship Specialty Start Date End [facility] - General 10/12/[address] [place] [address] Areli [place], [place] [id number]
== END 2022-01-20 12:24 | disposition home or self-care (01) ==
PROVIDERS: Emergency Provider Emergency Medicine Emergency Medical Services
DX: A04.72 Enterocolitis due to Clostridium difficile, not specified as recurrent (principal)
CPT/HCPCS: 99282; 99283; 99284

== ENCOUNTER 2022-01-27 13:32 | Emergency (ER) | payer MEDICAID, SELFPAY ==
[2022-01-27 13:36] VITALS: BP 129/80; PULSE 76; RESP 16; TEMP 37.1; O2SAT 98; BMI 37.6
--- OUTSIDE RECORDS SUMMARY | 2022-01-27 15:32 | XMS_ITS | Encounter Summary ---
:1995 Author Organization [place] Address [address] [place] [address] Care Team Providers Name Role Phone No Ref-Primary, Physician Primary Care Provider [phone] Kari Bingham MD Unavailable [phone] Encounter Details Date Type Department Care Team [...] with No / Unsure 04/20/2020 3:05 PM GRAPHIC SPECIALIST someone who was confirmed or suspected to have Coronavirus / COVID-19? documented as of this encounter Plan of Treatment Not on filedocumented as of this encounter Visit Diagnoses Not on filedocumented in this encounter Care Teams Toe Stripper Relationship Specialty Start Date End Date No Ref-Primary, Physician PCP - General 10/12/17 11/01/20 Kari Bingham MD MD Ophthalmology 04/15/[address] [address] documented as of this encounter
--- OUTSIDE RECORDS SUMMARY | 2022-01-27 15:32 | XMS_ITS | Clinical Summary ---
:1995 Author Organization [place] Address [address] [place] [address] Care Team Providers Name Role Phone Kari Bingham MD Unavailable [phone] Salvatore Jerry MD Primary Care Provider [phone] Allergies Active Allergy Reactions Severity Noted Date Comments Naproxen Other (See Comments), Swelling, High 5 Anaphylaxis Medications No known medications Active Problems Problem Noted Date Dysmenorrhea 10/10/2017 Dyspareunia in female 10/10/2017 Encounters Date Type Specialty Care Team Description 01/27/2022 Emergency EMERGENCY MEDICINE Jocelyne, Provider 01/27/2022 Travel from Last 3 Months Family History Medical History Relation Comments Cancer [...] Exposure Response Date Recorded In the last 10 days, have you been in contact No / Unsure 01/27/2022 12:51 PM CDT with someone who was confirmed or suspected to have Coronavirus/COVID-19? Last Filed Vital Signs Vital Sign Reading Time Taken Comments Blood Pressure 126/101 01/27/2022 12:54 PM CDT Pulse 84 01/27/2022 12:54 PM CDT Temperature 37 ??C (98.6 ??F) 01/27/2022 12:54 PM CDT Respiratory Rate 16 01/27/2022 12:54 PM CDT Oxygen Saturation 98% 01/27/2022 12:54 PM CDT Inhaled Oxygen Concentration - - Weight 100.2 kg (221 lb) 11/15/2017 4:35 PM CDT Height 170.2 cm (5' 7) 10/12/2017 8:08 AM CDT Body Mass Index 34.61 10/12/2017 8:08 AM CDT Plan of Treatment Health Maintenance Due Date Last Done Comments ADVANCE CARE PLANNING 1995 ANNUAL REVIEW OF HM ORDERS 1994 HIV SCREENING 2009 HEPATITIS C SCREENING 2012 PAP 12/23/2015 COVID-19 Vaccine (2 - 10/06/2020 09/08/2020 Moderna series) PHQ-2 (once per calendar 04/10/2021 year) YEARLY PREVENTIVE VISIT 04/15/2021 04/15/2020 INFLUENZA VACCINE (#1) 2021 DTAP/TDAP/TD IMMUNIZATION 08/15/2022 08/15/2012, 11/14/2006 , (4 - Td or Tdap) 07/28/2003, Additional history exists HEPATITIS B IMMUNIZATION Completed [...] Effective Dates Phone Addre ss Type Group [facility] [id number] 2021-Present [phone] [address] [place] [address] Akilah Mills Personal/Family Self [address] (Home) [place] [address] Care Teams Surplus Property Disposal Agent Relationship Specialty Start Date End Date Salvatore Jerry MD PCP - General 11/02/20 Kari Bingham MD MD Ophthalmology 04/15/[address] [place] [phone]
--- OUTSIDE RECORDS SUMMARY | 2022-01-27 15:32 | XMS_ITS | Encounter Summary ---
:1994 Author Organization [place] Address [address] [place] [address] Care Team Providers Name Role Phone Kari Bingham MD Unavailable [phone] Kari Bingham MD Unavailable [phone] Joel Lin MD Unavailable Salvatore Jerry MD Primary Care Provider [phone] Encounter Details Date Type Department Care Team [...] on filedocumented in this encounter Care Teams Propulsion Engineer Relationship Specialty Start Date End Date Salvatore Jerry MD PCP - General 11/02/20 Kari Bingham MD Ophthalmology 04/15/20 MD Ruth [address] [facility] [address] [place] [address] Kari Bingham Assigned Surgical Provider 10/22/21 MD Ruth [address] [facility] [address] [place], [place] [address] Joel Lin MD Assigned PCP 09/23/20 11/21/[address] [place] [address] documented as of this encounter
--- OUTSIDE RECORDS SUMMARY | 2022-01-27 15:32 | XMS_ITS | Encounter Summary ---
:1994 Author Organization [facility] Address [address] [place] [address] Care Team Providers Name Role Phone No Ref-Primary, Physician Primary Care Provider [phone] Kari Bingham MD Unavailable [phone] Reason for Visit Reason Comments Central Retinal Vein Occlusion Follow Up Encounter Details Date Type Department Care Team Description 04/20/2020 Office Visit [facility] Eye DOREEN Bingham ( central [facility] Kari Miranda, retinal vein Patrice Ramos MD occlusion) Building [address] [place] [address] Clin [address] [place] [id number] [phone] Social History Tobacco Use Types Packs/Day Years Used Date Smoking Tobacco: Never Smokeless Tobacco: Never Alcohol Use Standard Drinks/Week Comments No 0 (1 standard drink = 0.6 oz pure alcoho l) Sex Assigned at Date Recorded Not on file COVID-19 Exposure Response Date Recorded In the last month, have you been in contact with No / Unsure 04/20/2020 3:05 PM FOREIGN STUDENT ADVISER someone who was confirmed or suspected to [...] Kari Bingham MD PhD. 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 The floaters have been present for a long time, but the flashes about a month. Sanket Molina COT 3:17 PM April 20, 2020 IGN STUDENT ADVISER documented in this encounter Plan of Treatment Not on filedocumented as of this encounter Procedures Procedure Name Priority Date/Time Associated Comments Diagnosis OCT RETINA Routine 04/20/2020 3:43 PM CRVO (central Results for this SPECTRALIS OU (BOTH FOREIGN STUDENT ADVISER retinal vein procedur e are in EYE) occlusion) the results section. documented in this encounter Results OCT Retina Spectralis OU (both eyes) (04/20/2020 3:43 PM FOREIGN STUDENT ADVISER) Narrative Kari Bingham MD - 02/2021 3:43 PM FOREIGN STUDENT ADVISER Performed by: njo . Patient cooperation: Reliable [...] retina documented in this encounter Care Teams High School Social Studies Teacher Relationship Specialty Start Date End Date No Ref-Primary, Physician PCP - General 10/12/17 11/01/20 Kari Bingham MD MD Ophthalmology 04/15/[address] [place] [address] [address] [place], [place] [id number] documented as of this encounter
--- OUTSIDE RECORDS SUMMARY | 2022-01-27 15:32 | XMS_ITS | Encounter Summary ---
:1994 Author Organization [facility] Address [address] [place] [address] Care Team Providers Name Role Phone Kari Bingham MD Unavailable [phone] Kari Bingham MD Unavailable [phone] Joel Lin MD Unavailable Salvatore Jerry MD Primary Care Provider [phone] Encounter Details Date Type Department Care Team Description 11/02/2020 Emergency [facility] Emergency Dept [address] [place] [address] Social History Tobacco Use Types Packs/Day Years [...] Code Phon e [place] [address] Care Lab [address] Lab (1st floor, no room number) documented in this encounter Visit Diagnoses Not on filedocumented in this encounter Care Teams Data Conversion Analyst Relationship Specialty Start Date End Date Salvatore Jerry MD PCP - General 11/02/20 Kari Bingham MD Ophthalmology 04/15/20 MD Ruth [address] [place] [address] Kari Bingham Assigned Surgical Provider 10/22/21 MD Ruth [address] [place] [address] Joel Lin MD Assigned PCP 09/23/20 11/21/[address] [place] [id number] documented as of this encounter
--- OUTSIDE RECORDS SUMMARY | 2022-01-27 15:32 | XMS_ITS | Encounter Summary ---
:1994 Author Organization [facility] Address [address] [place] [address] Care Team Providers Name Role Phone Kari Bingham MD Unavailable [phone] Salvatore Jerry MD Primary Care Provider [phone] Reason for Visit Reason Comments Abdominal Pain Encounter Details Date Type Department Care Team Description 01/27/2022 Emergency [facility] Dept [address] [place] [phone] Social History Tobacco Use Types Packs/Day Years [...] was confirmed or suspected to have Coronavirus/COVID-19? documented as of this encounter Last Filed [...] - documented in this encounter ED Notes Vincent Mead RN - 01/27/2022 12:56 PM CDT Pt dx with c-dif after admission last week for blood in her stool. Pt is now on oral vanco and is having increased lower ab pain, left upper ab pain that is wrapping around to her back. Triage Assessment Row Name 01/27/22 1256 Triage Assessment (Adult) Airway WDL WDL Respiratory WDL Respiratory WDL WDL documented in this encounter Plan of Treatment Not on filedocumented as of this encounter Visit Diagnoses Not on filedocumented in this encounter Care Teams Supervisor Receiving And Processing Relationship Specialty Start Date End Date Salvatore Jerry MD PCP - General 11/02/20 Kari Bingham MD MD Ophthalmology 04/15/[address] [place] [id number] documented as of this encounter
--- OUTSIDE RECORDS SUMMARY | 2022-01-27 15:32 | XMS_ITS | Encounter Summary ---
:1994 Author Organization [facility] Address [address] [place] [address] Care Team Providers Name Role Phone Kari Bingham MD Unavailable [phone] Salvatore Jerry MD Primary Care Provider [phone] Encounter Details Date Type Department Care Team Description 01/27/2022 Travel Social History Tobacco Use Types Packs/Day [...] have Coronavirus/COVID-19? documented as of this encounter Plan of Treatment Not on filedocumented as of this encounter Visit Diagnoses Not on filedocumented in this encounter Care Teams Boom Stick Man Relationship Specialty Start Date End Date Salvatore Jerry MD PCP - General 11/02/20 Kari Bingham MD MD Ophthalmology 04/15/[address] [place] [address] 493 [place], [place] [phone] documented as of this encounter
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
--- OUTSIDE RECORDS SUMMARY | 2022-01-27 15:33 | XMS_ITS | Encounter Summary ---
:1994 Author Organization [facility] Address [address] [place] [address] Care Team Providers Name Role Phone No Ref-Primary, Physician Primary Care Provider [phone] Kari Bingham MD Unavailable [phone] Kari Bingham MD Unavailable [phone] Encounter Details Date Type Department Care Team Description 11/15/2017 [facility] Provider, Constantino mcneal Social [...] with No / Unsure 04/20/2020 3:05 PM PROJECT ADMINISTRATOR someone who was confirmed or suspected to have Coronavirus / COVID-19? documented as of this encounter Plan of Treatment Not on filedocumented as of this encounter Visit Diagnoses Not on filedocumented in this encounter Care Teams Change Management Manager Relationship Specialty Start Date End Date No Ref-Primary, Physician PCP - General 10/12/17 11/01/20 Kari Bingham MD Ophthalmology 04/15/20 MD Ruth 420 [facility] [address] [place], [place] [address] Kari Bingham Assigned Surgical Provider 10/22/21 MD Ruth [address] [address] documented as of this encounter
--- OUTSIDE RECORDS SUMMARY | 2022-01-27 15:33 | XMS_ITS | Encounter Summary ---
:1994 Author Organization [facility] Address [address] [place] [address] Care Team Providers Name Role Phone Destiny Elizondo Primary Care Provider Encounter Details Date Type Department Care Team Description 04/26/2016 Orders Only Gonsalo Camacho CRVO (centr al retinal Ophthalmology Nils Bolden MD vein occlusion) [address] [place] [address], (Primary Dx) 4th Floor CLINIC [address] [place] [phone] (Wo rk) Social History Tobacco Use Types Packs/Day Years Used Date Smoking Tobacco: Never Alcohol Use Standard Drinks/Week Comments No 0 (1 standard drink = 0.6 oz pure alcoho l) Sex Assigned at Date Recorded Not on file documented as of this encounter Plan of Treatment Pending Results Name Type Priority Associated Diagnoses Date/Ti mt OCT Retina Spectralis Opht Imaging Routine CRVO (central retin al 04/26/2016 1:50 PM OU (both eyes) vein occlusion) APPRENTICESHIP REPRESENTATIVE documented as of this encounter Visit Diagnoses Diagnosis CRVO (central retinal vein occlusion) - Primary Central vein occlusion of retina documented in this encounter Care Teams Modern Languages Professor Relationship Specialty Start Date End Date Destiny Elizondo PCP - General 02/08/16 06/22/17 [facility] [address] [place] [address] documented as of this encounter
--- OUTSIDE RECORDS SUMMARY | 2022-01-27 15:33 | XMS_ITS | Encounter Summary ---
:1994 Author Organization [facility] Address [address] [place] [address] Care Team Providers Name Role Phone No Ref-Primary, Physician Primary Care Provider [phone] Kari Bingham MD Unavailable [phone] Kari Bingham MD Unavailable [phone] Ernst Lopez MD Primary Care Provider Encounter Details Date Type Department Care Team Description 06/26/2017 [facility] Ernst Lopez, [facility] [address] [address] [phone] Social History Tobacco Use Types Packs/Day Years Used Date Smoking Tobacco: Never Smokeless Tobacco: Never Alcohol Use Standard Drinks/Week Comments No 0 (1 standard drink = 0.6 oz pure alcoho l) Sex Assigned at Date Recorded Not on file COVID-19 Exposure Response Date Recorded In the last month, have you been in contact with No / Unsure 04/20/2020 3:05 PM GRINDER SET UP OPERATOR INTERNAL someone who was confirmed or suspected to have Coronavirus / COVID-19? documented as of this encounter Plan of Treatment Not on filedocumented as of this encounter Visit Diagnoses Not on filedocumented in this encounter Care Teams Supervisor Labor Gang Relationship Specialty Start Date End Date No Ref-Primary, PCP - General 10/12/17 11/01/20 Physician Ernst Lopez MD PCP - General Family Practice 06/23/17 10/11/17 Kari Bingham MD Ophthalmology 04/15/20 MD Ruth [address] [place] [address] Kari Bingham Assigned Surgical 04/26/20 MD Ruth Provider [address] [place] [address] documented as of this encounter
--- OUTSIDE RECORDS SUMMARY | 2022-01-27 15:33 | XMS_ITS | Encounter Summary ---
:1994 Author Organization [place] Address [address] [place] [address] Care Team Providers Name Role Phone No Ref-Primary, Physician Primary Care Provider [phone] Kari Bingham MD Unavailable [phone] Kari Bingham MD Unavailable [phone] Reason for Visit Reason Comments Other other; issues after bowel mo vements Encounter Details Date Type Department Care Team Description 11/15/2017 Office Visit - [facility] Joel Lin ids[facility] Moi Yanez MD [address] [address] [phone] Social History Tobacco Use Types Packs/Day Years Used Date Smoking Tobacco: Never Smokeless Tobacco: Never Alcohol Use Standard Drinks/Week Comments No 0 (1 standard drink = 0.6 oz pure alcoho l) Sex Assigned at Date Recorded Not on file COVID-19 Exposure Response Date Recorded In the last month, have you been in contact with No / Unsure 04/20/2020 3:05 PM MATHEMATICAL ENGINEER someone who was confirmed or suspected [...] or performed in visit on 06/23/17 Thyroid [place] Result Value Ref Range TSH 1.44 0.30 [...] as outlined above Plan: As noted This oral therapist uses voice recognition software, which may contain typographical errors. documented in this encounter Plan of Treatment Not on filedocumented as of this encounter Visit Diagnoses Diagnosis Hemorrhoids, internal Internal hemorrhoids without mention of complication Constipation Unspecified constipation documented in this encounter Care Teams Clinical Athletic Instructor Relationship Specialty Start Date End Date No Ref-Primary, Physician PCP - General 10/12/17 11/01/20 Kari Bingham MD Ophthalmology 04/15/20 MD Ruth [address] [place] [address] Kari Bingham Assigned Surgical Provider 10/22/21 MD [facility] [address] [place] [id number] documented as of this encounter
--- OUTSIDE RECORDS SUMMARY | 2022-01-27 15:33 | XMS_ITS | Encounter Summary ---
:1995 Author Organization [facility] Address [address] [place] [address] Care Team Providers Name Role Phone No Ref-Primary, Physician Primary Care Provider [phone] Reason for Visit Auth/Cert Specialty Diagnoses / Procedures Referred By Contact Refer red To Contact Surgery Diagnoses INCREASING PELVIC PAIN Sh Periop Services Procedures LAPAROSCOPY OPERATIVE ADULT, OPERATIVE HYSTEROSCOPY WITH MORCELLATOR (MABRY & NEPHEW), REMOVE INTRAUTERINE DEVICE, INSERT INTRAUTERINE DEVICE [address], [address] [place] [address] Phone: Referral ID Status Reason Start Date Expiration Date Visits Requ ested Visits Authorized [id number] 1 1 Encounter Details Date Type Department Care Team Description 10/12/2017 Hospital Encounter [facility] Czerniecki, Dysm enorrhea (Primary [place] Phase II Brian Pinto Dx) [address] MD [place], [place] RETIRED [address] Social History Tobacco Use [...] know so they can address your concerns. [facility] D&C OR Laparoscopy Discharge Instructions ACTIVITY: You [...] M.D. Vannessa Harris M.D. Barbra Hernandez M.D. [facility] [address] [facility] [address] [facility] [address] [place] [address] [place] Laboy [address] (Telephone) [phone] (Telephone) [facility] If you have questions or concerns about your procedure, Call Dr. Ritter at [phone] Today you received Ibuprofen 800mg at 11:20am. [...] MD MT: NTS Name: AKILAH CLINE Account: [id number] : 1995 Procedure Date: 10/12/2017 Document: [id number] documented in this encounter Plan of Treatment [...] Quantitative <1 0 - 5 IU/L 10/12/2017 [place] Serum 8:48 AM CDT [facility] Specimen Anatomical Collection Method Collection Time Receive d Time (Source) Location / / Volume Laterality Blood specimen 10/12/2017 8:20 AM 018 8:24 (specimen) CDT AM CDT Brian Ritter MD LAB - BLOOD ORDERA BLES Performing Organization Address City/State/ZIP Code Phon e Number M [facility] [address] [place] [address] [phone] [facility] [address] [place] [address], [phone] documented in this encounter Visit Diagnoses Diagnosis [...] of breath / dyspnea, Starting on Kenia 18 at 1008, PACU fentaNYL (PF) (SUBLIMAZE) injection 25-50 mcg 1012 (Given - Provider: Maribel Lainez RN)1021 (Given - Provider: Maribel Lainez RN) 25-50 mcg, Intravenous, EVERY 2 MIN PRN, other, acute pain, Starting on Kenia 18 at 1008, MAX cumulative dose = 250 mcg. Use Fentanyl initially, as a short acting agent for acute pain control. If insu fficient, or a longer acting agent is ne eded, begin Morphine or Hydromorphone if ordered. For [...] at 1008, Max cumulative dose = 20 m g. FOR USE IN PACU ONLY, DC WHEN TRANSFE RRED TO FLOOR. For ordered doses up to 40 mg, give IV Push undiluted over 1 minute., PACU HYDROmorphone (PF) (DILAUDID) injection 0.3-0.5 mg 0.3-0.5 mg, Intravenous, EVERY 5 MIN PRN , other, acute pain.?May administer if Respiratory Rate is greater than 10, Starting on Kenia 10/12/17 at 1008, If fentanyl is also ordered, use HYDROmorphone if p ain control insufficient with fentanyl o r a longer acting agent is needed. Max cumulative dose = 2 mg For ordered doses up to 4 mg give IV Push undiluted. Administer each 2mg over 2-5 minutes., PACU naloxone (NARCAN) injection 0.1-0.4 mg 0.1-0.4 mg, Intravenous, EVERY 2 MIN PRN , opioid reversal, Starting on Kenia 10/12/17 at 1008, For 24 hours, For apnea or imminent respiratory arrest: give 0.4 mg IV undiluted Q 2 minutes PRN until desired degree of reversal is obtained, stop opi oid and notify provider. Continue monitoring until discharge criteria are met for a minimum of 2 hours. For severe sedation, decrease in respiratory depth, qualit y or respiratory rate less than 8: give 0.1 mg IV Q 2 minutes x 3 doses, stop opioid and notify provider. Try to minimize reversal of analgesia especially in end-of-life patients For ordered doses up to 2mg give IVP. Give each 0.4mg over 15 s econds in emergency situations. For non- emergent situations further dilute in 9mL of NS to facilitate titration of response., Post-procedure NO Rho (D) immune globulin (RhoGam) needed - NOT obstetric patie nt CONTINUOUS PRN, Starting Kenia 10/12/17 at 1 008, Until Eknia 10/12/17 at 1432, Post-procedure ondansetron (ZOFRAN) injection [...] minutes, then go to step 2 [prochlorperazine (COMPAZI NE), if ordered]. With dry hands, peel b ack foil backing and gently remove tablet; do not push oral disintegrating tablet through foil backing; administer immediately on tongue and oral disintegrating t ablet dissolves in seconds; then swallow with saliva; liquid not required., PACU oxyCODONE [...] ausea, vomiting, Administer over 1-2 Minutes, Starting on Kenia 10/12/17 at 1008, This is Step 2 of the nausea and vomiting protocol. If nausea not resolved in 15 min utes, give metoclopramide (REGLAN) if or dered (step 3 of nausea and vomiting protocol) [...] on Kenia 10/12/17 at 1008, For 2 doses
MAX total dose = 8 mg, including OR dosing. If not resolved in 15 minutes, then go to step 2 [prochlorperazine (COMPAZINE), if ordered]. With dry hands, peel back foil backing and gently remove tablet; do not push oral disintegrating tablet through foil backing; administer immediately on tongue and oral disintegrating tablet dissolves in seco nds; then swallow with saliva; liquid not required.
PACU Or ondansetron (ZOFRAN) injection 4 mgJump to med 4 mg, Intravenous, EVERY 30 MIN PRN, jessenia sea, Administer over 2-5 Minutes, Starting on Kenia 10/12/17 at 1008, For 2 doses
MAX total dose = 8 mg, including OR dosing. If not resolved in 15 minutes, then go to step 2 [prochlorperazine (COM PAZINE), if ordered]. Irritant. For ordered doses up to 4 mg, give IV Push undiluted over 2-5 minutes.
PACU documented in this encounter Care Teams Face Hardener Relationship Specialty Start Date End Date No Ref-Primary, Physician PCP - General 10/12/17 11/01/20 documented as of this encounter
--- OUTSIDE RECORDS SUMMARY | 2022-01-27 15:33 | XMS_ITS | Encounter Summary ---
:1995 Author Organization [facility] Address [address] [place] [address]. [place] [address] Care Team Providers Name Role Phone No Ref-Primary, Physician Primary Care Provider Reason for Visit Auth/Cert Specialty Diagnoses / Procedures Referred By Contact Refer red To Contact Surgery Diagnoses INCREASING PELVIC PAIN Sh Periop Services Procedures LAPAROSCOPY OPERATIVE ADULT, OPERATIVE HYSTEROSCOPY WITH MORCELLATOR (MABRY & NEPHEW), REMOVE INTRAUTERINE DEVICE, INSERT INTRAUTERINE DEVICE [address] [place] [address] Phone: Referral ID Status Reason Start Date Expiration Date Visits Requ ested Visits Authorized [id number] 1 1 Encounter Details Date Type Department Care Team Description 10/12/2017 Surgery [facility] Brian Ritter DIAGN OSTIC LAPAROSCOPY [place] Peri Blari Ding MD Services RETIRED [address] [place] [address] Surgery Details Date/Time Status Location [...] know so they can address your concerns. [facility] D&C OR Laparoscopy Discharge Instructions ACTIVITY: [...] M.D. Vannessa Harriseler, M.D. Barbra Hernandez M.D. [facility] [address] [facility] [address] [facility] [address] [place] [address] (Telephone) [phone] (Telephone) [facility] If you have questions or concerns about your procedure, Call Dr. Ritter at [phone] Today you received Ibuprofen 800mg at 11:20am. [...] MD MT: NTS Name: AKILAH CLINE Account: [id number] : 1995 Procedure Date: 10/12/2017 Document: [id number] documented in this encounter Plan of Treatment [...] Quantitative <1 0 - 5 IU/L 10/12/2017 [place] Serum 8:48 AM CDT [facility] Specimen Anatomical Collection Method Collection Time Receive d Time (Source) Location / / Volume Laterality Blood specimen 10/12/2017 8:20 AM 018 8:24 (specimen) CDT AM CDT Brian Ritter MD LAB - BLOOD ORDERA BLES Performing Organization Address City/State/ZIP Code Phon e Number M [facility] [address] [place] [phone] [facility] [address] [place] [address], [facility] [phone] documented in this encounter Visit Diagnoses Not [...]
PACU documented in this encounter Care Teams High School Chemistry Teacher Relationship Specialty Start Date End Date No Ref-Primary, Physician PCP - General 10/12/17 11/01/20 documented as of this encounter
--- OUTSIDE RECORDS SUMMARY | 2022-01-27 15:33 | XMS_ITS | Encounter Summary ---
:1995 Author Organization [facility] Address [address] [place] [address] Care Team Providers Name Role Phone Destiny Elizondo Primary Care Provider Reason for Visit Reason Comments Central Retinal Vein Occlusion Follow Up orders only f or imaging on 08/18/16 visit Encounter Details Date Type Department Care Team Description 08/18/2016 Orders Only [facility] Eye Amado Fonseca, Central vein Clinic - [place] occlusion of retina Patrice Ramos [employer] [employer] (Primary Dx) [facility] [address] [place] [address] [address] Ma Clin [address] [place] [phone] Social History Tobacco Use Types Packs/Day Years [...] ry documented in this encounter Care Teams Pediatric Hospitalist Relationship Specialty Start Date End Date Destiny Elizondo PCP - General 02/08/16 06/22/17 [facility] [address] [place] [address] documented as of this encounter
--- OUTSIDE RECORDS SUMMARY | 2022-01-27 15:33 | XMS_ITS | Encounter Summary ---
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 Encounter Details Date Type Department Care Team Description 11/29/2017 Office Visit [facility] Eye DOREEN Bingham ( [facility] Kari Miranda, retinal vein Patrice Ramos MD occlusion) (Primary Building [address] [facility] Dx) [address] [facility] [address] Clin [address] [place] [address] [phone] Social History Tobacco Use Types Packs/Day Years [...] retina documented in this encounter Care Teams Metal Furniture Glazier Relationship Specialty Start Date End Date No Ref-Primary, Physician PCP - General 10/12/17 11/01/20 documented as of this encounter
--- OUTSIDE RECORDS SUMMARY | 2022-01-27 15:33 | XMS_ITS | Encounter Summary ---
:1995 Author Organization [place] Address [address] [place] [address] Care Team Providers Name Role Phone Mikhail, Destiny Yanez Primary Care Provider Encounter Details Date Type Department Care Team Description 03/18/2016 Orders Only [facility] Central retinal vein [address] [facility] SE occlusion of left eye 1st Floor [place] [phone] Social History Tobacco Use Types Packs/Day [...] Central retinal Results for this AND IGM CRANE RIGGER vein occlusion of procedure are in left eye the results section. BETA 2 GLYCOPROTEIN 1 Routine 03/18/2016 4:01 PM Central retin al Results for this ANTIBODY IGM CRANE RIGGER vein occlusion of procedure are in left eye the results section. BETA 2 GLYCOPROTEIN 1 Routine 03/18/2016 4:01 PM Central retin al Results for this ANTIBODY IGG CRANE RIGGER vein occlusion of procedure are in left eye the results section. documented in this encounter Results Cardiolipin Carlos IgG and IgM (03/18/2016 4:01 PM CRANE RIGGER) [facility] Method Time Signature Cardiolipin <1.6 0.0 [facility] Antibody IgG Negative 19.9 [place] [facility] New method in use March 07, 2016. GPL-U/mL [facility] Cardiolipin 0.5 0.0 - [facility] Antibody IgM 19.9 [place] [facility] MPL-U/mL [facility] Comment: Negative New method in use March 07, 2016. Specimen Anatomical Collection Method Collection Time Receive d Time (Source) Location / / Volume Laterality 03/18/2016 4:01 PM 6 4:03 CRANE RIGGER PM CRANE RIGGER Nevaeh Corral PA LAB - BLOOD ORDERABLES Performing Organization Address City/[facility]/ZIP Code Phon e Number [facility] [address] [place] [address] [facility] Beta 2 Glycoprotein 1 Antibody IgM (03/18/2016 4:01 PM CRANE RIGGER) Patholo gist Method Time Signature Beta 2 <0.9 <7 U/mL [facility] Glycoprotein 1 Negative [place] [facility] Antibody IgM [facility] Specimen Anatomical Collection Method Collection Time Receive d Time (Source) Location / / Volume Laterality Blood specimen 03/18/2016 4:01 PM 016 4:03 (specimen) CRANE RIGGER PM CRANE RIGGER Nevaehdeshawn VeeEllis PA LAB - BLOOD ORDERABLES Performing Organization Address City/State/ZIP Code Phon e Number [facility] [address] [place] [address] [facility] Beta 2 Glycoprotein 1 Antibody IgG (03/18/2016 4:01 PM CRANE RIGGER) Analysis Performed At Patho logist Time Signature Beta 2 0.8 <7 U/mL [facility] Glycoprotein 1 [place] [facility] Antibody IgG [facility] Comment: Negative Specimen Anatomical Collection Method Collection Time Receive d Time (Source) Location / / Volume Laterality Blood specimen 03/18/2016 4:01 PM 016 4:03 (specimen) CRANE RIGGER PM CRANE RIGGER Nevaeh Veetier PA LAB - BLOOD ORDERABLES Performing Organization Address City/[facility]/ZIP Code Phon e Number [facility] [address] [place], [place] [phone] [place] [address] documented in this encounter Visit Diagnoses Diagnosis 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
--- OUTSIDE RECORDS SUMMARY | 2022-01-27 15:33 | XMS_ITS | Encounter Summary ---
:1995 Author Organization [place] Address [address] [place] [address] Care Team Providers Name Role Phone Destiny Elizondo Primary Care Provider Encounter Details Date Type Department Care Team Description 02/22/2016 Orders Only [facility] Eye Jaja Fitzgerald entral vein Clinic [facility] MD [place] occlusion of retina Ibrahim [address] ( Primary Dx) [address] 9[address] Clin 9A [address] [place], [place] [phone] (Wo rk) [address] [phone] Social History Tobacco Use Types Packs/Day Years [...] ry documented in this encounter Care Teams Specification Manager Relationship Specialty Start Date End Date Destiny Elizondo PCP - General 02/08/16 06/22/17 [facility] [address] [place] [address] documented as of this encounter
--- OUTSIDE RECORDS SUMMARY | 2022-01-27 15:33 | XMS_ITS | Encounter Summary ---
:1995 Author Organization [facility] Address [address] [place] [address] Care Team Providers Name Role Phone Destiny Elizondo Primary Care Provider Reason for Visit Reason Comments Consult consult with clotting disord er, ruth flores Encounter Details Date Type Department Care Team Description 03/18/2016 Office Visit [facility] Nevaeh Corral PA Central retinal vein Hemophilia Other [address] [facility] occl usion of left eye Services [place] [address] (Primary Dx) [address] [place], [place] 3rd Floor [address] [place], [place] [phone] (Wo rk) [address] [phone] Social History Tobacco Use Types Packs/Day Years Used Date Smoking Tobacco: Never Alcohol Use Standard Drinks/Week Comments No 0 (1 standard drink = 0.6 oz pure alcoho l) Sex Assigned at Date Recorded Not on file documented as of this encounter Last Filed Vital Signs Vital Sign Reading Time Taken Comments Blood Pressure 121/82 03/18/2016 2:56 PM MINT MACHINE OPERATOR Pulse 93 03/18/2016 2:56 PM MINT MACHINE OPERATOR Temperature 37.1 ??C (98.7 ??F) 03/18/2016 2:56 PM MINT MACHINE OPERATOR Respiratory Rate - - Oxygen Saturation - - Inhaled Oxygen Concentration - - Weight 90.4 kg (199 lb 4.8 oz) 03/18/2016 2:56 PM MINT MACHINE OPERATOR Height 167.6 cm (5' 6) 03/18/2016 2:56 PM MINT MACHINE OPERATOR Body Mass Index 32.17 03/18/2016 2:56 PM MINT MACHINE OPERATOR documented in this encounter Progress Notes Nevaeh Corral PA - 03/18/2016 3:26 PM CST Images from the original note were not included. [facility] [address] [place] [address] [address], [address], [place] [address] , . Patient seen at: [facility] Outpatient Visit Note: Patient: Akilah Mills : [...] ongoing use. I have contacted the manufactor [employer] and asked for more information on this [...] minutes, all 60 minutes was spent on [id number] consultation of the patient and coordination ofcare in regard to CRVO Nevaeh Corral MPH, PA-C Physician Recreation Superintendent [facility] [phone]-main line [phone] pager MACHINE OPERATOR documented in this encounter Nursing Notes [...] oz). BP completed using cuff size: regular MACHINE OPERATOR documented in this encounter Plan of Treatment Not on filedocumented as of this encounter Results Beta 2 Glycoprotein 1 Antibody IgM (03/18/2016 4:01 PM MINT MACHINE OPERATOR) Patholo gist Method Time Signature Beta 2 <0.9 <7 U/mL [facility] Glycoprotein 1 Negative [place] [facility] Antibody IgM [facility] Specimen Anatomical Collection Method Collection Time Receive d Time (Source) Location / / Volume Laterality Blood specimen 03/18/2016 4:01 PM 016 4:03 (specimen) MINT MACHINE OPERATOR PM MINT MACHINE OPERATOR Nevaeh Corral PA LAB - BLOOD ORDERABLES Performing Organization Address City/[facility] Code Phon e Number [address] Beta 2 Glycoprotein 1 Antibody IgG (03/18/2016 4:01 PM MINT MACHINE OPERATOR) Analysis Performed At Patho logist Time Signature Beta 2 0.8 <7 U/mL [facility] Glycoprotein 1 [place] [facility] Antibody IgG [facility] Comment: Negative Specimen Anatomical Collection Method Collection Time Receive d Time (Source) Location / / Volume Laterality Blood specimen 03/18/2016 4:01 PM 016 4:03 (specimen) MINT MACHINE OPERATOR PM MINT MACHINE OPERATOR Nevaeh Corral PA LAB - BLOOD ORDERABLES Performing Organization Address City/[facility] Code Phon e Number [address] documented in this encounter Visit Diagnoses Diagnosis Central retinal vein occlusion of left e ye - Primary Central vein occlusion of retina documented in this encounter Care Teams Civilian Technician Relationship Specialty Start Date End Date Destiny Elizondo PCP - General 02/08/16 06/22/17 [facility] [address] [facility] [place] [address] documented as of this encounter
--- OUTSIDE RECORDS SUMMARY | 2022-01-27 15:33 | XMS_ITS | Encounter Summary ---
:1995 Author Organization [place] Address [address] [place] [address] Care Team Providers Name Role Phone No Ref-Primary, Physician Primary Care Provider [phone] Kari Bingham MD Unavailable [phone] Kari Bingham MD Unavailable [phone] Ernst Lopez MD Primary Care Provider Reason for Visit Reason Comments Follow Up Patient presented for follow up psychotherapy appointment to address symptoms of depression, anxi ety and binge eating. Encounter Details Date Type Department Care Team Description [facility] ([facility], [facility] Binge eating disorder Addiction [address] [place] [phone] Social History Tobacco Use Types Packs/Day Years Used Date Smoking Tobacco: Never Smokeless Tobacco: Never Alcohol Use Standard Drinks/Week Comments No 0 (1 standard drink = 0.6 oz pure alcoho l) Sex Assigned at Date Recorded Not on file COVID-19 Exposure Response Date Recorded In the last month, have you been in contact with No / Unsure 04/20/2020 3:05 PM MONEY MANAGER someone who was confirmed or suspected [...] practices to help manage anxiety. Review of alf goals: Not done at today's visit. Plan [...] disorder documented in this encounter Care Teams Transfer Engineer Relationship Specialty Start Date End Date No Ref-Primary, PCP - General 10/12/17 11/01/20 Physician Ernst Lopez MD PCP - General Family Practice 06/23/17 10/11/17 Kari Bingham MD Ophthalmology 04/15/20 MD Ruth [address] [place] [address] Kari Bingham Assigned Surgical 04/26/20 MD Ruth Provider [address] [id number] documented as of this encounter
--- OUTSIDE RECORDS SUMMARY | 2022-01-27 15:33 | XMS_ITS | Encounter Summary ---
:1994 Author Organization [place] Address [address] [place] [address] Care Team Providers Name Role Phone Destiny Elizondo Primary Care Provider Reason for Visit Reason Comments Central Retinal Vein Occlusion Follow Up Encounter Details Date Type Department Care Team Description 04/05/2016 Office Visit [facility] Eye Jaja Fitzgerald RVO (central retinal Clinic - Fernanda Wilkerson MD vein occlusion) [facility] 516 [facility] 911 6 [place], [place] 9th Al Clin 9A [address] [place], [place] [phone] (Work) [phone] Social History Tobacco Use Types Packs/Day Years [...] ago with eye movement. Went to [facility] 02/03/16, found swollen veins, sent to Dr. [...] and exam/neuro findings as obtained by the dialysis equipment technician or others. Tati examined this patient myself. and I personally viewed the image(s) and studies listed above andthe documentation reflects my findings and interpretation. Jaja Fitzgerald MD, PhD Occupational Health And Safety Adviser, Vitreoretinal Surgery Department of Ophthalmology [facility] EWATER TREATMENT OPERATOR documented in this encounter Nursing Notes Kaitlyn [...] Carito CASTELLON April 05, 2016 3:21 PM EWATER TREATMENT OPERATOR documented in this encounter Plan of Treatment Not on filedocumented as of this encounter Procedures Procedure Name Priority Date/Time Associated Comments Diagnosis OVF 30-2 TOP OU Routine 04/05/2016 4:26 PM CRVO (central Resul ts for this WASTEWATER TREATMENT OPERATOR retinal vein procedure are i n occlusion) the results section. ULTRASOUND B-SCAN OU Routine 04/05/2016 4:07 PM CRVO (central Results for this (BOTH EYES) WASTEWATER TREATMENT OPERATOR retinal vein procedure are i n occlusion) the results section. OCT RETINA Routine 04/05/2016 4:07 PM CRVO (central Results for this SPECTRALIS OU (BOTH WASTEWATER TREATMENT OPERATOR retinal vein procedur e are in EYE) occlusion) the results section. FUNDUS PHOTOS OU Routine 04/05/2016 4:06 PM CRVO (central Resu lts for this (BOTH EYES) WASTEWATER TREATMENT OPERATOR retinal vein procedure are i n occlusion) the results section. documented in this encounter Results OVF 30-2 TOP OU (04/05/2016 4:26 PM WASTEWATER TREATMENT OPERATOR) Jaja Urias MD - 04/05/2016 4:27 PM WASTEWATER TREATMENT OPERATOR Patient cooperation: Reliable . Right Eye Reliability of the test: Good . Findings: Visual napier normal . Interpretation: Normal . Plan: Monitor . Interval: Same . Left Eye Reliability of the test: Good . Findings: Nonspecific defect . Interpretation: Abnormal . Plan: Monitor . Interval: Better . Jaja Fitzgerald MD OPHTHALMOLOGY Ultrasound B-scan OU (both eyes) (04/05/2016 4:07 PM WASTEWATER TREATMENT OPERATOR) Jaja Urias MD - 04/05/2016 4:07 PM WASTEWATER TREATMENT OPERATOR Patient cooperation: Reliable . Reliability of the test: Good . Test Findings: Abnormal . Interpretation: Abnormal . Plan: Monitor . Interval: Initial . Jaja Fitzgerald MD OPHTHALMOLOGY OCT Retina Spectralis OU (both eyes) (04/05/2016 4:07 PM WASTEWATER TREATMENT OPERATOR) Jaja Urias MD - 04/05/2016 4:07 PM WASTEWATER TREATMENT OPERATOR Patient cooperation: Reliable . Right Eye Reliability of the test: Good . Findings normal/abnormal: Normal OCT . Interpretation: Retinal disease . Plan: Monitor . Interval: Same . Left Eye Reliability of the test: Good . Findings normal/abnormal: Normal OCT . Interpretation: Retinal disease . Plan: Monitor . Interval: Same . Jaja Fitzgerald MD OPHTHALMOLOGY Fundus Photos OU (both eyes) (04/05/2016 4:06 PM WASTEWATER TREATMENT OPERATOR) Jaja Urias MD - 04/05/2016 4:06 PM WASTEWATER TREATMENT OPERATOR Patient cooperation: Reliable . Right Eye Reliability [...] retina documented in this encounter Care Teams Cloth Doffer Relationship Specialty Start Date End Date Destiny Elizondo PCP - General 02/08/16 06/22/17 [facility] [address] [facility] [place] BEE [address] documented as of this encounter
--- OUTSIDE RECORDS SUMMARY | 2022-01-27 15:33 | XMS_ITS | Encounter Summary ---
:1994 Author Organization [place] Address [address] [place] [address] Care Team Providers Name Role Phone No Ref-Primary, Physician Primary Care Provider [phone] Kari Bingham MD Unavailable [phone] Kari Bingham MD Unavailable [phone] Ernst Lopez MD Primary Care Provider Encounter Details Date Type Department Care Team Description 08/03/2017 [facility] [...] No / Unsure 04/20/2020 3:05 PM PROJECT TECHNICIAN someone who was confirmed or suspected to have Coronavirus / COVID-19? documented as of this encounter Plan of Treatment Not on filedocumented as of this encounter Visit Diagnoses Not on filedocumented in this encounter Care Teams Filer Metal Patterns Relationship Specialty Start Date End Date No Ref-Primary, PCP - General 10/12/17 11/01/20 Physician Ernst Lopez MD PCP - General Family Practice 06/23/17 10/11/17 Kari Bingham MD Ophthalmology 04/15/20 MD Ruth [address] [address] Kari Bingham Assigned Surgical 04/26/20 MD Ruth Provider [address] [place] [address] [id number] documented as of this encounter
--- OUTSIDE RECORDS SUMMARY | 2022-01-27 15:33 | XMS_ITS | Encounter Summary ---
:1994 Author Organization [place] Address [address] [place] [address] Care Team Providers Name Role Phone No Ref-Primary, Physician Primary Care Provider Kari Bingham MD Unavailable [phone] Kari Bingham MD Unavailable [phone] Ernst Lopez MD Primary Care Provider Reason for Visit Reason Comments Follow Up Patient presented for initia l follow up psychotherapy appointment to address symptoms of depressi on, eating disorder, anxiety . Encounter Details Date Type Department Care Team Description 08/03[facility]2017 [facility] of [facility] Mental Health & A, [facility] Binge eating disorder [facility] [place] [address] [place] [address] [address] [place] [address] [phone] Social History Tobacco Use Types Packs/Day Years Used Date Smoking Tobacco: Never Smokeless Tobacco: Never Alcohol Use Standard Drinks/Week Comments No 0 (1 standard drink = 0.6 oz pure alcoho l) Sex Assigned at Date Recorded Not on file COVID-19 Exposure Response Date Recorded In the last month, have you been in contact with No / Unsure 04/20/2020 3:05 PM OSTEOPATHIC NEUROLOGIST someone who was confirmed or suspected to [...] relationship and goals for treatment. Review of parts counterman goals: Treatment Plan updated. Plan Effective 08/03/2017-11/02/2017 [...] disorder documented in this encounter Care Teams Drop Clipper Relationship Specialty Start Date End Date No Ref-Primary, PCP - General 10/12/17 11/01/20 Physician Ernst Lopez MD PCP - General Family Practice 06/23/17 10/11/17 Kari Bingham MD Ophthalmology 04/15/20 MD Ruth [address] [place] [address] Kari Bingham Assigned Surgical 04/26/20 MD Ruth Provider [address] [phone] documented as of this encounter
--- OUTSIDE RECORDS SUMMARY | 2022-01-27 15:33 | XMS_ITS | Encounter Summary ---
:1994 Author Organization [facility] Address [address] [place] [address] Care Team Providers Name Role Phone No Ref-Primary, Physician Primary Care Provider [phone] Kari Bingham MD Unavailable [phone] Kari Bingham MD Unavailable [phone] Reason for Visit Reason Comments Hemorrhoids Encounter Details Date Type Department Care Team Description 01/23/2018 Communication - [facility] Centralized Provider, Hemo rrhoids [facility] Scheduling Historical [facility] [place] [address] Social History Tobacco Use Types Packs/Day Years Used Date Smoking Tobacco: Never Smokeless Tobacco: Never Alcohol Use Standard Drinks/Week Comments No 0 (1 standard drink = 0.6 oz pure alcoho l) Sex Assigned at Date Recorded Not on file COVID-19 Exposure Response Date Recorded In the last month, have you been in contact with No / Unsure 04/20/2020 3:05 PM DOCUMENTATION BILLING CLERK someone who was confirmed or suspected to have Coronavirus / COVID-19? documented as of this encounter Plan of Treatment Not on filedocumented as of this encounter Visit Diagnoses Not on filedocumented in this encounter Care Teams Uptwister Tender Relationship Specialty Start Date End Date No Ref-Primary, Physician PCP - General 10/12/17 11/01/20 Kari Bingham MD Ophthalmology 04/15/20 MD Ruth [address] [place] [address] [address] Kari iBngham Assigned Surgical Provider 10/22/21 MD Ruth [address] [place] [address] documented as of this encounter
--- OUTSIDE RECORDS SUMMARY | 2022-01-27 15:33 | XMS_ITS | Encounter Summary ---
:1994 Author Organization [place] Address [address] [place] [address] Care Team Providers Name Role Phone No Ref-Primary, Physician Primary Care Provider [phone] Kari Bingham MD Unavailable [phone] Kari Bingham MD Unavailable [phone] Joel Lin MD Unavailable Encounter Details Date Type Department Care Team Description 01/22/2018 Records - [facility] CONVERSION Provider, Historica l Social [...] with No / Unsure 04/20/2020 3:05 PM CONTINUOUS MINING MACHINE COAL MINER someone who was confirmed or suspected to have Coronavirus / COVID-19? documented as of this encounter Plan of Treatment Not on filedocumented as of this encounter Visit Diagnoses Not on filedocumented in this encounter Care Teams Clinical Associate Relationship Specialty Start Date End Date No Ref-Primary, Physician PCP - General 10/12/17 11/01/20 Kari Bingham MD Ophthalmology 04/15/20 MD Ruth 420 [facility] 493 [place] [address] Kari Bingham Assigned Surgical Provider 10/22/21 MD Ruth 420 [facility] 493 [place] [address] Joel Lin MD Assigned PCP 09/23/20 11/21/[address] [place] [phone] documented as of this encounter
--- OUTSIDE RECORDS SUMMARY | 2022-01-27 15:33 | XMS_ITS | Encounter Summary ---
:1994 Author Organization [place] Address [address] [place] [address] Care Team Providers Name Role Phone Mikhail Destiny Renata Primary Care Provider Reason for Visit Reason Comments Follow Up CRVO Encounter Details Date Type Department Care Team Description 12/01/2016 Office Visit [facility] Eye DOREEN Bingham ( [facility] Kari Miranda, retinal vein Patrice Ramos MD occlusion) (Primary Building 420 [facility] Dx) 516 [facility] [address] 9[address] Clin 9A [place] [phone] Social History Tobacco Use Types Packs/Day Years [...] Gonsalo Barraza MD PGY2, Dept of Ophthalmology [phone] ATTESTATION: I have seen and examined the [...] Spectralis OU (both eyes) (05/31/2017 11:36 AM WASTE DISPOSAL ATTENDANT) Kari Morris MD - 07/2017 8:30 AM [...] retina documented in this encounter Care Teams Racking Machine Operator Relationship Specialty Start Date End Date Destiny Elizondo PCP - General 02/08/16 06/22/17 [facility] [address] [place] [address] documented as of this encounter
--- OUTSIDE RECORDS SUMMARY | 2022-01-27 15:33 | XMS_ITS | Encounter Summary ---
:1994 Author Organization [place] Address [address] [place] [address]. [place] [address] Care Team Providers Name Role Phone Destiny Elizondo Primary Care Provider Reason for Visit Reason Comments Follow Up 2.5 month f/u CRVO, left eye - new waves Encounter Details Date Type Department Care Team Description 08/18/2016 Office Visit [facility] Eye Amado Fonseca CRVO ( central retinal vein occlusion) (Primary Dx); Clinic - Fernanda Patiño MD Dry eye syndrome, bilateral Ibrahim Wangensteen [facility] 516 [facility] [address] Clin 9A [address] [place] [address] [phone] (Wo rk) Social History Tobacco Use Types [...] history, ROS, and exam findings by the photovoltaic testing technician or others, and modified by me [...] bilateral documented in this encounter Care Teams Upholsterer Apprentice Relationship Specialty Start Date End Date Destiny Elizondo PCP - General 02/08/16 06/22/17 [facility] 5700 [facility] ANTALY BEE [address] documented as of this encounter
--- OUTSIDE RECORDS SUMMARY | 2022-01-27 15:33 | XMS_ITS | Encounter Summary ---
:1994 Author Organization [facility] Address [address] [place] [address] Care Team Providers Name Role Phone Destiny Elizondo Primary Care Provider Reason for Visit Reason Onset Date Comments Floaters Both Eyes 04/26/2016 Encounter Details Date Type Department Care Team Description 04/26/2016 Telephone [facility] Eye Jaja Fitzgerald loaters Both Eyes [facility] [place] [facility] [place] [address] [facility] Clin 9A [place] [address] Social History Tobacco Use Types [...] for archie Zhang RN 1:25 PM 04/26/2016 INTERFACE DEVELOPER documented in this encounter Plan of Treatment Not on filedocumented as of this encounter Visit Diagnoses Not on filedocumented in this encounter Care Teams Communications Planner Relationship Specialty Start Date End Date Destiny Elizondo PCP - General 02/08/16 06/22/17 [facility] [facility] [id number] documented as of this encounter
--- OUTSIDE RECORDS SUMMARY | 2022-01-27 15:33 | XMS_ITS | Encounter Summary ---
:1994 Author Organization [place] Address [address] [place] [address]. [place] [address] Care Team Providers Name Role Phone Destiny Elizondo Primary Care Provider Reason for Visit Reason Comments Follow Up Central Retinal Vein Occlusi on OS Encounter Details Date Type Department Care Team Description 05/04/2016 Office Visit [facility] Eye AMY BinghamVO ( central retinal vein occlusion) (Primary Dx); Clinic - [place] Kari Miranda, Subjective visual disturbanc e - Right Eye Patrice Ramos MD Building 420 [facility] [address] [place] [address] [address] Clin [address] [place] [phone] Social History Tobacco Use Types Packs/Day Years [...] Kari Bingham MD PhD. Professor & Chair PLER documented in this encounter Nursing Notes Maureen [...] Maureen CASTELLON 8:21 AM May 04, 2016 PLER documented in this encounter Plan of Treatment Not on filedocumented as of this encounter Visit Diagnoses Diagnosis CRVO (central retinal vein occlusion) - Primary Central vein occlusion of retina Subjective visual disturbance - Right Ey e Subjective visual disturbance, unspecifi ed documented in this encounter Care Teams Certified Hearing Instrument Dispenser Relationship Specialty Start Date End Date Destiny Elizondo PCP - General 02/08/16 06/22/17 [facility] [address] [place]O [address] documented as of this encounter
--- OUTSIDE RECORDS SUMMARY | 2022-01-27 15:33 | XMS_ITS | Encounter Summary ---
:1994 Author Organization [place] Address [address] [place] [address] Care Team Providers Name Role Phone No Ref-Primary, Physician Primary Care Provider [phone] Kari Bingham MD Unavailable [phone] Kari Bingham MD Unavailable [phone] Ernst Lopez MD Primary Care Provider Reason for Visit Reason Comments Other Appointment reminder; psycho therapy evaluation on 07/17/17 Encounter Details Date Type Department Care Team Description 07/13/2017 [facility] Maureen Khan Other ([facility], [facility] reminder; [facility] [place] [address] [facility] [address] [place] [phone] Social History Tobacco Use Types Packs/Day Years Used Date Smoking Tobacco: Never Smokeless Tobacco: Never Alcohol Use Standard Drinks/Week Comments No 0 (1 standard drink = 0.6 oz pure alcoho l) Sex Assigned at Date Recorded Not on file COVID-19 Exposure Response Date Recorded In the last month, have you been in contact with No / Unsure 04/20/2020 3:05 PM BOILER PLANT 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 documented as of this encounter Plan of Treatment Not on filedocumented as of this encounter Visit Diagnoses Not on filedocumented in this encounter Care Teams Health Care Law Specialist Relationship Specialty Start Date End Date No Ref-Primary, PCP - General 10/12/17 11/01/20 Physician Ernst Lopez MD PCP - General Family Practice 06/23/17 10/11/17 Kari Bingham MD Ophthalmology 04/15/20 MD Ruth [address] [place] [address] Kari Bingham Assigned Surgical 04/26/20 MD Ruth Provider [address] [address] documented as of this encounter
--- OUTSIDE RECORDS SUMMARY | 2022-01-27 15:33 | XMS_ITS | Encounter Summary ---
:1994 Author Organization [place] Address [address] [place] [address] Care Team Providers Name Role Phone No Ref-Primary, Physician Primary Care Provider [phone] Encounter Details Date Type Department Care Team Description 08/17/2018 Telephone [facility] 9[address] [facility] SE Ruth MD 4th Floor [address] [place] [address] [address] [place], [place] [phone] [place] [address] (Wo rk) Social History Tobacco [...] on filedocumented in this encounter Care Teams Design Teacher Relationship Specialty Start Date End Date No Ref-Primary, Physician PCP - General 10/12/17 11/01/20 documented as of this encounter
--- OUTSIDE RECORDS SUMMARY | 2022-01-27 15:33 | XMS_ITS | Encounter Summary ---
:1994 Author Organization [place] Address [address] [place] [address] Care Team Providers Name Role Phone No Ref-Primary, Physician Primary Care Provider [phone] Kari Bingham MD Unavailable [phone] Kari Bingham MD Unavailable [phone] Ernst Lopez MD Primary Care Provider Reason for Visit Reason Comments Treatment Plan Encounter Details Date Type Department Care Team Description 08/03/2017 Ambulatory - [facility] Maureen Medley, [facility] Mental Health & PORCELAIN ENAMEL SPRAYER Addiction [facility] [address] [place] [address] [place] [address] [phone] (Work) [phone] Social History Tobacco Use Types Packs/Day Years Used Date Smoking Tobacco: Never Smokeless Tobacco: Never Alcohol Use Standard Drinks/Week Comments No 0 (1 standard drink = 0.6 oz pure alcoho l) Sex Assigned at Date Recorded Not on file COVID-19 Exposure Response Date Recorded In the last month, have you been in contact with No / Unsure 04/20/2020 3:05 PM MAINTENANCE SHOP TECHNICIAN someone who was confirmed or suspected [...] old, female. She does not identify as mu-ism or spiritual. She learned to be kind [...] on filedocumented in this encounter Care Teams Sericulturist Relationship Specialty Start Date End Date No Ref-Primary, PCP - General 10/12/17 11/01/20 Physician Ernst Lopez MD PCP - General Family Practice 06/23/17 10/11/17 Kari Bingham MD Ophthalmology 04/15/20 MD Ruth [address] [place] [phone] Kari Bingham Assigned Surgical 04/26/20 MD Ruth Provider [address] [place] [phone] documented as of this encounter
--- OUTSIDE RECORDS SUMMARY | 2022-01-27 15:33 | XMS_ITS | Encounter Summary ---
:1994 Author Organization [place] Address [address] [place] [address] Care Team Providers Name Role Phone No Ref-Primary, Physician Primary Care Provider [phone] Kari Bingham MD Unavailable [phone] Kari Bingham MD Unavailable [phone] Ernst Lopez MD Primary Care Provider Encounter Details Date Type Department Care Team Description 08/03/2017 [facility]-VIS[facility] Provider, Constantino mcneal [...] with No / Unsure 04/20/2020 3:05 PM BOOK MENDER someone who was confirmed or suspected to have Coronavirus / COVID-19? documented as of this encounter Plan of Treatment Not on filedocumented as of this encounter Visit Diagnoses Not on filedocumented in this encounter Care Teams Soup Mixer Relationship Specialty Start Date End Date No Ref-Primary, PCP - General 10/12/17 11/01/20 Physician Ernst Lopez MD PCP - General Family Practice 06/23/17 10/11/17 Kari Bingham MD Ophthalmology 04/15/20 MD Ruth [address] [address] Kari Bingham Assigned Surgical 04/26/20 MD Ruth Provider [address] [place] [address] [phone] documented as of this encounter
--- OUTSIDE RECORDS SUMMARY | 2022-01-27 15:33 | XMS_ITS | Encounter Summary ---
:1994 Author Organization [place] Address [address] [place] [address] Care Team Providers Name Role Phone Destiny Elizondo Primary Care Provider Reason for Visit Reason Comments Follow Up CRVO (central retinal vein o cclusion Encounter Details Date Type Department Care Team Description 05/31/2017 Office Visit [facility] Eye DOREEN Bingham ( [facility] Kari Miranda, retinal vein Patrice Ramos MD occlusion) Building 420 [facility] [address] [place] [address] 9[facility] Clin 9[address] [place] [phone] Social History Tobacco Use Types Packs/Day Years [...] Kari Bingham MD PhD. Professor & Chair TS COMPLEX ATTENDANT documented in this encounter Nursing Notes Cleo [...] Verduzco COT 10:53 AM May 31, 2017 TS COMPLEX ATTENDANT documented in this encounter Plan of Treatment Not on filedocumented as of this encounter Procedures Procedure Name Priority Date/Time Associated Comments Diagnosis OCT RETINA Routine 05/31/2017 11:36 AM CRVO (central Results for this SPECTRALIS OU (BOTH SPORTS COMPLEX ATTENDANT retinal vein procedur e are in EYE) occlusion) the results section. documented in this encounter Results OCT Retina Spectralis OU (both eyes) (04/20/2020 3:43 PM SPORTS COMPLEX ATTENDANT) Kari Morris MD - 02/2021 3:43 PM SPORTS COMPLEX ATTENDANT Performed by: njo . Patient cooperation: Reliable [...] Spectralis OU (both eyes) (05/31/2017 11:36 AM SPORTS COMPLEX ATTENDANT) Kari Morris MD - 07/2017 8:30 [...] retina documented in this encounter Care Teams Forensic Materials Engineer Relationship Specialty Start Date End Date Destiny Elizondo PCP - General 02/08/16 06/22/17 [facility] 57[address] [facility] NATALY BEE [address] documented as of this encounter
--- OUTSIDE RECORDS SUMMARY | 2022-01-27 15:33 | XMS_ITS | Encounter Summary ---
:1994 Author Organization [place] Address [address] [place] [address] Care Team Providers Name Role Phone No Ref-Primary, Physician Primary Care Provider [phone] Kari Bingham MD Unavailable [phone] Kari Bingham MD Unavailable [phone] Joel Lin MD Unavailable Encounter Details Date Type Department Care Team Description 01/25/2018 Records - [facility] CONVERSION Provider, Historica l Social History [...] with No / Unsure 04/20/2020 3:05 PM MOTORCYCLE MAKER someone who was confirmed or suspected to have Coronavirus / COVID-19? documented as of this encounter Plan of Treatment Not on filedocumented as of this encounter Visit Diagnoses Not on filedocumented in this encounter Care Teams Self Pay Collector Relationship Specialty Start Date End Date No Ref-Primary, Physician PCP - General 10/12/17 11/01/20 Kari Bingham MD Ophthalmology 04/15/20 MD Ruth 420 [facility] [address] [place] [address] Kari Bingham Assigned Surgical Provider 10/22/21 MD Ruth 420 [facility] [address] [place] [address] Joel Lin MD Assigned PCP 09/23/20 11/21/[address] [place] [id number] documented as of this encounter
--- OUTSIDE RECORDS SUMMARY | 2022-01-27 15:33 | XMS_ITS | Encounter Summary ---
:1994 Author Organization [place] Address [address] [place] [address]. [place] [address] Care Team Providers Name Role Phone No Ref-Primary, Physician Primary Care Provider [phone] Reason for Visit Auth/Cert Specialty Diagnoses / Procedures Referred By Contact Refer red To Contact Surgery Diagnoses INCREASING PELVIC PAIN Sh Periop Services Procedures LAPAROSCOPY OPERATIVE ADULT, OPERATIVE HYSTEROSCOPY WITH MORCELLATOR (MABRY & NEPHEW), REMOVE INTRAUTERINE DEVICE, INSERT INTRAUTERINE DEVICE [address], [address] [place] [address] Phone: Referral ID Status Reason Start Date Expiration Date Visits Requ ested Visits Authorized [id number] 1 1 Encounter Details Date Type Department Care Team Description 10/12/2017 Anesthesia Event M [facility] Elisha Fitzpatrick MD [place] PeriOP Ser vices [place] [address], [address] ANESTHES IOLOGY [address] [place] [id number] [place] [id number] [phone] (Wo rk) Anesthesia Record Procedure Summary Procedure [...] Glo Mcclure Dinero, Diana Ease of Intubation: CHILD CARE SUPERVISOR PROJECT BUILDER ORLIN Thomson PROJECT BUILDER Easy; Airway Size: 7; Cuffed; Oral; Blade [...] 6:45 AM CDT Procedure: Procedure(s): LAPAROSCOPY DIAGNOSTIC (LOGGING SHOVEL OPERATOR) LAPAROSCOPIC ABLATION ENDOMETRIOSIS Preop diagnosis: INCREASING PELVIC [...] Intrauterine route once Reported, Patient No current [facility]-ordered facility-administered medications on file. Current Outpatient Prescriptions Ordered in [facility] Medication ??? paragard intrauterine copper Wt [...] Care Transfer Note - Glo Mcclure APRN PROJECT BUILDER - 10/12/2017 10:01 AM CDT Patient: Akilah [...] (Last set prior to Anesthesia Care Transfer) PROJECT BUILDER VITALS 10/12/2017 0925 - 10/12/2017 1001 10/12/2017 Pulse: 83 SpO2: 97 % Resp Rate (observed): (!) 4 Electronically Signed By: Glo Mcclure APRN PROJECT BUILDER October 12, 2017 10:01 AM documented in [...] Intra-op documented in this encounter Care Teams Barrel Loader Relationship Specialty Start Date End Date No Ref-Primary, Physician PCP - General 10/12/17 11/01/20 documented as of this encounter
--- OUTSIDE RECORDS SUMMARY | 2022-01-27 15:33 | XMS_ITS | Encounter Summary ---
:1994 Author Organization [place] Address [address] [place] [address] Care Team Providers Name Role Phone No Ref-Primary, Physician Primary Care Provider [phone] Kari Bingham MD Unavailable [phone] Kari Bingham MD Unavailable [phone] Ernst Lopez MD Primary Care Provider Encounter Details Date Type Department Care Team Description 06/23/2017 [facility] Provider, Constantino mcneal [...] with No / Unsure 04/20/2020 3:05 PM DETECTIVE NARCOTICS AND VICE someone who was confirmed or suspected to have Coronavirus / COVID-19? documented as of this encounter Plan of Treatment Not on filedocumented as of this encounter Visit Diagnoses Not on filedocumented in this encounter Care Teams Can Line Operator Relationship Specialty Start Date End Date No Ref-Primary, PCP - General 10/12/17 11/01/20 Physician Ernst Lopez MD PCP - General Family Practice 06/23/17 10/11/17 Kari Bingham MD Ophthalmology 04/15/20 MD Ruth [address] [address] Kari Bingham Assigned Surgical 04/26/20 MD Ruth Provider [address] [place] [phone] documented as of this encounter
--- OUTSIDE RECORDS SUMMARY | 2022-01-27 15:33 | XMS_ITS | Encounter Summary ---
:1994 Author Organization [place] Address [address] [place] [address] Care Team Providers Name Role Phone MikhailSeth mchughth Renata Primary Care Provider Reason for Visit Reason Comments Follow Up Central Retinal Vein Occlusi on OS Encounter Details Date Type Department Care Team Description 03/08/2016 Office Visit [facility] Eye Jaja Fitzgerald RVO (central retinal Clinic - Fernanda Wilkerson MD vein occlusion) Ibrahim [address] [place] [address] 9th Fl Clin 9A [address] [place], [place] [phone] [address] (Work) [phone] Social History Tobacco Use Types Packs/Day Years [...] week ago with eye movement. Went to [facility] 02/03/16, found swollen veins, sent to Dr. [...] 03-08-16 right eye- normal contour, no IRF/SRF, MANNEQUIN MOLD MAKER 266 left eye - no fluid, greatly [...] with hematology - limited lab w/u at [facility] negative so far for hypercoaguable or [...] and exam/neuro findings as obtained by the it technician or others. Tati examined this patient myself. and I personally viewed the image(s) and studies listed above andthe documentation reflects my findings and interpretation. Jaja Fitzgerald MD, PhD Mink Farmer, Vitreoretinal Surgery Department of Ophthalmology [facility] EQUIN MOLD MAKER documented in this encounter Nursing Notes Cleo [...] Verduzco COT 2:11 PM March 08, 2016 EQUIN MOLD MAKER documented in this encounter Plan of Treatment Not on filedocumented as of this encounter Procedures Procedure Name Priority Date/Time Associated Comments Diagnosis OCT RETINA Routine 03/08/2016 3:32 PM CRVO (central Results for this SPECTRALIS OU (BOTH MANNEQUIN MOLD MAKER retinal vein procedur e are in EYE) occlusion) the results section. documented in this encounter Results Ultrasound B-scan OU (both eyes) (04/05/2016 4:07 PM MANNEQUIN MOLD MAKER) Narrative Jaja Fitzgerald MD - 04/05/2016 4:07 PM MANNEQUIN MOLD MAKER Patient cooperation: Reliable . Reliability of the test: Good . Test Findings: Abnormal . Interpretation: Abnormal . Plan: Monitor . Interval: Initial . Jaja Fitzgerald MD OPHTHALMOLOGY OCT Retina Spectralis OU (both eyes) (04/05/2016 4:07 PM MANNEQUIN MOLD MAKER) Jaja Urias MD - 04/05/2016 4:07 PM MANNEQUIN MOLD MAKER Patient cooperation: Reliable . Right Eye Reliability of the test: Good . Findings normal/abnormal: Normal OCT . Interpretation: Retinal disease . Plan: Monitor . Interval: Same . Left Eye Reliability of the test: Good . Findings normal/abnormal: Normal OCT . Interpretation: Retinal disease . Plan: Monitor . Interval: Same . Jaja Fitzgerald MD OPHTHALMOLOGY Fundus Photos OU (both eyes) (04/05/2016 4:06 PM MANNEQUIN MOLD MAKER) Jaja Urias MD - 04/05/2016 4:06 PM MANNEQUIN MOLD MAKER Patient cooperation: Reliable . Right Eye Reliability of the test: Good . Findings: Normal disc/macula/vessels . Interpretation: Normal . Plan: Monitor . Interval: Initial . Left Eye Reliability of the test: Good . Findings: Abnormal . Interpretation: Abnormal . Plan: Monitor . Interval: Initial . Jaja Fitzgerald MD OPHTHALMOLOGY OCT Retina Spectralis OU (both eyes) (03/08/2016 3:32 PM MANNEQUIN MOLD MAKER) Jaja Urias MD - 03/08/2016 3:32 PM MANNEQUIN MOLD MAKER Patient cooperation: Reliable . Right Eye Reliability [...] retina documented in this encounter Care Teams Outboard Motor Mechanic Relationship Specialty Start Date End Date Destiny Elizondo PCP - General 02/08/16 06/22/17 [facility] [address] [facility] [place] [address] documented as of this encounter
--- OUTSIDE RECORDS SUMMARY | 2022-01-27 15:33 | XMS_ITS | Encounter Summary ---
:1994 Author Organization [place] Address [address] [place] [address]. [place] [address] Care Team Providers Name Role Phone Destiny Elizondo Primary Care Provider Reason for Visit Reason Comments Follow Up Central Retinal Vein Occlus ion OS Encounter Details Date Type Department Care Team Description 06/02/2016 Office Visit [facility] Eye AMY BinghamVO ( central retinal vein occlusion) (Primary Dx); Clinic - [place] Kari Miranda, Subjective visual disturbanc e - Right Eye; Patrice Ramos MD [place] of optic disc, bilateral Building 420 [facility] [address] Clin [address] [place] [id number] [phone] Social History Tobacco Use Types Packs/Day Years [...] Kari Bingham MD PhD. Professor & Chair TANK CAR UNLOADER documented in this encounter Nursing Notes Cleo [...] Verduzco COT 8:13 AM June 02, 2016 TANK CAR UNLOADER documented in this encounter Plan of Treatment Not on filedocumented as of this encounter Procedures Procedure Name Priority Date/Time Associated Comments Diagnosis FUNDUS AUTOFLUORESCENCE Routine 06/02/2016 9:36 CRVO (central Results for this IMAGE (FAF) OU (BOTH AM BULK TANK CAR UNLOADER retinal vein procedu re are in EYES) occlusion) the results Subjective visual section. disturbance - Right Eye OCT RETINA SPECTRALIS OU Routine 06/02/2016 9:36 CRVO (central Results for this (BOTH EYE) AM BULK TANK CAR UNLOADER retinal vein procedure are i n occlusion) the results Subjective visual section. disturbance - Right Eye documented in this encounter Results Fundus Autofluorescence Image (FAF) OU (both eyes) (06/02/2016 9:36 AM BULK TANK CAR UNLOADER) Kari Morris MD - 9:36 AM BULK TANK CAR UNLOADER Patient cooperation: Reliable . Best available. Right [...] Spectralis OU (both eyes) (06/02/2016 9:36 AM BULK TANK CAR UNLOADER) Kari Morris MD - 9:36 AM BULK TANK CAR UNLOADER Performed by: dcm . Patient cooperation: Reliable [...] bilateral documented in this encounter Care Teams Materials Planner/Production Planner Relationship Specialty Start Date End Date Destiny Elizondo PCP - General 02/08/16 06/22/17 [facility] [address] [facility] [place] [address] documented as of this encounter
--- OUTSIDE RECORDS SUMMARY | 2022-01-27 15:33 | XMS_ITS | Encounter Summary ---
:1994 Author Organization [place] Address [address] [place] [address] Care Team Providers Name Role Phone No Ref-Primary, Physician Primary Care Provider [phone] Kari Bingham MD Unavailable [phone] Kari Bingham MD Unavailable [phone] Reason for Visit Reason Comments Referral Encounter Details Date Type Department Care Team Description 01/02/2018 [facility] Ernst Lopez Refe [facility] [address] [address] [phone] Social History Tobacco Use Types Packs/Day Years Used Date Smoking Tobacco: Never Smokeless Tobacco: Never Alcohol Use Standard Drinks/Week Comments No 0 (1 standard drink = 0.6 oz pure alcoho l) Sex Assigned at Date Recorded Not on file COVID-19 Exposure Response Date Recorded In the last month, have you been in contact with No / Unsure 04/20/2020 3:05 PM DAIRY CATTLE FARM MANAGER someone who was confirmed or suspected to have Coronavirus / COVID-19? documented as of this encounter Plan of Treatment Not on filedocumented as of this encounter Visit Diagnoses Diagnosis Internal hemorrhoid Internal hemorrhoids without mention of complication documented in this encounter Care Teams Hat Body Inspector Relationship Specialty Start Date End Date No Ref-Primary, Physician PCP - General 10/12/17 11/01/20 Kari Bingham MD Ophthalmology 04/15/20 MD Ruth [address] [address] Kari Bingham Assigned Surgical Provider 10/22/21 MD Ruth [address] [address] documented as of this encounter
--- OUTSIDE RECORDS SUMMARY | 2022-01-27 15:33 | XMS_ITS | Encounter Summary ---
:1994 Author Organization [place] Address [address] [place] [address] Care Team Providers Name Role Phone Destiny Elizondo Primary Care Provider Reason for Visit Reason Onset Date Comments Results 02/12/2016 Encounter Details Date Type Department Care Team Description 02/12/2016 Telephone [facility] Haroon Christopher MD Results - [id number] [place] [address] [place] [address] [place] [phone] Social History Tobacco Use Types Packs/Day [...] on filedocumented in this encounter Care Teams Metallurgical Laboratory Assistant Relationship Specialty Start Date End Date Destiny Elizondo PCP - General 02/08/16 06/22/17 [facility] [address] [facility] [place] [address] documented as of this encounter
--- OUTSIDE RECORDS SUMMARY | 2022-01-27 15:33 | XMS_ITS | Encounter Summary ---
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); [facility] Moi Dukes MD Binge eating disorder 9[address] [facility] 980 [place] [address] [phone] Social History Tobacco Use Types Packs/Day Years Used Date Smoking Tobacco: Never Smokeless Tobacco: Never Alcohol Use Standard Drinks/Week Comments No 0 (1 standard drink = 0.6 oz pure alcoho l) Sex Assigned at Date Recorded Not on file COVID-19 Exposure Response Date Recorded In the last month, have you been in contact with No / Unsure 04/20/2020 3:05 PM VE TEACHER someone who was confirmed or suspected to [...] Body Mass Index 34.43 03/18/2016 2:56 PM VE TEACHER documented in this encounter Progress Notes Ernst [...] Orders Referral for Psychotherapy Evaluation- Routine Thyroid [place] Binge eating disorder New behavior with depression [...] 06/23/2017 [facility] uIU/mL 8:00 PM CDT [facility] Specimen Anatomical Collection Method / Collection Time Recei samuel Time (Source) Location / Volume Laterality Blood specimen Venipuncture / 06/23/2017 11:24 018 2:32 (specimen) Unknown AM CDT PM CDT Ernst Lopez MD LAB - BLOOD ORDERABLES Performing Organization Address City/State/ZIP Code Phon [place] [address] [facility] [address] [facility] documented in this encounter Visit Diagnoses Diagnosis Moderate episode of recurrent major depr essive disorder (H) Binge eating disorder documented in this encounter Care Teams Regional Tanker Truck Driver Relationship Specialty Start Date End Date No Ref-Primary, PCP - General 10/12/17 11/01/20 Physician Ernst Lopez MD PCP - General Family Practice 06/23/17 10/11/17 Kari Bingham MD Ophthalmology 04/15/20 MD Ruth [address] [place] [address] [address] Kari Bingham Assigned Surgical 04/26/20 MD Ruth Provider [address] [place] [address] [address] documented as of this encounter
--- OUTSIDE RECORDS SUMMARY | 2022-01-27 15:33 | XMS_ITS | Encounter Summary ---
:1994 Author Organization [place] Address [address] [place] [address] Care Team Providers Name Role Phone Destiny Elizondo Primary Care Provider Reason for Visit Reason Comments Follow Up large floater in both eyes Encounter Details Date Type Department Care Team Description 04/26/2016 Office Visit [facility] Rc Lin MD [address] [place] [address] Subjective visual disturbance - Right Ey e (Primary Dx); Clinic - [place] Núñez MD [address] [place] [address] CRVO (central retinal vein occlusion) [address] [address] [place] [phone] Social History Tobacco Use Types Packs/Day Years [...] Aram Barraza MD PGY2, Dept of Ophthalmology [phone] Attending Physician Attestation: I have seen and [...] - Aram Lin MD 3:27 PM 04/27/2016 DENTIAL ELECTRICIAN documented in this encounter Nursing Notes Mellisa [...] Rubio COA 2:59 PM April 26, 2016 DENTIAL ELECTRICIAN documented in this encounter Plan of Treatment Not on filedocumented as of this encounter Visit Diagnoses Diagnosis Subjective visual disturbance - Right Ey e - Primary Subjective visual disturbance, unspecifi ed CRVO (central retinal vein occlusion) Central vein occlusion of retina documented in this encounter Care Teams Program Coordinator Executive Education Relationship Specialty Start Date End Date Destiny Elizondo PCP - General 02/08/16 06/22/17 [facility] [address] [facility] [place] [address] documented as of this encounter
--- OUTSIDE RECORDS SUMMARY | 2022-01-27 15:34 | XMS_ITS | Encounter Summary ---
:1994 Author Organization [place] Address [address] [place] [address] Care Team Providers Name Role Phone Denny Thomas MD Primary Care Provider Unavailable Destiny Elizondo Primary Care Provider Reason for Visit Reason Comments Consult screening Ultrasound screening Encounter Details Date Type Department Care Team Description 10/28/2014 PRE VISIT [facility] Samantha, Consult (s creening); Maternal Medicine Noemi, SÁNCHEZ Ultr asound (screening) Center [place] [address] [facility] [address] [place] [address] Social History Tobacco Use Types Packs/Day Years Used Date Smoking Tobacco: Never Assessed Sex Assigned at Date Recorded Not on file documented as of this encounter Plan of Treatment Not on filedocumented as of this encounter Visit Diagnoses Not on filedocumented in this encounter Care Teams Lozenge Maker Helper Relationship Specialty Start Date End Date Denny Thomas MD PCP - General 10/22/14 02/07/16 Destiny Elizondo PCP - General 02/08/16 06/22/17 [facility] [address]00 [place] [address] documented as of this encounter
--- OUTSIDE RECORDS SUMMARY | 2022-01-27 15:34 | XMS_ITS | Encounter Summary ---
:1994 Author Organization [place] Address [address] [place] [address] Care Team Providers Name Role Phone DoctorDenny MD Primary Care Provider Unavailable Destiny Elizondo Primary Care Provider No Ref-Primary, Physician Primary Care Provider [phone] Kari Bingham MD Unavailable [phone] Kari Bingham MD Unavailable [phone] Ernst Lopez MD Primary Care Provider Encounter Details Date Type Department Care Team Description 09/05/2014 Office Visit - [facility] Provider, [facility] [address] [phone] Social History Tobacco Use Types Packs/Day Years Used Date Smoking Tobacco: Never Assessed Sex Assigned at Date Recorded Not on file COVID-19 Exposure Response Date Recorded In the last month, have you been in contact with No / Unsure 04/20/2020 3:05 PM RADIOLOGY TRANSCRIPTIONIST someone who was confirmed or suspected to have Coronavirus / COVID-19? documented as of this encounter Plan of Treatment Not on filedocumented as of this encounter Visit Diagnoses Not on filedocumented in this encounter Care Teams Floatlight Powder Mixer Relationship Specialty Start Date End Date Denny Thomas MD PCP - General 10/22/14 02/07/16 Destiny Elizondo PCP - General 02/08/16 06/22/17 [facility] [address] [place], [place] [address] No Ref-Primary, PCP - General 10/12/17 11/01/20 Physician Ernst Loepz MD PCP - General Family Practice 06/23/17 10/11/17 Kari Bingham MD Ophthalmology 04/15/20 MD Ruth [address] [place] [address] Kari Bingham Assigned Surgical 04/26/20 MD Ruth Provider [address] [place] [address] documented as of this encounter
--- OUTSIDE RECORDS SUMMARY | 2022-01-27 15:34 | XMS_ITS | Encounter Summary ---
:1994 Author Organization [place] Address [address] [place] [address]. [place] [address] Care Team Providers Name Role Phone Denny Thomas MD Primary Care Provider Unavailable Destiny Elizondo Primary Care Provider No Ref-Primary, Physician Primary Care Provider [phone] Kari Bingham MD Unavailable [phone] Kari Bingham MD Unavailable Ernst Lopez MD Primary Care Provider Reason for Visit Reason Comments Care Encounter Details Date Type Department Care Team Description 09/12/2014 [facility] Brett Booth MD Care [address] [address] [facility] [place] [address] Social History Tobacco Use Types Packs/Day Years Used Date Smoking Tobacco: Never Assessed Sex Assigned at Date Recorded Not on file COVID-19 Exposure Response Date Recorded In the last month, have you been in contact with No / Unsure 04/20/2020 3:05 PM RAD TECHNOLOGIST someone who was confirmed or suspected to have Coronavirus / COVID-19? documented as of this encounter Plan of Treatment Not on filedocumented as of this encounter Visit Diagnoses Not on filedocumented in this encounter Care Teams Straight Ruling Machine Operator Relationship Specialty Start Date End Date Denny Thomas MD PCP - General 10/22/14 02/07/16 Destiny Elizondo PCP - General 02/08/16 06/22/17 [facility] [address] [facility] [place] [address] No Ref-Primary, PCP - General 10/12/17 11/01/20 Physician Ernst Lopez MD PCP - General Family Practice 06/23/17 10/11/17 Kari Bingham MD Ophthalmology 04/15/20 MD Ruth [address] [place] [address] Kari Bingham Assigned Surgical 04/26/20 MD Ruth Provider [address] [place] [address] documented as of this encounter
--- OUTSIDE RECORDS SUMMARY | 2022-01-27 15:34 | XMS_ITS | Encounter Summary ---
:1994 Author Organization [place] Address [address] [place] [address] Care Team Providers Name Role Phone Destiny Elizondo Primary Care Provider Encounter Details Date Type Department Care Team Description 02/11/2016 Orders Only [facility] Eye Jaja Fitzgerald entral vein Clinic [facility] MD Rock occlusion of retina Ibrahim [address] ( Primary Dx) [address] 9th Fl Clin 9A [address] [place], [place] [phone] (Wo rk) [address] [phone] Social History Tobacco Use Types Packs/Day Years [...] ry documented in this encounter Care Teams Director Of Marketing Relationship Specialty Start Date End Date Destiny Elizondo PCP - General 02/08/16 06/22/17 [facility] [address] [place] [address] documented as of this encounter
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
--- OUTSIDE RECORDS SUMMARY | 2022-01-27 15:34 | XMS_ITS | Encounter Summary ---
:1995 Author Organization [place] Address [address] [place] [address] Care Team Providers Name Role Phone Destiny Elizondo Primary Care Provider Encounter Details Date Type Department Care Team Description 02/09/2016 Orders Only [facility] Eye Jaja Fitzgerald RVO (central retinal Clinic - Fernanda Wilkerson MD vein occlusion) [address] ( Primary Dx) [address] 9th Fl Clin 9A [address] [place], [place] [phone] (Wo rk) [address] [phone] Social History Tobacco Use Types Packs/Day Years [...] retina documented in this encounter Care Teams Stapler Hand Relationship Specialty Start Date End Date Destiny Elizondo PCP - General 02/08/16 06/22/17 [facility] [address] [place] [address] documented as of this encounter
--- OUTSIDE RECORDS SUMMARY | 2022-01-27 15:34 | XMS_ITS | Encounter Summary ---
:1995 Author Organization [place] Address [address] [place] [address] Care Team Providers Name Role Phone Destiny Elizondo Primary Care Provider Reason for Visit (Routine) - Closed Specialty Diagnoses / Procedures Referred By Contact Refer red To Contact Radiology / Radiology. Diagnoses Kristie De La Cruz [id number] Multi: Xray and 2 MRI exams Uu Xray Procedures XR CHEST 2 VIEWS [address] [place] [address] Phone: Referral ID Status Reason Start Date Expiration Date Visits Requ ested Visits Authorized [id number] Closed 02/10/2016 02/09/2017 1 1 Encounter Details Date Type Department Care Team Description 02/11/[address] [facility] Amado Fonseca (central [facility] Imaging MD Har[place] retinal vein [address] [facility] mirian diez) [place], [place] [address] [phone] [address] [place], [place] [phone] (Wo rk) Social History Tobacco Use Types [...] retina documented in this encounter Care Teams Rope Making Machine Operator Relationship Specialty Start Date End Date Destiny Elizondo PCP - General 02/08/16 06/22/17 [facility] [address] [facility] [place] [address] documented as of this encounter
--- OUTSIDE RECORDS SUMMARY | 2022-01-27 15:34 | XMS_ITS | Encounter Summary ---
:1995 Author Organization [place] Address [address] [place] [address]. [place] [address] Care Team Providers Name Role Phone Destiny Elizondo Primary Care Provider Reason for Visit (Routine) - Closed Specialty Diagnoses / Procedures Referred By Contact Refer red To Contact Radiology / Radiology. Diagnoses Kristie De La Cruz [id number] Multi: Xray and 2 MRI exams Uu Mri Procedures MR BRAIN AND ORBITS [address] [place] [address] Phone: Referral ID Status Reason Start Date Expiration Date Visits Requ ested Visits Authorized [id number] Closed 02/10/2016 02/09/2017 1 1 Encounter Details Date Type Department Care Team Description 02/11/2016 Hospital Encounter [facility] Amado Fonseca (central [facility] Imaging MD [place] retinal vein [address] [facility] occlusion) [facility] [address] [address] [phone] [address] [place] [address] (Wo rk) Social History Tobacco Use Types [...] findings. NIKIA NO MD Amado Fonseca MD [facility] ORDERABLES documented in this encounter Visit [...] dose documented in this encounter Care Teams Courtroom Clerk Relationship Specialty Start Date End Date Destiny Elizondo PCP - General 02/08/16 06/22/17 [facility] [address] [facility] [place] [address] documented as of this encounter
--- OUTSIDE RECORDS SUMMARY | 2022-01-27 15:34 | XMS_ITS | Encounter Summary ---
:1995 Author Organization [place] Address [address] [place] [address] Care Team Providers Name Role Phone Destiny Elizondo Primary Care Provider Encounter Details Date Type Department Care Team Description 02/11/2016 Orders Only [facility] Eye Jaja Fitzgerald entral vein Clinic [facility] MD Rock occlusion of retina Ibrahim [address] ( Primary Dx) [address] 9[address] Fl Clin 9A [address] [place], [place] [phone] (Wo rk) [address] [phone] Social History Tobacco Use Types Packs/Day Years [...] ry documented in this encounter Care Teams Blacking Machine Operator Relationship Specialty Start Date End Date Destiny Elizondo PCP - General 02/08/16 06/22/17 [facility] [address] [place] [address] documented as of this encounter
--- OUTSIDE RECORDS SUMMARY | 2022-01-27 15:34 | XMS_ITS | Encounter Summary ---
:1995 Author Organization [place] Address [address] [place] [address] Care Team Providers Name Role Phone Unavailable Primary Care Provider Unavailable Reason for Referral - Closed Specialty Diagnoses / Procedures Referred By Contact Refer red To Contact Diagnoses Unspecified complication of , antepartum Sh Maternal Med [address] [facility] [address] [place] [phone] Referral ID Status Reason Start Date Expiration Date Visits Requ ested Visits Authorized [id number] Closed 10/15/2014 10/15/2015 1 1 Encounter Details Date Type Department Care Team Description 10/15/2014 Orders Only [facility] Brian Lopez Unspe cified Maternal Blair Ding, [facility] Ovidio medina MD , antepartum [address] [facility] RET[facility] (Primary Dx) [facility] [address] [place] [address] Social History Tobacco Use Types [...]
--- OUTSIDE RECORDS SUMMARY | 2022-01-27 15:34 | XMS_ITS | Encounter Summary ---
:1995 Author Organization [place] Address [address] [place] [address]. [place] [address] Care Team Providers Name Role Phone Destiny Elizondo Primary Care Provider Reason for Visit Reason Comments Consult For Central Retinal Vein Occlusi on OS Encounter Details Date Type Department Care Team Description 02/11/2016 Office Visit [facility] Eye Gee Christopher MD Subjective visual disturbance (Primary D x); Clinic - [address] Left optic neuropathy; Patrice Ramos [place], [place] CRVO (central retinal vein occlusion) - Left Eye Building [address] [place] [address] [facility] 9A (Work) [place] [address] Social History Tobacco Use Types [...] retina documented in this encounter Care Teams Automotive Light Mechanic Relationship Specialty Start Date End Date Destiny Elizondo PCP - General 02/08/16 06/22/17 [facility] [address] [facility] [place] [address] documented as of this encounter
--- OUTSIDE RECORDS SUMMARY | 2022-01-27 15:34 | XMS_ITS | Encounter Summary ---
:1995 Author Organization [place] Address [address] [place] [address]. [place] [address] Care Team Providers Name Role Phone Doctor, Denny ANDREWS Primary Care Provider Unavailable Destiny Elizondo Primary Care Provider No Ref-Primary, Physician Primary Care Provider [phone] Kari Bingham MD Unavailable Kari Bingham MD Unavailable [phone] Ernst Lopez MD Primary Care Provider Encounter Details Date Type Department Care Team Description 09/12/2014 [facility] Jeffy Petersen MD [place] batool; [facility] Provider, Historical Vaginal bleeding [place] [address] [place] [address] Social History Tobacco Use Types Packs/Day Years Used Date Smoking Tobacco: Never Assessed Sex Assigned at Date Recorded Not on file COVID-19 Exposure Response Date Recorded In the last month, have you been in contact with No / Unsure 04/20/2020 3:05 PM COLD PRESS OPERATOR someone who was confirmed or suspected to have Coronavirus / COVID-19? documented as of this encounter Plan of Treatment Not on filedocumented as of this encounter Visit Diagnoses Diagnosis Amenorrhea Absence of menstruation Vaginal bleeding Other specified noninflammatory disorder of vagina documented in this encounter Care Teams Hand Woodworking Sander Relationship Specialty Start Date End Date Denny Thomas MD PCP - General 10/22/14 02/07/16 Destiny Elizondo PCP - General 02/08/16 06/22/[address] [facility] [address] [place], [place] [phone] No Ref-Primary, PCP - General 10/12/17 11/01/20 Physician Ernst Lopez MD PCP - General Family Practice 06/23/17 10/11/17 Kari Bingham MD Ophthalmology 04/15/20 MD Ruth [address] [place] [address] Kari Bingham Assigned Surgical 04/26/20 MD Ruth Provider [address] [address] documented as of this encounter
--- OUTSIDE RECORDS SUMMARY | 2022-01-27 15:34 | XMS_ITS | Encounter Summary ---
:1995 Author Organization [facility] Address [address] [place] [address] Care Team Providers Name Role Phone Destiny Elizondo Primary Care Provider Reason for Referral Consultation - Closed Specialty Diagnoses / Procedures Referred By Contact Refer red To Contact Diagnoses CRVO (central retinal vein occlusion) Amado Contreras MD [facility] [address] [address] [place] [id number] [phone] Referral ID Status Reason Start Date Expiration Date Visits Requ ested Visits Authorized [id number] Closed 02/09/2016 02/08/2017 1 1 - Closed Specialty Diagnoses / Procedures Referred By Contact Refer red To Contact Diagnoses CRVO (central retinal vein occlusion) Amado Contreras MD [facility] [address] [address] [place], [place] [address] 4 Referral ID Status Reason Start Date Expiration Date Visits Requ ested Visits Authorized [id number] Closed 02/09/2016 02/08/2017 1 1 Reason for Visit Reason Comments Consult For Vision loss. Sent by ED OS Encounter Details Date Type Department Care Team Description 02/09/[address] [facility] Eye Kamila Keller RVO (central retinal Clinic - Fernanda Wilkerson MD vein occlusion) Patrice Archerteen 516 [facility] 911 [address] [place], [place] 9th Fl Clin [address] [address] [place], [place] [phone] [address] (Work) [phone] Social History Tobacco Use Types Packs/Day Years [...] 02-09-16 right eye- normal contour, no IRF/SRF, PREDATORY ANIMAL TRAPPER 266 left eye - extensive IRF/SRF, distorted foveal contour, PREDATORY ANIMAL TRAPPER 538 FA 02-09-16 RE: normal LE: (transits) [...] history: SIMRAN, ANCA, RPR, quantiferon gold, BMP, UA,ANIMAL ECOLOGIST - plan for avastin OS today with [...] and exam/neuro findings as obtained by the transfill technician or others. Ihave examined this patient myself. and I personally viewed the image(s) and studies listed above andthe documentation reflects my findings and interpretation. Kamila Keller MD, PhD Service Establishment Attendant, Vitreoretinal Surgery Department of Ophthalmology [facility] documented in this encounter Nursing Notes [...] started three weeks ago. Went to [facility] and then was sent to Dr. Pyle. [...] Spectralis OU (both eyes) (03/08/2016 3:32 PM PREDATORY ANIMAL TRAPPER) Narrative Kamila Keller MD - 03/08/2016 3:32 PM PREDATORY ANIMAL TRAPPER Patient cooperation: Reliable . Right Eye Reliability [...] in rating of 0 out of 10. Lot:[id number] Exp:03-08-16 Eye:SOY Leone COT 2:31 PM February 09, 2016 Amado Contreras MD OPHTHALMOLOGY Vasculitis panel (02/09/2016 2:34 PM CDT) Component Value Ref Test Analysis Performed At [facility] [employer] Range Method Time Signature Myeloperoxidase <0.2 0.0 - UNIVERSITY Antibody IgG Negative 0.9 [place] OF [place] Antibody index (AI) values reflect qualitative changes in a ntibody MEDICAL concentration that cannot be directly associated with clinical condition or [facility] disease state. CAMPUS Proteinase 3 <0.2 0.0 - UNIVERSITY Antibody IgG Negative 0.9 [place] Antibody index (AI) values reflect qualitative changes in a ntibody MEDICAL concentration that cannot be directly associated with clinical condition or [facility] disease state. MARTELLE Specimen Anatomical Collection Method Collection Time Receive d Time (Source) Location / / Volume Laterality Blood specimen 02/09/2016 2:34 PM 016 2:36 (specimen) CDT PM CDT Amado Contreras MD LAB - BLOOD ORDERABLES Performing Organization Address City/State/ZIP Code Phon e Number [facility] [address] [place] [address] [facility] Antinuclear antibody screen by EIA (02/09/2016 2:33 PM CDT) [facility] [employer] Method Time Signature SIMRAN Screen by <1.0 <1.0 UNIVERSITY OF EIA Interpretation: ??Negative [facility] Specimen Anatomical Collection Method Collection Time Receive d Time (Source) Location / / Volume Laterality 02/09/2016 2:33 PM 6 2:35 CDT PM CDT Amado Contreras MD LAB - BLOOD ORDERABLES Performing Organization Address City/[facility] Code Phon e Number [facility] [address] M Tuberculosis by Quantiferon (02/09/2016 2:33 PM CDT) [facility] Method Time Signature M Tuberculosis Negative NEG UNIVERSITY OF Result [facility] M Tuberculosis 0.29 IU/mL UNIVERSITY OF Antigen Value [facility] Comment: This is a qualitative test. [...] LAB - BLOOD ORDERABLES Performing Organization Address [facility] Code Phon e Number [facility] [address] RPR screen with reflex to confirm (02/09/2016 2:33 PM CDT) [facility] Time Signature Rapid Plasma Negative NEG UNIVERSITY OF Reagin [facility] Specimen Anatomical Collection Method Collection Time Receive d Time (Source) Location / / Volume Laterality Blood specimen 02/09/2016 2:33 PM 016 2:35 (specimen) CDT PM CDT Amado Contreras MD LAB - BLOOD ORDERABLES Performing Organization Address City/[facility] Code Phon e Number [facility] [address] Antineutrophil cytoplasmic Carlos IgG (02/09/2016 2:33 PM CDT) Component Value Ref Test Analysis Performed At [facility] Range Method Time Signature Neutrophil <1:20 [...] collagen vascular disease or arthritis. Performed by [facility], [address] [place] [id number] [email or web address], Aelxx Lemons MD, Lab. Director Specimen Anatomical Collection Method Collection Time Receive d Time (Source) Location / / Volume Laterality Blood specimen 02/09/2016 2:33 PM 016 2:35 (specimen) CDT PM CDT Amado Contreras MD LAB - BLOOD ORDERABLES Performing Organization Address City/[facility] Code Phon e Number [address] Cardiolipin antibody IgA (02/09/2016 2:33 PM CDT) Component Value Ref Test Analysis Performed At [facility] [employer] Method Time Signature Cardiolipin Canceled, Test credited 0 - 11 UNIV ERSITY OF Antibody IgA Specimen not received [facility] IgA also helps indentify an additional group [facility] of patients whose only presentation is MARTELLE thrombocytopenia. Assayed at [facility], [place] [address] Specimen Anatomical Collection Method Collection Time Receive d Time (Source) Location / / Volume Laterality Blood specimen 02/09/2016 2:33 PM 016 2:35 (specimen) CDT PM CDT Amado Contreras MD LAB - BLOOD ORDERABLES Performing Organization Address City/[facility] Phon e Number [address] Factor 5 leiden mutation analysis (02/09/2016 2:33 PM CDT) Component Value Ref Test Analysis Performed At [facility] [employer] Range Method Time Signature Maria Victoriaath Report Patient Name: AKILAH CLINE MR#: [id number] Specimen #: [id number] Collected: 02/09/2016 14:33 Received: 02/10/2016 11:31 Reported: 02/14/2016 11:31 Ordering Phy(s): KAMILA KELLER Additional Phy(s): AMADO CONTRERAS TEST(S) REQUESTED: Factor 5 Leiden Mutation by PCR SPECIMEN DESCRIPTION: Blood METHODOLOGY: ?? The regions of genomic DNA containing the G1 691A Factor 5 gene mutation (Factor V Leiden) and the Factor 2(Prothrombin [id number]) gene mutation were simultaneously amplified using the [...] th test results. ??Call the [facility]([phone]) for instructions on sample collection for these patients. This test was developed and its performance characteristics determined by the [facility], ??[facility]. It has not been cleared or approved by the FDA. The laboratory is regulated under CLIA as qualified to perform high-complexity testing. This test is used for clinical purp oses. It should not be regarded as investigational or for research. Electronically Signed Out By: Rachel Anne M.D., [facility] CPT Codes: A: 85146-Q3JRZ, [id number] TESTING LAB LOCATION: [address] [address] COLLECTION SITE: Client: ??[facility] Location: ??LUCIANA (B) Specimen Anatomical Collection Method Collection Time Receive d Time (Source) Location / / Volume Laterality Blood specimen 02/09/2016 2:33 PM 016 (specimen) CDT 11:31 AM CDT Kamila Keller MD LAB - GENOMICS Performing Organization Address City/State/ZIP Code Phon e Number [place] Activated protein C resistance (02/09/2016 2:33 PM CDT) P athologist Signature Activated Prot 2.72 >2.12 [facility] OF C [facility] MEDICAL [facility]ENTER [facility] Comment: NORMAL Activated Protein C Ratio:The pat ient does not have Activated Protein C Resistance. Specimen Anatomical Collection Method Collection Time Receive d Time (Source) Location / / Volume Laterality Blood specimen 02/09/2016 2:33 PM 016 2:35 (specimen) CDT PM CDT Amado Contreras MD LAB - BLOOD ORDERABLES Performing Organization Address City/[facility]/ZIP Code Phon e Number [facility] [address] [place] [address] [facility] LUPUS BATTERY (INR,PTT,TT) (02/09/2016 2:33 PM CDT) Component Value Ref Test Analysis Performed At [facility] gist Range Method Time Signature Lupus Result Negative NEG [facility] (Note) [place] MEDICAL COMMENTS: [facility] The INR is normal. MARTELLE APTT ratio is elevated. Platelet Neutralization is negative. APTT 1:2 Mix ratio is normal. DRVVT Screen ratio is normal. Thrombin time is normal. NEGATIVE TEST; A LUPUS ANTICOAGULANT WAS NOT DETECTED IN THI S SPECIMEN WITHIN THE LIMITS OF THE TESTING REPERTOIRE. If the clinical picture is strongly suggestive of an antipho spholipid syndrome, recommend anticardiolipin and uwso-3-oqxbrovrnbjw (IgG and IgM) antibody tests. Platelet Neutralization and APTT 1:2 Mix ratio are suggestiv e of factor deficiency. Recommend factors 8, 9, 11 and 12 (factors VIII, IX, XI, and XII) levels if clinically indicated. Jagdish Sandy M.D. [phone] 02/11/2016 INR = 1.11 ?? Reference range: [...] LAB - BLOOD ORDERABLES Performing Organization Address City/[facility] Code Phon e Number [address] Erythrocyte sedimentation rate auto (02/09/2016 2:33 PM CDT) P athologist Signature Sed Rate 6 0 - 20 mm/h [facility] Specimen Anatomical Collection Method Collection Time Receive d Time (Source) Location / / Volume Laterality Blood specimen 02/09/2016 2:33 PM 016 2:35 (specimen) CDT PM CDT Amado Contreras MD LAB - BLOOD ORDERABLES Performing Organization Address City/[facility] Code Phon e Number [address] (ABNORMAL) Basic metabolic panel (02/09/2016 2:33 PM CDT) Patholo gist Method Time Signature Sodium 142 133 - 144 UN[facility]ITY OF mmol/L [facility] Potassium 3.4 3.4 - 5.3 [facility]ITY OF mmol/L [facility] Chloride 110 (H) 94 - 109 [facility] OF mmol/L [facility] Carbon Dioxide 23 20 - 32 [facility] OF mmol/L [facility] Anion Gap 9 3 - 14 [facility] OF mmol/L [facility] Glucose 113 (H) 70 - 99 UN[facility]ITY OF mg/dL [facility] Urea Nitrogen 10 7 - 30 [facility] OF mg/dL [facility] Creatinine 0.58 0.52 - UNIVERSITY OF 1.04 [facility] mg/dL [facility] GFR Estimate >90 >60 UNIVERSITY OF Non GFR Calc mL/min/1. [place] MEDICAL 7m2 [facility] GFR Estimate >90 >60 [facility] OF If Black GFR Calc mL/min/1. [place] M EDICAL 7m2 [facility] Calcium 8.9 8.5 - UNIVERSITY OF 10.1 [place] [facility] mg/dL [facility] Specimen Anatomical Collection Method Collection Time Receive d Time (Source) Location / / Volume Laterality Blood specimen 02/09/2016 2:33 PM 016 2:35 (specimen) CDT PM CDT Amado Contreras MD LAB - BLOOD ORDERABLES Performing Organization Address City/State/ZIP Code Phon e Number [facility] [address] CBC with platelets (02/09/2016 2:33 PM CDT) P athologist Signature WBC 5.6 4.0 - 11.0 UNIVERSITY OF 10e9/L [facility] RBC Count 4.12 3.8 - 5.2 UN[facility]ITY OF 10e12/L [facility] Hemoglobin 12.8 11.7 - UNIVERSITY OF 15.7 g/dL [facility] Hematocrit 36.9 35.0 - UNIVERSITY OF 47.0 % [facility] MCV 90 78 - 100 [facility] OF fl [facility] MCH 31.1 26.5 - UNIVERSITY OF 33.0 pg [facility] MCHC 34.7 31.5 - UNIVERSITY OF 36.5 g/dL [facility] RDW 12.2 10.0 - UNIVERSITY OF 15.0 % [facility] Platelet Count 276 150 - 450 UN[facility]ITY OF 10e9/L [facility] Specimen Anatomical Collection Method Collection Time Receive d Time (Source) Location / / Volume Laterality Blood specimen 02/09/2016 2:33 PM 016 2:35 (specimen) CDT PM CDT Amado Contreras MD LAB - BLOOD ORDERABLES Performing Organization Address City/State/ZIP Code Phon e Number [facility] [address] (ABNORMAL) Routine UA with microscopic - No culture (02/09/2016 2:21 PM CDT) Patholo gist Method Time Signature Color Urine Yellow [facility] Appearance Urine Slightly [facility]ITY OF Cloudy [facility] Glucose Urine Negative NEG mg/dL [facility] Bilirubin Urine Negative NEG [facility] Ketones Urine Negative NEG mg/dL [facility] Specific Richards 1.006 1.003 - UNIVERSITY Urine 1.035 [facility] Blood Urine Negative NEG [facility] pH Urine 7.0 5.0 - 7.0 UNIVERSITY OF pH [facility] Protein Albumin Negative NEG mg/dL [facility]ITY OF Urine [facility] Urobilinogen Normal 0.0 - 2.0 [facility] mg/dL mg/dL [facility] Nitrite Urine Negative NEG [facility] Leukocyte Moderate (A) NEG [facility]ITY OF Esterase Urine [facility] Source Midstream UNIVERSITY Urine [facility] WBC Urine 6 (H) 0 - 2 UN[facility]ITY OF /HPF [facility] RBC Urine 1 0 - 2 [facility]ITY OF /HPF [facility] Bacteria Urine Few (A) NEG /HPF [facility] Squamous 26 (H) 0 - 1 [facility] OF Epithelial /HPF /HPF [facility] Transitional Epi <1 0 - 1 [facility]ITY OF /HPF [facility] Mucous Urine Present (A) NEG /LPF [facility] Specimen Anatomical Collection Method Collection Time Receive d Time (Source) Location / / Volume Laterality Urine specimen 02/09/2016 2:21 PM 016 2:22 (specimen) CDT PM CDT Amado Contreras MD LAB - URINE ORDERABLES Performing Organization Address City/State/ZIP Code Phon e Number [facility] [address] [place] [address] [facility] Fluorescein Angiography OU (both eyes) (02/09/2016 [...] retina documented in this encounter Care Teams Research Study Assistant Relationship Specialty Start Date End Date Destiny Elizondo PCP - General 02/08/16 06/22/17 [facility] [address] [place] [address] documented as of this encounter
--- OUTSIDE RECORDS SUMMARY | 2022-01-27 15:35 | XMS_ITS | Encounter Summary ---
:1995 Author Organization [facility] Address [address] [place] [address] Care Team Providers Name Role Phone Doctor, None Primary Care Provider Unavailable Destiny Elizondo Primary Care Provider No Ref-Primary, Physician Primary Care Provider [phone] Kari Bingham MD Unavailable [phone] Kari Bingham MD Unavailable [phone] Ernst Lopez MD Primary Care Provider Encounter Details Date Type Department Care Team Description 10/13/2011 Records - [facility] Provider, [facility] DEPARTMENT [address] [place] [phone] Social History Tobacco Use Types Packs/Day Years Used Date Smoking Tobacco: Never Assessed Sex Assigned at Date Recorded Not on file COVID-19 Exposure Response Date Recorded In the last month, have you been in contact with No / Unsure 04/20/2020 3:05 PM WASHERY ENGINEER someone who was confirmed or suspected [...] on filedocumented in this encounter Care Teams Retort Loader Relationship Specialty Start Date End Date Doctor, Denny, PCP - General 10/22/14 02/07/16 Destiny Elizondo PCP - General 02/08/16 06/22/17 [facility] [address] [place], [place] [address] No Ref-Primary, PCP - General 10/12/17 11/01/20 Physician Ernst Lopez MD PCP - General Family Practice 06/23/17 10/11/17 Kari Bingham MD Ophthalmology 04/15/20 MD Ruth [address] [place] [address] Kari Bingham Assigned Surgical 04/26/20 MD Ruth Provider [address] [address] documented as of this encounter
--- OUTSIDE RECORDS SUMMARY | 2022-01-27 15:35 | XMS_ITS | Clinical Summary ---
:1995 Author Organization [facility] [facility] [place] [address] Care Team Providers Name Role Phone Areli [facility] Primary Care Provi moy Allergies [...] Addre ss Type Group FOUZIA FRAGOSO MA [id number] 2021-Present [address] [place] [address] J y [address] (Home) [place] [address] [employer] Employer 04/10/2000 [phone] [facility]/Sarahy 0 (Home) [phone] [facility] [place] 3 (Work) [phone] Care Teams Chocolate Production Machine Operator Relationship Specialty Start Date End [facility] - General 10/12/[address] [place] [address] Areli [place], [place] [id number]
--- OUTSIDE RECORDS SUMMARY | 2022-01-27 15:35 | XMS_ITS | Encounter Summary ---
:1995 Author Organization [facility] Address [address] [place] [address]. [place] [address] Care Team Providers Name Role Phone Doctor, None Primary Care Provider Unavailable Destiny Elizondo Primary Care Provider No Ref-Primary, Physician Primary Care Provider [phone] Kari Bingham MD Unavailable [phone] Kari Bingham MD Unavailable [phone] Ernst Lopez MD Primary Care Provider Reason for Visit Reason Comments Establish Care starting in Feb-Mar pt would have lower back spasms. pt states it would be so bad she would fa ll to the ground and not be able to move. Encounter Details Date Type Department Care Team Description 08/15/2014 Office Visit - [facility] Brett Booth MD [facility] [address] [place] [address] [address] [place] [address] [place] [address] Social History Tobacco Use Types Packs/Day Years Used Date Smoking Tobacco: Never Assessed Sex Assigned at Date Recorded Not on file COVID-19 Exposure Response Date Recorded In the last month, have you been in contact with No / Unsure 04/20/2020 3:05 PM BLUE PRINTS TRIMMER someone who was confirmed or suspected [...] Lumbago documented in this encounter Care Teams Counterintelligence Agent Relationship Specialty Start Date End Date Doctor, Denny, PCP - General 10/22/14 02/07/16 Destiny Elizondo PCP - General 02/08/16 06/22/[address] [facility] [address] [place], [place] [address] No Ref-Primary, PCP - General 10/12/17 11/01/20 Physician Ernst Lopez MD PCP - General Family Practice 06/23/17 10/11/17 Kari Bingham MD Ophthalmology 04/15/20 MD Ruth [address] [place] [address] Kari Bingham Assigned Surgical 04/26/20 MD Ruth Provider [address] [place] [address] documented as of this encounter
--- OUTSIDE RECORDS SUMMARY | 2022-01-27 15:35 | XMS_ITS | Encounter Summary ---
:1995 Author Organization [place] Address [address] [place] [address] Care Team Providers Name Role Phone Denny Thomas MD Primary Care Provider Unavailable Destiny Elizondo Primary Care Provider No Ref-Primary, Physician Primary Care Provider [phone] Kari Bingham MD Unavailable [phone] Kari Bingham MD Unavailable [phone] Ernst Lopez MD Primary Care Provider Encounter Details Date Type Department Care Team Description 08/26/2014 [facility] Provider, [facility] Information Management [address] [place] [phone] Social History Tobacco Use Types Packs/Day Years Used Date Smoking Tobacco: Never Assessed Sex Assigned at Date Recorded Not on file COVID-19 Exposure Response Date Recorded In the last month, have you been in contact with No / Unsure 04/20/2020 3:05 PM 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 documented as of this encounter Plan of Treatment Not on filedocumented as of this encounter Visit Diagnoses Not on filedocumented in this encounter Care Teams Digester Capper Relationship Specialty Start Date End Date Denny Thomas MD PCP - General 10/22/14 02/07/16 Destiny Elizondo PCP - General 02/08/16 06/22/17 [facility] [address] [place] [address] [place] [address] No Ref-Primary, PCP - General 10/12/17 11/01/20 Physician Ernst Lopez MD PCP - General Family Practice 06/23/17 10/11/17 Kari Bingham MD Ophthalmology 04/15/20 MD Ruth [address] [place] [address] Kari Bingham Assigned Surgical 04/26/20 MD Ruth Provider [address] [place] [address] documented as of this encounter
--- OUTSIDE RECORDS SUMMARY | 2022-01-27 15:35 | XMS_ITS | Encounter Summary ---
:1995 Author Organization [place] Address [address] [place] [address] Care Team Providers Name Role Phone Doctor, Denny ANDREWS Primary Care Provider Unavailable Destiny Elizondo Primary Care Provider No Ref-Primary, Physician Primary Care Provider [phone] Kari Bingham MD Unavailable [phone] Kari Bingham MD Unavailable [phone] Ernst Lopez MD Primary Care Provider Encounter [...] with No / Unsure 04/20/2020 3:05 PM DIGITAL PUBLISHING SPECIALIST someone who was confirmed or suspected to have Coronavirus / COVID-19? documented as of this encounter Plan of Treatment Not on filedocumented as of this encounter Visit Diagnoses Not on filedocumented in this encounter Care Teams Automation And Controls Manager Relationship Specialty Start Date End Date Doctor, MD Denny PCP - General 10/22/14 02/07/16 Destiny Elizondo PCP - General 02/08/16 06/22/17 [facility] [address] [place] [address] No Ref-Primary, PCP - General 10/12/17 11/01/20 Physician Ernst Lopez MD PCP - General Family Practice 06/23/17 10/11/17 Kari Bingham MD Ophthalmology 04/15/20 MD Ruth [address] [place] [address] Kari Bingham Assigned Surgical 04/26/20 MD Ruth Provider [address] [address] documented as of this encounter
--- OUTSIDE RECORDS SUMMARY | 2022-01-27 15:35 | XMS_ITS | Encounter Summary ---
:1995 Author Organization [facility] Address [address] [place] [address]. [place] [address] Care Team Providers Name Role Phone Doctor, None MD Primary Care Provider Unavailable Destiny Elizondo Primary Care Provider No Ref-Primary, Physician Primary Care Provider [phone] Kari Bingham MD Unavailable [phone] Kari Bingham MD Unavailable [phone] Ernst Lopez MD Primary Care Provider Encounter Details Date Type Department Care Team Description 08/15/2014 Records - [facility] Brett Booth MD [facility] [address] [address] [facility] [place] [address] Social History Tobacco Use Types Packs/Day Years Used Date Smoking Tobacco: Never Assessed Sex Assigned at Date Recorded Not on file COVID-19 Exposure Response Date Recorded In the last month, have you been in contact with No / Unsure 04/20/2020 3:05 PM [employer] someone who was confirmed or suspected to [...] Lumbago documented in this encounter Care Teams Shoe Dresser Relationship Specialty Start Date End Date Doctor, Denny, PCP - General 10/22/14 02/07/16 Destiny Elizondo PCP - General 02/08/16 06/22/17 [facility] [address] [facility] [place] [id number] No Ref-Primary, PCP - General 10/12/17 11/01/20 Physician Ernst Lopez MD PCP - General Family Practice 06/23/17 10/11/17 Kari Bingham MD Ophthalmology 04/15/20 MD Ruth [address] [place] [id number] Kari Bingham Assigned Surgical 04/26/20 MD Ruth Provider [address] [place] [id number] documented as of this encounter
--- NOTE | 2022-01-27 15:53 | CRLHL7_ITS ---
For Patients: As a result of the Cures Act, medical imaging exams and procedure reports are released immediately into your electronic medical record. You may view this report before your referring provider. If you have questions, please contact your health care provider. INDICATION: Possible C diff colitis. TECHNIQUE: CT abdomen and pelvis acquired with 118 mL Isovue 370 contrast. COMPARISON: CT of the size pelvis dated 01/18/2022. FINDINGS: Lower chest: No focal consolidation. Liver: Too small to characterize hypodense hepatic lesion, likely benign in the absence of a known malignancy. Gallbladder and bile ducts: Unremarkable. Pancreas: Unremarkable. Spleen: Unremarkable. Adrenal glands: Unremarkable. Kidneys: Kidneys enhance symmetrically, without hydronephrosis. Retroperitoneum: No lymphadenopathy. Bowel and mesentery: Bowel is nonobstructed. No significant pericolonic inflammatory changes are identified. Normal appendix. No significant ascites. No pneumoperitoneum. Bladder: Unremarkable for degree of distension. Reproductive organs: Unremarkable. Pelvic lymph nodes: No lymphadenopathy. Vessels: Unremarkable. Abdominal wall: No acute abdominal wall abnormality. Bones: Multilevel degenerative changes of the spine. No suspicious/aggressive focal osseous lesion. IMPRESSION: 1. No significant pericolonic inflammatory changes are identified. 2. Bowel is not obstructed. Normal appendix. Please note that all CT scans at this facility use dose modulation, iterative reconstruction, and/or weight-based dosing when appropriate to reduce radiation dose to as low as reasonably achievable. Dictated by Noel Hung MD @ 01/27/2022 5:00:28 PM (Electronically Signed)
--- NOTE | 2022-01-27 15:56 | ED_ITS ---
HPI - Abdominal Pain General Chief Complaint: Abdominal Pain Stated Complaint: C Diff/Abdominal Pain Time Seen by Provider: 01/27/22 14:31 History of Present Illness HPI narrative: This 26-year-old female has abdominal pain with diarrhea that is sometimes bloody. This is due to a Clostridium difficile infection that was identified about a week ago. She is currently taking vancomycin orally. She did have a follow-up appointment with [facility] yesterday. She called them this morning stating that her pain was worse. She was advised to come in here for further evaluation and treatment. She does not report any fevers. She feels like she is getting worse despite taking the vancomycin. She arrives with normal vital signs. Related Data Home Medications Medication Instructions Recorded Confirmed No Known Home Medications 01/18/22 01/18/22 Previous Rx's Medication Instructions Recorded hydrocodone 5 mg-acetaminophen 325 1 tab PO Q4-6H PRN pain #15 tabs 01/20/22 mg tablet ondansetron HCl 4 mg tablet 4 mg PO Q6H #20 tabs 01/20/22 vancomycin 125 mg capsule 125 mg PO QID #40 caps 01/20/22 (Vancocin) hydrocodone 5 mg-acetaminophen 325 1 tab PO Q4-6H PRN pain #20 tabs 01/27/22 mg tablet ondansetron 4 mg disintegrating 4 mg PO Q6H #20 tabs 01/27/22 tablet vancomycin 125 mg capsule 125 mg PO QID #40 caps 01/27/22 (Vancocin) Allergies Allergy/AdvReac Type Severity Reaction Status Date / Time ibuprofen Allergy Severe Difficulty Verified 01/27/22 16:46 Breathing naproxen Allergy Intermediate Swelling Verified 01/27/22 16:46 of Lip/Tongue/Throat Review of Systems Status of ROS Reports: 10 or more systems reviewed and unremarkable except as noted in History and below Narrative Constitutional: No fevers, no weight gain or loss. Eyes: No discharge. No vision changes. HENT: No congestion, no sore throat, no ear pain. Cardiovascular: No chest pain, no palpitations. Respiratory: No shortness of breath, no wheezes, no cough. Gastrointestinal: Diffuse abdominal pain. Diarrhea. Genitourinary: No dysuria, no hematuria. Musculoskeletal: Normal range of motion. Skin: No rashes, no pruritis. Neurological: No dizziness, weakness, sensory change, speech change. Endo/Heme/Allergies: No bruising or bleeding. No polydipsia. Pysch: no suicidality, no anxiety, no insomnia. All other systems reviewed and are negative. [facility] Social History Smoking Status: Never smoker How often do you have a drink containing alcohol: monthly or less AUDIT-C Alcohol total score: 1 Non-prescribed substance use: denies use Exam Narrative: Exam Narrative: Constitutional: Well-developed, well-nourished, no acute distress. HEENT: Normocephalic, atraumatic. Neck: Normal range of motion. Nontender. Supple. Heart: Regular. No murmurs. Normal rate. Intact distal pulses. Lungs: Clear to auscultation. No chest discomfort. No wheezes, rhonchi, or rales. Abdomen: Normal bowel sounds. Diffuse abdominal pain. No guarding. No rebound tenderness. Genitalia: Deferred. Back: No midline tenderness. Normal range of motion. Extremities: Normal range of motion. No injury. Skin: Intact. No rash. Warm. No erythema or pallor. Neurologic: No altered sensation. No weakness. Alert and oriented. Psychiatric: No suicidality. No anxiety or depression. No insomnia. Nursing notes and vitals signs are reviewed. Const: Vital Signs, click to edit/add: Vital Signs - 24 hr 01/27/22 13:36 01/27/22 16:51 Temperature 98.7 F Pulse Rate [Pulse Oximeter] 76 79 Respiratory Rate 16 Blood Pressure [Ri ght Upper Arm] 129/80 138/88 Pulse Oximetry 98 99 Oxygen Delivery Me thod Room Air Course Vital Signs Vital signs: Initial Vital Signs Temperature 98.7 F 01/27/22 13:36 Temperature Source Temporal Artery Scan 01/27/22 13:36 Pulse Rate 76 01/27/22 13:36 Pulse Rhythm 01/27/22 13:36 Respiratory Rate 16 01/27/22 13:36 Blood Pressure 129/80 01/27/22 13:36 Blood Pressure Mean 96 01/27/22 13:36 Blood Pressure Position Sitting 01/27/22 13:36 Pulse Oximetry 98 01/27/22 13:36 Vital Signs Temperature 98.7 F 01/27/22 13:36 Pulse Rate 76 01/27/22 13:36 Respiratory Rate 16 01/27/22 13:36 Blood Pressure 129/80 01/27/22 13:36 Pulse Oximetry 98 01/27/22 13:36 Temperature 98.7 F 01/27/22 13:36 Pulse Rate 79 01/27/22 16:51 Respiratory Rate 16 01/27/22 13:36 Blood Pressure 138/88 01/27/22 16:51 Pulse Oximetry 99 01/27/22 16:51 Oxygen Delivery Method 01/27/22 16:51 MDM - Abdominal Pain MDM Narrative Medical decision making narrative: This patient has known Clostridium difficile infection and is currently taking vancomycin orally. She did see a service establishment attendant yesterday. She was instructed to come here because she is feeling more pain. The GI clinic instructed her to come here for further evaluation and treatment. She arrives with normal vital signs. She did state that she feels like people are blowing her off with regard to her symptoms. I reassured her that this is often a difficult infection to treat with prolonged symptoms. I did order a CT scan with IV contrast and took lab studies. These all returned with reassuring findings. The patient did receive an IV dose of metronidazole 500 mg. Additionally a half a mg of Dilaudid was administered. She states that she has 2 days left of her 10 day course of vancomycin. I repeated this prescription for her along with some tablets of [place] and Zofran. She is okay to return home and is instructed to follow-up with her GI clinic. Lab Data Labs: Lab Results 01/27/22 01/27/22 Range/Units 16:15 16:15 WBC 7.03 (4.50-11.00) K/uL RBC 4.29 (4.00-5.20) m/uL Hgb 13.6 (12.0-16.0) gm/dL Hct 38.2 (33.0-51.0) % MCV 89 (80-100) fL MCH 32 (26-34) pg MCHC 36 (32-36) gm/dL RDW Coeff of Ben 11.7 (11.5-15.5) % Plt Count 354 (140-440) K/uL Neut % (Auto) 57.9 (42.0-72.0) % Lymph % (Auto) 32.7 (20-44) % Pettis % (Auto) 5.5 (0.0-11.0) % Eos % (Auto) 3.4 (0.0-7.0) % Baso % (Auto) 0.4 (0.0-3.0) % Neut # (Auto) 4.06 (1.7-7.0) K/uL Lymph # (Auto) 2.30 (0.90-2.90) K/uL Pettis # (Auto) 0.40 (0.00-0.90) K/UL Eos # (Auto) 0.24 (0.00-0.50) K/uL Baso # (Auto) 0.03 (0.00-0.30) K/uL Abs Immat Gran (auto) 0.01 (0.00-0.30) K/uL Sodium 139 (135-149) mmol/L Potassium 3.6 (3.6-5.1) mmol/L Chloride 102 (96-114) mmol/L Carbon Dioxide 26 (20-32) mmol/L BUN 12 (5-24) mg/dL Creatinine 0.6 (0.5-1.5) mg/dL Estimated Creat Clear 136.96 Estimated GFR 126 ml/min Glucose 87 (60-115) mg/dL Calcium 9.8 (8.4-10.6) mg/dL Imaging Data CT scan - abdomen: Radiologist's impression: 1. No significant pericolonic inflammatory changes are identified. 2. Bowel is not obstructed. Normal appendix. Discharge Plan Discharge Clinical Impression: C. difficile colitis Patient Disposition: Home, Self-Care Condition: Stable Prescriptions: New hydrocodone-acetaminophen 5-325 mg tablet 1 tab PO Q4-6H PRN (Reason: pain) Qty: 20 0RF vancomycin [Vancocin] 125 mg capsule 125 mg PO QID Qty: 40 0RF ondansetron 4 mg tablet,disintegrating 4 mg PO Q6H Qty: 20 0RF No Action hydrocodone-acetaminophen 5-325 mg tablet 1 tab PO Q4-6H PRN (Reason: pain) Qty: 15 0RF ondansetron HCl 4 mg tablet 4 mg PO Q6H Qty: 20 0RF vancomycin [Vancocin] 125 mg capsule 125 mg PO QID Qty: 40 0RF No Known Home Medications Follow Up/Referrals: Provider,Not a Local [Primary Care Provider] - Stand [facility]one [facility] Inst[facility]
[2022-01-27 16:31] LABS: Basophils Absolute Auto 0.03 K/uL (0.00-0.30); Basophils Percent Auto 0.4 % (0.0-3.0); Eosinophils Absolute Auto 0.24 K/uL (0.00-0.50); Eosinophils Percent Auto 3.4 % (0.0-7.0); Hematocrit 38.2 % (33.0-51.0); Hemoglobin* 13.6 gm/dL (12.0-16.0); Immature Granulocytes Abs Auto 0.01 K/uL (0.00-0.30); Lymphocytes Percent Auto 32.7 % (20-44); Mean Corpuscular HGB Conc 36 gm/dL (32-36); Mean Corpuscular Hemoglobin 32 pg (26-34); Mean Corpuscular Volume 89 fL (80-100); Monocytes Percent Auto 5.5 % (0.0-11.0); Neutrophils Absolute Auto 4.06 K/uL (1.7-7.0); Neutrophils Percent Auto 57.9 % (42.0-72.0); Platelet Count* 354 K/uL (140-440); RDW Coefficient of Variation % 11.7 % (11.5-15.5); Red Blood Count 4.29 m/uL (4.00-5.20); White Blood Count* 7.03 K/uL (4.50-11.00)
[2022-01-27] MEDS: metroNIDAZOLE 500 MG/100 ML PIGGYBACK IVPB (16:47)
[2022-01-27 16:51] VITALS: BP 138/88; PULSE 79; O2SAT 99
[2022-01-27 16:54] LABS: Chloride* 102 mmol/L (96-114); Sodium* 139 mmol/L (135-149)
[2022-01-27 16:55] LABS: Potassium* 3.6 mmol/L (3.6-5.1)
[2022-01-27 16:57] LABS: Carbon Dioxide* 26 mmol/L (20-32); Creatinine* 0.6 mg/dL (0.5-1.5); Est. Creatinine Clearance* 136.96; Estimated Glomerular Filt Rate 126 ml/min
[2022-01-27 16:58] LABS: Blood Urea Nitrogen* 12 mg/dL (5-24); Calcium* 9.8 mg/dL (8.4-10.6); Glucose* 87 mg/dL (60-115)
[2022-01-27 17:00] LABS: Slide Review Reflex No
[2022-01-27 17:15] VITALS: BP 123/78; PULSE 83; O2SAT 99
[2022-01-27] MEDS: HYDROmorphone 0.5 mg/0.5 ml inj IVP (17:57)
[2022-01-27 18:00] VITALS: BP 129/84; PULSE 79; O2SAT 99
== END 2022-01-27 18:29 | disposition home or self-care (01) ==
PROVIDERS: Emergency Provider Emergency Medicine Emergency Medical Services
DX: R19.7 Diarrhea, unspecified (principal); A04.72 Enterocolitis due to Clostridium difficile, not specified as recurrent
CPT/HCPCS: 36415; 74177; 80048; 85025; 96365; 96366; 96375; 99284; 99285; J1170; Q9967; S0030

== ENCOUNTER 2022-02-07 20:52 | Emergency (ER) | payer MEDICAID, SELFPAY ==
[2022-02-07 21:06] VITALS: BP 127/85; PULSE 75; RESP 18; TEMP 36.9; O2SAT 98; BMI 37.6
--- NOTE | 2022-02-07 21:24 | ED_ITS ---
HPI - Abdominal Pain General Time Seen by Provider: 21:25 Date Seen: 02/07/22 Chief Complaint: Abdominal Pain Stated Complaint: C-diff, back/side pain Time Seen by Provider: 02/07/22 21:24 Source: patient, RN notes reviewed and old records reviewed Mode of arrival: ambulatory Limitations: no limitations History of Present Illness HPI narrative: Akilah is a very pleasant 26-year-old female with a history of IBS and lactose intolerance and recent diagnosis of C diff who comes to the emergency room with increasing abdominal pain and passing blood. Patient notes the onset of passing blood clots and mucus on January 18. This was associated with cramping abdominal pain and she was seen in the ED at which time a CT and blood work was reassuring. Unfortunately she had a stool sample that tested positive for C diff. She had no known exposures to C diff and had not been on any recent antibiotics. On January 20 she started oral vancomycin and did not feel that it made a great impact. On the she was seen in the emergency room and although she heads had decreasing blood in her stool. Stool she had increasing pain. At that point she was running fevers on and off that never exceeded 100.0. A repeat CT was done which was normal and patient tells me her blood work was normal at that time. She received an IV antibiotic that is unknown to her and she was discharged home on 10 more days of oral vancomycin. On January 31 she seemed to have a decreased stools and felt constipated any the even had improvement of her pain to 2/10. However pain began increasing on the and stools beginning to be more loose on the and on the unfortunately she started having blood in her stool once again. She has been in contact with [facility] at this time. On MondayFebruary 04 when she had the onset of the bloody stools she did talk to a GI doctor and they were going to wait and see how things went over the weekend. Today patient has passing more mucus and blood. She has had repeated small amounts of stool that route are rather shape list. She notes that she has not had a fever but she has persistent discomfort in her right lower quadrant. This has always been the site of her discomfort. She notes she also has pain across her low back. Today she has had nausea but no vomiting and she has been able to eat a brat diet. Eduard De Los Santos thought that she should come in and possibly receive IV antibiotics and be admitted. Patient's parents both have Crohn's disease and father has to have IV infusions. Mother also has IBS. A brother has IBS and also has been diagnosed with pre cancel the cancerous colonic lesions. Patient did have a colonoscopy earlier this year and there were no abnormalities including no evidence of Crohn's. Related Data Home Medications Medication Instructions Recorded Confirmed No Known Home Medications 01/18/22 01/18/22 Previous Rx's Medication Instructions Recorded hydrocodone 5 mg-acetaminophen 325 1 tab PO Q4-6H PRN pain #15 tabs 01/20/22 mg tablet ondansetron HCl 4 mg tablet 4 mg PO Q6H #20 tabs 01/20/22 vancomycin 125 mg capsule 125 mg PO QID #40 caps 01/20/22 (Vancocin) hydrocodone 5 mg-acetaminophen 325 1 tab PO Q4-6H PRN pain #20 tabs 01/27/22 mg tablet ondansetron 4 mg disintegrating 4 mg PO Q6H #20 tabs 01/27/22 tablet vancomycin 125 mg capsule 125 mg PO QID #40 caps 01/27/22 (Vancocin) Allergies Allergy/AdvReac Type Severity Reaction Status Date / Time ibuprofen Allergy Severe Difficulty Verified 02/07/22 21:09 Breathing naproxen Allergy Intermediate Swelling Verified 02/07/22 21:09 of Lip/Tongue/Throat Review of Systems Status of ROS Reports: 10 or more systems reviewed and unremarkable except as noted in History and below Const Reports: change in weight (2 lb weight loss); Denies: fever ENMT Denies: throat pain or difficulty swallowing Cardio Denies: chest pain or shortness of breath with exertion Resp Denies: shortness of breath or cough GI Denies: difficulty swallowing Denies: painful urination, urinary frequency or blood in urine Musculo Reports: back pain; Denies: extremity pain Neuro Denies: headache Endo Denies: excessive urination PFSH PFSH Social History Smoking Status: Never smoker How often do you have a drink containing alcohol: monthly or less AUDIT-C Alcohol total score: 1 Non-prescribed substance use: denies use Exam Narrative: Exam Narrative: Patient is alert and oriented. She is bright and nontoxic in appearance. Well spoken. External ears eyes nose clear heart with regular rate and rhythm and lungs are clear bilaterally. Abdomen is soft but she does have some tenderness non rebound in the right lower quadrant right lateral abdomen. No significant CVA tenderness with percussion. Const: Vital Signs, click to edit/add: Vital Signs - 24 hr 02/07/22 21:06 02/07/22 22:30 02/07/22 23:45 Temperature 98.4 F Pulse Rate [Left P ulse Oximeter] 75 78 77 Respiratory Rate 18 18 Blood Pressure [Le ft Upper Arm] 107/75 107/74 Blood Pressure [Ri ght Upper Arm] 127/85 Pulse Oximetry 98 99 99 Oxygen Delivery Me thod Room Air Room Air Room Air 02/07/22 23:30 02/08/22 00:00 02/08/22 00:30 Temperature Pulse Rate [Left P ulse Oximeter] 84 96 81 Respiratory Rate 16 16 Blood Pressure [Le ft Upper Arm] 104/71 100/54 L 102/61 Blood Pressure [Ri ght Upper Arm] Pulse Oximetry 100 97 98 Oxygen Delivery Me thod Room Air Room Air 02/08/22 01:00 Temperature Pulse Rate [Left P ulse Oximeter] 86 Respiratory Rate 16 Blood Pressure [Le ft Upper Arm] 110/72 Blood Pressure [Ri ght Upper Arm] Pulse Oximetry 96 Oxygen Delivery Me thod Room Air Course Course Hospital Course: Patient will have IV placed. She has an allergy to NSAIDs and therefore will give her small dose of morphine 2 mg as well as IV fluids and Zofran. Will check a CBC, comprehensive panel, CRP, ESR as well as urinalysis. At this time will hold off on any more imaging as she has had 2 CTs within the last few weeks. Will also then consult with [facility]. Reevaluation(s) Reevaluation #1: Patient received morphine 2 mg, Zofran 4 mg and 1 L of normal saline. Her laboratory values appear to be within normal limits including CRP and white count. Sed rate is 13. Patient has been unable to produce stool since she has been here. And look at previous CTs showed no abnormalities. In addition there is no evidence of increased inflammatory markers. We have a call into his [facility]. Vital Signs Vital signs: Initial Vital Signs Temperature 98.4 F 02/07/22 21:06 Temperature Source Temporal Artery Scan 02/07/22 21:06 Pulse Rate 75 02/07/22 21:06 Respiratory Rate 18 02/07/22 21:06 Blood Pressure 127/85 02/07/22 21:06 Blood Pressure Mean 99 02/07/22 21:06 Blood Pressure Position Sitting 02/07/22 21:06 Pulse Oximetry 98 02/07/22 21:06 Oxygen Delivery Method 02/07/22 21:06 Vital Signs Temperature 98.4 F 02/07/22 21:06 Pulse Rate 75 02/07/22 21:06 Respiratory Rate 18 02/07/22 21:06 Blood Pressure 127/85 02/07/22 21:06 Pulse Oximetry 98 02/07/22 21:06 Oxygen Delivery Method 02/07/22 21:06 Temperature 98.4 F 02/07/22 21:06 Pulse Rate 86 02/08/22 01:00 Respiratory Rate 16 02/08/22 01:00 Blood Pressure 110/72 02/08/22 01:00 Pulse Oximetry 96 02/08/22 01:00 Oxygen Delivery Method 02/08/22 01:00 MDM - Abdominal Pain MDM Narrative Medical decision making narrative: 1. History of C diff-patient describes predominant symptom of blood and not copious diarrhea. She has had 2- CTs on January 18 and then January 27 without any evidence of a colitis. During that time and including today's visit she has had normal white counts, normal CRP is. Today she also had a negative or normal sed rate. Vital signs have been without tachycardia, hypotension or fever. At this point I think we have to question the validity of the C diff positive test given the fact that patient is not at risk for such illness. She has not used recent antibiotics and has not had exposure to others with C diff. She also had no previous history of C diff. she will continue on her vancomycin but at this point she has been on vancomycin since January 20. 2. Abdominal pain-patient has no evidence of UTI, leukocytosis. Her pain has been consistent and the same since January 20 and there is no evidence of appendicitis or any other abnormality on CT with the exception of diverticulosis. Patient does describe blood in her stools but since she has been in the emergency room for a number of hours she has not been able to produce a stool sample. A rectal exam shows no evidence of bleeding hemorrhoids nor any evidence of blood on rectal exam. Patient has been switched prescribed Ruffin out of the emergency room x2. Because of the normality of patient's vital signs and laboratory values I elected not to pursue a 3rd CT at this time. As we must be sensitive to radiation exposure in a 26-year-old female. 3. Disposition- I did impress upon her the importance of follow-up with primary care or her [facility] physician at the emergency room is not equipped to handle what has now become a subacute issue. She had originally wanted admission as her GI doctor told her she may need to be admitted with IV antibiotics. At this time I find no reason for admission. Certainly this is frustrating for the patient. I did state that I would try to contact her [facility] physician tomorrow and stressed the importance of follow-up with specialty care. Patient may be in need of repeat colonoscopy. We will provide copies of both CTs done here for patient to hand carry with her. Patient can be reached at a personal cell phone at [phone]. 02/08/22 0857 I was able to contact [facility] this morning. I did discuss CT and laboratory findings as well as vital signs. They will reach out to the patient today to bring her in for a clinic appointment. I do believe that this is the best course of action as laboratory values and CT do not correspond with C diff infection. Patient has been on oral vancomycin since January 20. I did place a call to the patient so that she knows to expect some sort of communication from [facility]. Medical Records Attestation: I reviewed the patient's medical records. Lab Data Attestation: I reviewed the patient's lab results. Labs: Lab Results 02/07/22 02/07/22 02/07/22 Range/Units 22:15 22:15 22:15 WBC 9.09 (4.50-11.00) K/uL RBC 4.09 (4.00-5.20) m/uL Hgb 12.9 (12.0-16.0) gm/dL Hct 36.3 (33.0-51.0) % MCV 89 (80-100) fL MCH 32 (26-34) pg MCHC 36 (32-36) gm/dL RDW Coeff of Ben 11.6 (11.5-15.5) % Plt Count 330 (140-440) K/uL Neut % (Auto) 60.0 (42.0-72.0) % Lymph % (Auto) 31.4 (20-44) % Sierra % (Auto) 5.9 (0.0-11.0) % Eos % (Auto) 1.9 (0.0-7.0) % Baso % (Auto) 0.2 (0.0-3.0) % Neut # (Auto) 5.46 (1.7-7.0) K/uL Lymph # (Auto) 2.85 (0.90-2.90) K/uL Sierra # (Auto) 0.50 (0.00-0.90) K/UL Eos # (Auto) 0.17 (0.00-0.50) K/uL Baso # (Auto) 0.02 (0.00-0.30) K/uL Abs Immat Gran (auto) 0.05 (0.00-0.30) K/uL ESR 13 (2-20) mm/hr Sodium 139 (135-149) mmol/L Potassium 3.9 (3.6-5.1) mmol/L Chloride 103 (96-114) mmol/L Carbon Dioxide 23 (20-32) mmol/L BUN 13 (5-24) mg/dL Creatinine 0.6 (0.5-1.5) mg/dL Estimated Creat Clear 136.96 Estimated GFR 126 ml/min Glucose 86 (60-115) mg/dL Calcium 9.4 (8.4-10.6) mg/dL Total Bilirubin 0.7 (0.1-1.5) mg/dL AST 24 (12-35) U/L ALT 28 (4-35) U/L Alkaline Phosphatase 74 (40-150) U/L C-Reactive Protein < 0.5 L (0.5-1.0) mg/dL Total Protein 7.5 (6.0-8.3) g/dL Albumin 4.8 (3.3-5.0) g/dL Amylase 65 (18-89) U/L Lipase 55 (23-300) U/L Urine Color (Yellow) Urine Appearance (Clear) Urine pH (5.0-8.5) Ur Specific [place] (1.000-1.030) Urine Protein (Negative) Urine Glucose (UA) (Negative) Urine Ketones (Negative) Urine Blood (Negative) Urine Nitrite (Negative) Urine Bilirubin (Negative) Urine Urobilinogen (0.2-1.0) Ur Leukocyte Esterase (Negative) Urine RBC (0-2) Urine WBC (0-5) Ur Squamous Epith Cells (None-Few) Urine Bacteria (None) 02/07/22 Range/Units 22:40 WBC (4.50-11.00) K/uL RBC (4.00-5.20) m/uL Hgb (12.0-16.0) gm/dL Hct (33.0-51.0) % MCV (80-100) fL MCH (26-34) pg MCHC (32-36) gm/dL RDW Coeff of Ben (11.5-15.5) % Plt Count (140-440) K/uL Neut % (Auto) (42.0-72.0) % Lymph % (Auto) (20-44) % Sierra % (Auto) (0.0-11.0) % Eos % (Auto) (0.0-7.0) % Baso % (Auto) (0.0-3.0) % Neut # (Auto) (1.7-7.0) K/uL Lymph # (Auto) (0.90-2.90) K/uL Sierra # (Auto) (0.00-0.90) K/UL Eos # (Auto) (0.00-0.50) K/uL Baso # (Auto) (0.00-0.30) K/uL Abs Immat Gran (auto) (0.00-0.30) K/uL ESR (2-20) mm/hr Sodium (135-149) mmol/L Potassium (3.6-5.1) mmol/L Chloride (96-114) mmol/L Carbon Dioxide (20-32) mmol/L BUN (5-24) mg/dL Creatinine (0.5-1.5) mg/dL Estimated Creat Clear Estimated GFR ml/min Glucose (60-115) mg/dL Calcium (8.4-10.6) mg/dL Total Bilirubin (0.1-1.5) mg/dL AST (12-35) U/L ALT (4-35) U/L Alkaline Phosphatase (40-150) U/L C-Reactive Protein (0.5-1.0) mg/dL Total Protein (6.0-8.3) g/dL Albumin (3.3-5.0) g/dL Amylase (18-89) U/L Lipase (23-300) U/L Urine Color Yellow (Yellow) Urine Appearance Slightly Cloudy A (Clear) Urine pH 7.0 (5.0-8.5) Ur Specific [place] >= 1.030 (1.000-1.030) Urine Protein Negative (Negative) Urine Glucose (UA) Negative (Negative) Urine Ketones Trace A (Negative) Urine Blood Trace-intact A (Negative) Urine Nitrite Negative (Negative) Urine Bilirubin Negative (Negative) Urine Urobilinogen 0.2 (0.2-1.0) Ur Leukocyte Esterase Negative (Negative) Urine RBC 2-5 A (0-2) Urine WBC 0-2 (0-5) Ur Squamous Epith Cells Few (None-Few) Urine Bacteria None (None) Discharge Plan Discharge Clinical Impression: History of Clostridium difficile infection, Abdominal pain Patient Disposition: Home, Self-Care Condition: Improved Additional Instructions: Push fluids. Tylenol as needed. Await phone call from [facility]. I will attempt to arrange follow-up for you with your specialist. If we cannot do that we will have you start seen 1 of the primary care physician's at the [facility]. Prescriptions: No Action hydrocodone-acetaminophen 5-325 mg tablet 1 tab PO Q4-6H PRN (Reason: pain) Qty: 15 0RF ondansetron HCl 4 mg tablet 4 mg PO Q6H Qty: 20 0RF vancomycin [Vancocin] 125 mg capsule 125 mg PO QID Qty: 40 0RF No Known Home Medications hydrocodone-acetaminophen 5-325 mg tablet 1 tab PO Q4-6H PRN (Reason: pain) Qty: 20 0RF vancomycin [Vancocin] 125 mg capsule 125 mg PO QID Qty: 40 0RF ondansetron 4 mg tablet,disintegrating 4 mg PO Q6H Qty: 20 0RF Follow Up/Referrals: Provider,Not a Local [Primary Care Provider] - Stand Alone Forms: [facility] Info Instructions
--- OUTSIDE RECORDS SUMMARY | 2022-02-07 21:56 | XMS_ITS | Encounter Summary ---
:1995 Author Organization [facility] Address [address] [place] [address] Care Team Providers Name Role Phone No Ref-Primary, Physician Primary Care Provider [phone] Kari Bingham MD Unavailable [phone] Encounter Details Date Type Department Care Team [...] with No / Unsure 04/20/2020 3:05 PM ADMISSIONS DEAN someone who was confirmed or suspected to have Coronavirus / COVID-19? documented as of this encounter Plan of Treatment Not on filedocumented as of this encounter Visit Diagnoses Not on filedocumented in this encounter Care Teams Fishing Rod Marker Relationship Specialty Start Date End Date No Ref-Primary, Physician PCP - General 10/12/17 11/01/20 Kari Bingham MD MD Ophthalmology 04/15/[address] [address] documented as of this encounter
--- OUTSIDE RECORDS SUMMARY | 2022-02-07 21:56 | XMS_ITS | Encounter Summary ---
:1995 Author Organization [facility] Address [address] [place] [address] Care Team Providers Name Role Phone No Ref-Primary, Physician Primary Care Provider [phone] Kari Bingham MD Unavailable [phone] Kari Bingham MD Unavailable [phone] Joel Lin MD Unavailable Encounter Details Date Type Department Care Team Description 01/25/2018 Records - [facility] CONVERSION Provider, Historica l Social History [...] with No / Unsure 04/20/2020 3:05 PM JAVA SECURITY ARCHITECT someone who was confirmed or suspected to have Coronavirus / COVID-19? documented as of this encounter Plan of Treatment Not on filedocumented as of this encounter Visit Diagnoses Not on filedocumented in this encounter Care Teams Animal Caretaker Relationship Specialty Start Date End Date No Ref-Primary, Physician PCP - General 10/12/17 11/01/20 Kari Bingham MD Ophthalmology 04/15/20 MD Ruth [address] [facility] [address] [place] [address] Kari Bingham Assigned Surgical Provider 10/22/21 MD Ruth [address] [facility] [address] [place] [address] Joel Lin MD Assigned PCP 09/23/20 11/21/[address] [place] [id number] documented as of this encounter
--- OUTSIDE RECORDS SUMMARY | 2022-02-07 21:56 | XMS_ITS | Encounter Summary ---
:1995 Author Organization [facility] Address [address] [place] [address] Care Team Providers Name Role Phone No Ref-Primary, Physician Primary Care Provider [phone] Kari Bingham MD Unavailable [phone] Kari Bingham MD Unavailable [phone] Ernst Lopez MD Primary Care Provider Reason for Visit Reason Comments Treatment Plan Encounter Details Date Type Department Care Team Description 08/03/2017 Ambulatory - [facility] Maureen Medley, [facility] & CLOUD ENGAGEMENT PARTNER Addiction [facility] [address] [place] [id number] [place] [address] [phone] (Work) [phone] Social History Tobacco Use Types Packs/Day Years Used Date Smoking Tobacco: Never Smokeless Tobacco: Never Alcohol Use Standard Drinks/Week Comments No 0 (1 standard drink = 0.6 oz pure alcoho l) Sex Assigned at Date Recorded Not on file COVID-19 Exposure Response Date Recorded In the last month, have you been in contact with No / Unsure 04/20/2020 3:05 PM PANEL INSTALLER someone who was confirmed or suspected to [...] old, female. She does not identify as druze or spiritual. She learned to be kind [...] on filedocumented in this encounter Care Teams Track Patrol Relationship Specialty Start Date End Date No Ref-Primary, PCP - General 10/12/17 11/01/20 Physician Ernst Lopez MD PCP - General Family Practice 06/23/17 10/11/17 Kari Bingham MD Ophthalmology 04/15/20 MD Ruth [address] [place] [phone] Kari Bingham Assigned Surgical 04/26/20 MD Ruth Provider [address] [place] [phone] documented as of this encounter
--- OUTSIDE RECORDS SUMMARY | 2022-02-07 21:56 | XMS_ITS | Encounter Summary ---
:1995 Author Organization [facility] Address [address] [place] [address]. [place] [address] Care Team Providers Name Role Phone No Ref-Primary, Physician Primary Care Provider [phone] Reason for Visit Auth/Cert Specialty Diagnoses / Procedures Referred By Contact Refer red To Contact Surgery Diagnoses INCREASING PELVIC PAIN Sh Periop Services Procedures LAPAROSCOPY OPERATIVE ADULT, OPERATIVE HYSTEROSCOPY WITH MORCELLATOR (MABRY & NEPHEW), REMOVE INTRAUTERINE DEVICE, INSERT INTRAUTERINE DEVICE [address], [address] [place] [address] Phone: Referral ID Status Reason Start Date Expiration Date Visits Requ ested Visits Authorized [id number] 1 1 Encounter Details Date Type Department Care Team Description 10/12/2017 Anesthesia Event M [facility] Elisha Fitzpatrick MD [place] [facility] [address], [address] ANESTHES IOLOGY [address] [place] [address] [place] [address] [phone] (Wo rk) Anesthesia Record Procedure Summary Procedure [...] Glo Mcclure Dinero, Diana Ease of Intubation: MANAGER MAC WELL SERVICE DERRICK WORKER ORLIN Thomson WELL SERVICE DERRICK WORKER Easy; Airway Size: 7; Cuffed; Oral; Blade [...] 6:45 AM CDT Procedure: Procedure(s): LAPAROSCOPY DIAGNOSTIC (COPIER FIELD SERVICE TECHNICIAN) LAPAROSCOPIC ABLATION ENDOMETRIOSIS Preop diagnosis: INCREASING PELVIC [...] Intrauterine route once Reported, Patient No current [facility]-ordered facility-administered medications on file. Current Outpatient Prescriptions Ordered in [facility] Medication ??? paragard intrauterine copper Wt [...] Care Transfer Note - Glo Mcclure APRN WELL SERVICE DERRICK WORKER - 10/12/2017 10:01 AM CDT Patient: Akilah [...] (Last set prior to Anesthesia Care Transfer) WELL SERVICE DERRICK WORKER VITALS 10/12/2017 0925 - 10/12/2017 1001 10/12/2017 Pulse: 83 SpO2: 97 % Resp Rate (observed): (!) 4 Electronically Signed By: Glo Mcclure APRN WELL SERVICE DERRICK WORKER October 12, 2017 10:01 AM documented in [...] Intra-op documented in this encounter Care Teams Inspector Rubber Stamp Die Relationship Specialty Start Date End Date No Ref-Primary, Physician PCP - General 10/12/17 11/01/20 documented as of this encounter
--- OUTSIDE RECORDS SUMMARY | 2022-02-07 21:56 | XMS_ITS | Encounter Summary ---
:1995 Author Organization [facility] Address [address] [place] [address] Care Team Providers Name Role Phone No Ref-Primary, Physician Primary Care Provider [phone] Kari Bingham MD Unavailable [phone] Reason for Visit Reason Comments Central Retinal Vein Occlusion Follow Up Encounter Details Date Type Department Care Team Description 04/20/2020 Office Visit [facility] Eye DOREEN Bingham ( central [facility] [place] Kari Miranda, retinal vein Patrice Ramos MD occlusion) [address] [place] [id number] [facility] [address] [place] [id number] [phone] Social History Tobacco Use Types Packs/Day Years Used Date Smoking Tobacco: Never Smokeless Tobacco: Never Alcohol Use Standard Drinks/Week Comments No 0 (1 standard drink = 0.6 oz pure alcoho l) Sex Assigned at Date Recorded Not on file COVID-19 Exposure Response Date Recorded In the last month, have you been in contact with No / Unsure 04/20/2020 3:05 PM PHYSIOLOGICAL CHEMIST someone who was confirmed or suspected to [...] Kari Bingham MD PhD. 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 The floaters have been present for a long time, but the flashes about a month. Sanket Molina COT 3:17 PM April 20, 2020 IOLOGICAL CHEMIST documented in this encounter Plan of Treatment Not on filedocumented as of this encounter Procedures Procedure Name Priority Date/Time Associated Comments Diagnosis OCT RETINA Routine 04/20/2020 3:43 PM CRVO (central Results for this SPECTRALIS OU (BOTH PHYSIOLOGICAL CHEMIST retinal vein procedur e are in EYE) occlusion) the results section. documented in this encounter Results OCT Retina Spectralis OU (both eyes) (04/20/2020 3:43 PM PHYSIOLOGICAL CHEMIST) Narrative Kari Bingham MD - 02/2021 3:43 PM PHYSIOLOGICAL CHEMIST Performed by: njo . Patient cooperation: Reliable [...] retina documented in this encounter Care Teams Cuff Stitcher Relationship Specialty Start Date End Date No Ref-Primary, Physician PCP - General 10/12/17 11/01/20 Kari Bingham MD MD Ophthalmology 04/15/[address] [place] [address] [address] [place], [place] [address] documented as of this encounter
--- OUTSIDE RECORDS SUMMARY | 2022-02-07 21:56 | XMS_ITS | Encounter Summary ---
:1995 Author Organization [place] Address [address] [place] [address] Care Team Providers Name Role Phone No Ref-Primary, Physician Primary Care Provider [phone] Kari Bingham MD Unavailable [phone] Kari Bingham MD Unavailable [phone] Reason for Visit Reason Comments Hemorrhoids Encounter Details Date Type Department Care Team Description 01/23/2018 Communication - [facility] Centralized Provider, Hemo rrhoids [facility] Scheduling Historical [facility] [place] [address] Social History Tobacco Use Types Packs/Day Years Used Date Smoking Tobacco: Never Smokeless Tobacco: Never Alcohol Use Standard Drinks/Week Comments No 0 (1 standard drink = 0.6 oz pure alcoho l) Sex Assigned at Date Recorded Not on file COVID-19 Exposure Response Date Recorded In the last month, have you been in contact with No / Unsure 04/20/2020 3:05 PM EMBOSSOGRAPH OPERATOR someone who was confirmed or suspected to have Coronavirus / COVID-19? documented as of this encounter Plan of Treatment Not on filedocumented as of this encounter Visit Diagnoses Not on filedocumented in this encounter Care Teams Front Desk Administrator Relationship Specialty Start Date End Date No Ref-Primary, Physician PCP - General 10/12/17 11/01/20 Kari Bingham MD Ophthalmology 04/15/20 MD Ruth [address] [place] [address] [address] Kari Bingham Assigned Surgical Provider 10/22/21 MD Ruth [address] [place] [address] documented as of this encounter
--- OUTSIDE RECORDS SUMMARY | 2022-02-07 21:56 | XMS_ITS | Encounter Summary ---
:1995 Author Organization [place] Address [address] [place] [address] Care Team Providers Name Role Phone No Ref-Primary, Physician Primary Care Provider [phone] Kari Bingham MD Unavailable [phone] Kari Bingham MD Unavailable [phone] Ernst Lopez MD Primary Care Provider Reason for Visit Reason Comments Follow Up Patient presented for follow up psychotherapy appointment to address symptoms of depression, anxi ety and binge eating. Encounter Details Date Type Department Care Team Description [facility] of [facility] Mental Health & A, [facility] Binge eating disorder Addiction [address] [place] [phone] Social History Tobacco Use Types Packs/Day Years Used Date Smoking Tobacco: Never Smokeless Tobacco: Never Alcohol Use Standard Drinks/Week Comments No 0 (1 standard drink = 0.6 oz pure alcoho l) Sex Assigned at Date Recorded Not on file COVID-19 Exposure Response Date Recorded In the last month, have you been in contact with No / Unsure 04/20/2020 3:05 PM SENIOR SQL SERVER DEVELOPER someone who was confirmed or suspected [...] practices to help manage anxiety. Review of detention goals: Not done at today's visit. Plan [...] disorder documented in this encounter Care Teams Collar Tailor Relationship Specialty Start Date End Date No Ref-Primary, PCP - General 10/12/17 11/01/20 Physician Ernst Lopez MD PCP - General Family Practice 06/23/17 10/11/17 Kari Bingham MD Ophthalmology 04/15/20 MD Ruth [address] [place] [address] Kari Bingham Assigned Surgical 04/26/20 MD Ruth Provider [address] [address] documented as of this encounter
--- OUTSIDE RECORDS SUMMARY | 2022-02-07 21:56 | XMS_ITS | Encounter Summary ---
:1995 Author Organization [place] Address [address] [place] [address] Care Team Providers Name Role Phone No Ref-Primary, Physician Primary Care Provider [phone] Reason for Visit Auth/Cert Specialty Diagnoses / Procedures Referred By Contact Refer red To Contact Surgery Diagnoses INCREASING PELVIC PAIN Sh Periop Services Procedures LAPAROSCOPY OPERATIVE ADULT, OPERATIVE HYSTEROSCOPY WITH MORCELLATOR (MABRY & NEPHEW), REMOVE INTRAUTERINE DEVICE, INSERT INTRAUTERINE DEVICE [address] [place] [address] Phone: Referral ID Status Reason Start Date Expiration Date Visits Requ ested Visits Authorized [id number] 1 1 Encounter Details Date Type Department Care Team Description 10/12/2017 Hospital Encounter [facility] Czerniecki, Dysm enorrhea (Primary [place] Phase II Brian Pinto Dx) [address] MD [place], [place] RETIRED [address] Social History Tobacco Use [...] know so they can address your concerns. [facility] D&C OR Laparoscopy Discharge Instructions ACTIVITY: You [...] M.D. Vannessa Harris M.D. Barbra Hernandez M.D. [facility] [address] [facility] [address] [facility] [address] [place] [address] [place] [address] (Telephone) [phone] (Telephone) [facility] If you have questions or concerns about your procedure, Call Dr. Ritter at [phone] Today you received Ibuprofen 800mg at 11:20am. [...] MD MT: NTS Name: AKILAH CLINE Account: [id number] : 1995 Procedure Date: 10/12/2017 Document: [id number] documented in this encounter Plan of Treatment [...] Quantitative <1 0 - 5 IU/L 10/12/2017 [place] Serum 8:48 AM CDT [facility] Specimen Anatomical Collection Method Collection Time Receive d Time (Source) Location / / Volume Laterality Blood specimen 10/12/2017 8:20 AM 018 8:24 (specimen) CDT AM CDT Brian Ritter MD LAB - BLOOD ORDERA BLES Performing Organization Address City/State/ZIP Code Phon e Number M [facility] [address] [place] [address] [phone] [facility] [address] [place] [address], [place] [phone] documented in this encounter Visit Diagnoses Diagnosis [...]
PACU documented in this encounter Care Teams Logging Engineer Relationship Specialty Start Date End Date No Ref-Primary, Physician PCP - General 10/12/17 11/01/20 documented as of this encounter
--- OUTSIDE RECORDS SUMMARY | 2022-02-07 21:56 | XMS_ITS | Encounter Summary ---
:1995 Author Organization [place] Address [address] [place] [address] Care Team Providers Name Role Phone No Ref-Primary, Physician Primary Care Provider [phone] Kari Bingham MD Unavailable [phone] Kari Bingham MD Unavailable [phone] Encounter Details Date Type Department Care Team Description 11/15/2017 [facility] Provider, Constantino [...] with No / Unsure 04/20/2020 3:05 PM PARTY COORDINATOR someone who was confirmed or suspected to have Coronavirus / COVID-19? documented as of this encounter Plan of Treatment Not on filedocumented as of this encounter Visit Diagnoses Not on filedocumented in this encounter Care Teams Aromatherapist Relationship Specialty Start Date End Date No Ref-Primary, Physician PCP - General 10/12/17 11/01/20 Kari Bingham MD Ophthalmology 04/15/20 MD Ruth [address] [facility] [address] [place], [place] [address] Kari Bingham Assigned Surgical Provider 10/22/21 MD Ruth [address] [address] documented as of this encounter
--- OUTSIDE RECORDS SUMMARY | 2022-02-07 21:56 | XMS_ITS | Encounter Summary ---
:1995 Author Organization [place] Address [address] [place] [address] Care Team Providers Name Role Phone No Ref-Primary, Physician Primary Care Provider [phone] Kari Bingham MD Unavailable [phone] Kari Bingham MD Unavailable [phone] Joel Lin MD Unavailable Encounter Details Date Type Department Care Team Description 01/22/2018 Records - [facility] CONVERSION Provider, Historica l Social History Tobacco [...] with No / Unsure 04/20/2020 3:05 PM BOX CAR LOADER someone who was confirmed or suspected to have Coronavirus / COVID-19? documented as of this encounter Plan of Treatment Not on filedocumented as of this encounter Visit Diagnoses Not on filedocumented in this encounter Care Teams Forecast Analyst Relationship Specialty Start Date End Date No Ref-Primary, Physician PCP - General 10/12/17 11/01/20 Kari Bingham MD Ophthalmology 04/15/20 MD Ruth 420 [facility] [address] [place] [address] Kari Bingham Assigned Surgical Provider 10/22/21 MD Ruth 420 [facility] [address] [place] [address] Joel Lin MD Assigned PCP 09/23/20 11/21/[address] [place] [id number] documented as of this encounter
--- OUTSIDE RECORDS SUMMARY | 2022-02-07 21:56 | XMS_ITS | Encounter Summary ---
:1995 Author Organization [place] Address [address] [place] [address] Care Team Providers Name Role Phone No Ref-Primary, Physician Primary Care Provider [phone] Kari Bingham MD Unavailable [phone] Kari Bingham MD Unavailable [phone] Ernst Lopez MD Primary Care Provider Reason for Visit Reason Comments Follow Up Patient presented for initia l follow up psychotherapy appointment to address symptoms of depressi on, eating disorder, anxiety . Encounter Details Date Type Department Care Team Description 08/03/2017 [facility] of [facility] (H); [facility] Mental Health & A, [facility] Binge eating disorder Addiction [facility] [address] [place] [address] [address] [place] [phone] Social History Tobacco Use Types Packs/Day Years Used Date Smoking Tobacco: Never Smokeless Tobacco: Never Alcohol Use Standard Drinks/Week Comments No 0 (1 standard drink = 0.6 oz pure alcoho l) Sex Assigned at Date Recorded Not on file COVID-19 Exposure Response Date Recorded In the last month, have you been in contact with No / Unsure 04/20/2020 3:05 PM REPAIRER SCREEN CRUSHER someone who was confirmed or suspected to [...] relationship and goals for treatment. Review of terminal operations supervisor goals: Treatment Plan updated. Plan Effective 08/03/2017-11/02/2017 [...] disorder documented in this encounter Care Teams Steel Post Installer Relationship Specialty Start Date End Date No Ref-Primary, PCP - General 10/12/17 11/01/20 Physician Ernst Lopez MD PCP - General Family Practice 06/23/17 10/11/17 Kari Bingham MD Ophthalmology 04/15/20 MD Ruth [address] [place] [address] Kari Bingham Assigned Surgical 04/26/20 MD Ruth Provider [address] [phone] documented as of this encounter
--- OUTSIDE RECORDS SUMMARY | 2022-02-07 21:56 | XMS_ITS | Encounter Summary ---
:1995 Author Organization [place] Address [address] [place] [address]. [place] [address] Care Team Providers Name Role Phone No Ref-Primary, Physician Primary Care Provider [phone] Reason for Visit Auth/Cert Specialty Diagnoses / Procedures Referred By Contact Refer red To Contact Surgery Diagnoses INCREASING PELVIC PAIN Sh Periop Services Procedures LAPAROSCOPY OPERATIVE ADULT, OPERATIVE HYSTEROSCOPY WITH MORCELLATOR (MABRY & NEPHEW), REMOVE INTRAUTERINE DEVICE, INSERT INTRAUTERINE DEVICE [address] [place] [address] Phone: Referral ID Status Reason Start Date Expiration Date Visits Requ ested Visits Authorized [id number] 1 1 Encounter Details Date Type Department Care Team Description 10/12/2017 Surgery [facility] Brian Ritter DIAGN OSTIC LAPAROSCOPY [place] Peri Blair Ding MD Services RETIRED [address] [place] [address] Surgery Details Date/Time Status Location [...] know so they can address your concerns. [facility] D&C OR Laparoscopy Discharge Instructions ACTIVITY: You [...] M.D. Vannessa Harriseler, M.D. Barbra Hernandez M.D. [facility] 9550 [facility] [address] [facility] [address] [place] [address] (Telephone) [phone] (Telephone) [facility] If you have questions or concerns about your procedure, Call Dr. Ritter at [phone] Today you received Ibuprofen 800mg at 11:20am. [...] BRIAN RITTER MD MT: NTS Name: AKILAH MILLS Account: [id number] : 1995 Procedure Date: 10/12/2017 Document: [id number] documented in this encounter Plan of Treatment [...] Quantitative <1 0 - 5 IU/L 10/12/2017 [place] Serum 8:[address] [facility] Specimen Anatomical Collection Method Collection Time Receive d Time (Source) Location / / Volume Laterality Blood specimen 10/12/2017 8:20 AM 018 8:24 (specimen) CDT AM CDT Brian Ritter MD LAB - BLOOD ORDERA BLES Performing Organization Address City/State/ZIP Code Phon e Number M [facility] [address] [place] [address] [phone] [facility] [address] [place] [address], [facility] [phone] documented in this encounter Visit Diagnoses Not [...] on [place] 10/12/17 at 1015, Until [place] 718 at 1432 PRE OP antibiotics NOT needed for this surgical procedure (CANCE LED) 0912 (Given - Provider: Glo Rutledge APRN VOCATIONAL HORTICULTURE INSTRUCTOR) CONTINUOUS, Starting [place] 10/12/17 at 0815, Until [...]
PACU documented in this encounter Care Teams Customer Account Administrator Relationship Specialty Start Date End Date No Ref-Primary, Physician PCP - General 10/12/17 11/01/20 documented as of this encounter
--- OUTSIDE RECORDS SUMMARY | 2022-02-07 21:56 | XMS_ITS | Encounter Summary ---
:1995 Author Organization [place] Address [address] [place] [address] Care Team Providers Name Role Phone No Ref-Primary, Physician Primary Care Provider [phone] Reason for Visit Reason Comments Follow Up 6 month follow up non ischem ic Central Retinal Vein Occlusion OS Encounter Details Date Type Department Care Team Description 11/29/[address] [facility] Eye DOREEN Bingham ( [facility] Kari Miranda, retinal vein Patrice Ramos MD occlusion) (Primary Building [address] [facility] Dx) [address] [facility] [address] [place] [phone] Social History Tobacco Use Types Packs/Day Years [...] retina documented in this encounter Care Teams Automobile Bumper Straightener Relationship Specialty Start Date End Date No Ref-Primary, Physician PCP - General 10/12/17 11/01/20 documented as of this encounter
--- OUTSIDE RECORDS SUMMARY | 2022-02-07 21:56 | XMS_ITS | Encounter Summary ---
:1995 Author Organization [place] Address [address] [place] [address] Care Team Providers Name Role Phone Kari Bingham MD Unavailable [phone] Salvatore Jerry MD Primary Care Provider [phone] Encounter Details Date Type Department Care Team [...] on filedocumented in this encounter Care Teams Director Of Veterans Affairs Relationship Specialty Start Date End Date Salvatore Jerry MD PCP - General 11/02/20 Kari Bingham MD MD Ophthalmology 04/15/[address] [place] [address] [address] [place], [place] [phone] documented as of this encounter
--- OUTSIDE RECORDS SUMMARY | 2022-02-07 21:56 | XMS_ITS | Encounter Summary ---
:1995 Author Organization [place] Address [address] [place] [address] Care Team Providers Name Role Phone No Ref-Primary, Physician Primary Care Provider [phone] Kari Bingham MD Unavailable [phone] Kari Bingham MD Unavailable [phone] Reason for Visit Reason Comments Other other; issues after bowel mo vements Encounter Details Date Type Department Care Team Description 11/15/2017 Office Visit - [facility] Joel Lin ids, internal; [facility] Moi Yanez MD [address] [address] [phone] Social History Tobacco Use Types Packs/Day Years Used Date Smoking Tobacco: Never Smokeless Tobacco: Never Alcohol Use Standard Drinks/Week Comments No 0 (1 standard drink = 0.6 oz pure alcoho l) Sex Assigned at Date Recorded Not on file COVID-19 Exposure Response Date Recorded In the last month, have you been in contact with No / Unsure 04/20/2020 3:05 PM PLANT WORKER someone who was confirmed or [...] or performed in visit on 06/23/17 Thyroid [place] Result Value Ref Range TSH 1.44 0.30 [...] as outlined above Plan: As noted This stud dairy cattle farmer uses voice recognition software, which may contain typographical errors. documented in this encounter Plan of Treatment Not on filedocumented as of this encounter Visit Diagnoses Diagnosis Hemorrhoids, internal Internal hemorrhoids without mention of complication Constipation Unspecified constipation documented in this encounter Care Teams Account Management Assistant Relationship Specialty Start Date End Date No Ref-Primary, Physician PCP - General 10/12/17 11/01/20 Kari Bingham MD Ophthalmology 04/15/20 MD Ruth [address] [place] [address] Kari Bingham Assigned Surgical Provider 10/22/21 MD Ruth [address] [place] [phone] documented as of this encounter
--- OUTSIDE RECORDS SUMMARY | 2022-02-07 21:56 | XMS_ITS | Encounter Summary ---
:1995 Author Organization [place] Address [address] [place] [address] Care Team Providers Name Role Phone Kari Bingham MD Unavailable [phone] Kari Bingham MD Unavailable [phone] Joel Lin MD Unavailable Salvatore Jerry MD Primary Care Provider [phone] Encounter Details Date Type Department Care Team [...] on filedocumented in this encounter Care Teams Public Safety Director Relationship Specialty Start Date End Date Salvatore Jerry MD PCP - General 11/02/20 Kari Bingham MD Ophthalmology 04/15/20 MD Ruth 420 [facility] [address] [place] [address] Kari Bingham Assigned Surgical Provider 10/22/21 MD Ruth 420 [facility] [address] [place], [place] [address] Joel Lin MD Assigned PCP 09/23/20 11/21/[address] [place] [address] documented as of this encounter
--- OUTSIDE RECORDS SUMMARY | 2022-02-07 21:57 | XMS_ITS | Encounter Summary ---
:1995 Author Organization [place] Address [address] [place] [address] Care Team Providers Name Role Phone Denny Thomas MD Primary Care Provider Unavailable Destiny Elizondo Primary Care Provider No Ref-Primary, Physician Primary Care Provider [phone] Kari Bingham MD Unavailable [phone] Kari Bingham MD Unavailable [phone] Ernst Lopez MD Primary Care Provider Encounter Details Date Type Department Care Team Description 08/26/2014 [facility], [facility] Provider, [facility] Information Management [address] [place] [address] Social History Tobacco Use Types Packs/Day Years Used Date Smoking Tobacco: Never Assessed Sex Assigned at Date Recorded Not on file COVID-19 Exposure Response Date Recorded In the last month, have you been in contact with No / Unsure 04/20/2020 3:05 PM DIRECTOR MEDICAL ECONOMICS someone who was confirmed or suspected to have Coronavirus / COVID-19? documented as of this encounter Plan of Treatment Not on filedocumented as of this encounter Visit Diagnoses Not on filedocumented in this encounter Care Teams Neuropsychology Director Relationship Specialty Start Date End Date Denny Thomas MD PCP - General 10/22/14 02/07/16 Destiny Elizondo PCP - General 02/08/16 06/22/17 [facility] [address] [place] [address] [place] [id number] No Ref-Primary, PCP - General 10/12/17 11/01/20 Physician Ernst Lopez MD PCP - General Family Practice 06/23/17 10/11/17 Kari Bingham MD Ophthalmology 04/15/20 MD Ruth [address] [place] [address] Kari Bingham Assigned Surgical 04/26/20 MD Ruth Provider [address] [place] [address] documented as of this encounter
--- OUTSIDE RECORDS SUMMARY | 2022-02-07 21:57 | XMS_ITS | Encounter Summary ---
:1995 Author Organization [place] Address [address] [place] [address]. [place] [address] Care Team Providers Name Role Phone Destiny Elizondo Primary Care Provider Reason for Visit Reason Comments Consult For Central Retinal Vein Occlusi on OS Encounter Details Date Type Department Care Team Description 02/11/2016 Office Visit [facility] Eye Gee Christopher MD Subjective visual disturbance (Primary D x); Clinic - [address] Left optic neuropathy; Patrice Ramos [place] CRVO (central retinal vein occlusion) - Left Eye Building [address] [place] [address] [facility] Clin 9A (Work) [place] [address] Social History Tobacco Use Types [...] retina documented in this encounter Care Teams Biofuels Product Manager Relationship Specialty Start Date End Date Destiny Elizondo PCP - General 02/08/16 06/22/17 [facility] [address] [facility] [place] [address] documented as of this encounter
--- OUTSIDE RECORDS SUMMARY | 2022-02-07 21:57 | XMS_ITS | Encounter Summary ---
:1995 Author Organization [place] Address [address] [place] [address] Care Team Providers Name Role Phone No Ref-Primary, Physician Primary Care Provider [phone] Kari Bingham MD Unavailable [phone] Kari Bingham MD Unavailable [phone] Ernst Lopez MD Primary Care Provider Encounter Details Date Type Department Care Team Description 06/26/2017 [facility] Ernst Lopez, [facility] [address] [address] [phone] Social History Tobacco Use Types Packs/Day Years Used Date Smoking Tobacco: Never Smokeless Tobacco: Never Alcohol Use Standard Drinks/Week Comments No 0 (1 standard drink = 0.6 oz pure alcoho l) Sex Assigned at Date Recorded Not on file COVID-19 Exposure Response Date Recorded In the last month, have you been in contact with No / Unsure 04/20/2020 3:05 PM BOILERMAKER ASSEMBLY AND ERECTION someone who was confirmed or suspected to have Coronavirus / COVID-19? documented as of this encounter Plan of Treatment Not on filedocumented as of this encounter Visit Diagnoses Not on filedocumented in this encounter Care Teams Mixing Supervisor Relationship Specialty Start Date End Date No Ref-Primary, PCP - General 10/12/17 11/01/20 Physician Ernst Lopez MD PCP - General Family Practice 06/23/17 10/11/17 Kari Bingham MD Ophthalmology 04/15/20 MD Ruth [address] [place] [address] Kari Bingham Assigned Surgical 04/26/20 MD Ruth Provider [address] [place] [address] documented as of this encounter
--- OUTSIDE RECORDS SUMMARY | 2022-02-07 21:57 | XMS_ITS | Encounter Summary ---
:1995 Author Organization [place] Address [address] [place] [address]. [place] [address] Care Team Providers Name Role Phone Destiny Elizondo Primary Care Provider Reason for Visit (Routine) - Closed Specialty Diagnoses / Procedures Referred By Contact Refer red To Contact Radiology / Radiology. Diagnoses Kristie De La Cruz [id number] Multi: Xray and 2 MRI exams Uu Mri Procedures MR BRAIN AND ORBITS [address] [place] [address] Phone: Referral ID Status Reason Start Date Expiration Date Visits Requ ested Visits Authorized [id number] Closed 02/10/2016 02/09/2017 1 1 Encounter Details Date Type Department Care Team Description 02/11/2016 Hospital Encounter [facility] Amado Fonseca (central [facility] Imaging MD Har[place] retinal vein [address] [facility] [employer] occlusion) [facility] [address] [address] [phone] [address] [place] [address] (Wo rk) Social History Tobacco Use Types [...] findings. NIKIA NO MD Amado Fonseca MD [facility] MRI ORDERABLES documented in this encounter Visit [...] dose documented in this encounter Care Teams Wafer Fabrication Operator Relationship Specialty Start Date End Date Destiny Elizondo PCP - General 02/08/16 06/22/17 [facility] [address] [facility] [place] [address] documented as of this encounter
--- OUTSIDE RECORDS SUMMARY | 2022-02-07 21:57 | XMS_ITS | Encounter Summary ---
:1994 Author Organization [place] Address [address] [place] [address] Care Team Providers Name Role Phone No Ref-Primary, Physician Primary Care Provider [phone] Kari Bingham MD Unavailable [phone] Kari Bingham MD Unavailable [phone] Ernst Lopez MD Primary Care Provider Encounter Details Date Type Department Care Team Description 08/03/2017 [facility] Provider, [...] with No / Unsure 04/20/2020 3:05 PM DYNAMOMETER MECHANIC someone who was confirmed or suspected to have Coronavirus / COVID-19? documented as of this encounter Plan of Treatment Not on filedocumented as of this encounter Visit Diagnoses Not on filedocumented in this encounter Care Teams Loom Operator Relationship Specialty Start Date End Date No Ref-Primary, PCP - General 10/12/17 11/01/20 Physician Ernst Lopez MD PCP - General Family Practice 06/23/17 10/11/17 Kari Bingham MD Ophthalmology 04/15/20 MD Ruth [address] [address] Kari Bingham Assigned Surgical 04/26/20 MD Ruth Provider [address] [place] [address] [phone] documented as of this encounter
--- OUTSIDE RECORDS SUMMARY | 2022-02-07 21:57 | XMS_ITS | Encounter Summary ---
:1994 Author Organization [place] Address [address] [place] [address] Care Team Providers Name Role Phone Destiny Elizondo Primary Care Provider Reason for Visit (Routine) - Closed Specialty Diagnoses / Procedures Referred By Contact Refer red To Contact Radiology / Radiology. Diagnoses Kristie De La Cruz [id number] Multi: Xray and 2 MRI exams Uu Xray Procedures XR CHEST 2 VIEWS 500 [place] [address] Phone: Referral ID Status Reason Start Date Expiration Date Visits Requ ested Visits Authorized [id number] Closed 02/10/2016 02/09/2017 1 1 Encounter Details Date Type Department Care Team Description 02/11/2016 Hospital Encounter [facility] Amado Fonseca (central [facility] Imaging MD Har[place] retinal vein 500 [facility] mirian diez) [place], [place] [address] [address] [address] [place], [place] [phone] (Wo rk) Social History Tobacco Use Types [...] retina documented in this encounter Care Teams Radio Director Relationship Specialty Start Date End Date Destiny Elizondo PCP - General 02/08/16 06/22/17 [facility] [address] [facility] [place] BEE [address] documented as of this encounter
--- OUTSIDE RECORDS SUMMARY | 2022-02-07 21:57 | XMS_ITS | Encounter Summary ---
:1994 Author Organization [place] Address [address] [place] [address] Care Team Providers Name Role Phone No Ref-Primary, Physician Primary Care Provider [phone] Kari Bingham MD Unavailable [phone] Kari Bingham MD Unavailable [phone] Ernst Lopez MD Primary Care Provider Encounter Details Date Type Department Care Team Description 06/23/2017 [facility] Provider, Constantino [...] with No / Unsure 04/20/2020 3:05 PM PULVERIZER TENDER someone who was confirmed or suspected to have Coronavirus / COVID-19? documented as of this encounter Plan of Treatment Not on filedocumented as of this encounter Visit Diagnoses Not on filedocumented in this encounter Care Teams Private Mortgage Banker Safe Relationship Specialty Start Date End Date No Ref-Primary, PCP - General 10/12/17 11/01/20 Physician Ernst Lopez MD PCP - General Family Practice 06/23/17 10/11/17 Kari Bingham MD Ophthalmology 04/15/20 MD Ruth [address] [address] Kari Bingham Assigned Surgical 04/26/20 MD Ruth Provider [address] [place] [address] [phone] documented as of this encounter
--- OUTSIDE RECORDS SUMMARY | 2022-02-07 21:57 | XMS_ITS | Encounter Summary ---
:1994 Author Organization [place] Address [address] [place] [address] Care Team Providers Name Role Phone DoctorDenny MD Primary Care Provider Unavailable Destiny Elizondo Primary Care Provider No Ref-Primary, Physician Primary Care Provider Kari Bingham MD Unavailable [phone] Kari Bingham MD Unavailable [phone] Ernst Lopez MD Primary Care Provider Encounter Details Date Type Department Care Team Description 09/05/2014 Office Visit - [facility] Provider, [facility] [address] [phone] Social History Tobacco Use Types Packs/Day Years Used Date Smoking Tobacco: Never Assessed Sex Assigned at Date Recorded Not on file COVID-19 Exposure Response Date Recorded In the last month, have you been in contact with No / Unsure 04/20/2020 3:05 PM BAND INSTRUMENT MAKER someone who was confirmed or suspected to have Coronavirus / COVID-19? documented as of this encounter Plan of Treatment Not on filedocumented as of this encounter Visit Diagnoses Not on filedocumented in this encounter Care Teams Front Tender Relationship Specialty Start Date End Date Denny Thomas MD PCP - General 10/22/14 02/07/16 Destiny Elizondo PCP - General 02/08/16 06/22/17 [facility] [address] [place], [place] [address] No Ref-Primary, PCP - General 10/12/17 11/01/20 Physician Ernst Lopez MD PCP - General Family Practice 06/23/17 10/11/17 Kari Bingham MD Ophthalmology 04/15/20 MD Ruth [address] [place] [address] Kari Bingham Assigned Surgical 04/26/20 MD Ruth Provider [address] [place] [address] documented as of this encounter
--- OUTSIDE RECORDS SUMMARY | 2022-02-07 21:57 | XMS_ITS | Encounter Summary ---
:1994 Author Organization [place] Address [address] [place] [address] Care Team Providers Name Role Phone Destiny Elizondo Primary Care Provider Reason for Visit Reason Comments Follow Up large floater in both eyes Encounter Details Date Type Department Care Team Description 04/26/[address] [facility] Eye Rc Lin MD [address] [place] [address] [phone] Subjective visual disturbance - Right Ey e (Primary Dx); Clinic - Gonsalo Núñez MD [address] [place] [address] [phone] CRVO (central retinal vein occlusion) [address] 9[facility] [address] [place] [address] [phone] Social History Tobacco Use Types Packs/Day Years [...] Aram Barraza MD PGY2, Dept of Ophthalmology [phone] Attending Physician Attestation: I have seen and [...] - Aram Lin MD 3:27 PM 04/27/2016 ECTOR CLIP ON SUNGLASSES documented in this encounter Nursing Notes Mellisa [...] Rubio COA 2:59 PM April 26, 2016 ECTOR CLIP ON SUNGLASSES documented in this encounter Plan of Treatment Not on filedocumented as of this encounter Visit Diagnoses Diagnosis Subjective visual disturbance - Right Ey e - Primary Subjective visual disturbance, unspecifi ed CRVO (central retinal vein occlusion) Central vein occlusion of retina documented in this encounter Care Teams Enterprise Sales Person Relationship Specialty Start Date End Date Destiny Elizondo PCP - General 02/08/16 06/22/17 [facility] [address] [place] [address] documented as of this encounter
--- OUTSIDE RECORDS SUMMARY | 2022-02-07 21:57 | XMS_ITS | Encounter Summary ---
:1994 Author Organization [place] Address [address] [place] [address] Care Team Providers Name Role Phone Destiny Elizondo Primary Care Provider Reason for Visit Reason Comments Central Retinal Vein Occlusion Follow Up Encounter Details Date Type Department Care Team Description 04/05/2016 Office Visit [facility] Eye Jaja Fitzgerald RVO (central retinal Clinic - Fernanda Wilkerson MD vein occlusion) [facility] 516 [facility] 911 [address] [place], [place] [address]th [place] [facility] 9[address] [address] [place], [place] [phone] (Work) [phone] Social History Tobacco Use Types Packs/Day Years [...] ago with eye movement. Went to [facility] 02/03/16, found swollen veins, sent to Dr. [...] and exam/neuro findings as obtained by the voip network technician or others. Tati examined this patient myself. and I personally viewed the image(s) and studies listed above andthe documentation reflects my findings and interpretation. Jaja Fitzgerald MD, PhD Can Bander Operator, Vitreoretinal Surgery Department of Ophthalmology [facility] OMER SOLUTIONS REPRESENTATIVE documented in this encounter Nursing Notes Kaitlyn [...] Carito CASTELLON April 05, 2016 3:21 PM OMER SOLUTIONS REPRESENTATIVE documented in this encounter Plan of Treatment Not on filedocumented as of this encounter Procedures Procedure Name Priority Date/Time Associated Comments Diagnosis OVF 30-2 TOP OU Routine 04/05/2016 4:26 PM CRVO (central Resul ts for this CUSTOMER SOLUTIONS REPRESENTATIVE retinal vein procedure are i n occlusion) the results section. ULTRASOUND B-SCAN OU Routine 04/05/2016 4:07 PM CRVO (central Results for this (BOTH EYES) CUSTOMER SOLUTIONS REPRESENTATIVE retinal vein procedure are i n occlusion) the results section. OCT RETINA Routine 04/05/2016 4:07 PM CRVO (central Results for this SPECTRALIS OU (BOTH CUSTOMER SOLUTIONS REPRESENTATIVE retinal vein procedur e are in EYE) occlusion) the results section. FUNDUS PHOTOS OU Routine 04/05/2016 4:06 PM CRVO (central Resu lts for this (BOTH EYES) CUSTOMER SOLUTIONS REPRESENTATIVE retinal vein procedure are i n occlusion) the results section. documented in this encounter Results OVF 30-2 TOP OU (04/05/2016 4:26 PM CUSTOMER SOLUTIONS REPRESENTATIVE) Jaja Urias MD - 04/05/2016 4:27 PM CUSTOMER SOLUTIONS REPRESENTATIVE Patient cooperation: Reliable . Right Eye Reliability of the test: Good . Findings: Visual napier normal . Interpretation: Normal . Plan: Monitor . Interval: Same . Left Eye Reliability of the test: Good . Findings: Nonspecific defect . Interpretation: Abnormal . Plan: Monitor . Interval: Better . Jaja Fitzgerald MD OPHTHALMOLOGY Ultrasound B-scan OU (both eyes) (04/05/2016 4:07 PM CUSTOMER SOLUTIONS REPRESENTATIVE) Jaja Urias MD - 04/05/2016 4:07 PM CUSTOMER SOLUTIONS REPRESENTATIVE Patient cooperation: Reliable . Reliability of the test: Good . Test Findings: Abnormal . Interpretation: Abnormal . Plan: Monitor . Interval: Initial . Jaja Fitzgerald MD OPHTHALMOLOGY OCT Retina Spectralis OU (both eyes) (04/05/2016 4:07 PM CUSTOMER SOLUTIONS REPRESENTATIVE) Jaja Urias MD - 04/05/2016 4:07 PM CUSTOMER SOLUTIONS REPRESENTATIVE Patient cooperation: Reliable . Right Eye Reliability of the test: Good . Findings normal/abnormal: Normal OCT . Interpretation: Retinal disease . Plan: Monitor . Interval: Same . Left Eye Reliability of the test: Good . Findings normal/abnormal: Normal OCT . Interpretation: Retinal disease . Plan: Monitor . Interval: Same . Jaja Fitzgerald MD OPHTHALMOLOGY Fundus Photos OU (both eyes) (04/05/2016 4:06 PM CUSTOMER SOLUTIONS REPRESENTATIVE) Jaja Urias MD - 04/05/2016 4:06 PM CUSTOMER SOLUTIONS REPRESENTATIVE Patient cooperation: Reliable . Right Eye Reliability [...] retina documented in this encounter Care Teams Ceramic Tile Mechanic Relationship Specialty Start Date End Date Destiny Elizondo PCP - General 02/08/16 06/22/17 [facility] [address] [facility] [place] [address] documented as of this encounter
--- OUTSIDE RECORDS SUMMARY | 2022-02-07 21:57 | XMS_ITS | Encounter Summary ---
:1994 Author Organization [place] Address [address] [place] [address] Care Team Providers Name Role Phone Destiny Elizondo Primary Care Provider Reason for Visit Reason Onset Date Comments Floaters Both Eyes 04/26/2016 Encounter Details Date Type Department Care Team Description 04/26/2016 Telephone [facility] Jaja Fitzgerald loaters Both Eyes [facility] [place] [facility] [place] [address] [facility] [address] [place] [address] Social History Tobacco Use Types [...] for archie Zhang RN 1:25 PM 04/26/2016 OR CONSUMER INSIGHTS CONSULTANT documented in this encounter Plan of Treatment Not on filedocumented as of this encounter Visit Diagnoses Not on filedocumented in this encounter Care Teams Stereotyper Helper Relationship Specialty Start Date End Date Destiny Elizondo PCP - General 02/08/16 06/22/17 [facility] [address] [facility] [phone] documented as of this encounter
--- OUTSIDE RECORDS SUMMARY | 2022-02-07 21:57 | XMS_ITS | Encounter Summary ---
:1994 Author Organization [place] Address [address] [place] [address]. [place] [address] Care Team Providers Name Role Phone Destiny Elizondo Primary Care Provider Reason for Visit Reason Comments Follow Up Central Retinal Vein Occlus ion OS Encounter Details Date Type Department Care Team Description 06/02/2016 Office Visit [facility] Eye AMY BinghamVO ( central retinal vein occlusion) (Primary Dx); Clinic - [place] Kari Miranda, Subjective visual disturbanc e - Right Eye; Patrice Ramos MD [place] of optic disc, bilateral Building [address] [facility] [address] Clin [address] [place] [phone] Social History Tobacco Use Types Packs/Day Years [...] Kari Bingham MD PhD. Professor & Chair IM ADVOCATE documented in this encounter Nursing Notes Cleo [...] Verduzco COT 8:13 AM June 02, 2016 IM ADVOCATE documented in this encounter Plan of Treatment Not on filedocumented as of this encounter Procedures Procedure Name Priority Date/Time Associated Comments Diagnosis FUNDUS AUTOFLUORESCENCE Routine 06/02/2016 9:36 CRVO (central Results for this IMAGE (FAF) OU (BOTH AM VICTIM ADVOCATE retinal vein procedu re are in EYES) occlusion) the results Subjective visual section. disturbance - Right Eye OCT RETINA SPECTRALIS OU Routine 06/02/2016 9:36 CRVO (central Results for this (BOTH EYE) AM VICTIM ADVOCATE retinal vein procedure are i n occlusion) the results Subjective visual section. disturbance - Right Eye documented in this encounter Results Fundus Autofluorescence Image (FAF) OU (both eyes) (06/02/2016 9:36 AM VICTIM ADVOCATE) Kari Morris MD - 9:36 AM VICTIM ADVOCATE Patient cooperation: Reliable . Best available. Right [...] Spectralis OU (both eyes) (06/02/2016 9:36 AM VICTIM ADVOCATE) Kari Morris MD - 9:36 AM VICTIM ADVOCATE Performed by: dcm . Patient cooperation: Reliable [...] bilateral documented in this encounter Care Teams Division Chief Relationship Specialty Start Date End Date Destiny Elizondo PCP - General 02/08/16 06/22/17 [facility] [address] [facility] [place] [address] documented as of this encounter
--- OUTSIDE RECORDS SUMMARY | 2022-02-07 21:57 | XMS_ITS | Encounter Summary ---
:1994 Author Organization [place] Address [address] [place] [address]. [place] [address] Care Team Providers Name Role Phone Denny Thomas MD Primary Care Provider Unavailable Destiny Elizondo Primary Care Provider No Ref-Primary, Physician Primary Care Provider [phone] Kari Bingham MD Unavailable [phone] Kari Bingham MD Unavailable [phone] Ernst Lopez MD Primary Care Provider Reason for Visit Reason Comments Care Encounter Details Date Type Department Care Team Description 09/12/2014 [facility] Brett Booth MD Care [address] [address] [facility] [place] [address] Social History Tobacco Use Types Packs/Day Years Used Date Smoking Tobacco: Never Assessed Sex Assigned at Date Recorded Not on file COVID-19 Exposure Response Date Recorded In the last month, have you been in contact with No / Unsure 04/20/2020 3:05 PM TICKET SPECULATOR someone who was confirmed or suspected to have Coronavirus / COVID-19? documented as of this encounter Plan of Treatment Not on filedocumented as of this encounter Visit Diagnoses Not on filedocumented in this encounter Care Teams Cement Tile Maker Relationship Specialty Start Date End Date Dneny Thomas MD PCP - General 10/22/14 02/07/16 Destiny Elizondo PCP - General 02/08/16 06/22/17 [facility] [address] [facility] [place] [id number] No Ref-Primary, PCP - General 10/12/17 11/01/20 Physician Ernst Lopez MD PCP - General Family Practice 06/23/17 10/11/17 Kari Bingham MD Ophthalmology 04/15/20 MD Ruth [address] [place] [address] Kari Bingham Assigned Surgical 04/26/20 MD Ruth Provider [address] [place] [address] documented as of this encounter
--- OUTSIDE RECORDS SUMMARY | 2022-02-07 21:57 | XMS_ITS | Encounter Summary ---
:1994 Author Organization [place] Address [address] [place] [address] Care Team Providers Name Role Phone Mikhail, Destiny Yanez Primary Care Provider Encounter Details Date Type Department Care Team Description 03/18/2016 Orders Only [facility] Central retinal vein [address] [facility] SE occlusion of left eye 1st Floor [place] [phone] Social History Tobacco Use Types Packs/Day [...] Central retinal Results for this AND IGM LASER PRINT OPERATOR vein occlusion of procedure are in left eye the results section. BETA 2 GLYCOPROTEIN 1 Routine 03/18/2016 4:01 PM Central retin al Results for this ANTIBODY IGM LASER PRINT OPERATOR vein occlusion of procedure are in left eye the results section. BETA 2 GLYCOPROTEIN 1 Routine 03/18/2016 4:01 PM Central retin al Results for this ANTIBODY IGG LASER PRINT OPERATOR vein occlusion of procedure are in left eye the results section. documented in this encounter Results Cardiolipin Acrlos IgG and IgM (03/18/2016 4:01 PM LASER PRINT OPERATOR) [facility] Method Time Signature Cardiolipin <1.6 0.0 - [facility] Antibody IgG Negative 19.9 [place] [facility] New method in use March 07, 2016. GPL-U/mL [facility] Cardiolipin 0.5 0.0 - [facility] Antibody IgM 19.9 [place] [facility] MPL-U/mL [facility] Comment: Negative New method in use March 07, 2016. Specimen Anatomical Collection Method Collection Time Receive d Time (Source) Location / / Volume Laterality 03/18/2016 4:01 PM 6 4:03 LASER PRINT OPERATOR PM LASER PRINT OPERATOR Nevaeh Corral PA LAB - BLOOD ORDERABLES Performing Organization Address City/[facility]/ZIP Code Phon e Number [facility] [address] [place] [address] [facility] Beta 2 Glycoprotein 1 Antibody IgM (03/18/2016 4:01 PM LASER PRINT OPERATOR) Patholo gist Method Time Signature Beta 2 <0.9 <7 U/mL [facility] Glycoprotein 1 Negative [place] [facility] Antibody IgM [facility] Specimen Anatomical Collection Method Collection Time Receive d Time (Source) Location / / Volume Laterality Blood specimen 03/18/2016 4:01 PM 016 4:03 (specimen) LASER PRINT OPERATOR PM LASER PRINT OPERATOR Nevaehdeshawn VeeEllis PA LAB - BLOOD ORDERABLES Performing Organization Address City/State/ZIP Code Phon e Number [facility] [address] [place] [address] [facility] Beta 2 Glycoprotein 1 Antibody IgG (03/18/2016 4:01 PM LASER PRINT OPERATOR) Analysis Performed At Patho logist Time Signature Beta 2 0.8 <7 U/mL [facility] Glycoprotein 1 [place] [facility] Antibody IgG [facility] Comment: Negative Specimen Anatomical Collection Method Collection Time Receive d Time (Source) Location / / Volume Laterality Blood specimen 03/18/2016 4:01 PM 016 4:03 (specimen) LASER PRINT OPERATOR PM LASER PRINT OPERATOR Nevaeh Veetier PA LAB - BLOOD ORDERABLES Performing Organization Address City/[facility]/ZIP Code Phon e Number [facility] [address] [place], [place] [id number] [place] [address] documented in this encounter Visit Diagnoses Diagnosis Central retinal vein occlusion of left e ye Central vein occlusion of retina documented in this encounter Care Teams Youth Care Specialist Relationship Specialty Start Date End Date Destiny Elizondo PCP - General 02/08/16 06/22/17 [facility] [address] [facility] [address] documented as of this encounter
--- OUTSIDE RECORDS SUMMARY | 2022-02-07 21:57 | XMS_ITS | Encounter Summary ---
:1994 Author Organization [place] Address [address] [place] [address] Care Team Providers Name Role Phone Destiny Elizondo Primary Care Provider Reason for Visit Reason Comments Follow Up CRVO (central retinal vein o cclusion Encounter Details Date Type Department Care Team Description 05/31/2017 Office Visit [facility] Eye DOREEN Bingham ( [facility] [place] Kari Miranda, retinal vein Patrice Ramos MD occlusion) Building [address] [facility] [address] [place] [address] 9[facility] [address] [place] [address] [phone] Social History Tobacco Use Types Packs/Day Years [...] Kari Bingham MD PhD. Professor & Chair O TECHNOLOGIST documented in this encounter Nursing Notes Cleo [...] Verduzco COT 10:53 AM May 31, 2017 O TECHNOLOGIST documented in this encounter Plan of Treatment Not on filedocumented as of this encounter Procedures Procedure Name Priority Date/Time Associated Comments Diagnosis OCT RETINA Routine 05/31/2017 11:36 AM CRVO (central Results for this SPECTRALIS OU (BOTH PHOTO TECHNOLOGIST retinal vein procedur e are in EYE) occlusion) the results section. documented in this encounter Results OCT Retina Spectralis OU (both eyes) (04/20/2020 3:43 PM PHOTO TECHNOLOGIST) Kari Morris MD - 02/2021 3:43 PM PHOTO TECHNOLOGIST Performed by: njo . Patient cooperation: Reliable [...] Spectralis OU (both eyes) (05/31/2017 11:36 AM PHOTO TECHNOLOGIST) Kari Morris MD - 07/2017 8:30 AM [...] retina documented in this encounter Care Teams Pool Technician Relationship Specialty Start Date End Date Destiny Elizondo PCP - General 02/08/16 06/22/17 [facility] [address] [facility] [place] [address] documented as of this encounter
--- OUTSIDE RECORDS SUMMARY | 2022-02-07 21:57 | XMS_ITS | Encounter Summary ---
:1994 Author Organization [place] Address [address] [place] [address] Care Team Providers Name Role Phone Destiny Elizondo Primary Care Provider Encounter Details Date Type Department Care Team Description 04/26/2016 Orders Only Gonsalo Camacho CRVO (centr al retinal Ophthalmology Nils Bolden MD vein occlusion) [address] [place] [address], (Primary Dx) 4th Floor CLINIC [address] [place] [phone] (Wo rk) Social History Tobacco Use Types Packs/Day Years Used Date Smoking Tobacco: Never Alcohol Use Standard Drinks/Week Comments No 0 (1 standard drink = 0.6 oz pure alcoho l) Sex Assigned at Date Recorded Not on file documented as of this encounter Plan of Treatment Pending Results Name Type Priority Associated Diagnoses Date/Ti co OCT Retina Spectralis Opht Imaging Routine CRVO (central retin al 04/26/2016 1:50 PM OU (both eyes) vein occlusion) BUSINESS PROCESS LEAD documented as of this encounter Visit Diagnoses Diagnosis CRVO (central retinal vein occlusion) - Primary Central vein occlusion of retina documented in this encounter Care Teams Music Department Chair Relationship Specialty Start Date End Date Destiny Elizondo PCP - General 02/08/16 06/22/17 [facility] [address] [place] [address] documented as of this encounter
--- OUTSIDE RECORDS SUMMARY | 2022-02-07 21:57 | XMS_ITS | Encounter Summary ---
:1994 Author Organization [place] Address [address] [place] [address] Care Team Providers Name Role Phone Destiny Elizondo Primary Care Provider Encounter Details Date Type Department Care Team Description 02/22/2016 Orders Only [facility] Eye Jaja Fitzgerald entral vein Clinic [facility] MD [place] occlusion of retina Ibrahim [address] ( Primary Dx) [address] 9th Fl Clin 9A [address] [place], [place] [phone] (Wo rk) [address] [phone] Social History Tobacco Use Types Packs/Day Years [...] ry documented in this encounter Care Teams Branch Lead Relationship Specialty Start Date End Date Destiny Elizondo PCP - General 02/08/16 06/22/17 [facility] [address] [place] [address] documented as of this encounter
--- OUTSIDE RECORDS SUMMARY | 2022-02-07 21:57 | XMS_ITS | Encounter Summary ---
:1994 Author Organization [place] Address [address] [place] [address] Care Team Providers Name Role Phone MikhailSeth mchughth Renata Primary Care Provider Reason for Visit Reason Comments Follow Up Central Retinal Vein Occlusi on OS Encounter Details Date Type Department Care Team Description 03/08/2016 Office Visit [facility] Eye Jaja Fitzgerald RVO (central retinal Clinic - Fernanda Wilkerson MD vein occlusion) Ibrahim [address] [place] [address] 9th Fl Clin 9A [address] [place], [place] [phone] [address] (Work) [phone] Social History Tobacco Use Types Packs/Day Years [...] week ago with eye movement. Went to [facility] 02/03/16, found swollen veins, sent to Dr. [...] 03-08-16 right eye- normal contour, no IRF/SRF, RECONCILIATION ANALYST 266 left eye - no fluid, greatly [...] with hematology - limited lab w/u at [facility] negative so far for hypercoaguable or inflammatory [...] and exam/neuro findings as obtained by the process maintenance technician or others. Tati examined this patient myself. and I personally viewed the image(s) and studies listed above andthe documentation reflects my findings and interpretation. Jaja Fitzgerald MD, PhD Loader Demolder, Vitreoretinal Surgery Department of Ophthalmology [facility] NCILIATION ANALYST documented in this encounter Nursing Notes Cleo [...] Verduzco COT 2:11 PM March 08, 2016 NCILIATION ANALYST documented in this encounter Plan of Treatment Not on filedocumented as of this encounter Procedures Procedure Name Priority Date/Time Associated Comments Diagnosis OCT RETINA Routine 03/08/2016 3:32 PM CRVO (central Results for this SPECTRALIS OU (BOTH RECONCILIATION ANALYST retinal vein procedur e are in EYE) occlusion) the results section. documented in this encounter Results Ultrasound B-scan OU (both eyes) (04/05/2016 4:07 PM RECONCILIATION ANALYST) Narrative Jaja Fitzgerald MD - 04/05/2016 4:07 PM RECONCILIATION ANALYST Patient cooperation: Reliable . Reliability of the test: Good . Test Findings: Abnormal . Interpretation: Abnormal . Plan: Monitor . Interval: Initial . Jaja Fitzgerald MD OPHTHALMOLOGY OCT Retina Spectralis OU (both eyes) (04/05/2016 4:07 PM RECONCILIATION ANALYST) Jaja Urias MD - 04/05/2016 4:07 PM RECONCILIATION ANALYST Patient cooperation: Reliable . Right Eye Reliability of the test: Good . Findings normal/abnormal: Normal OCT . Interpretation: Retinal disease . Plan: Monitor . Interval: Same . Left Eye Reliability of the test: Good . Findings normal/abnormal: Normal OCT . Interpretation: Retinal disease . Plan: Monitor . Interval: Same . Jaja Fitzgerald MD OPHTHALMOLOGY Fundus Photos OU (both eyes) (04/05/2016 4:06 PM RECONCILIATION ANALYST) Jaja Urias MD - 04/05/2016 4:06 PM RECONCILIATION ANALYST Patient cooperation: Reliable . Right Eye Reliability of the test: Good . Findings: Normal disc/macula/vessels . Interpretation: Normal . Plan: Monitor . Interval: Initial . Left Eye Reliability of the test: Good . Findings: Abnormal . Interpretation: Abnormal . Plan: Monitor . Interval: Initial . Jaja Fitzgerald MD OPHTHALMOLOGY OCT Retina Spectralis OU (both eyes) (03/08/2016 3:32 PM RECONCILIATION ANALYST) Jaja Urias MD - 03/08/2016 3:32 PM RECONCILIATION ANALYST Patient cooperation: Reliable . Right Eye [...] retina documented in this encounter Care Teams Rental Car Deliverer Relationship Specialty Start Date End Date Destiny Elizondo PCP - General 02/08/16 06/22/17 [facility] [address] [facility] [place] [address] documented as of this encounter
--- OUTSIDE RECORDS SUMMARY | 2022-02-07 21:57 | XMS_ITS | Encounter Summary ---
:1994 Author Organization [place] Address [address] [place] [address] Care Team Providers Name Role Phone Unavailable Primary Care Provider Unavailable Reason for Referral - Closed Specialty Diagnoses / Procedures Referred By Contact Refer red To Contact Diagnoses Unspecified complication of , antepartum Sh Maternal Med [address] [facility] [address] [place] [phone] Referral ID Status Reason Start Date Expiration Date Visits Requ ested Visits Authorized [id number] Closed 10/15/2014 10/15/2015 1 1 Encounter Details Date Type Department Care Team Description 10/15/2014 Orders Only [facility] Brian Lopez Unspe cified Maternal Blair Ding, [employer] Ovidio medina MD , antepartum [address] [facility] RETIRED (Primary Dx) [facility] [address] [place] [address] Social History Tobacco Use Types [...]
--- OUTSIDE RECORDS SUMMARY | 2022-02-07 21:57 | XMS_ITS | Encounter Summary ---
:1994 Author Organization [place] Address [address] [place] [address] Care Team Providers Name Role Phone Destiny Elizondo Primary Care Provider Reason for Visit Reason Comments Central Retinal Vein Occlusion Follow Up orders only f or imaging on 08/18/16 visit Encounter Details Date Type Department Care Team Description 08/18/2016 Orders Only [facility] Eye Amado Fonseca, Central vein Clinic - [place] occlusion of retina Patrice Ramos [facility] O F (Primary Dx) [facility] [address] [place] [address] [address] Or Clin 9A [address] [place] [phone] Social History Tobacco Use Types Packs/Day Years [...] ry documented in this encounter Care Teams Material Handling Warehouse Supervisor Relationship Specialty Start Date End Date Destiny Elizondo PCP - General 02/08/16 06/22/17 [facility] [address] [place] [address] documented as of this encounter
--- OUTSIDE RECORDS SUMMARY | 2022-02-07 21:57 | XMS_ITS | Encounter Summary ---
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); [facility] Moi Dukes MD Binge eating disorder [address] [facility] [address] [place] [address] [phone] Social History Tobacco Use Types Packs/Day Years Used Date Smoking Tobacco: Never Smokeless Tobacco: Never Alcohol Use Standard Drinks/Week Comments No 0 (1 standard drink = 0.6 oz pure alcoho l) Sex Assigned at Date Recorded Not on file COVID-19 Exposure Response Date Recorded In the last month, have you been in contact with No / Unsure 04/20/2020 3:05 PM STRADDLE BUG DRIVER someone who was confirmed or suspected [...] Body Mass Index 34.43 03/18/2016 2:56 PM STRADDLE BUG DRIVER documented in this encounter Progress Notes Ernst [...] Orders 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 Binge eating disorder New behavior with depression [...] 06/23/2017 [facility] uIU/mL 8:00 PM CDT [facility] Specimen Anatomical Collection Method / Collection Time Recei samuel Time (Source) Location / Volume Laterality Blood specimen Venipuncture / 06/23/2017 11:24 018 2:32 (specimen) Unknown AM CDT PM CDT Ernst Lopez MD LAB - BLOOD ORDERABLES Performing Organization Address City/State/ZIP Code Phon [place] [address] [phone] [facility] [address] [facility] documented in this encounter Visit Diagnoses Diagnosis Moderate episode of recurrent major depr essive disorder (H) Binge eating disorder documented in this encounter Care Teams Grain Origination Specialist Relationship Specialty Start Date End Date No Ref-Primary, PCP - General 10/12/17 11/01/20 Physician Ernst Lopez MD PCP - General Family Practice 06/23/17 10/11/17 Kari Bingham MD Ophthalmology 04/15/20 MD Ruth [address] [address] [address] Kari Bingham Assigned Surgical 04/26/20 MD Ruth Provider [address] [address] documented as of this encounter
--- OUTSIDE RECORDS SUMMARY | 2022-02-07 21:57 | XMS_ITS | Encounter Summary ---
:1994 Author Organization [place] Address [address] [place] [address] Care Team Providers Name Role Phone Destiny Elizondo Primary Care Provider Reason for Visit Reason Onset Date Comments Results 02/12/2016 Encounter Details Date Type Department Care Team Description 02/12/2016 Telephone [facility] Eye Clinic Haroon Christopher MD Results - [id number] [place] [address] [place] [address] [place] [phone] Social History Tobacco Use Types Packs/Day [...] on filedocumented in this encounter Care Teams Ob/Gyn Relationship Specialty Start Date End Date Destiny Elizondo PCP - General 02/08/16 06/22/17 [facility] [address] [facility] [place] [address] documented as of this encounter
--- OUTSIDE RECORDS SUMMARY | 2022-02-07 21:57 | XMS_ITS | Encounter Summary ---
:1994 Author Organization [place] Address [address] [place] [address] Care Team Providers Name Role Phone Denny Thomas MD Primary Care Provider Unavailable Destiny Elizondo Primary Care Provider Reason for Visit Reason Comments Consult screening Ultrasound screening Encounter Details Date Type Department Care Team Description 10/28/2014 PRE VISIT [facility] Samantha, Consult (s creening); Maternal Medicine Noemi, S[place] Ultr asound (screening) [facility] [place] [address] [facility] [address] [place] [address] Social History Tobacco Use Types Packs/Day Years Used Date Smoking Tobacco: Never Assessed Sex Assigned at Date Recorded Not on file documented as of this encounter Plan of Treatment Not on filedocumented as of this encounter Visit Diagnoses Not on filedocumented in this encounter Care Teams Pediatric Anesthesiologist Relationship Specialty Start Date End Date Denny Thomas MD PCP - General 10/22/14 02/07/16 Destiny Elizondo PCP - General 02/08/16 06/22/17 [facility] [address] [place] [address] documented as of this encounter
--- OUTSIDE RECORDS SUMMARY | 2022-02-07 21:57 | XMS_ITS | Encounter Summary ---
:1994 Author Organization [place] Address [address] [place] [address] Care Team Providers Name Role Phone Destiny Elizondo Primary Care Provider Reason for Visit Reason Comments Consult consult with clotting disord er, ruth flores Encounter Details Date Type Department Care Team Description 03/18/2016 Office Visit [facility] Nevaeh Corral PA Central retinal vein Hemophilia Other [address] [facility] occl usion of left eye Services [place] [address] (Primary Dx) [address] [place], [place] 3rd Floor [address] [place], [place] [phone] (Wo rk) [address] [phone] Social History Tobacco Use Types Packs/Day Years Used Date Smoking Tobacco: Never Alcohol Use Standard Drinks/Week Comments No 0 (1 standard drink = 0.6 oz pure alcoho l) Sex Assigned at Date Recorded Not on file documented as of this encounter Last Filed Vital Signs Vital Sign Reading Time Taken Comments Blood Pressure 121/82 03/18/2016 2:56 PM MANAGER SEARCH Pulse 93 03/18/2016 2:56 PM MANAGER SEARCH Temperature 37.1 ??C (98.7 ??F) 03/18/2016 2:56 PM MANAGER SEARCH Respiratory Rate - - Oxygen Saturation - - Inhaled Oxygen Concentration - - Weight 90.4 kg (199 lb 4.8 oz) 03/18/2016 2:56 PM MANAGER SEARCH Height 167.6 cm (5' 6) 03/18/2016 2:56 PM MANAGER SEARCH Body Mass Index 32.17 03/18/2016 2:56 PM MANAGER SEARCH documented in this encounter Progress Notes Nevaeh Corral PA - 03/18/2016 3:26 PM CST Images from the original note were not included. [facility] [address] [place] [address], [address], [place] [address] , . Patient seen at: [facility] Outpatient Visit Note: Patient: Akilah Mills : [...] ongoing use. I have contacted the manufactor [employer] and asked for more information on this [...] minutes, all 60 minutes was spent on [id number] consultation of the patient and coordination ofcare in regard to CRVO Nevaeh Corral MPH, PA-C Physician Director Of Pharmacy [facility] [phone] [phone] pager GER SEARCH documented in this encounter Nursing Notes Merle [...] oz). BP completed using cuff size: regular GER SEARCH documented in this encounter Plan of Treatment Not on filedocumented as of this encounter Results Beta 2 Glycoprotein 1 Antibody IgM (03/18/2016 4:01 PM MANAGER SEARCH) Patholo gist Method Time Signature Beta 2 <0.9 <7 U/mL [facility] Glycoprotein 1 Negative [place] [facility] Antibody IgM [facility] Specimen Anatomical Collection Method Collection Time Receive d Time (Source) Location / / Volume Laterality Blood specimen 03/18/2016 4:01 PM 016 4:03 (specimen) MANAGER SEARCH PM MANAGER SEARCH Nevaeh Corral PA LAB - BLOOD ORDERABLES Performing Organization Address City/[facility] Code Phon e Number [address] Beta 2 Glycoprotein 1 Antibody IgG (03/18/2016 4:01 PM MANAGER SEARCH) Analysis Performed At Patho logist Time Signature Beta 2 0.8 <7 U/mL [facility] Glycoprotein 1 [facility] Antibody IgG [facility] Comment: Negative Specimen Anatomical Collection Method Collection Time Receive d Time (Source) Location / / Volume Laterality Blood specimen 03/18/2016 4:01 PM 016 4:03 (specimen) MANAGER SEARCH PM MANAGER SEARCH Nevaeh Corral PA LAB - BLOOD ORDERABLES Performing Organization Address City/[facility] Code Phon e Number [address] documented in this encounter Visit Diagnoses Diagnosis Central retinal vein occlusion of left e ye - Primary Central vein occlusion of retina documented in this encounter Care Teams Sales Service Technician Relationship Specialty Start Date End Date Destiny Elizondo PCP - General 02/08/16 06/22/17 [facility] [address] [facility] [place] [address] documented as of this encounter
--- OUTSIDE RECORDS SUMMARY | 2022-02-07 21:57 | XMS_ITS | Encounter Summary ---
:1994 Author Organization [place] Address [address] [place] [address] Care Team Providers Name Role Phone Destiny Elizondo Primary Care Provider Encounter Details Date Type Department Care Team Description 02/09/2016 Orders Only [facility] Eye Jaja Fitzgerald RVO (central retinal Clinic - Fernanda Wilkerson MD vein occlusion) [address] ( Primary Dx) [address] 9th Fl Clin 9A [address] [place], [place] [phone] (Wo rk) [address] [phone] Social History Tobacco Use Types Packs/Day Years [...] retina documented in this encounter Care Teams Glass Blowing Instructor Relationship Specialty Start Date End Date Destiny Elizondo PCP - General 02/08/16 06/22/17 [facility] [address] [place] [address] documented as of this encounter
--- OUTSIDE RECORDS SUMMARY | 2022-02-07 21:57 | XMS_ITS | Encounter Summary ---
:1994 Author Organization [place] Address [address] [place] [address] Care Team Providers Name Role Phone No Ref-Primary, Physician Primary Care Provider [phone] Kari Bingham MD Unavailable [phone] Kari Bingham MD Unavailable [phone] Ernst Lopez MD Primary Care Provider Encounter Details Date Type Department Care Team Description 08/03/2017 [facility] E-VISITS Provider, Constantino mcneal [...] with No / Unsure 04/20/2020 3:05 PM GEOPHYSICAL PROSPECTING PERMIT AGENT someone who was confirmed or suspected to have Coronavirus / COVID-19? documented as of this encounter Plan of Treatment Not on filedocumented as of this encounter Visit Diagnoses Not on filedocumented in this encounter Care Teams Spinner Concrete Pipe Relationship Specialty Start Date End Date No Ref-Primary, PCP - General 10/12/17 11/01/20 Physician Ernst Lopez MD PCP - General Family Practice 06/23/17 10/11/17 Kari Bingham MD Ophthalmology 04/15/20 MD Ruth [address] [address] Kari Bingham Assigned Surgical 04/26/20 MD Ruth Provider [address] [place] [phone] documented as of this encounter
--- OUTSIDE RECORDS SUMMARY | 2022-02-07 21:57 | XMS_ITS | Encounter Summary ---
:1994 Author Organization [place] Address [address] [place] [address] Care Team Providers Name Role Phone Destiny Elizondo Primary Care Provider Encounter Details Date Type Department Care Team Description 02/11/[address] [facility] Eye Jaja Fitzgerald entral vein Clinic [facility] [place] occlusion of retina Ibrahim [address] ( Primary Dx) [address] 9th Fl Clin 9A [address] [place], [place] [phone] (Wo rk) [address] [phone] Social History Tobacco Use Types Packs/Day Years [...] ry documented in this encounter Care Teams Technical Communicator Relationship Specialty Start Date End Date Destiny Elizondo PCP - General 02/08/16 06/22/17 [facility] [address] [place] [address] documented as of this encounter
--- OUTSIDE RECORDS SUMMARY | 2022-02-07 21:57 | XMS_ITS | Encounter Summary ---
:1994 Author Organization [place] Address [address] [place] [address]. [place] [address] Care Team Providers Name Role Phone Destiny Elizondo Primary Care Provider Reason for Visit Reason Comments Follow Up 2.5 month f/u CRVO, left eye - new waves Encounter Details Date Type Department Care Team Description 08/18/2016 Office Visit [facility] Eye Amado Fonseca CRVO ( central retinal vein occlusion) (Primary Dx); Clinic - Fernanda Patiño MD Dry eye syndrome, bilateral Ibrahim Wangen[place]en [facility] [address] [facility] [address] Clin 9A [address] [place] [address] [phone] (Wo rk) Social History Tobacco Use Types [...] history, ROS, and exam findings by the solid waste landfill technician or others, and modified by me [...] bilateral documented in this encounter Care Teams Safety Director Relationship Specialty Start Date End Date Destiny Elizondo PCP - General 02/08/16 06/22/17 [facility] [address] [facility] [place] [address] documented as of this encounter
--- OUTSIDE RECORDS SUMMARY | 2022-02-07 21:57 | XMS_ITS | Encounter Summary ---
:1995 Author Organization [facility] Address [address] [place] [address] Care Team Providers Name Role Phone No Ref-Primary, Physician Primary Care Provider [phone] Kari Bingham MD Unavailable [phone] Kari Bingham MD Unavailable [phone] Ernst Lopez MD Primary Care Provider Reason for Visit Reason Comments Behavioral Health Diagnostic Assessment Patient presen luis for diagnostic assessment as referred by PCP for sympt oms of depression, mood swings, and binge eating. 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 Lives in [place]. Siblings ( order, ages, significant issues): 2 older brothers (26 and 28). One lives in [place], [place]- close relationship- talk on the phone. One lives in the [facility] area- don't talk. Climate in family of origin (how does the patient perceive their childhood experience): Born in the [facility]. When parents were still , mom would stay at home. Dad was a truck headlight assembler and only home 2 days a week. Dad was an alcoholic. They moved to [place] when patient was 1 and then back to [place] after the divorce. Her father is originally from [place]. Mother remarried. Step dad was amazing. Mom worked a lot. Patient spent a lot of time with grandma. Step-dad and mom when patient was 12/13 years old as he cheated on her mother with the girl blindmaker leader. They haven't talked since. 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 Started the job 2 weeks ago. Doesn't [...] years (the one who [place] the [facility]- currently in [place]) Grandmother's - May [...] the relationship quality (Co-worker???s, neighbor???s, AA groups, catholic peers, etc.): Boyfriend. Mother. Brother. Sister in Law No friend Support network(s)/Resources (including strength and quality of social networks, who does the clientconsider supportive, other agencies or services patient uses): No other social networks, agencies or services. Belief system: Not christian or spiritual. Denies any other beliefs. Cultural influences and impact on patient (ask about all aspects of culture and ask which are relevant to the patient. Go beyond nationality and ethnicity. Consider biases, life style, community style,i.e.: urban, poverty, abuse, etc). See page 5 Diagnostic Assessment, Clinical Training for descriptors): Patient is a 21 year old female. She reports her grandmother was very christian and that she took some of that; however, she reports she is not christian. She learned to be kind and always [...] and medicine. She does not report any christian or cultural beliefs that impact her willingness to receive treatment. She has established primary care at [facility]. Legal Problems (DUI???S, divorce, law suits, [...] Hx of Mental Health Treatment or Services: [facility]. Attended 5-6 sessions of therapy. Was referred [...] Provided printout of contact information for [facility] crisis, suicide hotline, and urgent care. Homicidal: [...] primary care physician, Dr. Lopez, at the [facility] for symptoms of mood swings and binge eating. Therapist and patient reviewed consent and privacy policy. Patient reported understanding and signed document- sent to be scanned into EMR. Patient presented on time, was well- groomed and oriented. Patient was born and raised in [place]. She also lived in [place] for part of her childhood as her father is [place]. Patient's parents got when she was 5 [...] never completed it. 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 She has been at her job for 2weeks and enjoys it. Prior to that, she was a superintendent schools. Patient endorses the following concerns that are [...] dealing with others. She is working time clerk and feels she is able to function [...] in future session. Review of records from [facility] would also be beneficial. Patient signed [...] (H) documented in this encounter Care Teams Core Cutter Relationship Specialty Start Date End Date No Ref-Primary, PCP - General 10/12/17 11/01/20 Physician Ernst Lopez MD PCP - General Family Practice 06/23/17 10/11/17 Kari Bingham MD Ophthalmology 04/15/20 MD Ruth [address] [address] Kari Bingham Assigned Surgical 04/26/20 MD Ruth Provider [address] [address] documented as of this encounter
--- OUTSIDE RECORDS SUMMARY | 2022-02-07 21:57 | XMS_ITS | Encounter Summary ---
:1995 Author Organization [facility] Address [address] [place] [address] Care Team Providers Name Role Phone Destiny Elizondo Primary Care Provider Reason for Referral Consultation - Closed Specialty Diagnoses / Procedures Referred By Contact Refer red To Contact Diagnoses CRVO (central retinal vein occlusion) Amado Contreras MD [facility] [address] [facility] [address] [place] [phone] Referral ID Status Reason Start Date Expiration Date Visits Requ ested Visits Authorized [id number] Closed 02/09/2016 02/08/2017 1 1 - Closed Specialty Diagnoses / Procedures Referred By Contact Refer red To Contact Diagnoses CRVO (central retinal vein occlusion) Amado Contreras MD [facility] [address] [facility] [address] [address] [place], [place] [address] 4 Referral ID Status Reason Start Date Expiration Date Visits Requ ested Visits Authorized [id number] Closed 02/09/2016 02/08/2017 1 1 Reason for Visit Reason Comments Consult For Vision loss. Sent by ED OS Encounter Details Date Type Department Care Team Description 02/09/[address] [facility] Eye Kamila Keller RVO (central retinal Clinic - Fernanda Wilkerson MD vein occlusion) Patrice Archerteen [address] [facility] 911 [address] [place], [place] 9th Fl Clin 9A [address] [place], [place] [phone] (Work) [phone] Social History Tobacco Use Types Packs/Day Years [...] 02-09-16 right eye- normal contour, no IRF/SRF, DISEASE INTERVENTION SPECIALIST 266 left eye - extensive IRF/SRF, distorted foveal contour, DISEASE INTERVENTION SPECIALIST 538 FA 02-09-16 RE: normal LE: (transits) [...] history: SIMRAN, ANCA, RPR, quantiferon gold, BMP, UA,LINE CAMERA OPERATOR - plan for avastin OS today with [...] and exam/neuro findings as obtained by the mold technician or others. Ihave examined this patient myself. and I personally viewed the image(s) and studies listed above andthe documentation reflects my findings and interpretation. Kamila Keller MD, PhD Steamer Tender, Vitreoretinal Surgery Department of Ophthalmology [facility] documented in this encounter Nursing Notes Maureen [...] started three weeks ago. Went to [facility] and then was sent to Dr. Pyle. [...] Spectralis OU (both eyes) (03/08/2016 3:32 PM DISEASE INTERVENTION SPECIALIST) Narrative Kamila Keller MD - 03/08/2016 3:32 PM DISEASE INTERVENTION SPECIALIST Patient cooperation: Reliable . Right Eye Reliability [...] in rating of 0 out of 10. Lot:[id number] Exp:03-08-16 Eye:SOY Leone COT 2:31 PM February 09, 2016 Amado Contreras MD OPHTHALMOLOGY Vasculitis panel (02/09/2016 2:34 PM CDT) Component Value Ref Test Analysis Performed At [facility] Locaid Range Method Time Signature Myeloperoxidase <0.2 0.0 - UNIVERSITY Antibody IgG Negative 0.9 AI OF [place] Antibody index (AI) values reflect qualitative changes in a ntibody MEDICAL concentration that cannot be directly associated with clinical condition or [facility] disease state. CAMPUS Proteinase 3 <0.2 0.0 - UNIVERSITY Antibody IgG Negative 0.9 [place] OF [place] Antibody index (AI) values reflect qualitative changes in a ntibody MEDICAL concentration that cannot be directly associated with clinical condition or [facility] disease state. [place] Specimen Anatomical Collection Method Collection Time Receive d Time (Source) Location / / Volume Laterality Blood specimen 02/09/2016 2:34 PM 016 2:36 (specimen) CDT PM CDT Amado Contreras MD LAB - BLOOD ORDERABLES Performing Organization Address City/State/ZIP Code Phon e Number [facility] [address] [place] [address] [facility] Antinuclear antibody screen by EIA (02/09/2016 2:33 PM CDT) [facility] [employer] Method Time Signature SIMRAN Screen by <1.0 <1.0 UNIVERSITY OF EIA Interpretation: ??Negative [facility] Specimen Anatomical Collection Method Collection Time Receive d Time (Source) Location / / Volume Laterality 02/09/2016 2:33 PM 6 2:35 CDT PM CDT Amado Contreras MD LAB - BLOOD ORDERABLES Performing Organization Address City/[facility] Code Phon e Number [facility] [address] M Tuberculosis by Quantiferon (02/09/2016 2:33 PM CDT) [facility] Method Time Signature M Tuberculosis Negative NEG UNIVERSITY OF Result [facility] M Tuberculosis 0.29 IU/mL UNIVERSITY OF Antigen Value [facility] Comment: This is a qualitative [...] BLOOD ORDERABLES Performing Organization Address [facility] Code Phon e Number [facility] [address] RPR screen with reflex to confirm (02/09/2016 2:33 PM CDT) Analysis Performed At [facility] Time Signature Rapid Plasma Negative NEG UNIVERSITY OF Reagin [facility] Specimen Anatomical Collection Method Collection Time Receive d Time (Source) Location / / Volume Laterality Blood specimen 02/09/2016 2:33 PM 016 2:35 (specimen) CDT PM CDT Amado Contreras MD LAB - BLOOD ORDERABLES Performing Organization Address City/[facility] Code Phon e Number [facility] [address] Antineutrophil cytoplasmic Carlos IgG (02/09/2016 2:33 PM CDT) Component Value Ref Test Analysis Performed At [facility] Range Method Time Signature Neutrophil <1:20 [...] collagen vascular disease or arthritis. Performed by [employer], [address] [place] [id number] www.[email or web address] Alexx Lemons MD, Lab. Director Specimen Anatomical Collection Method Collection Time Receive d Time (Source) Location / / Volume Laterality Blood specimen 02/09/2016 2:33 PM 016 2:35 (specimen) CDT PM CDT Amado Contreras MD LAB - BLOOD ORDERABLES Performing Organization Address City/[facility] Code Phon e Number [address] Cardiolipin antibody IgA (02/09/2016 2:33 PM CDT) Component Value Ref Test Analysis Performed At [facility] [employer] Method Time Signature Cardiolipin Canceled, Test credited 0 - 11 UNIV ERSITY OF Antibody IgA Specimen not received APL [facility] EDICAL IgA also helps indentify an additional group [facility] of patients whose only presentation is [place] thrombocytopenia. Assayed at [facility], [place] [address] Specimen Anatomical Collection Method Collection Time Receive d Time (Source) Location / / Volume Laterality Blood specimen 02/09/2016 2:33 PM 016 2:35 (specimen) CDT PM CDT Amado Contreras MD LAB - BLOOD ORDERABLES Performing Organization Address City/[facility] Phon e Number [address] Factor 5 leiden mutation analysis (02/09/2016 2:33 PM CDT) Component Value Ref Test Analysis Performed At [facility] Locaid Range Method Time Signature Maria Victoriaath Report Patient Name: AKILAH CLINE MR#: [id number] Specimen #: [id number] Collected: 02/09/2016 14:33 Received: 02/10/2016 11:31 Reported: 02/14/2016 11:31 Ordering Phy(s): KAMILA KELLER Additional Phy(s): AMADO CONTRERAS TEST(S) REQUESTED: Factor 5 Leiden Mutation by PCR SPECIMEN DESCRIPTION: Blood METHODOLOGY: ?? The regions of genomic DNA containing the G1 691A Factor 5 gene mutation (Factor V Leiden) and the Factor 2(Prothrombin C07228G) gene mutation were simultaneously amplified using the [...] th test results. ??Call the [facility] Lab([phone]) for instructions on sample collection for these patients. This test was developed and its performance characteristics determined by the [facility], ??[facility] D [facility]agnostics Laboratory. It has not been cleared or approved by the FDA. The laboratory is regulated under CLIA as qualified to perform high-complexity testing. This test is used for clinical purp oses. It should not be regarded as investigational or for research. Electronically Signed Out By: Rachel Anne M.D., [facility] CPT Codes: A: 53080-T9FIO, I8013-[id number] TESTING LAB LOCATION: [address] [address] COLLECTION SITE: Client: ??[facility] Location: ??[place] (B) Specimen Anatomical Collection Method Collection Time Receive d Time (Source) Location / / Volume Laterality Blood specimen 02/09/2016 2:33 PM 016 (specimen) CDT 11:31 AM CDT Kamila Keller MD LAB - GENOMICS Performing Organization Address City/State/ZIP Code Phon e Number [place] Activated protein C resistance (02/09/2016 2:33 PM CDT) P athologist Signature Activated Prot 2.72 >2.12 UNIVERSITY OF C [facility] MEDICAL [facility] CENTER [facility] Comment: NORMAL Activated Protein C Ratio:The pat ient does not have Activated Protein C Resistance. Specimen Anatomical Collection Method Collection Time Receive d Time (Source) Location / / Volume Laterality Blood specimen 02/09/2016 2:33 PM 016 2:35 (specimen) CDT PM CDT Amado Contreras MD LAB - BLOOD ORDERABLES Performing Organization Address City/[facility]/ZIP Code Phon e Number [facility] [address] [place] [address] [facility] LUPUS BATTERY (INR,PTT,TT) (02/09/2016 2:33 PM CDT) Component Value Ref Test Analysis Performed At [facility] gist Range Method Time Signature Lupus Result Negative NEG [facility] (Note) DC MEDICAL COMMENTS: [facility] The INR is normal. [place] APTT ratio is elevated. Platelet Neutralization is negative. APTT 1:2 Mix ratio is normal. DRVVT Screen ratio is normal. Thrombin time is normal. NEGATIVE TEST; A LUPUS ANTICOAGULANT WAS NOT DETECTED IN THI S SPECIMEN WITHIN THE LIMITS OF THE TESTING REPERTOIRE. If the clinical picture is strongly suggestive of an antipho spholipid syndrome, recommend anticardiolipin and [id number] (IgG and IgM) antibody tests. Platelet Neutralization and APTT 1:2 Mix ratio are suggestiv e of factor deficiency. Recommend factors 8, 9, 11 and 12 (factors VIII, IX, XI, and XII) levels if clinically indicated. Jagdish Sandy M.D. [phone] 02/11/2016 INR = 1.11 ?? Reference range: [...] LAB - BLOOD ORDERABLES Performing Organization Address City/[facility] Code Phon e Number [address] Erythrocyte sedimentation rate auto (02/09/2016 2:33 PM CDT) P athologist Signature Sed Rate 6 0 - 20 mm/h [facility] Specimen Anatomical Collection Method Collection Time Receive d Time (Source) Location / / Volume Laterality Blood specimen 02/09/2016 2:33 PM 016 2:35 (specimen) CDT PM CDT Amado Contreras MD LAB - BLOOD ORDERABLES Performing Organization Address City/[facility] Code Phon e Number [address] (ABNORMAL) Basic metabolic panel (02/09/2016 2:33 PM CDT) Patholo gist Method Time Signature Sodium 142 133 - 144 UNIVERSITY OF mmol/L [facility] Potassium 3.4 3.4 - 5.3 UNIVERSITY OF mmol/L [facility] Chloride 110 (H) 94 - 109 [facility] OF mmol/L [facility] Carbon Dioxide 23 20 - 32 [facility] OF mmol/L [facility] Anion Gap 9 3 - 14 [facility] OF mmol/L [facility] Glucose 113 (H) 70 - 99 [facility]ITY OF mg/dL [facility] Urea Nitrogen 10 7 - 30 [facility] OF mg/dL [facility] Creatinine 0.58 0.52 - UNIVERSITY OF 1.04 [facility] mg/dL [facility] GFR Estimate >90 >60 UNIVERSITY OF Non GFR Calc mL/min/1. DC MEDICAL 7m2 [facility] GFR Estimate >90 >60 UNIVERSITY OF If Black GFR Calc mL/min/1. [place] M EDICAL 7m2 [facility] Calcium 8.9 8.5 - UNIVERSITY OF 10.1 DC MEDICAL mg/dL [facility] Specimen Anatomical Collection Method Collection Time Receive d Time (Source) Location / / Volume Laterality Blood specimen 02/09/2016 2:33 PM 016 2:35 (specimen) CDT PM CDT Amado Contreras MD LAB - BLOOD ORDERABLES Performing Organization Address City/State/ZIP Code Phon e Number [facility] [address] CBC with platelets (02/09/2016 2:33 PM CDT) P athologist Signature WBC 5.6 4.0 - 11.0 UNIVERSITY OF 10e9/L [facility] RBC Count 4.12 3.8 - 5.2 [facility] OF 10e12/L [facility] Hemoglobin 12.8 11.7 - UNIVERSITY OF 15.7 g/dL [facility] Hematocrit 36.9 35.0 - UNIVERSITY OF 47.0 % [facility] MCV 90 78 - 100 UN[facility] OF fl [facility] MCH 31.1 26.5 - UNIVERSITY OF 33.0 pg [facility] MCHC 34.7 31.5 - UNIVERSITY OF 36.5 g/dL [facility] RDW 12.2 10.0 - UNIVERSITY OF 15.0 % [facility] Platelet Count 276 150 - 450 UNIV[facility]ITY OF 10e9/L [facility] Specimen Anatomical Collection Method Collection Time Receive d Time (Source) Location / / Volume Laterality Blood specimen 02/09/2016 2:33 PM 016 2:35 (specimen) CDT PM CDT Amado Contreras MD LAB - BLOOD ORDERABLES Performing Organization Address City/State/ZIP Code Phon e Number [facility] [address] (ABNORMAL) Routine UA with microscopic - No culture (02/09/2016 2:21 PM CDT) Patholo gist Method Time Signature Color Urine Yellow [facility] Appearance Urine Slightly [facility]ITY OF Cloudy [facility] Glucose Urine Negative NEG mg/dL [facility] Bilirubin Urine Negative NEG [facility] Ketones Urine Negative NEG mg/dL [facility] Specific Walton 1.006 1.003 - UNIVERSITY Urine 1.035 [facility] Blood Urine Negative NEG [facility] pH Urine 7.0 5.0 - 7.0 UNIV[facility]ITY OF pH [facility] Protein Albumin Negative NEG mg/dL [facility]ITY OF Urine [facility] Urobilinogen Normal 0.0 - 2.0 [facility] mg/dL mg/dL [facility] Nitrite Urine Negative NEG [facility] Leukocyte Moderate (A) NEG [facility]IV[facility] OF Esterase Urine [facility] Source Midstream UNIVERSITY Urine [facility] WBC Urine 6 (H) 0 - 2 [facility]ITY OF /HPF [facility] RBC Urine 1 0 - 2 [facility]ITY OF /HPF [facility] Bacteria Urine Few (A) NEG /HPF [facility] Squamous 26 (H) 0 - 1 [facility] OF Epithelial /HPF /HPF [facility] Transitional Epi <1 0 - 1 [facility]ITY OF /HPF [facility] Mucous Urine Present (A) NEG /LPF [facility] Specimen Anatomical Collection Method Collection Time Receive d Time (Source) Location / / Volume Laterality Urine specimen 02/09/2016 2:21 PM 016 2:22 (specimen) CDT PM CDT Amado Contreras MD LAB - URINE ORDERABLES Performing Organization Address City/State/ZIP Code Phon e Number [facility] [address] [place] [address] [facility] Fluorescein Angiography OU (both eyes) (02/09/2016 [...] retina documented in this encounter Care Teams Electrophysiology Nurse Practitioner Relationship Specialty Start Date End Date Destiny Elizondo PCP - General 02/08/16 06/22/17 [facility] [address] [place] [address] documented as of this encounter
--- OUTSIDE RECORDS SUMMARY | 2022-02-07 21:57 | XMS_ITS | Encounter Summary ---
:1995 Author Organization [facility] Address [address] [place] [address] Care Team Providers Name Role Phone No Ref-Primary, Physician Primary Care Provider [phone] Kari Bingham MD Unavailable [phone] Kari Bingham MD Unavailable [phone] Ernst Lopez MD Primary Care Provider Reason for Visit Reason Comments Other Appointment reminder; psycho therapy evaluation on 07/17/17 Encounter Details Date Type Department Care Team Description 07/13/2017 [facility] Maureen Khan Other ([facility], [facility] reminder; Addiction [place] [address] [facility] [address] [place] [phone] Social History Tobacco Use Types Packs/Day Years Used Date Smoking Tobacco: Never Smokeless Tobacco: Never Alcohol Use Standard Drinks/Week Comments No 0 (1 standard drink = 0.6 oz pure alcoho l) Sex Assigned at Date Recorded Not on file COVID-19 Exposure Response Date Recorded In the last month, have you been in contact with No / Unsure 04/20/2020 3:05 PM CHANNEL CEMENTER 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 documented as of this encounter Plan of Treatment Not on filedocumented as of this encounter Visit Diagnoses Not on filedocumented in this encounter Care Teams Credentialer Relationship Specialty Start Date End Date No Ref-Primary, PCP - General 10/12/17 11/01/20 Physician Ernst Lopez MD PCP - General Family Practice 06/23/17 10/11/17 Kari Bingham MD Ophthalmology 04/15/20 MD Ruth [address] [place] [address] Kari Bingham Assigned Surgical 04/26/20 MD Ruth Provider [address] [address] documented as of this encounter
--- OUTSIDE RECORDS SUMMARY | 2022-02-07 21:58 | XMS_ITS | Encounter Summary ---
:1995 Author Organization [place] Address [address] [place] [address]. [place] [address] Care Team Providers Name Role Phone Doctor, None MD Primary Care Provider Unavailable Destiny Elizondo Primary Care Provider No Ref-Primary, Physician Primary Care Provider [phone] Kari Bingham MD Unavailable [phone] Kari Bingham MD Unavailable [phone] Ernst Lopez MD Primary Care Provider Encounter Details Date Type Department Care Team Description 08/15/2014 Records - [facility] Brett Booth MD Low back pain Clinic [address] [address] [facility] [place] [address] Social History Tobacco Use Types Packs/Day Years Used Date Smoking Tobacco: Never Assessed Sex Assigned at Date Recorded Not on file COVID-19 Exposure Response Date Recorded In the last month, have you been in contact with No / Unsure 04/20/2020 3:05 PM QUILL CLEANING 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 someone who was confirmed or [...] Lumbago documented in this encounter Care Teams Marine Equipment Sales Engineer Relationship Specialty Start Date End Date Doctor, Denny, PCP - General 10/22/14 02/07/16 Destiny Elizondo PCP - General 02/08/16 06/22/17 [facility] [address] [facility] [place] [address] No Ref-Primary, PCP - General 10/12/17 11/01/20 Physician Ernst Lopez MD PCP - General Family Practice 06/23/17 10/11/17 Kari Bingham MD Ophthalmology 04/15/20 MD Ruth [address] [place] [address] Kari Bingham Assigned Surgical 04/26/20 MD Ruth Provider [address] [place] [address] documented as of this encounter
--- OUTSIDE RECORDS SUMMARY | 2022-02-07 21:58 | XMS_ITS | Encounter Summary ---
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 documented as of this encounter Plan of Treatment Not on filedocumented as of this encounter Visit Diagnoses Not on filedocumented in this encounter Care Teams Kick Press Operator Relationship Specialty Start Date End Date Doctor, MD Denny PCP - General 10/22/14 02/07/16 Destiny Elizondo PCP - General 02/08/16 06/22/17 [facility] [address] [place] [address] No Ref-Primary, PCP - General 10/12/17 11/01/20 Physician Ernst Lopez MD PCP - General Family Practice 06/23/17 10/11/17 Kari Bingham MD Ophthalmology 04/15/20 MD Ruth [address] [place] [address] Kari Bingham Assigned Surgical 04/26/20 MD Ruth Provider [address] [address] documented as of this encounter
--- OUTSIDE RECORDS SUMMARY | 2022-02-07 21:58 | XMS_ITS | Encounter Summary ---
:1995 Author Organization [place] Address [address] [place] [address] Care Team Providers Name Role Phone Doctor, None Primary Care Provider Unavailable Destiny Elizondo Primary Care Provider No Ref-Primary, Physician Primary Care Provider [phone] Kari Bingham MD Unavailable [phone] Kari Bingham MD Unavailable [phone] Ernst Lopez MD Primary Care Provider Encounter Details Date Type Department Care Team Description 10/13/2011 Records - [facility] Provider, [facility] DEPARTMENT [address] [place] [id number] Social History Tobacco Use Types Packs/Day Years Used Date Smoking Tobacco: Never Assessed Sex Assigned at Date Recorded Not on file COVID-19 Exposure Response Date Recorded In the last month, have you been in contact with No / Unsure 04/20/2020 3:05 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 someone who was confirmed or suspected to [...] on filedocumented in this encounter Care Teams Chronic Disease Manager Relationship Specialty Start Date End Date Doctor, Denny, PCP - General 10/22/14 02/07/16 Destiny Elizondo PCP - General 02/08/16 06/22/17 [facility] [address] [place], [place] [id number] No Ref-Primary, PCP - General 10/12/17 11/01/20 Physician Ernst Lopez MD PCP - General Family Practice 06/23/17 10/11/17 Kari Bingham MD Ophthalmology 04/15/20 MD Ruth [address] [place] [address] Kari Bingham Assigned Surgical 04/26/20 MD Ruth Provider [address] [address] documented as of this encounter
--- OUTSIDE RECORDS SUMMARY | 2022-02-07 21:58 | XMS_ITS | Encounter Summary ---
:1995 Author Organization [place] Address [address] [place] [address]. [place] [address] Care Team Providers Name Role Phone Doctor, None Primary Care Provider Unavailable Destiny Elizondo Primary Care Provider No Ref-Primary, Physician Primary Care Provider [phone] Kari Bingham MD Unavailable [phone] Kari Bingham MD Unavailable [phone] Ernst Lopez MD Primary Care Provider Reason for Visit Reason Comments Establish Care starting in Feb-Mar pt would have lower back spasms. pt states it would be so bad she would fa ll to the ground and not be able to move. 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 someone who was confirmed or suspected [...] Lumbago documented in this encounter Care Teams Facilities Operations Technician Relationship Specialty Start Date End Date Doctor, Denny, PCP - General 10/22/14 02/07/16 Destiny Elizondo PCP - General 02/08/16 06/22/17 [facility] [address] [place], [place] [id number] No Ref-Primary, PCP - General 10/12/17 11/01/20 Physician Ernst Lopez MD PCP - General Family Practice 06/23/17 10/11/17 Kari Bingham MD Ophthalmology 04/15/20 MD Ruth [address] [place] [address] Kari Bingham Assigned Surgical 04/26/20 MD Ruth Provider [address] [place] [address] documented as of this encounter
--- OUTSIDE RECORDS SUMMARY | 2022-02-07 21:59 | XMS_ITS | Clinical Summary ---
:1995 Author Organization [employer] [place] [address] Care Team Providers Name Role Phone Areli [facility] Primary Care Provi moy Allergies Active Allergy [...] Addre ss Type Group FOUZIA FRAGOSO MA [id number] 2021-Present [address] [place] [address] [address] (Home) [place] [address] [employer] Employer 04/10/2000 [phone] [facility] (Home) [phone] [facility] [address] (Work) [id number] Care Teams Automotive Painter Relationship Specialty Start Date End [facility] 10/12/[address] [place] [address] Areli [place], [place] [id number]
[2022-02-07] MEDS: 0.9 % SODIUM CHLORIDE 1000 ml 1,000 ML IV (22:18)
[2022-02-07] MEDS: ONDANSETRON 2 MG/ML inj 4 MG IVP (22:25)
[2022-02-07] MEDS: MORPHINE 2 MG/ML inj IVP (22:26)
[2022-02-07 22:30] VITALS: BP 107/75; PULSE 78; RESP 18; O2SAT 99
[2022-02-07 22:35] LABS: Basophils Absolute Auto 0.02 K/uL (0.00-0.30); Basophils Percent Auto 0.2 % (0.0-3.0); Eosinophils Absolute Auto 0.17 K/uL (0.00-0.50); Eosinophils Percent Auto 1.9 % (0.0-7.0); Hematocrit 36.3 % (33.0-51.0); Hemoglobin* 12.9 gm/dL (12.0-16.0); Immature Granulocytes Abs Auto 0.05 K/uL (0.00-0.30); Lymphocytes Absolute Auto 2.85 K/uL (0.90-2.90); Lymphocytes Percent Auto 31.4 % (20-44); Mean Corpuscular HGB Conc 36 gm/dL (32-36); Mean Corpuscular Hemoglobin 32 pg (26-34); Mean Corpuscular Volume 89 fL (80-100); Monocytes Percent Auto 5.9 % (0.0-11.0); Neutrophils Absolute Auto 5.46 K/uL (1.7-7.0); Platelet Count* 330 K/uL (140-440); RDW Coefficient of Variation % 11.6 % (11.5-15.5); Red Blood Count 4.09 m/uL (4.00-5.20); White Blood Count* 9.09 K/uL (4.50-11.00)
[2022-02-07 22:37] LABS: Albumin* 4.8 g/dL (3.3-5.0); Chloride* 103 mmol/L (96-114); Sodium* 139 mmol/L (135-149)
[2022-02-07 22:38] LABS: Potassium* 3.9 mmol/L (3.6-5.1)
[2022-02-07 22:40] LABS: Amylase* 65 U/L (18-89); Carbon Dioxide* 23 mmol/L (20-32)
[2022-02-07 22:41] LABS: Alanine Aminotransferase* 28 U/L (4-35); Alkaline Phosphatase* 74 U/L (40-150); Aspartate Amino Transferase* 24 U/L (12-35); Bilirubin Total* 0.7 mg/dL (0.1-1.5); Blood Urea Nitrogen* 13 mg/dL (5-24); Calcium* 9.4 mg/dL (8.4-10.6); Creatinine* 0.6 mg/dL (0.5-1.5); Est. Creatinine Clearance* 136.96; Estimated Glomerular Filt Rate 126 ml/min; Glucose* 86 mg/dL (60-115); Lipase* 55 U/L (23-300); Total Protein* 7.5 g/dL (6.0-8.3)
[2022-02-07 22:46] LABS: Slide Review Reflex No
[2022-02-07 22:47] LABS: C Reactive Protein* < 0.5 mg/dL (0.5-1.0)
[2022-02-07 22:52] LABS: Appearance Urine Slightly Cloudy (Clear); Bilirubin Urine Negative (Negative); Blood Urine Trace-intact (Negative); Color Urine Yellow (Yellow); Glucose Urine Negative (Negative); Ketones Urine Trace (Negative); Leukocyte Esterase Urine Negative (Negative); Nitrite Urine Negative (Negative); Protein Urine Negative (Negative); Specific Gravity Urine >= 1.030 (1.000-1.030); Urobilinogen Urine 0.2 (0.2-1.0)
[2022-02-07 23:08] LABS: Squamous Epithelial Cell Urine Few (None-Few); WBC Urine 0-2 (0-5)
[2022-02-07 23:17] LABS: Erythrocyte SedimentationRate* 13 mm/hr (2-20)
[2022-02-07 23:30] VITALS: BP 104/71; PULSE 84; O2SAT 100
[2022-02-07 23:45] VITALS: BP 107/74; PULSE 77; O2SAT 99
[2022-02-08] VITALS: BP 100/54; PULSE 96; RESP 16; O2SAT 97
[2022-02-08 00:30] VITALS: BP 102/61; PULSE 81; RESP 16; O2SAT 98
[2022-02-08 01:00] VITALS: BP 110/72; PULSE 86; RESP 16; O2SAT 96
== END 2022-02-08 01:06 | disposition home or self-care (01) ==
PROVIDERS: Emergency Provider Family Medicine
DX: R10.31 Right lower quadrant pain (principal); K62.5 Hemorrhage of anus and rectum; R11.0 Nausea; Z86.19 Personal history of other infectious and parasitic diseases
CPT/HCPCS: 36415; 80053; 81001; 82150; 83690; 85025; 85651; 86140; 87493; 96361; 96374; 96375; 99284; 99285; J2270; J2405; J7030

== ENCOUNTER 2022-07-27 10:46 | Emergency (ER) | payer MEDICAID, SELFPAY ==
[2022-07-27 11:21] VITALS: BP 122/78; PULSE 77; RESP 18; TEMP 37.3; O2SAT 97; BMI 38.4
== END 2022-07-27 13:30 | disposition left against medical advice (07) ==
LOC: ED 14:02
PROVIDERS: Emergency Provider Family Medicine
DX: Z53.21 Procedure and treatment not carried out due to patient leaving prior to being seen by health care provider (principal)

== ENCOUNTER 2022-11-09 09:03 | Emergency (ER) | payer MEDICAID, SELFPAY ==
[2022-11-09 09:06] VITALS: BP 120/80; PULSE 82; RESP 18; TEMP 37; O2SAT 98; BMI 38.7
--- NOTE | 2022-11-09 10:51 | CRLHL7_ITS ---
For Patients: As a result of the Century Cures Act, medical imaging exams and procedure reports are released immediately into your electronic medical record. You may view this report before your referring provider. If you have questions, please contact your health care provider. INDICATION: PAIN POST HYSTERECTOMY Monday11/04/22. TECHNIQUE: CT abdomen and pelvis acquired with 119 cc Isovue 370 IV contrast. COMPARISON: None. FINDINGS: Lower chest: Unremarkable. Liver: Unremarkable. Normal in size and attenuation. No suspicious masses. Gallbladder and bile ducts: Unremarkable. No stones or inflammation. No biliary dilatation. Pancreas: Unremarkable. No mass or inflammation. Spleen: Unremarkable. Normal in size. No masses. Adrenal glands: Unremarkable. No nodules. Kidneys: Unremarkable. No suspicious masses, stones, or hydronephrosis. GI tract: Unremarkable. Normal in caliber. No sign of mass or inflammation. Appendix is within normal limits. Vasculature: Abdominal aorta is normal in caliber. Mesenteric arteries are patent. Lymph nodes: No lymphadenopathy. Peritoneum/Abdominal Wall: Soft tissue stranding along the port sites. Mild mesenteric stranding is noted diffusely in the abdomen worse in the lower abdomen. Small fluid pooling in the pelvis. Mild enhancement along the vaginal cuff. No focal drainable fluid collections. No sign of mass or infiltration. No free air or significant free fluid. Pelvis: Mild edema and enhancement along the vaginal cuff. Mild bladder wall thickening may be reactive or related to incomplete distention. Bones: Unremarkable for age. IMPRESSION: Expected postoperative changes from hysterectomy. There is mild enhancement along the vaginal cuff likely postsurgical in etiology although mild underlying infection not entirely excluded. Mild bladder wall thickening is noted. This may be related to incomplete distention, or reactive changes. Correlate with UA for cystitis. Please note that all CT scans at this facility use dose modulation, iterative reconstruction, and/or weight-based dosing when appropriate to reduce radiation dose to as low as reasonably achievable. Dictated by Abran Canas MD @ 11/09/2022 12:25:08 PM (Electronically Signed)
--- NOTE | 2022-11-09 10:54 | ED_ITS ---
HPI - General Adult General Time Seen by Provider: 10:54 Date Seen: 11/09/22 Chief complaint: Post Op Complication Stated complaint: post op complications Time Seen by Provider: 11/09/22 10:51 Source: patient Mode of arrival: ambulatory Limitations: no limitations History of Present Illness HPI narrative: Patient is a 26 year female had a recent hysterectomy for complications after a uterine ablation. She is was doing okay on oxycodone and then that ran out and she has tried some Tylenol and had increasing pain pain in her abdomen and down her legs in her thighs to her posterior thighs. No dysuria, no frequency, some loose stool but overall she is doing able to eat and drink water. The patient reports some difficulty with swelling around her mouth or naproxen. She does not have a ride home today. Her machine tool technology instructor felt that she should have an evaluation given her increasing pain level continued after her surgery. She denies fever chills or rigors. Related Data Home Medications Medication Instructions Recorded Confirmed acetaminophen 500 mg capsule 500 mg PO QID PRN 11/09/22 11/09/22 oxycodone 5 mg tablet PO 11/09/22 Previous Rx's Medication Instructions Recorded hydrocodone 5 mg-acetaminophen 325 1 tab PO Q8H PRN pain #14 tabs 11/09/22 mg tablet Allergies Allergy/AdvReac Type Severity Reaction Status Date / Time ibuprofen Allergy Severe Difficulty Verified 11/09/22 11:07 Breathing naproxen Allergy Intermediate Swelling Verified 11/09/22 11:07 of Lip/Tongue/Throat Review of Systems Status of ROS: Reports: 10 or more systems reviewed and unremarkable except as noted in History and below PFSH PFS Social History Smoking Status: Never smoker How often do you have a drink containing alcohol: monthly or less AUDIT-C Alcohol total score: 1 Non-prescribed substance use: denies use service: No Exam Narrative: Exam Narrative: Objective: Patient is in no marked distress vital signs unremarkable she is afebrile Abdomen is benign soft she has mild tenderness in her suprapubic region but she has no rebound, no masses, her surgical sites appear clean and noninfected Extremities are no edema neurologic nonfocal good peripheral perfusion noted Const: Vital Signs, click to edit/add: Vital Signs - 24 hr 11/09/22 09:06 Temperature 98.6 F Pulse Rate [Right Pulse Oximeter] 82 Respiratory Rate 18 Blood Pressure [Ri ght Upper Arm] 120/80 Pulse Oximetry 98 Oxygen Delivery Me thod Room Air Course Vital Signs Vital signs: Initial Vital Signs Temperature 98.6 F 11/09/22 09:06 Temperature Source Temporal Artery Scan 11/09/22 09:06 Pulse Rate 82 11/09/22 09:06 Respiratory Rate 18 11/09/22 09:06 Blood Pressure 120/80 11/09/22 09:06 Blood Pressure Mean 93 11/09/22 09:06 Blood Pressure Position Sitting 11/09/22 09:06 Pulse Oximetry 98 11/09/22 09:06 Oxygen Delivery Method Room Air 11/09/22 09:06 Vital Signs Temperature 98.6 F 11/09/22 09:06 Pulse Rate 82 11/09/22 09:06 Respiratory Rate 18 11/09/22 09:06 Blood Pressure 120/80 11/09/22 09:06 Pulse Oximetry 98 11/09/22 09:06 Oxygen Delivery Method Room Air 11/09/22 09:06 Temperature 98.6 F 11/09/22 09:06 Pulse Rate 82 11/09/22 09:06 Respiratory Rate 18 11/09/22 09:06 Blood Pressure 120/80 11/09/22 09:06 Pulse Oximetry 98 11/09/22 09:06 Oxygen Delivery Method Room Air 11/09/22 09:06 Medical Decision Making MDM Narrative Medical decision making narrative: Patient is a 26-year-old female status post hysterectomy with increasing pain, the patient had done okay on narcotic medicine she is allergic to NSAIDs. I think for completeness given her presentation will check laboratory studies, give IV fluid, give oral Tylenol, check a CT scan of abdomen pelvis make sure there is no fluid collection or other abnormality. Disposition if these are all reassuring would be with oral [place] for home and follow up with her regular machine tool technology instructor in the next few days. Addendum: 12:[address] scan of the abdomen shows some normal postoperative changes little bit of enhancement along the vaginal cuff but nothing significant no obvious abscess. The patient has reassuring lab studies in the form of a normal white count hemoglobin normal ER profile. I think using some narcotic pain medicine for few days would be reasonable light light activity level. Fluids is and fluid as tolerated. Update machine tool technology instructor the next few days. Return as needed. Lab Data Labs: Lab Results 11/09/22 Range/Units 11:10 WBC 7.32 (4.50-11.00) K/uL RBC 4.62 (4.00-5.20) m/uL Hgb 14.3 (12.0-16.0) gm/dL Hct 40.8 (33.0-51.0) % MCV 88 (80-100) fL MCH 31 (26-34) pg MCHC 35 (32-36) gm/dL RDW Coeff of Ben 11.3 L (11.5-15.5) % Plt Count 368 (140-440) K/uL Neut % (Auto) 68.8 (42.0-72.0) % Lymph % (Auto) 23.1 (20-44) % [place] % (Auto) 5.5 (0.0-11.0) % Eos % (Auto) 2.0 (0.0-7.0) % Baso % (Auto) 0.5 (0.0-3.0) % Neut # (Auto) 5.03 (1.7-7.0) K/uL Lymph # (Auto) 1.69 (0.90-2.90) K/uL [place] # (Auto) 0.40 (0.00-0.90) K/UL Eos # (Auto) 0.15 (0.00-0.50) K/uL Baso # (Auto) 0.04 (0.00-0.30) K/uL Abs Immat Gran (auto) 0.01 (0.00-0.30) K/uL Imm/Tot Granulo (auto) 0.1 % Sodium 136 (135-149) mmol/L Potassium 4.0 (3.6-5.1) mmol/L Chloride 101 (96-114) mmol/L Carbon Dioxide 26 (20-32) mmol/L BUN 10 (5-24) mg/dL Creatinine 0.6 (0.5-1.5) mg/dL Estimated Creat Clear 131.85 Estimated GFR 126 ml/min Glucose 102 (60-115) mg/dL Calcium 9.5 (8.4-10.6) mg/dL Discharge Plan Discharge Clinical Impression: Post-op pain Patient Disposition: Home, Self-Care Condition: Improved Instructions: Pain Management After Surgery (DC) Additional Instructions: Light activity, diet as tolerated, [place] as needed, update your regular machine tool technology instructor in the next few days, return to ED as needed. Activity Level: Light activity Discharge Diet: Low Fat/Low Cholesterol Prescriptions: New hydrocodone-acetaminophen 5-325 mg tablet 1 tab PO Q8H PRN (Reason: pain) Qty: 14 0RF No Action oxycodone 5 mg tablet PO acetaminophen 500 mg capsule 500 mg PO QID PRN Follow Up/Referrals: Provider,Not a Local [Primary Care Provider] - Stand Alone Forms: [employer] Instructions
[2022-11-09] MEDS: ACETAMINOPHEN 500 MG TABLET 1000 MG PO (11:32)
[2022-11-09] MEDS: 0.9 % SODIUM CHLORIDE 1000 ml 1,000 ML 6000 ML IV (11:32)
[2022-11-09 11:36] LABS: Basophils Absolute Auto 0.04 K/uL (0.00-0.30); Basophils Percent Auto 0.5 % (0.0-3.0); Chloride* 101 mmol/L (96-114); Eosinophils Absolute Auto 0.15 K/uL (0.00-0.50); Hematocrit 40.8 % (33.0-51.0); Hemoglobin* 14.3 gm/dL (12.0-16.0); Immature Granulocytes Abs Auto 0.01 K/uL (0.00-0.30); Immature Granulocytes Pct Auto 0.1 %; Lymphocytes Absolute Auto 1.69 K/uL (0.90-2.90); Lymphocytes Percent Auto 23.1 % (20-44); Mean Corpuscular HGB Conc 35 gm/dL (32-36); Mean Corpuscular Hemoglobin 31 pg (26-34); Mean Corpuscular Volume 88 fL (80-100); Monocytes Percent Auto 5.5 % (0.0-11.0); Neutrophils Absolute Auto 5.03 K/uL (1.7-7.0); Neutrophils Percent Auto 68.8 % (42.0-72.0); Platelet Count* 368 K/uL (140-440); RDW Coefficient of Variation % 11.3 % (11.5-15.5); Red Blood Count 4.62 m/uL (4.00-5.20); Sodium* 136 mmol/L (135-149); White Blood Count* 7.32 K/uL (4.50-11.00)
[2022-11-09 11:39] LABS: Blood Urea Nitrogen* 10 mg/dL (5-24); Carbon Dioxide* 26 mmol/L (20-32); Creatinine* 0.6 mg/dL (0.5-1.5); Est. Creatinine Clearance* 131.85; Estimated Glomerular Filt Rate 126 ml/min; Slide Review Reflex No
[2022-11-09 11:40] LABS: Calcium* 9.5 mg/dL (8.4-10.6); Glucose* 102 mg/dL (60-115)
== END 2022-11-09 12:35 | disposition home or self-care (01) ==
PROVIDERS: Emergency Provider Family Medicine
DX: G89.18 Other acute postprocedural pain (principal)
CPT/HCPCS: 36415; 74177; 80048; 85025; 99284; 99285; A9270; J7030; Q9967

== ENCOUNTER 2022-11-25 15:12 | Emergency (ER) | payer MEDICAID, SELFPAY ==
[2022-11-25] VITALS (14 sets, daily range): BP systolic 103–151; BP diastolic 62–104; PULSE 67–82; RESP 18; TEMP 36.9; O2SAT 98–100; BMI 36.0
--- NOTE | 2022-11-25 15:40 | CRLHL7_ITS ---
For Patients: As a result of the Century Cures Act, medical imaging exams and procedure reports are released immediately into your electronic medical record. You may view this report before your referring provider. If you have questions, please contact your health care provider. INDICATION: Leg swelling. TECHNIQUE: Ultrasound venous duplex lower right extremity. Compression venous exam was performed using baer-scale, color Doppler, and spectral Doppler analysis. COMPARISON: None. FINDINGS: Deep veins: Occlusive and nonocclusive thrombus is identified in the paired peroneal veins of the right leg consistent with [id number] DVT. Sonographic imaging otherwise demonstrates the right common femoral, deep femoral, superficial femoral, popliteal, posterior tibial and the contralateral left common femoral veins to be fully compressible with normal color Doppler blood flow. Superficial veins: Greater saphenous vein is fully compressible. No popliteal cyst. IMPRESSION: DVT involving the peroneal veins of the right leg. Discussed with Dr. Graff at 5:16 p.m. on 11/25/2022. Dictated by Ryne Wilson MD @ 11/25/2022 5:17:02 PM (Electronically Signed)
--- NOTE | 2022-11-25 15:41 | ED_ITS ---
HPI - General Adult General Chief complaint: Extremity Pain/Injury, Lower Stated complaint: Post op R leg pain/swelling, chest tight Time Seen by Provider: 11/25/22 15:28 History of Present Illness HPI narrative: This 26-year-old female states that she has some swelling in her right foot and lower leg that began today. She also reports some pain in her lower leg but states that the pain seems to be more focused on the posterior lateral aspect of her right knee. She does not report any shortness of breath. She did have a laparoscopic hysterectomy less than a month ago. She reports a feeling of some chest tightness but does not describe any pain. She arrives here with normal v ital signs except her blood pressure is a bit elevated. Related Data Home Medications Medication Instructions Recorded Confirmed acetaminophen 500 mg capsule 500 mg PO QID PRN 11/09/22 11/09/22 oxycodone 5 mg tablet PO 11/09/22 Previous Rx's Medication Instructions Recorded hydrocodone 5 mg-acetaminophen 325 1 tab PO Q8H PRN pain #14 tabs 11/09/22 mg tablet apixaban 5 mg (74 tabs) tablets in See Rx Instructions PO .COMPLEX 11/25/22 a dose pack (Eliquis DVT-PE Treat #74 ea 30D Start) Allergies Allergy/AdvReac Type Severity Reaction Status Date / Time ibuprofen Allergy Severe Difficulty Verified 11/09/22 11:07 Breathing naproxen Allergy Intermediate Swelling Verified 11/09/22 11:07 of Lip/Tongue/Throat Review of Systems Status of ROS: Reports: 10 or more systems reviewed and unremarkable except as noted in History and below Narrative: Constitutional: No fevers, no weight gain or loss. Eyes: No discharge. No vision changes. HENT: No congestion, no sore throat, no ear pain. Cardiovascular: No chest pain, no palpitations. Respiratory: No shortness of breath, no wheezes, no cough. Gastrointestinal: No abdominal pain, no vomiting, no diarrhea. Genitourinary: No dysuria, no hematuria. Musculoskeletal: Normal range of motion. Skin: No rashes, no pruritis. Neurological: No dizziness, weakness, sensory change, speech change. Endo/Heme/Allergies: No bruising or bleeding. No polydipsia. Pysch: no suicidality, no anxiety, no insomnia. All other systems reviewed and are negative. PFSH PFSH Social History Smoking Status: Never smoker How often do you have a drink containing alcohol: monthly or less AUDIT-C Alcohol total score: 1 Non-prescribed substance use: denies use service: No Exam Narrative: Exam Narrative: Constitutional: Well-developed, well-nourished, no acute distress. HEENT: Normocephalic, atraumatic. Neck: Normal range of motion. Nontender. Supple. Heart: Regular. No murmurs. Normal rate. Intact distal pulses. Lungs: Clear to auscultation. No chest discomfort. No wheezes, rhonchi, or rales. Abdomen: Normal bowel sounds. Nontender. No rebound tenderness. Genitalia: Deferred. Back: No midline tenderness. Normal range of motion. Extremities: Normal range of motion. No injury. Mild nonpitting edema in the right foot compared to the left. Skin: Intact. No rash. Warm. No erythema or pallor. Neurologic: No altered sensation. No weakness. Alert and oriented. Psychiatric: No suicidality. No anxiety or depression. No insomnia. Nursing notes and vitals signs are reviewed. Const: Vital Signs, click to edit/add: Vital Signs - 24 hr 11/25/22 15:24 11/25/22 16:12 11/25/22 16:30 Temperature 98.4 F Pulse Rate 81 80 Pulse Rate [Right Pulse Oximeter] 82 Respiratory Rate 18 Blood Pressure Blood Pressure [Ri ght Upper Arm] 151/104 H Pulse Oximetry 98 98 100 Oxygen Delivery Me thod Room Air 11/25/22 16:32 11/25/22 16:33 11/25/22 17:03 Temperature Pulse Rate 77 82 70 Pulse Rate [Right Pulse Oximeter] Respiratory Rate Blood Pressure 110/74 Blood Pressure [Ri ght Upper Arm] Pulse Oximetry 98 99 99 Oxygen Delivery Me thod 11/25/22 17:04 11/25/22 17:30 11/25/22 17:32 Temperature Pulse Rate 81 75 78 Pulse Rate [Right Pulse Oximeter] Respiratory Rate Blood Pressure 126/83 110/62 Blood Pressure [Ri ght Upper Arm] Pulse Oximetry 98 98 98 Oxygen Delivery In thod 11/25/22 18:00 11/25/22 18:03 Temperature Pulse Rate 69 67 Pulse Rate [Right Pulse Oximeter] Respiratory Rate Blood Pressure 127/76 Blood Pressure [Ri ght Upper Arm] Pulse Oximetry 98 99 Oxygen Delivery Me thod Course Vital Signs Vital signs: Initial Vital Signs Temperature 98.4 F 11/25/22 15:24 Temperature Source Temporal Artery Scan 11/25/22 15:24 Pulse Rate 82 11/25/22 15:24 Respiratory Rate 18 11/25/22 15:24 Blood Pressure 151/104 H 11/25/22 15:24 Blood Pressure Mean 119 H 11/25/22 15:24 Blood Pressure Position Sitting 11/25/22 15:24 Pulse Oximetry 98 11/25/22 15:24 Oxygen Delivery Method Room Air 11/25/22 15:24 Vital Signs Temperature 98.4 F 11/25/22 15:24 Pulse Rate 82 11/25/22 15:24 Respiratory Rate 18 11/25/22 15:24 Blood Pressure 151/104 H 11/25/22 15:24 Pulse Oximetry 98 11/25/22 15:24 Oxygen Delivery Method Room Air 11/25/22 15:24 Temperature 98.4 F 11/25/22 15:24 Pulse Rate 67 11/25/22 18:03 Respiratory Rate 18 11/25/22 15:24 Blood Pressure 127/76 11/25/22 18:03 Pulse Oximetry 99 11/25/22 18:03 Oxygen Delivery Method Room Air 11/25/22 15:24 Medical Decision Making MDM Narrative Medical decision making narrative: This patient comes in with swelling and some pain in her right lower extremity. She did have a recent hysterectomy and does report a remote history of a retinal vein occlusion at which time she was checked for any genetic causes of hypercoagulability. She states that everything was negative at that time. Ultrasound of the right lower extremity today does show evidence of deep venous thrombosis in the peroneal veins. One vein is completely occluded and the other is partially occluded. An IV was established and a CT scan of the chest is obtained to rule out pulmonary embolism. This returns with no evidence of pulmonary embolism. The patient did receive a tablet of Eliquis and a prescription for the same. She is advised to follow-up with her primary physician in the next few weeks to arrange ongoing management. Lab Data Labs: Lab Results 11/25/22 Range/Units 16:35 WBC 7.16 (4.50-11.00) K/uL RBC 4.09 (4.00-5.20) m/uL Hgb 12.8 (12.0-16.0) gm/dL Hct 36.6 (33.0-51.0) % MCV 90 (80-100) fL MCH 31 (26-34) pg MCHC 35 (32-36) gm/dL RDW Coeff of Ben 11.6 (11.5-15.5) % Plt Count 341 (140-440) K/uL Neut % (Auto) 60.0 (42.0-72.0) % Lymph % (Auto) 31.8 (20-44) % Whitley % (Auto) 5.7 (0.0-11.0) % Eos % (Auto) 2.1 (0.0-7.0) % Baso % (Auto) 0.4 (0.0-3.0) % Neut # (Auto) 4.29 (1.7-7.0) K/uL Lymph # (Auto) 2.28 (0.90-2.90) K/uL Whitley # (Auto) 0.40 (0.00-0.90) K/UL Eos # (Auto) 0.15 (0.00-0.50) K/uL Baso # (Auto) 0.03 (0.00-0.30) K/uL Abs Immat Gran (auto) 0.00 (0.00-0.30) K/uL Imm/Tot Granulo (auto) 0.0 % Sodium 141 (135-149) mmol/L Potassium 3.8 (3.6-5.1) mmol/L Chloride 105 (96-114) mmol/L Carbon Dioxide 27 (20-32) mmol/L BUN 13 (5-24) mg/dL Creatinine 0.8 (0.5-1.5) mg/dL Estimated Creat Clear 102.72 Estimated GFR 104 ml/min Glucose 94 (60-115) mg/dL Calcium 9.2 (8.4-10.6) mg/dL Imaging Data CT scan - chest: Radiologist's impression: 1. No pulmonary emboli or other acute intrathoracic abnormality identified. 2. Incidental mild splenomegaly. Discharge Plan Discharge Clinical Impression: Deep venous thrombosis (DVT) of right peroneal vein Patient Disposition: Home, Self-Care Condition: Unchanged Additional Instructions: Take medication as prescribed. Follow up with primary physician to arrange ongoing management. Return if worsening symptoms happen. Prescriptions: New Yeimi DVT-PE Treat 30D Start 5 mg (74 tabs) tablets,dose pack See Rx Instructions PO .COMPLEX Qty: 74 0RF Rx Instructions: orally per package directions No Action oxycodone 5 mg tablet PO acetaminophen 500 mg capsule 500 mg PO QID PRN hydrocodone-acetaminophen 5-325 mg tablet 1 tab PO Q8H PRN (Reason: pain) Qty: 14 0RF Follow Up/Referrals: Provider,Not a Local [Primary Care Provider] - Stand Alone Forms: [facility] [employer] Info Instructions
--- NOTE | 2022-11-25 16:25 | CRLHL7_ITS ---
For Patients: As a result of the Century Cures Act, medical imaging exams and procedure reports are released immediately into your electronic medical record. You may view this report before your referring provider. If you have questions, please contact your health care provider. INDICATION: Recent hysterectomy. Right leg DVT on ultrasound earlier today. Chest tightness. Evaluate for pulmonary emboli. CT CHEST WITH CONTRAST TECHNIQUE: Multidetector CT imaging was performed through the chest following intravenous contrast administration using 95 mL Isovue 370. Coronal and sagittal reconstructions were generated. COMPARISON: None. FINDINGS: Lungs and airways: Minimal dependent lung atelectasis. No confluent infiltrates, suspicious nodules, or masses. Central airways are patent. Pleura and pleural spaces: No pleural effusions or pneumothorax. Heart and mediastinum: Upper normal heart size. No significant pericardial effusion. No pathologically enlarged mediastinal lymph nodes. Vascular structures: No filling defects in the pulmonary arterial tree to suggest pulmonary emboli. Normal caliber aorta without evidence of dissection. Chest wall and axillae: No mass or axillary lymphadenopathy. Osseous structures: Normal for age. No acute fractures identified. Upper abdomen: Mild splenomegaly measuring 14.3 centimeters. IMPRESSION: 1. No pulmonary emboli or other acute intrathoracic abnormality identified. 2. Incidental mild splenomegaly. YANIRA DSOUZA MD [facility] Dictated by Lukas Dsouza MD @ 11/25/2022 6:27:05 PM Please note that all CT scans at this facility use dose modulation, iterative reconstruction, and/or weight-based dosing when appropriate to reduce radiation dose to as low as reasonably achievable. Dictated by: Lukas Dsouza MD @ 11/25/2022 18:28:21 (Electronically Signed)
[2022-11-25 16:52] LABS: Basophils Absolute Auto 0.03 K/uL (0.00-0.30); Basophils Percent Auto 0.4 % (0.0-3.0); Eosinophils Absolute Auto 0.15 K/uL (0.00-0.50); Eosinophils Percent Auto 2.1 % (0.0-7.0); Hematocrit 36.6 % (33.0-51.0); Hemoglobin* 12.8 gm/dL (12.0-16.0); Lymphocytes Absolute Auto 2.28 K/uL (0.90-2.90); Lymphocytes Percent Auto 31.8 % (20-44); Mean Corpuscular HGB Conc 35 gm/dL (32-36); Mean Corpuscular Hemoglobin 31 pg (26-34); Mean Corpuscular Volume 90 fL (80-100); Monocytes Percent Auto 5.7 % (0.0-11.0); Neutrophils Absolute Auto 4.29 K/uL (1.7-7.0); Platelet Count* 341 K/uL (140-440); RDW Coefficient of Variation % 11.6 % (11.5-15.5); Red Blood Count 4.09 m/uL (4.00-5.20); White Blood Count* 7.16 K/uL (4.50-11.00)
[2022-11-25 16:57] LABS: Slide Review Reflex No
[2022-11-25] MEDS: APIXABAN 5 MG TABLET 10 MG PO (17:06)
[2022-11-25 17:20] LABS: Blood Urea Nitrogen* 13 mg/dL (5-24); Carbon Dioxide* 27 mmol/L (20-32); Chloride* 105 mmol/L (96-114); Potassium* 3.8 mmol/L (3.6-5.1); Sodium* 141 mmol/L (135-149)
[2022-11-25 17:21] LABS: Calcium* 9.2 mg/dL (8.4-10.6); Creatinine* 0.8 mg/dL (0.5-1.5); Est. Creatinine Clearance* 102.72; Estimated Glomerular Filt Rate 104 ml/min; Glucose* 94 mg/dL (60-115)
== END 2022-11-25 19:04 | disposition home or self-care (01) ==
PROVIDERS: Emergency Provider Emergency Medicine Emergency Medical Services
DX: I82.451 Acute embolism and thrombosis of right peroneal vein (principal)
CPT/HCPCS: 36415; 71275; 80048; 85025; 93971; 99284; 99285; A9270; Q9967

== ENCOUNTER 2022-12-08 19:29 | Emergency (ER) | payer MEDICAID, SELFPAY ==
[2022-12-08 19:43] VITALS: BP 122/85; PULSE 72; RESP 18; TEMP 36.7; O2SAT 100; BMI 38.7
--- NOTE | 2022-12-08 20:17 | ED_ITS ---
HPI - General Adult General Time Seen by Provider: 20:17 Date Seen: 12/08/22 Chief complaint: Lower Extremity Swelling Stated complaint: L leg blood clot, pain around collarbone Time Seen by Provider: 12/08/22 19:52 Source: patient and RN notes reviewed Mode of arrival: ambulatory Limitations: no limitations History of Present Illness HPI narrative: Patient is a 26yo female coming in with concern of DVT in left leg. Was diagnosed with DVT on 11/25/22 here in ED in [facility], below knee DVT. This was in setting of hysterectomy end of October. No contraceptives. Did not start Eliquis until 3-4 days after the diagnosis due to pharmacy being out of medication. Yesterday was hiking and noted pain behind left knee, like how her right leg started. Continued today and pain into the calf as well, did not think was just muscle cramp/pain from hiking when continued to bother her today. No missed doses of Eliquis since starting it. Did note some right-sided upper chest pain today without any other symptoms. Has felt a little short of breath, just feels like she cannot catch her breath. Did have chest CT PE protocol done on November 25 which was negative for PE. Patient is noting pain in her right leg it is extending up into the thigh now, it was not before. Patient did ask if I would look at one of her incision sites, feels it might be infected, had some drainage earlier today. No fever. Other port sites not bothering her at all. Related Data Home Medications Medication Instructions Recorded Confirmed acetaminophen 500 mg capsule 500 mg PO QID PRN 11/09/22 11/09/22 oxycodone 5 mg tablet PO 11/09/22 Previous Rx's Medication Instructions Recorded hydrocodone 5 mg-acetaminophen 325 1 tab PO Q8H PRN pain #14 tabs 11/09/22 mg tablet apixaban 5 mg (74 tabs) tablets in See Rx Instructions PO .COMPLEX 11/25/22 a dose pack (Eliquis DVT-PE Treat #74 ea 30D Start) Allergies Allergy/AdvReac Type Severity Reaction Status Date / Time ibuprofen Allergy Severe Difficulty Verified 12/08/22 19:43 Breathing naproxen Allergy Intermediate Swelling Verified 12/08/22 19:43 of Lip/Tongue/Throat Review of Systems Status of ROS: Reports: 6 or more systems reviewed and unremarkable except as noted in History and below [facility] Social History Smoking Status: Never smoker How often do you have a drink containing alcohol: monthly or less AUDIT-C Alcohol total score: 1 Non-prescribed substance use: denies use service: No Exam Const: Vital Signs, click to edit/add: Vital Signs - 24 hr 12/08/22 19:43 Temperature 98.0 F Pulse Rate [Right Pulse Oximeter] 72 Respiratory Rate 18 Blood Pressure [Ri ght Upper Arm] 122/85 Pulse Oximetry 100 Oxygen Delivery Me thod Room Air 26-year-old female alert, interactive, n o apparent distress. Able speak in complete sentences. Face atraumatic, sclera clear, conjugate gaze. Pupils are equal round. Neck is supple, no cervical adenopathy, no thyromegaly masses or nodules, do not see any jugular venous distension. Lungs are clear, good air entry, no wheezing or crackles. CV regular rate and rhythm, no murmur. No palpable chest wall tenderness. She has no lower extremity edema, no overlying vascular changes of her legs. Abdomen is soft, nontender. her right upper mid port site has some very mild erythema, no expressible drainage. Wound compared to the other ones is a little bit more irritated looking, would not say infected for sure. Documenting provider has reviewed patient's vital signs: yes Course Course Hospital Course: Taylor had a delay in start of treatment of Eliquis but has not missed any doses, thinks she has been on it for 9-10 days now. Reviewed with heard be unlikely for her to develop a blood clot well on Eliquis. With that said, only way to know for sure is to obtain ultrasound of her lower extremity. We will get labs, look at cardiac markers as well. With her chest symptoms starting today, did discuss possibility of underlying pulmonary embolus, she would like to proceed with chest CT just to make sure that this has not come about. If she has a PE today while on Eliquis without missed doses, likely will need upgraded management. She will have EKG, will be on pulse oximetry for monitoring to ensure no hypoxia while here. 8:49pm after talking to the plant floor automation manager, we will actually be doing both legs. Will make sure that the right leg has not propagated, will give a some helpful information to see if there is improved blood flow, clot is resolving on Eliquis or not. Reevaluation(s) Time of Reevaluation #1: 21:58 Reevaluation #1: Reviewed normal laboratory findings as well as imaging of her chest CT and venous ultrasounds. There is no evidence of any thromboembolic disease. Per report, this is his 2nd unprovoked blood clot for this patient. She is advise she still needs to stand Eliquis. She does tell me that she has an appointment to see paleobotanist. We will discharge her to home for further outpatient workup, to stay on Eliquis. Vital Signs Vital signs: Initial Vital Signs Temperature 98.0 F 12/08/22 19:43 Temperature Source Temporal Artery Scan 12/08/22 19:43 Pulse Rate 72 12/08/22 19:43 Pulse Rhythm Regular 12/08/22 19:43 Pulse Strength 3+ Normal 12/08/22 19:43 Respiratory Rate 18 12/08/22 19:43 Blood Pressure 122/85 12/08/22 19:43 Blood Pressure Mean 97 12/08/22 19:43 Blood Pressure Position Sitting 12/08/22 19:43 Pulse Oximetry 100 12/08/22 19:43 Oxygen Delivery Method Room Air 12/08/22 19:43 Vital Signs Temperature 98.0 F 12/08/22 19:43 Pulse Rate 72 12/08/22 19:43 Respiratory Rate 18 12/08/22 19:43 Blood Pressure 122/85 12/08/22 19:43 Pulse Oximetry 100 12/08/22 19:43 Oxygen Delivery Method Room Air 12/08/22 19:43 Temperature 98.0 F 12/08/22 19:43 Pulse Rate 72 12/08/22 19:43 Respiratory Rate 18 12/08/22 19:43 Blood Pressure 122/85 12/08/22 19:43 Pulse Oximetry 100 12/08/22 19:43 Oxygen Delivery Method Room Air 12/08/22 19:43 Medical Decision Making Lab Data Lab results reviewed: Yes I reviewed the patient's lab results Labs: Lab Results 12/08/22 Range/Units 20:40 WBC 7.34 (4.50-11.00) K/uL RBC 3.88 L (4.00-5.20) m/uL Hgb 12.3 (12.0-16.0) gm/dL Hct 35.1 (33.0-51.0) % MCV 91 (80-100) fL MCH 32 (26-34) pg MCHC 35 (32-36) gm/dL RDW Coeff of Ben 11.9 (11.5-15.5) % Plt Count 306 (140-440) K/uL Neut % (Auto) 58.0 (42.0-72.0) % Lymph % (Auto) 33.7 (20-44) % Garvin % (Auto) 5.6 (0.0-11.0) % Eos % (Auto) 2.3 (0.0-7.0) % Baso % (Auto) 0.4 (0.0-3.0) % Neut # (Auto) 4.26 (1.7-7.0) K/uL Lymph # (Auto) 2.47 (0.90-2.90) K/uL Garvin # (Auto) 0.40 (0.00-0.90) K/UL Eos # (Auto) 0.17 (0.00-0.50) K/uL Baso # (Auto) 0.03 (0.00-0.30) K/uL Abs Immat Gran (auto) 0.00 (0.00-0.30) K/uL Imm/Tot Granulo (auto) 0.0 % Sodium 139 (135-149) mmol/L Potassium 3.8 (3.6-5.1) mmol/L Chloride 105 (96-114) mmol/L Carbon Dioxide 27 (20-32) mmol/L Anion Gap 7 (7-15) mEq/L BUN 12 (5-24) mg/dL Creatinine 0.7 (0.5-1.5) mg/dL Estimated Creat Clear 113.01 Estimated GFR 121 ml/min Glucose 88 (60-115) mg/dL Calcium 9.4 (8.4-10.6) mg/dL Total Bilirubin 0.7 (0.1-1.5) mg/dL AST 26 (12-35) U/L ALT 23 (4-35) U/L Alkaline Phosphatase 61 (40-150) U/L Troponin I < 0.01 L (0.01-0.04) ng/mL Total Protein 7.0 (6.0-8.3) g/dL Albumin 4.3 (3.3-5.0) g/dL Imaging Data CT scan - chest: Attestation: I have reviewed the pertinent imaging results. Radiologist's impression: Patient: FRANCIA CLINE Facility:?[facility] Patient ID:?[id number] Site Patient ID:?[id number]. Site :?[id number] Study:?CT Chest Angio w/ 95cc isovue-370 PE Protocol-12/08/2022 8:48:16 PM Ordering Physician:?Tiburcio Cornejo Final Report: INDICATION: Left leg DVT, chest pain TECHNIQUE: CT chest pulmonary PE protocol acquired with 95 cc Isovue 370 IV contrast. COMPARISON: November 25, 2022 FINDINGS: Cardiovascular structures: Normal vascular enhancement of the pulmonary arteries, no sign of pulmonary embolism. Heart size is normal. No sign of aneurysm in the thoracic aorta. Mediastinum and marilee: No mass or adenopathy. Lungs: Clear. Pleura and pericardium: No effusions. Chest wall and axilla: No mass or adenopathy. Upper abdomen: Unremarkable. Bones: No significant findings. IMPRESSION: No pulmonary embolism, pneumonia, or acute intrathoracic abnormality.. Please note that all CT scans at this facility use dose modulation, iterative reconstruction, and/or weight-based dosing when appropriate to reduce radiation dose to as low as reasonably achievable. Dictated by Yelitza Rodriguez MD @ 12/08/2022 9:39:46 PM (Electronic Signature) Venous US: Attestation: I have reviewed the pertinent imaging results. Radiologist's impression: Patient: FRANCIA CLINE Facility:?[facility] Patient ID:?[id number] Site Patient ID:?[id number]. Site :?1995 Study:?US Extremity Bilateral LEV BILATERAL-12/08/2022 9:37:39 PM Ordering Physician:Sina Cornejo Final Report: INDICATION: Pain in knee, left lower extremity. TECHNIQUE: Ultrasound venous duplex bilateral lower extremity. Compression venous exam was performed using baer-scale, color Doppler, and spectral Doppler analysis. COMPARISON: Right DVT ultrasound 11/25/2022. FINDINGS: Deep veins: Sonographic imaging demonstrates the bilateral common femoral, deep femoral, superficial femoral, popliteal, posterior tibial, and peroneal veins to be fully compressible with normal color Doppler blood flow. Superficial veins: Greater saphenous veins are fully compressible. No popliteal cyst. IMPRESSION: No deep venous thrombosis in the evaluated veins of the bilateral lower extremities. Dictated by Haroon Taylor MD @ 12/08/2022 9:50:50 PM (Electronic Signature) ECG Data Attestation: I personally reviewed and interpreted this ECG as follows: (Sinus rhythm comes 72 beats per minute. Incomplete right bundle branch block. No evidence of any ischemia.) Prior ECG tracings: not available for review Critical Care Time Critical Care Time Critical Care Time: No Discharge Plan Discharge Clinical Impression: Pain of left calf, Right-sided chest pain Patient Disposition: Home, Self-Care Condition: Stable Instructions: Chest Pain (ED), Leg Pain (ED) Additional Instructions: Please follow-up with your primary care provider for recheck next week, especially if you have ongoing symptoms. The chest CT showed no evidence of any acute pathology in the chest, all your labs were normal. There is no evidence new blood clots in the legs. You do need to stay on the Eliquis, this is working for the right DVT. If you have further concerns, develop new or worsening symptoms, it is always advisable to be re-evaluated. You need to stay on your Eliquis, take as prescribed, do not miss doses. Activity Level: Activity as Tolerated Discharge Diet: Regular Prescriptions: No Action Eliquis DVT-PE Treat 30D Start 5 mg (74 tabs) tablets,dose pack See Rx Instructions PO .COMPLEX Qty: 74 0RF Rx Instructions: orally per package directions oxycodone 5 mg tablet PO acetaminophen 500 mg capsule 500 mg PO QID PRN hydrocodone-acetaminophen 5-325 mg tablet 1 tab PO Q8H PRN (Reason: pain) Qty: 14 0RF Follow Up/Referrals: Provider,Not a Local [Primary Care Provider] - Stand Alone Forms: [facility] Info Instructions
--- NOTE | 2022-12-08 20:25 | CRLHL7_ITS ---
For Patients: As a result of the Century Cures Act, medical imaging exams and procedure reports are released immediately into your electronic medical record. You may view this report before your referring provider. If you have questions, please contact your health care provider. INDICATION: Left leg DVT, chest pain TECHNIQUE: CT chest pulmonary PE protocol acquired with 95 cc Isovue 370 IV contrast. COMPARISON: November 25, 2022 FINDINGS: Cardiovascular structures: Normal vascular enhancement of the pulmonary arteries, no sign of pulmonary embolism. Heart size is normal. No sign of aneurysm in the thoracic aorta. Mediastinum and marilee: No mass or adenopathy. Lungs: Clear. Pleura and pericardium: No effusions. Chest wall and axilla: No mass or adenopathy. Upper abdomen: Unremarkable. Bones: No significant findings. IMPRESSION: No pulmonary embolism, pneumonia, or acute intrathoracic abnormality.. Please note that all CT scans at this facility use dose modulation, iterative reconstruction, and/or weight-based dosing when appropriate to reduce radiation dose to as low as reasonably achievable. Dictated by Yelitza Rodriguez MD @ 12/08/2022 9:39:46 PM (Electronically Signed)
--- NOTE | 2022-12-08 20:27 | CRLHL7_ITS ---
For Patients: As a result of the Century Cures Act, medical imaging exams and procedure reports are released immediately into your electronic medical record. You may view this report before your referring provider. If you have questions, please contact your health care provider. INDICATION: Pain in knee, left lower extremity. TECHNIQUE: Ultrasound venous duplex bilateral lower extremity. Compression venous exam was performed using baer-scale, color Doppler, and spectral Doppler analysis. COMPARISON: Right DVT ultrasound 11/25/2022. FINDINGS: Deep veins: Sonographic imaging demonstrates the bilateral common femoral, deep femoral, superficial femoral, popliteal, posterior tibial, and peroneal veins to be fully compressible with normal color Doppler blood flow. Superficial veins: Greater saphenous veins are fully compressible. No popliteal cyst. IMPRESSION: No deep venous thrombosis in the evaluated veins of the bilateral lower extremities. Dictated by Haroon Taylor MD @ 12/08/2022 9:50:50 PM (Electronically Signed)
--- OUTSIDE RECORDS SUMMARY | 2022-12-08 20:34 | XMS_ITS | Continuity of Care Document ---
Author Name Unknown Organization [facility] Address [address] [address] [place] [address] Phone Care Team Providers Care Real Estate Account Executive Name Role Phone Propp QUANTOMETER OPERATORSandeep Unavailable Unavailable Allergies, Adverse Reactions, Alerts Substance Reaction Status Criticality ibuprofen Active No Information naproxen Active No Information Medications Medication Instructions Dosage Effective Dates (start - stop) Status Comments amitriptyline 10 mg tablet take 1 tablet by oral route every day at bedtime 10 MG - Active dicyclomine 20 mg tablet take 1 tablet by oral route 2 times every day 20 MG - Active dicyclomine 10 mg capsule take 1 capsule by oral route 3 times every day as needed 10 MG - Active hyoscyamine 0.125 mg sublingual tablet Take one tablet by mouth every 4-6 hours as needed for abdominal pain - Active Compazine 10 mg tablet take 1 tablet by oral route 3 times every day 10 MG - Active Procedures Procedure Date Established Level 4 Sigmoidoscopy Flex; W/bx 1/mx Level Iv-surg Path Gross/micro Offic/outpt E&m Estab Mod-hi 2 Established Level 4 Established Level 4 Colonoscopy Flex; W/bx 1/mx Ugi Endo; W/bx 1/mx Level Iv-surg Path Gross/micro Routine Serum Collection New Level 4 Offic/outpt E&m New Mod-hi Routine Serum Collection Gg; Iga, Igd, Igg, Igm, Ea Thyroid Stim Hormone C-reactive Prot Advance Directives Directive Yes / No Effective Date File Name No Information Encounters Encounter Description Practice Location Reason(s) For Visit Diagnoses Date Provider Providers Copied on Encounter [facility], [address] [address], [place], [id number], [place] tel:[phone] [facility] No Information 3 Propp ANTONIO Hopkins. [address], [facility] [address], [place], [id number], [place]. tel:[phone] Established Level 4 [facility], [address] [address], [place], [id number], [place] tel:[phone] [facility] GI Symptoms or Concerns (chief complaint) Hemorrhoids, unspecified hemorrhoid typeIrritable bowel syndrome with constipation 2 Propp ANTONIO Hopkins. [address], [facility] [address], [place], [place], [id number], [place]. tel:[phone] Referring Provider: Referral Self. [facility], [address] [address], [place], [id number], [place] tel:[phone] [facility] No Information 2 Propp ANTONIO Gautam [address], [facility] [address], [place], [id number], [place]. tel:[phone] [facility], [address] [address], [place], [id number], [place] tel:[phone] [facility] GI Symptoms or Concerns (chief complaint) Lower abdominal pain, unspecifiedLow er abdominal pain, unspecified 2 Henrik Mathew. [address], [address], [place], [place], [id number], [place]. tel:[phone] Referring Provider: Referral Self. Offic/outpt E&m Estab Mod-hi 2 [facility], [address] [address], [place], [id number], [place] tel:[phone] [facility] GI Symptoms or Concerns (chief complaint) Lower abdominal painRectal bleedingMucus in stool 2 Propp QUANTOMETER OPERATOR Sandeep. [address], [address], [id number], [place]. tel:[phone] Referring Provider: Referral Self. [facility], [address] [address], [place], [id number], [place] tel:[phone] [facility] Diarrhea, unspecified typeC. difficile diarrhea 2 Propp QUANTOMETER OPERATOR Sandeep. [address], [address], [id number], [place]. tel:[phone] Established Level 4 [facility], [address] [address], [place], [id number], [place] tel:[phone] [facility] GI Symptoms or Concerns (chief complaint) C. difficile diarrhea 2 Propp QUANTOMETER OPERATOR Sandeep. [address], [address], [id number], [place]. tel:[phone] Referring Provider: Referral Self. [facility], [address] [address], [place], [id number], [place] tel:[phone] [facility] No Information 2 Jose Berry. [address], [facility] [address], [place], [address], [place]. tel:[phone] Established Level 4 [facility], [address] [address], [place], [id number], [place] tel:[phone] [facility] GI Symptoms or Concerns (chief complaint) Nausea and vomiting, unspecified vomiting type 2 Georges Wilkerson. [address], [address], [id number], [place]. tel:[phone] Referring Provider: Referral Self. [facility], [address] [address], [place], [id number], [place] tel:[phone] [facility] GI Symptoms or Concerns (chief complaint) NauseaOther constipationDi arrhea, unspecified typeNausea and vomiting, unspecified vomiting typeOther constipation Apr-2 2 Coy Lauren. [address], [facility] [address], [place], [id number], [place]. tel:[phone] Referring Provider: Referral Self. [facility], [address] [address], [place], [id number], [place] tel:[phone] [facility] Nausea Apr-2 2 Maynor Palacio. [address], [facility] [address], [place], [id number], [place]. tel:[phone] Referring Provider: Referral Self. [facility] Level 4 [facility], [address] [address], [place], [id number], [place] tel:[phone] [facility] GI Symptoms or Concerns (chief complaint) Constipation, chronicNauseaV omiting in adult Apr-0 8- 2 Marcus Acevedo. [address], [facility] [address], [place], [id number], [place]. tel:[phone] Referring Provider: Referral Self. [facility], [address] [address], [place], [id number], [place] tel:[phone] [facility] No Information Apr-0 2 Elenita Romero. [address], [address], [place], [place], [address], [place]. tel:[phone] [facility], [address] [address], [place], [id number], [place] tel:[phone] [facility] Slow transit constipation Feb-0 2201 8 No Information Offic/outpt E&m New Mod-hi [facility], [address] [address], [place], [id number], [place] tel:[phone] [facility] GI Symptoms or Concerns (chief complaint) Slow transit constipationDi etary counseling and surveillance 8 No Information Referring Provider: Marilynn Su MD K, [address] [place], [address]. tel:[phone] Family History Family Member Type Diagnosis Age At Onset Mother Problem (finding) malignant neoplasm of o vary Mother Problem (finding) Colon polyps Father Problem (finding) Crohn's disease Mother Problem (finding) Crohn's disease Father Problem (finding) asthma Son Problem (finding) Alive and well Brother Problem (finding) GERD Brother Problem (finding) Irritable bowel syndrom e Brother Problem (finding) cancer of colon Mother Problem (finding) Asthma Brother Problem (finding) Colon polyps Father Problem (finding) Irritable bowel syndrom e Mother Problem (finding) Irritable bowel syndrom e Brother Problem (finding) Alive and well Mother Problem (finding) Diverticular disease Immunizations Vaccine Date Status Comments SARS-COV-2 (COVID-19) vaccin e, mRNA, spike protein, LNP, preservative free, 100 mcg/0.5mL dose or 50 mcg/0.25mL dose administered Note: [facility] bi -directional interface ; Source: Other Registry SARS-COV-2 (COVID-19) vaccin e, mRNA, spike protein, LNP, preservative free, 100 mcg or 50 mcg dose administered Note: [facility] bi-direct ional interface ; Source: Other Registry Havrix pediatric administered Note: [facility] bi-directional interface ; Source: Other Registry meningococcal polysaccharide vaccine (MPSV4) administered Note: [facility] bi-direct ional interface ; Source: Other Registry Havrix pediatric administered Note: [facility] bi-directional interface ; Source: Other Registry tetanus toxoid, reduced diphtheria toxoid, and acellular pertussis vaccine, adsorbed administered Note: [facility] b i-directional interface ; Source: Other Registry measles, mumps and rubella v irus vaccine administered Note: [facility] bi-direct ional interface ; Source: Other Registry measles, mumps and rubella v irus vaccine administered Note: [facility] bi-direct ional interface ; Source: Other Registry DTP-Haemophilus influenzae t ype b conjugate vaccine administered Note: [facility] bi-direct ional interface ; Source: Other Registry hepatitis B vaccine, unspeci fied formulation administered Note: [facility] bi-direct ional interface ; Source: Other Registry DTP-Haemophilus influenzae t ype b conjugate vaccine administered Note: [facility] bi-direct ional interface ; Source: Other Registry Haemophilus influenzae type b vaccine, conjugate unspecified formulation administered Note: [facility] bi-direct ional interface ; Source: Other Registry hepatitis B vaccine, unspeci fied formulation administered Note: [facility] bi-direct ional interface ; Source: Other Registry diphtheria, tetanus toxoids and acellular pertussis vaccine administered Note: [facility] b i-directional interface ; Source: Other Registry Energix Pediatric administered Note: [facility] bi-directional interface ; Source: Other Registry Payers Payer name Insurance type Covered green party ID Tiffany dallas(s) [facility] [id number] Social History Type Description Quantity Date Captured Comments Alcohol Use Details Unknown Caffeine Use Details Unknown Tobacco Use Status No Information Smoking Status No Information Sex Female Chief Complaint And Reason For Visit No Information Reason For Referral Reason For Referral No Information Plan Of Treatment Date Type Action Status Goal Lifestyle education regardin g diet completed Referral Ordered: [facility] to [facility] ordered Referral Ordered: C Difficile Toxin Gene KASSIDY, Rfx To???Cdiff Toxins A+B,EIA Appointment date/timeframe: 02/23/2022 ordered Referral Ordered: MRI Enterography With Contrast Per Radiology Appointment date/timeframe: 02/23/2022 ordered Referral Ordered: follow-up visit with JIHAN gabriel. In person only First Available Appointment date/timeframe: First Available ordered Referral Ordered: follow-up visit 1 Month Appointment date/timeframe: 1 Month ordered Referral Ordered: Celiac: DGP IgA/G + TTG +IgA Appointment date/timeframe: First Available ordered Referral Ordered: Magnesium Appointment date/timeframe: First Available ordered Referral Ordered: BMP Appointment date/timeframe: First Available ordered Referral Ordered: CBC w/diff Appointment date/timeframe: First Available ordered Referral Ordered: EGD Appointment date/timeframe: 08/02/2021 ordered Referral Ordered: Colonoscopy Appointment date/timeframe: 08/02/2021 ordered Referral Ordered: Lipase Appointment date/timeframe: First Available ordered Referral Ordered: T4 and TSH Appointment date/timeframe: First Available ordered Referral Ordered: follow-up visit with Ezra Guerrero MD 2 Months Appointment date/timeframe: 2 Months ordered History Of Present Illness Encounter Date Complaint History Of Prese nt Illness GI Symptoms or Concerns Akilah Mills is a 26-year-old female who is seen today in follow-up regarding abdominal pain, rectal bleeding, as well as irregular bowel habits.The patient was last seen on 02/09/2022. Please see previous note for full history. After last evaluation, the patient was sent for flexible sigmoidoscopy for further evaluation of her rectal bleeding as well as pain. Of note, she did have a colonoscopy earlier this year that has been unremarkable. She has also had various CT scans without any clear indication for a cause of her abdominal pain. The patient's flexible sigmoidoscopy was completed on 02/11/2022. There was note of both internal and external hemorrhoids, otherwise exam was unremarkable. Random biopsies did show mild surfaced intraepithelial lymphocytosis suggestive of lymphocytic colitis. The GI provider who completed the patient's flex-sig was not convinced that this was the cause of the patient's pain. It was decided that treatment for lymphocytic colitis would GI Symptoms or Concerns GI Symptoms or Concerns Akilah Mills is a 26-year-old female who is seen today in followup regarding abdominal pain and rectal bleeding as well as altered bowel habits.In summary, I saw Akilah for a virtual visit in January regarding C. difficile. She had been previously seen by our group earlier this year for concerns regarding constipation, nausea, and vomiting. She did have an EGD and colonoscopy in July 2021, which showed normal gastric biopsies, Caldera 1 duodenal lymphocytosis despite having a normal celiac serology. Her colonoscopy showed normal-appearing anal canal, TI, and normal colon. Biopsies were negative for any sort of microscopic or chronic colitis. At the time of her last visit, she had been reporting she has had issues with abdominal pain and was seen at her local emergency department. She did have laboratories including CBC, CMP, and a CT scan which showed some degree of stool in right colon, otherwise was negative. She then pursued stool testing including stool culture, GI Symptoms or Concerns Akilah Mills is a 26-year-old female, who presents today for a virtual visit regarding C. diff.In summary, patient had been seen by our group earlier this year for further evaluation of constipation as well as nausea and vomiting. She had an EGD and colonoscopy in July 2021 with normal gastric biopsies, Caldera 1 duodenal lymphocytosis despite having abnormal a celiac serology. She had a colonoscopy in addition with normal-appearing anal canal, normal TI and normal colon. Random biopsies were obtained to rule out microscopic colitis and were negative.Akilah reports that she been doing fairly well since her last appointment with us; however, approximately 2 to 3 weeks ago, she began having issues with diarrhea as well as abdominal pain. She reports that her symptoms had progressively worsened, so she went to the emergency department on January 18, 2022. I have reviewed records from this encounter. At that time, she had reported that she felt the urge to have a eamon GI Symptoms or Concerns The meera ramos is a 25-year-old woman with a long history of constipation and more recently nausea and vomiting. She states the bowel habit is recently changed and in the last month she has been having intermittent diarrhea associated with the constipation. In addition, she has been having nausea after meals. States that her stomach hurts and has actually had occasional vomiting. She underwent upper endoscopy and colonoscopy a few days ago. Colon was completely normal with normal or negative biopsies. Upper endoscopy demonstrated normal gastric biopsies with no evidence for H. 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 She did have celiac serology done about a week ago, which was negative. She also had celiac serology done in 2018, and was negative at that time as well with a negative tTA antibody. She denies any nonsteroidal anti-inflammatory use. Only medication is MiraLax 1 capful per day. Social history, she drinks 2 to 3 drinks per month. She is a nonsmoker GI Symptoms or Concerns GI Symptoms or Concerns This was a virtual visit with Ms. Akilah Mills. She consented to proceed with the virtual visit. She was at home by herself for the visit. We spoke for 10 minutes and I spent additional time reviewing her chart and coordinating her care.This is in regards to her chronic constipation and also needs symptoms of nausea and occasional vomiting that she has developed over the last several months. Her constipation has been chronic problem since childhood. She at times can go for up to a week without having a bowel movement. She actually has seen Dr. Guerrero in our clinic about 4 years ago regarding this and he had recommended fiber supplementation and also more regimented MiraLax. She states she has been taking MiraLax on a daily basis and at times twice a day. She states usually it does work, but then when she has constipation flare despite taking MiraLax twice a day she can go up to a week without having a bowel movement and then she will take laxative and then she would h GI Symptoms or Concerns Akilah comes to the office today to evaluate a history of chronic constipation. As a child, she would have a bowel movement every two or three days and was finally started on MiraLax one capful per day, apparently increased fiber and fair amount of liquids. She drinks at least 80 ounces of water a day by the sound of which since she drinks 10 cups. She has never done a FiberCon. She now is taking MiraLax one capful twice a day and ends up having a bowel movement about every week. The stools are firm and require straining to evacuate them. She has blood on the toilet paper associated with burning and stinging for about 10 minutes after she has a significant amount of straining to have a bowel movement. After three to four days of no bowel movement, she develops bilateral lower abdominal cramping and nausea finally relieved by a bowel movement. She has never had any colon studies. She apparently tried two stool softeners a day about a year ago, and developed alternating consti Functional Status Date Functional Assessmen t No Information Instructions Date Instruction Additional Infor panfilo It was nice to talk with you again today. I am glad things are calming down.-Continue the dicyclomine as you have been doing-Amitripyltine 10mg every night. -Continue your bowel regimen with mirlax and fiber- we can consider prescription medications again in the future. Please keep me updated with questions or concerns. Plan to follow up in about 6-8 weeks! Related to Hemorrhoids, unspecified hemorrhoid type Hemorrhoid Banding Related to He morrhoids, unspecified hemorrhoid type Hemorrhoids Related to Hemor rhoids, unspecified hemorrhoid type Hemorrhoids (Internal) Related t o Lower abdominal pain, unspecified High Fiber Diet Related to Lower abdominal pain, unspecified It was nice to see y ou in person!-Hyoscyamine for abdominal cramping/pain/discomfort-Compazine for nausea -Small, frequent meals as you are able to tolerate-Continue with miralax. If feeling more backed up, okay to increase dosage as needed-Flexible Sigmoidoscopy to assess lower GI tract (we will call you to set this up)-MR enterography get imaging of the small bowel. Related to Lower abdominal pain Trial of omeprazole 20 mg daily for 1 month. Office follow up in 1 month. Consider prucalopride or Trulance at that time. Related to Nausea and vomiting, unspecified vomiting type Colon Cancer Prevention Related to Nausea 1. Proceed with an u pper endoscopy and colonoscopy. Upper endoscopy should include small bowel and stomach biopsies.2. For now, she will continue MiraLax 17 g mixed oral twice a day.3. I also advised her to add Metamucil 1 tablespoon twice a day.4. After the colonoscopy, she could benefit from pelvic floor evaluation or a Sitz marker study or initiation of prescription strength constipation medications.5. She will follow up after the upper endoscopy and colonoscopy. Related to Constipation, chronic We discussed constip ation and I gave her information on the irritable bowel syndrome, constipation predominant from the AGA. I also schedule her for a celiac panel as well as C-reactive protein and thyroid function. We will see what those tests show and see if she has a response to taking linaclotide 145 mcg per day. I will arrange followup after I see the results of her testing.I think we will focus mainly on fiber, continue the fluid intake, and see how linaclotide helps her.Thank you very much for allowing me to participate in the care of this patient. Related to Slow transit constipation Irritable Bowel Synd coco - AGA Brochure Related to Slow transit constipation High Fiber Diet Related to Slow transit constipation Lifestyle education regarding di et Related to Dietary counseling and surveillance Assessments Type Assessment Date No Information Patient Care Teams Name Effective Dates (start - stop) Status Members No Information
[2022-12-08 20:48] LABS: Basophils Absolute Auto 0.03 K/uL (0.00-0.30); Basophils Percent Auto 0.4 % (0.0-3.0); Eosinophils Absolute Auto 0.17 K/uL (0.00-0.50); Eosinophils Percent Auto 2.3 % (0.0-7.0); Hematocrit 35.1 % (33.0-51.0); Hemoglobin* 12.3 gm/dL (12.0-16.0); Lymphocytes Absolute Auto 2.47 K/uL (0.90-2.90); Lymphocytes Percent Auto 33.7 % (20-44); Mean Corpuscular HGB Conc 35 gm/dL (32-36); Mean Corpuscular Hemoglobin 32 pg (26-34); Mean Corpuscular Volume 91 fL (80-100); Monocytes Percent Auto 5.6 % (0.0-11.0); Neutrophils Absolute Auto 4.26 K/uL (1.7-7.0); Platelet Count* 306 K/uL (140-440); RDW Coefficient of Variation % 11.9 % (11.5-15.5); Red Blood Count 3.88 m/uL (4.00-5.20); Slide Review Reflex No; White Blood Count* 7.34 K/uL (4.50-11.00)
[2022-12-08 21:00] LABS: Albumin* 4.3 g/dL (3.3-5.0); Chloride* 105 mmol/L (96-114); Sodium* 139 mmol/L (135-149)
[2022-12-08 21:01] LABS: Potassium* 3.8 mmol/L (3.6-5.1)
[2022-12-08 21:03] LABS: Alkaline Phosphatase* 61 U/L (40-150); Anion Gap 7 mEq/L (7-15); Aspartate Amino Transferase* 26 U/L (12-35); Bilirubin Total* 0.7 mg/dL (0.1-1.5); Blood Urea Nitrogen* 12 mg/dL (5-24); Carbon Dioxide* 27 mmol/L (20-32); Creatinine* 0.7 mg/dL (0.5-1.5); Est. Creatinine Clearance* 113.01; Estimated Glomerular Filt Rate 121 ml/min
[2022-12-08 21:04] LABS: Alanine Aminotransferase* 23 U/L (4-35); Calcium* 9.4 mg/dL (8.4-10.6); Glucose* 88 mg/dL (60-115)
[2022-12-08 21:23] LABS: Troponin I* < 0.01 ng/mL (0.01-0.04)
[2022-12-08 22:00] VITALS: O2SAT 97
[2022-12-08 22:02] VITALS: BP 120/78; PULSE 74; O2SAT 97
== END 2022-12-08 22:10 | disposition home or self-care (01) ==
PROVIDERS: Emergency Provider Family Medicine
DX: M79.662 Pain in left lower leg (principal); R07.89 Other chest pain
CPT/HCPCS: 36415; 71275; 80053; 84484; 85025; 93005; 93970; 94761; 99284; 99285; Q9967

== ENCOUNTER 2023-02-22 20:40 | Emergency (ER) | payer MEDICAID, SELFPAY ==
[2023-02-22 20:47] VITALS: BP 132/87; PULSE 83; RESP 16; TEMP 37; O2SAT 98; BMI 40.4
--- NOTE | 2023-02-22 21:26 | CRLHL7_ITS ---
For Patients: As a result of the Century Cures Act, medical imaging exams and procedure reports are released immediately into your electronic medical record. You may view this report before your referring provider. If you have questions, please contact your health care provider. INDICATION: Left facial swelling from nose to ear TECHNIQUE: CT maxillofacial without i.v. contrast. Coronal and sagittal reformats were obtained. COMPARISON: None FINDINGS: Bone: No acute fractures or aggressive bone lesions are identified. Joint: The temporomandibular joints are unremarkable in appearance. Sinus: The sinuses are well-aerated with no significant mucosal thickening or retained secretions seen. The ostiomeatal units are patent. The nasal turbinates are normal. The nasal septum is midline and intact. Orbit: The visualized orbits are grossly unremarkable. Soft tissue: Unremarkable. IMPRESSION: 1. No CT correlate for left swelling seen. Please note that all CT scans at this facility use dose modulation, iterative reconstruction, and/or weight-based dosing when appropriate to reduce radiation dose to as low as reasonably achievable. Dictated by: Rishabh Simpson MD @ 02/22/2023 22:29:56 (Electronically Signed)
--- NOTE | 2023-02-22 21:27 | ED.GENADULT ---
HPI - General Adult General Chief complaint: Unspecified Complaint, Adult Stated complaint: throat tightness/rash-bells palsey per [facility] Time Seen by Provider: 02/22/23 21:07 History of Present Illness HPI narrative: This 27-year-old female comes in reporting a couple days of drooping of the left side of her mouth. She went into an [facility] emergency room yesterday and had CT and MRI of her head and CTA of her neck. She also had lab results and I looked at all of these findings on her my chart. All of these results returned with normal findings. She was diagnosed with Glez's palsy and prescribed antiviral and prednisone medications. She states that she has not filled these medicines yet or began to take them of course. She comes in today because she developed the itchy rash along the left side of her neck. She also reports some pain along the angle of her jaw and in the inferior and posterior aspect of her left ear. She states that she did not sleep well last night because his pain was strong enough. She does not describe any altered sensation in the left side of her face. She is able to close her eyes without any difficulty and her forehead function is intact. It seems that the left side of her mouth is drooping but no other symptoms are involved. Related Data Home Medications Medication Instructions Recorded Confirmed acetaminophen 500 mg capsule 500 mg PO QID PRN 11/09/22 11/09/22 Previous Rx's Medication Instructions Recorded apixaban 5 mg (74 tabs) tablets in See Rx Instructions PO .COMPLEX 11/25/22 a dose pack ([employer] DVT-PE Treat #74 ea 30D Start) Allergies Allergy/AdvReac Type Severity Reaction Status Date / Time ibuprofen Allergy Severe Difficulty Verified 02/13/23 08:22 Breathing naproxen Allergy Intermediate Swelling Verified 02/13/23 08:22 of Lip/Tongue/Throat Review of Systems Status of ROS: Reports: 10 or more systems reviewed and unremarkable except as noted in History and below Narrative: Constitutional: No fevers, no weight gain or loss. Eyes: No discharge. No vision changes. HENT: No congestion, no sore throat, no ear pain. Cardiovascular: No chest pain, no palpitations. Respiratory: No shortness of breath, no wheezes, no cough. Gastrointestinal: No abdominal pain, no vomiting, no diarrhea. Genitourinary: No dysuria, no hematuria. Musculoskeletal: Normal range of motion. Skin: No rashes, no pruritis. Neurological: No dizziness, sensory change, speech change. The left side of her mouth is slightly drooping. Endo/Heme/Allergies: No bruising or bleeding. No polydipsia. Pysch: no suicidality, no anxiety, no insomnia. All other systems reviewed and are negative. [facility] Medical History (Updated 02/22/23 @ 22:28 by Shahzad Graff MD) Photophobia ?H53.149 - Visual discomfort, unspecified (ICD-10) Periorbital cellulitis of right eye ?L03.213 - Periorbital cellulitis (ICD-10) Social History Smoking Status: Never smoker How often do you have a drink containing alcohol: monthly or less AUDIT-C Alcohol total score: 1 Non-prescribed substance use: denies use service: No Exam Narrative: Exam Narrative: Constitutional: Well-developed, well-nourished, no acute distress. HEENT: Normocephalic, atraumatic. Tympanic membranes appear normal bilaterally. Neck: Normal range of motion. Nontender. Supple. Heart: Regular. No murmurs. Normal rate. Intact distal pulses. Lungs: Clear to auscultation. No chest discomfort. No wheezes, rhonchi, or rales. Abdomen: Normal bowel sounds. Nontender. No rebound tenderness. Genitalia: Deferred. Back: No midline tenderness. Normal range of motion. Extremities: Normal range of motion. No injury. Skin: Intact. No rash. Warm. No erythema or pallor. Neurologic: No altered sensation. Alert and oriented. Left side of her mouth is slightly drooping. She is able to close both eyes tightly without difficulty. Her forehead function is intact bilaterally. Psychiatric: No suicidality. No anxiety or depression. No insomnia. Nursing notes and vitals signs are reviewed. Const: Vital Signs, click to edit/add: Vital Signs - 24 hr 02/22/23 20:47 Temperature 98.6 F Pulse Rate [Pulse Oximeter] 83 Respiratory Rate 16 Blood Pressure [Le ft Upper Arm] 132/87 Pulse Oximetry 98 Oxygen Delivery Me thod Room Air Course Vital Signs Vital signs: Initial Vital Signs Temperature 98.6 F 02/22/23 20:47 Temperature Source Temporal Artery Scan 02/22/23 20:47 Pulse Rate 83 02/22/23 20:47 Respiratory Rate 16 02/22/23 20:47 Blood Pressure 132/87 02/22/23 20:47 Blood Pressure Mean 102 02/22/23 20:47 Blood Pressure Position Sitting 02/22/23 20:47 Pulse Oximetry 98 02/22/23 20:47 Oxygen Delivery Method Room Air 02/22/23 20:47 Vital Signs Temperature 98.6 F 02/22/23 20:47 Pulse Rate 83 02/22/23 20:47 Respiratory Rate 16 02/22/23 20:47 Blood Pressure 132/87 02/22/23 20:47 Pulse Oximetry 98 02/22/23 20:47 Oxygen Delivery Method Room Air 02/22/23 20:47 Temperature 98.6 F 02/22/23 20:47 Pulse Rate 83 02/22/23 20:47 Respiratory Rate 16 02/22/23 20:47 Blood Pressure 132/87 02/22/23 20:47 Pulse Oximetry 98 02/22/23 20:47 Oxygen Delivery Method Room Air 02/22/23 20:47 Medical Decision Making MDM Narrative Medical decision making narrative: This patient comes in with some mild drooping of her left mouth and a report of some pain along the left side of her face localized closer to her ear. She does have a rash in her neck bilaterally. She was seen yesterday at [facility] Emergency Department where she had full workup of labs and imaging studies that returned normal. She was diagnosed with Glez's palsy. She is questioning this diagnosis as she does not have any symptoms of altered sensation and has no trouble closing her eyes bilaterally and her forehead is functioning normal regarding motor function. She had CT and MRI of her head and also CT of her neck but her facial bones where she is having pain were not imaged. The CT scan of this facial bones today was done and by my review shows no acute findings. This patient's symptoms may be due to a mild case of Glez's palsy which may be evolving at at this time. Consideration was also given to possibility of shingles as she has had shingles in the past. There are no skin changes typical of shingles but again she is being evaluated about 2 days after her symptoms began. The patient does have prescription for antiviral and steroid medications. I encouraged her to take these as directed. I also provided [employer] prescription for some tablets of [place] as she had enough discomfort last night that she was unable to sleep. Discharge Plan Discharge Clinical Impression: Acute facial pain Patient Disposition: Home, Self-Care Condition: Stable Additional Instructions: Take medication as prescribed and needed. Follow up with MD return if worsening symptoms occur. Prescriptions: No Action Yeimi DVT-PE Treat 30D Start 5 mg (74 tabs) tablets,dose pack See Rx Instructions PO .COMPLEX Qty: 74 0RF Rx Instructions: orally per package directions acetaminophen 500 mg capsule 500 mg PO QID PRN Follow Up/Referrals: Provider,Not a Local [Primary Care Provider] - Stand Alone Forms: [id number] Info Instructions
--- OUTSIDE RECORDS SUMMARY | 2023-02-22 21:51 | XMS_ITS | Continuity of Care Document ---
Author Name Unknown Organization [facility] Address [address] [address] [place] [address] Phone Care Team Providers Care Watch Inspector Name Role Phone Propp SAIL REPAIRERSandeep Unavailable Unavailable Allergies, Adverse Reactions, Alerts Substance [...] [facility], [address] [address], [place], [id number], [place] tel:[phone] [facility] No Information 3 Propp ANTONIO Hopkins. [address] [facility], [facility] [address], [place], [id number], [place]. tel:[phone] Established Level 4 [facility], [address] [address], [place], [id number], [place] tel:[phone] [facility] GI Symptoms or Concerns (chief complaint) Hemorrhoids, unspecified hemorrhoid typeIrritable bowel syndrome with constipation 2 Propp ANTONIO Hopkins. [address] [facility], [facility] [address], [place], [place], [id number], [place]. tel:[phone] Referring Provider: Referral Self. [facility], [address] [address], [place], [id number], [place] tel:[phone] [facility] No Information 2 Propp ANTONIO Gautam [address] [facility], [facility] [address], [place], [id number], [place]. tel:[phone] [facility], [address] [address], [place], [id number], [place] tel:[phone] [facility] GI Symptoms or Concerns (chief complaint) Lower abdominal pain, unspecifiedLow er abdominal pain, unspecified 2 Henrik Mathew. [address] [facility], [address], [place], [place], [id number], [place]. tel:[phone] Referring Provider: Referral Self. Offic/outpt E&m Estab Mod-hi 2 [facility], [address] [address], [place], [id number], [place] tel:[phone] [facility] GI Symptoms or Concerns (chief complaint) Lower abdominal painRectal bleedingMucus in stool 2 Propp SAIL REPAIRER Sandeep. [address] [facility], [address], [id number], [place]. tel:[phone] Referring Provider: Referral Self. [facility], [address] [address], [place], [id number], [place] tel:[phone] [facility] Diarrhea, unspecified typeC. difficile diarrhea 2 Propp SAIL REPAIRER Sandeep. [address] [facility], [address], [id number], [place]. tel:[phone] Established Level 4 [facility], [address] [address], [place], [id number], [place] tel:[phone] [facility] GI Symptoms or Concerns (chief complaint) C. difficile diarrhea 2 Propp SAIL REPAIRER Sandeep. [address] [facility], [address], [id number], [place]. tel:[phone] Referring Provider: Referral Self. [facility], [address] [address], [place], [id number], [place] tel:[phone] [facility] No Information 2 Jose Berry. [address] [facility], [facility] [address], [place], [id number], [place]. tel:[phone] Established Level 4 [facility], [address] [address], [place], [id number], [place] tel:[phone] [facility] GI Symptoms or Concerns (chief complaint) Nausea and vomiting, unspecified vomiting type 2 Georges Wilkerson. [address] [facility], [address], [id number], [place]. tel:[phone] Referring Provider: Referral Self. [facility], [address] [address], [place], [id number], [place] tel:[phone] [facility] GI Symptoms or Concerns (chief complaint) NauseaOther constipationDi arrhea, unspecified typeNausea and vomiting, unspecified vomiting typeOther constipation Apr-2 2 Coy Lauren. [address] [facility], [facility] [address], [place], [id number], [place]. tel:[phone] Referring Provider: Referral Self. [facility], [address] [address], [place], [id number], [place] tel:[phone] [facility] Nausea Apr-2 2 Maynor Palacio. [address] [facility], [facility] [address], [place], [id number], [place]. tel:[phone] Referring Provider: Referral Self. [facility] Level 4 [facility], [address] [address], [place], [id number], [place] tel:[phone] [facility] GI Symptoms or Concerns (chief complaint) Constipation, chronicNauseaV omiting in adult Apr-0 8- 2 Marcus Acevedo. [address] [facility], [facility] [address], [place], [id number], [place]. tel:[phone] Referring Provider: Referral Self. [facility], [address] [address], [place], [id number], [place] tel:[phone] [facility] No Information Apr-0 2 Elenita Romero. [address] [facility], [address], [place], [place], [id number], [place]. tel:[phone] [facility], [address] [address], [place], [id number], [place] tel:[phone] [facility] Slow transit constipation Feb-0 2201 8 No Information Offic/outpt E&m New Mod-hi [facility], [address] [address], [place], [id number], [place] tel:[phone] [facility] GI Symptoms or Concerns (chief complaint) Slow transit constipationDi etary counseling and surveillance 8 No Information Referring Provider: Marilynn Su MD K, [address] [place], [address]. tel:[phone] Family History Family Member Type Diagnosis Age [...] Registry Payers Payer name Insurance type Covered republican ID Tiffany dallas(s) [facility] [id number] Social History Type Description Quantity Date Captured [...]
== END 2023-02-22 22:33 | disposition home or self-care (01) ==
PROVIDERS: Emergency Provider Emergency Medicine Emergency Medical Services
DX: G50.1 Atypical facial pain (principal); R21 Rash and other nonspecific skin eruption
CPT/HCPCS: 70486; 99283; 99284

== ENCOUNTER 2023-06-08 19:34 | Emergency (ER) | payer BC, MEDICAID, SELFPAY ==
[2023-06-08 19:40] VITALS: BP 121/74; PULSE 72; RESP 20; TEMP 36.4; O2SAT 98; BMI 39.2
--- NOTE | 2023-06-08 20:30 | ED_ITS ---
HPI - Abdominal Pain General Time Seen by Provider: 20:30 Date Seen: 06/08/23 Chief Complaint: Unspecified Complaint, Adult Stated Complaint: Coughing fits, pain in groin, Time Seen by Provider: 06/08/23 20:21 Source: patient and RN notes reviewed Mode of arrival: ambulatory Limitations: no limitations History of Present Illness HPI narrative: This 27-year-old female is coming in with left groin pain. She talked to triage, they advised her to come in to be checked for hernia. She notes she has had a respiratory infection with primarily coughing, has ran some fevers the last couple days. Her son was sick with this for 3 weeks prior before his cough improved. She feels she got it from him. He was tested for the viral triple swab in reportedly was negative. She is not really have any shortness of breath, no sore throat. When she was coughing, developed groin pain. They were worried that it could possibly be a hernia. She has never had hernia. It hurts with coughing, some position changes, a sharp and quick type pain. She points deep into the left groin along the anterior pelvis, has almost a pinpoint distribution, it is not in the groin. Related Data Home Medications Medication Instructions Recorded Confirmed acetaminophen 500 mg capsule 500 mg PO QID PRN 11/09/22 11/09/22 Previous Rx's Medication Instructions Recorded apixaban 5 mg (74 tabs) tablets in See Rx Instructions PO .COMPLEX 11/25/22 a dose pack (Eliquis DVT-PE Treat #74 ea 30D Start) Allergies Allergy/AdvReac Type Severity Reaction Status Date / Time ibuprofen Allergy Severe Difficulty Verified 02/13/23 08:22 Breathing naproxen Allergy Intermediate Swelling Verified 02/13/23 08:22 of Lip/Tongue/Throat Review of Systems Narrative As per HPI. [facility] Medical History (Updated 06/08/23 @ 20:53 by Chantal Dey MD) Photophobia ?H53.149 - Visual discomfort, unspecified (ICD-10) Periorbital cellulitis of right eye ?L03.213 - Periorbital cellulitis (ICD-10) Surgical History (Updated 06/08/23 @ 20:57 by Praveen Gonzalez RN) No significant past surgical history Social History Smoking Status: Never smoker How often do you have a drink containing alcohol: monthly or less AUDIT-C Alcohol total score: 1 Non-prescribed substance use: denies use service: No Exam Const: Vital Signs, click to edit/add: Vital Signs - 24 hr 06/08/23 19:40 Temperature 97.5 F L Pulse Rate [Pulse Oximeter] 72 Respiratory Rate 20 Blood Pressure [Ri ght Upper Arm] 121/74 Pulse Oximetry 98 Oxygen Delivery Me thod Room Air Patient is alert, interactive, no apparent distress. Is seen exam room 5, is able to get up off the bed, ambulates normally. She does not note any pain with ambulation. Pupils equal round reactive to light, sclera clear, face atraumatic. Oropharynx no mucosa no exudates erythema, scars from prior tonsillectomy. TMs canals normal. Neck is supple, no adenopathy. Lungs are clear, good air entry no wheezing or crackles, no tachypnea. She is able to speak in complete sentences. CV regular rate and rhythm, no murmur. Abdomen is soft, nontender, nondistended. She has no inguinal mass or bulge, no adenopathy, palpated lying flat and then standing. She has a point tenderness that I can reproduce when she is lying in the bed it is along that anterior deep pelvic area, seems like where 1 of the hip adductors attach. I certainly do not feel any concerning inguinal bulge or mass concerning for hernia. Documenting provider has reviewed patient's vital signs: yes Course Course ED Course: Discussed with patient ultrasound imaging for hernias, I really do not feel that this is necessary at this point. This clinically seems to be muscular, she likely just pulled something with a vigorous cough. As far as the cough, likely viral. We discussed the pending triple viral swab. She states we can call her with the results. She has been ill week already. I hear no crackles, she is afebrile here, would not recommend further workup at this time given the large percentage of upper respiratory viral illness that is in the public currently. We discussed conservative management for both conditions. Will discharge to home. She is only expecting a call back if her swabs are positive. Vital Signs Vital signs: Initial Vital Signs Temperature 97.5 F L 06/08/23 19:40 Temperature Source Temporal Artery Scan 06/08/23 19:40 Pulse Rate 72 06/08/23 19:40 Respiratory Rate 20 06/08/23 19:40 Blood Pressure 121/74 06/08/23 19:40 Blood Pressure Mean 89 06/08/23 19:40 Pulse Oximetry 98 06/08/23 19:40 Oxygen Delivery Method Room Air 06/08/23 19:40 Vital Signs Temperature 97.5 F L 06/08/23 19:40 Pulse Rate 72 06/08/23 19:40 Respiratory Rate 20 06/08/23 19:40 Blood Pressure 121/74 06/08/23 19:40 Pulse Oximetry 98 06/08/23 19:40 Oxygen Delivery Method Room Air 06/08/23 19:40 Temperature 97.5 F L 06/08/23 19:40 Pulse Rate 72 06/08/23 19:40 Respiratory Rate 20 06/08/23 19:40 Blood Pressure 121/74 06/08/23 19:40 Pulse Oximetry 98 06/08/23 19:40 Oxygen Delivery Method Room Air 06/08/23 19:40 MDM - Abdominal Pain Lab Data Labs: Lab Results 06/08/23 Range/Units 19:45 SARS-CoV-2 (PCR) Negative SARS-CoV-2 (Negative) Influenza Type A (PCR) Negative PCR FLU A (Negative) Influenza Type B (PCR) Negative PCR FLU B (Negative) RSV (PCR) Negative PCR RSV (Negative) Discharge Plan Discharge Clinical Impression: Left groin pain URI (upper respiratory infection) Qualifiers: URI type: unspecified viral URI Qualified Code(s): J06.9 - Acute upper respi ratory infection, unspecified Patient Disposition: Home, Self-Care Condition: Stable Instructions: Upper Respiratory Infection (ED), Groin Strain (ED) Additional Instructions: Use counter pressure in your groin area with coughing sneezing, position changes. I think you of pulled 1 of the groin muscles with the tendons attaching to the pelvis. I feel no palpable hernia. If you do start to feel a bulge in the groin area or have increasing pain, please seek re-evaluation. Can try Tylenol and ibuprofen for pain control. We will contact you if any of the viral swab is positive. Can use [id number] cough and cold medicines as needed for symptom control. Activity Level: Activity as Tolerated Prescriptions: No Action Yeimi DVT-PE Treat 30D Start 5 mg (74 tabs) tablets,dose pack See Rx Instructions PO .COMPLEX Qty: 74 0RF Rx Instructions: orally per package directions acetaminophen 500 mg capsule 500 mg PO QID PRN Follow Up/Referrals: Provider,Not a Local [Primary Care Provider] - Stand Alone Forms: [facility] Info Instructions
[2023-06-08 20:50] LABS: PCR FLU A Negative PCR FLU A (Negative); PCR FLU B Negative PCR FLU B (Negative); PCR RSV Negative PCR RSV (Negative); SARS PCR* Negative SARS-CoV-2 (Negative)
[2023-06-08 20:56] VITALS: RESP 18; O2SAT 99
[2023-06-08 20:57] VITALS: BP 124/78; PULSE 75; RESP 20; TEMP 36.8; O2SAT 98
[2023-06-08 20:58] VITALS: BP 124/78; PULSE 75; RESP 20; TEMP 36.8
== END 2023-06-08 20:59 | disposition home or self-care (01) ==
PROVIDERS: Emergency Provider Family Medicine
DX: R10.2 Pelvic and perineal pain (principal); J06.9 Acute upper respiratory infection, unspecified
CPT/HCPCS: 87631; 99282; 99283

== ENCOUNTER 2023-07-31 10:37 | Outpatient (CLI) | payer BC, MEDICAID, SELFPAY ==
--- OUTSIDE RECORDS SUMMARY | 2023-07-31 10:41 | XMS_ITS | Referral Summary ---
Author Name Unknown Organization [facility] Address [address] [place] [address] Care Team Providers Care Spike Machine Heater Name Role Phone Kari Bingham MD Unavailable Clinic, [facility] Primary Care Provider Allergies Active Allergy Reactions Criticality Noted Date Comments Ibuprofen Difficulty breathing,GI Disturbance High 01/18/2022 Naproxen Other (See Comments),Swelling,Anaphylaxis High 05/20/2014 Medications Medication Sig Dispensed Refills Start Date End Date Status Rivaroxaban ANTICOAGULANT 15 & 20 MG TBPK Starter Therapy Pack Take 15 mg by mouth 2 times daily (with meals) for 21 days, THEN 20 mg daily with food for 9 days. 51 each 11/28/2022 Active petrolatum (PURALUBE) ophthalmic ointment 1-2 drops in the affected eye every bedtime as needed for dry eyes. 1 g 02/21/2023 Active valACYclovir (VALTREX) 1000 mg tablet Take 1 tablet (1,000 mg) by mouth 3 times daily for 7 days 21 tablet 02/21/2023 Active Active Problems Problem Noted Date Diagnosed Date Dysmenorrhea 10/10/2017 Dyspareunia in female 10/10/2017 Social History Tobacco Use Types Packs/Day Years Used Date Smoking Tobacco: Never Smokeless Tobacco: Never Alcohol Use Standard Drinks/Week Comments No 0 (1 standard drink = 0.6 oz pur e alcohol) Adolescent Education Answer Date Record ed Getting School Help Needed Not on file 01/08 Sex and Gender Information Value Date Recorded Sex Assigned at Not on file Gender Identity Not on file Sexual Orientation Not on file Last Filed Vital Signs Vital Sign Reading Time Taken Comments Blood Pressure 120/64 02/21/2023 8:30 PM HOP SEPARATOR Pulse 88 02/21/2023 8:30 PM HOP SEPARATOR Temperature 36.9 ??C (98.5 ??F) 02/21/2023 5:17 PM CS T Respiratory Rate 18 02/21/2023 8:30 PM HOP SEPARATOR Oxygen Saturation 98% 02/21/2023 8:30 PM HOP SEPARATOR Inhaled Oxygen Concentration - - Weight 108.9 kg (240 lb) 11/28/2022 11:18 AM CDT Height 170.2 cm (5' 7) 10/12/2017 8:08 AM CDT Body Mass Index 37.59 10/12/2017 8:08 AM CDT Plan of Treatment Not on file Procedures Procedure Name Priority Date/Time Associated Diagnosis Comments REMOVE IMPACTED EAR WAX Routine 06/21/2000 1:35 P M HOP SEPARATOR Impacted Cerumen from Last 3 Months or Most Recently Relevant to Health Maintenance Care Teams Spike Machine Heater Relationship Specialty Start Date End Date Clinic, [facility] [address] [place] [address] PCP - General 11/28/22 Kari Bingham MD [address] [id number] Ophthalmology 04/15/20
--- OUTSIDE RECORDS SUMMARY | 2023-07-31 10:41 | XMS_ITS | Clinical Summary ---
Author Name Unknown Organization [employer] [facility] Address [place], [place] [address] Care Team Providers Care Digital Operations Analyst Name Role Phone Mellisa Fagan MD Primary Care Provider Allergies Active Allergy Reactions Criticality Noted Date Comments Ibuprofen Stomach Upset 04/12/2022 Iopamidol Rash Medium 02/23/2023 Rash on chest and shoulders after CT with Isovue 02/21/2023 Naproxen Headache,Throat Swelling/Closing High 05/20/2014 My throat swells up. Medications Medication Sig Dispensed Refills Start Date End Date Status polyethylene glycol-electrolyt e (GOLYTELY) 236-22.74-6.74 -5.86 gram suspensionIndicat ions:Rectal bleeding Drink 2 liters (1/2 of prep) the day before colonoscopy and drink 2 liters (other 1/2 of prep) 6 hours before colonoscopy appointment. 4000 mL 04/28/2023 Active codeine-guaiFENes in (ROBITUSSIN AC) 10-100 mg/5 mL liquidIndications :Acute cough Take 5 mL by mouth every 4 hours if needed for Cough. Max dose 60 mL per 24 hrs. 120 mL 06/14/2023 07/03/2023 Discontinued (*Patient states no longer taking) Active Problems Problem Noted Date Diagnosed Date H/O central retinal vein occlusion 11/29/2022 Acute deep vein thrombosis ( DVT) of calf muscle vein of right lower extremity 11/29/2022 Abnormal uterine bleeding (AUB) 09/14/2022 Depression, recurrent 07/26/2022 Anxiety 07/26/2022 Resolved Problems Problem Noted Date Diagnosed Date Resolved Date Family history of clotting disorder 11/29/2022 11/29/2022 Pap smear for cervical cancer screening 08/26/2022 09/06/2022 Overview: 07/2022 NIL Plan: add on HPV Iron deficiency anemia due t o chronic blood loss 06/15/2017 07/26/2022 Spotting during 09/16/2014 Irregular bleeding 12/20/2013 Asthma 10/13/2012 07/26/2022 Encounters Date Type Department Care Team Description 07/28/2023 1:20 PM CDT Preop Visit [facility] [address] [place] [address] Omega Murray MD Preoperative Exam (07/31/23) 07/28/2023 Travel 07/26/2023 2:30 PM CDT Telemedicine [facility] [address] [place] [phone] Kayla Cano, ANTONIO Telehealth 07/26/2023 Travel 07/03/2023 4:00 PM CDT Office Visit [facility] [address] [place] [address] Mellisa Fagan MD Sleep Problem 07/03/2023 Travel 06/28/2023 9:23 AM CDT - 06/28/2023 11:59 PM CDT Hospital Encounter [facility] [place] [address] [place] [address] Marlin Wheeler MD 06/28/2023 Travel 06/14/2023 7:55 AM WEAVER TIRE CORD Office Visit [facility] [address] [place] [address] Kel Zazueta MD Cough (X 4 weeks and now having chest pain upper right side of chest and shortness of breath) 06/14/2023 Travel 05/22/2023 5:00 PM WEAVER TIRE CORD - 05/22/2023 11:59 PM WEAVER TIRE CORD Hospital Encounter [facility] [address] [place] [address] Melly Phelan PA Acute pain of right knee; Numbness of toes; History of DVT (deep vein thrombosis) 05/22/2023 Travel 05/19/2023 1:45 PM WEAVER TIRE CORD Ancillary Procedure [facility] [address] [place] [address] 05/19/2023 1:20 PM WEAVER TIRE CORD Office Visit [facility] [address] [place] [address] Melly Phelan PA Leg Pain/problem (rt) 05/19/2023 Travel 05/10/2023 Telephone [facility] [address] [place] [address] Bryan Quintanilla MD Appointment from Last 3 Months Immunizations Name Administration Dates Next Due COVID-19 vaccine (Moderna 10 0mcg/0.5mL) VIDHYA LAMAS 09/08/2020 DTP-HIB 08/28/1995,06/26/1995 DTaP 02/22/1995 Hepatitis A (Peds) 05/31/2007,11/14/2006 Hepatitis B (Peds) 1994 Hepatitis B, Unspecified 06/26/1995,02/22/1995 Hib Conjugate, Unspecified 02/22/1995 MMR 09/05/2003,07/28/2003 Meningococcal Vaccine (Menomune) 11/14/2006 Polio Virus, Unspecified 08/28/1995,06/26/1995,1 1994 Td (Age >=7 Years) 07/28/2003 Tdap 07/26/2022,11/14/2006 Family History Medical History Relation Name Comments Heart failure Brother 1 Kvng Crohn's disease Brother 2 Narinder Kidney disease Brother 2 Narinder Other Brother 2 Narinder Sidus Inversus Crohn's disease Father No Known Problems Maternal Grandfather Clotting disorder Maternal Grandmother Diabetes Maternal Grandmother Heart failure Maternal Grandmother Anxiety disorder Mother Bipolar disorder Mother Clotting disorder Mother Crohn's disease Mother Depression Mother Heart Disease Mother Heart attack Mother Kidney cancer Paternal Grandfather Liver disease Paternal Grandfather Unknown Paternal Grandmother Seizures Son Blake Anesthesia Problem No Family History Blood Disease No Family History Relation Name Status Comments Brother 1 Kvng Alive Brother 2 Narinder Alive Father Alive Maternal Grandfather Maternal Grandmother Mother Alive Paternal Grandfather Paternal Grandmother Son Blake Alive Social History Tobacco Use Types Packs/Day Years Used Date Smoking Tobacco: Former Cigarettes 0.3 3 2 011 - 2014 Smokeless Tobacco: Never Tobacco Cessation:Counseling Given: Not Answered Alcohol Use Standard Drinks/Week Comments Yes 3 (1 standard drink = 0.6 oz pur e alcohol) ocassionally 3 drinks/mo PHQ-2 Answer Date Recorded PHQ-2 TOTAL SCORE 2 07/26/2022 Social Connections Answer Date Recorded Frequency of Communication with Friends and Fami ly 0 09/06/2022 Financial Resource Strain Answer Date R ecorded Difficulty of Paying Living Expenses 3 09/06/2022 Difficulty of Paying Living Expenses Not on file 09/06/2022 Food Insecurity Answer Date Recorded Worried About Running Out of Food in the Last Ye ar 1 09/06/2022 Transportation Needs Answer Date Record ed Lack of Transportation (Medical) 1 09/06/2022 Housing Stability Answer Date Recorded Unable to Pay for Housing in the Last Year 1 09/06/2022 Sex and Gender Information Value Date Recorded Sex Assigned at Not on file Gender Identity Not on file Sexual Orientation Not on file Obstetrics History Para Term AB IAB SAB Ectopic Multiple Livin g Live Births 1 1 1 0 0 0 0 0 0 1 1 Date Outcome GA Total Labor Labor/2nd/3rd Weight Sex Delivery Anes PTL Kourtney A1 A5 Name Cl in 05/19 Term Vag Cassie ng Blake Comments Boy - , was anemic. Last Filed Vital Signs Vital Sign Reading Time Taken Comments Blood Pressure 110/70 07/28/2023 1:16 PM CDT Pulse 75 07/28/2023 1:16 PM CDT Temperature 36.6 ??C (97.8 ??F) 07/28/2023 1:16 PM CD T Respiratory Rate 16 02/06/2023 2:55 PM CDT Oxygen Saturation 97% 07/28/2023 1:16 PM CDT Inhaled Oxygen Concentration - - Weight 118.8 kg (262 lb) 07/28/2023 1:16 PM CDT Height 166.4 cm (5' 5.5) 07/28/2023 1:16 PM CDT Body Mass Index 42.94 07/28/2023 1:16 PM CDT Plan of Treatment Upcoming Encounters Date Type Department Care Team (Late st Contact Info) Description 07/31/2023 10:45 AM CDT Office Visit [facility] [address] [place] [phone] Bryan Quintanilla MD [address] [place] [address] Arrived 08/14/2023 3:30 PM CDT Education [facility] [address] [place] [address] 08/15/2023 8:15 AM CDT Nurse/Clinic Staff Only [facility] [address] [place] [address] 10/04/2023 12:50 PM CDT Telemedicine [facility] [address] [place] [address] [facility] [address] [place] [phone] Kayla Cano NP [address] [place] [address] Health Maintenance Due Date Last Done Comments Depression screening for age 12+ 07/27/2023 07/26/2022, 06/27/2022, 06/25/2022 Influenza for age 9-49 12/10/2023 COVID-19 vaccine series ( season) 2024 09/08/2020 Postponed from 12/09/2022 (Patient discretion) BMI (ht and wt on same day) for age 18+ 07/27/2024 07/28/2023, 07/03/2023, 04/17/2023, Additional history exists Pap test for age 21-65 07/26/2025 07/26/2022, 2022 Tetanus booster 07/26/2032 07/26/2022, 08/0 10/2006, 07/28/2003 HIV for age 15-65 Completed 07/26/2022 Hepatitis C screening for age 18-79 Completed 07/26/2022 Tdap Completed 07/26/2022, 11/14/2006 Pneumococcal series for age 6-64 Aged Out No longer eligible based on patient's age to complete this topic Procedures Procedure Name Priority Date/Time Associated Diagnosis Comments COLONOSCOPY DIAGNOSTIC Routine 07/31/2023 8:34 AM CDT Rectal bleeding Mucus in stool US VENOUS LOWER EXTREMITY RIGHT TIFFANY 05/22/2023 5:29 PM WEAVER TIRE CORD Acute pain of right knee Numbness of toes History of DVT (deep vein thrombosis) CBC WITH AUTO DIFFERENTIAL Routine 05/19/2023 1:57 PM WEAVER TI[employer] CORD Numbness of toes COMP METABOLIC PANEL Routine 05/19/2023 1:57 PM WE[employer]ER [employer] CORD Numbness of toes CBC WITH AUTO DIFFERENTIAL Routine 05/19/2023 1:57 PM WE[employer] Numbness of toes VITAMIN B12 Routine 05/19/2023 1:57 PM WE[employer] Numbness of toes XR FOOT 3 VIEWS RIGHT Routine 05/19/2023 1:49 PM WEAVER TI[employer] CORD Pain of right heel LC HIV-1/O/2, 4TH GENERATION Routine 07/26/2022 4:24 PM CDT Encounter for screening for HIV LC HCV ANTIBODY RFX TO QUANT PCR Routine 07/26/2022 4:24 PM CDT Need for hepatitis C screening test DIRECTOR OF REVENUE THIN PREP PAP SCREEN IMAGED Routine 07/26/2022 4:15 PM CDT Pap smear for cervical cancer screening from Last 3 Months or Most Recently Relevant to Health Maintenance Results * US VENOUS LOWER EXTREMITY RIGHT (05/22/2023 5:29 PM WEAVER TIRE CORD) Anatomical Region Laterality Modality LEGS, LEG R, Abdomen Ultrasound Impressions 05/25/2023 6:40 AM WEAVER TIRE CORD Normal right lower extremity venous ultrasound, no sign of deep venous thrombosis. Dictated by Renata Garcia MD @ 05/23/2023 6:58:48 AM Signed by: Renata Garcia MD @05/23/2023 6:58:48 AM Narrative 05/25/2023 6:40 AM WE[employer]ER [employer] INDICATION: Right leg pain. History of DVT TECHNIQUE: Ultrasound venous duplex lower right extremity. Compression venous exam was performed using baer-scale, color Doppler, and spectral Doppler imaging. COMPARISON: FINDINGS: Sonographic imaging demonstrates the right common femoral, deep femoral, superficial femoral, popliteal, posterior tibial and greater saphenous and the contralateral left common femoral veins to be fully compressible with normal color Doppler blood flow. Melly HAN US * (ABNORMAL) CBC WITH AUTO DIFFERENTIAL (05/19/2023 1:57 PM WEAVER TIRE CORD) WHITE BLOOD COUNT 7.2 4.5 - 11.0 thou/cu mm 05/19/2023 2:06 PM [facility] RED BLOOD COUNT 3.82(L) 4.00 - 5.20 mil/cu mm 05/19/2023 2:06 PM [facility] HEMOGLOBIN 12.1 12.0 - 16.0 g/dL 05/19/2023 2:06 PM [facility] HEMATOCRIT 34.2 33.0 - 51.0 % 05/19/2023 2:06 PM [facility] MCV 90 80 - 100 fL 05/19/2023 2:06 PM [facility] MCH 31.7 26.0 - 34.0 pg 05/19/2023 2:06 PM [facility] MCHC 35.4 32.0 - 36.0 g/dL 05/19/2023 2:06 PM [facility] RDW 12.3 11.5 - 15.5 % 05/19/2023 2:06 PM [facility] PLATELET COUNT 292 140 - 440 thou/cu mm 05/19/2023 2:06 PM [facility] MPV 9.8 6.5 - 11.0 fL 05/19/2023 2:06 PM [facility] % NEUT 56.8 % 05/19/2023 2:06 PM [employer] [facility] % LYMPH 33.9 % 05/19/2023 2:06 PM [employer] [facility] % MONO 6.7 % 05/19/2023 2:06 PM [employer] [facility] % EOS 2.2 % 05/19/2023 2:06 PM [employer] [facility] % BASO 0.4 % 05/19/2023 2:06 PM [employer] [facility] ABSOLUTE NEUTROPHILS 4.1 1.7 - 7.0 thou/cu mm 05/19/2023 2:06 PM [employer] [facility] ABSOLUTE LYMPHOCYTES 2.4 0.9 - 2.9 thou/cu mm 05/19/2023 2:06 PM [employer] [facility] ABSOLUTE MONOCYTES 0.5 <0.9 thou/cu mm 05/19/2023 2:06 PM WE[employer]ER [employer] [facility] ABSOLUTE EOSINOPHILS 0.2 <0.5 thou/cu mm 05/19/2023 2:06 PM [facility] ABSOLUTE BASOPHILS 0.0 <0.3 thou/cu mm 05/19/2023 2:06 PM WE[employer]ER [employer] CORD [facility] Blood BLOOD SPECIMEN / Unknown Venipuncture / Unknown 05/19/2023 1:57 PM WEAVER TIRE CORD 05/19/2023 2:00 PM WEAVER TIRE CORD Melly HAN HEMATOLOGY Performing Organization Address [facility]State/[facility] Co de Phone Number [facility] [address] [place] [address], * VITAMIN B12 (05/19/2023 1:57 PM WEAVER TIRE CORD) Pathologist [facility] VITAMIN B12 423 232 - 1,245 pg/mL 05/19/2023 9:40 PM WEAVER TIRE CORD [facility] Blood BLOOD SPECIMEN / Unknown Venipuncture / Unknown 05/19/2023 1:57 PM WEAVER TIRE CORD 05/19/2023 2:00 PM WEAVER TIRE CORD N[facility]ative [facility] - 05/19/2023 9:40 PM WEAVER TIRE CORD Biotin supplements may cause clinically significant interference for this test assay. ??If interference is suspected, it is strongly recommended that biotin is discontinued for at least one week prior to retesting. Melly HAN CHEMISTRY [facility] [address] [place] [address], * (ABNORMAL) COMP METABOLIC PANEL (05/19/2023 1:57 PM WEAVER TIRE CORD) SODIUM 140 136 - 145 mmol/L 05/19/2023 9:40 PM [facility] POTASSIUM 3.6 3.5 - 5.1 mmol/L 05/19/2023 9:40 PM [facility] CHLORIDE 103 98 - 107 mmol/L 05/19/2023 9:40 PM [facility] CO2,TOTAL 25 22 - 29 mmol/L 05/19/2023 9:40 PM [facility] ANION GAP 12 5 - 18 05/19/2023 9:40 PM [facility] GLUCOSE 78 70 - 99 mg/dL 05/19/2023 9:40 PM [facility] CALCIUM 9.3 8.6 - 10.0 mg/dL 05/19/2023 9:40 PM [facility] BUN 11 6 - 20 mg/dL 05/19/2023 9:40 PM [facility] CREATININE 0.71 0.50 - 0.90 mg/dL 05/19/2023 9:40 PM [facility] BUN/CREAT RATIO 15 10 - 20 9:40 PM [facility] eGFR >90 >90 mL/min/1.7 3m2 05/19/2023 9:40 PM [facility] Comment:As of 2021, eG FR is calculated by the CKD-EPI creatinine equation without race adjustment. ??eGFR can be influenced by muscle mass, exercise, and diet. ??The reported eGFR is an estimation only and is only applicable if the renal function is stable. ALBUMIN 4.5 4.0 - 4.9 g/dL 05/19/2023 9:40 PM WEAVER TIRE CORD [facility] PROTEIN,TOTAL 6.4 6.0 - 8.0 g/dL 05/19/2023 9:40 PM WEAVER TIRE CORD [facility] BILIRUBIN,TOTAL 0.4 0.0 - 1.2 mg/dL 05/19/2023 9:40 PM WEAVER TIRE CORD [facility] ALK PHOSPHATASE 61 35 - 104 IU/L 05/19/2023 9:40 PM WEAVER TIRE CORD [facility] ALT (SGPT) 45(H) 10 - 35 IU/L 05/19/2023 9:40 PM WEAVER TIRE CORD [facility] AST (SGOT) 38(H) 10 - 35 IU/L 05/19/2023 9:40 PM WEAVER TIRE CORD [facility] Blood BLOOD SPECIMEN / Unknown Venipuncture / Unknown 05/19/2023 1:57 PM WEAVER TIRE CORD 05/19/2023 2:00 PM WEAVER TIRE CORD Melly HAN CHEMISTRY [facility] [address] [place] [address], [place] * XR FOOT 3 VIEWS RIGHT (05/19/2023 1:49 PM WEAVER TIRE CORD) Anatomical Region Laterality Modality FEET, FOOT R Computed Radiogr aphy 05/19/2023 4:18 PM WEAVER TIRE CORD Narrative 05/19/2023 4:18 PM WEAVER TI[employer] CORD For Patients: ??As a result of the 21st Century Cures Act, medical imaging exams and procedure reports are released immediately into your electronic medical record. ??You may view this report before your referring provider. ??If you have questions, please contact your health care provider. Indication: Heel pain Technique: Right foot 3 views Comparison: None Findings: Bones: Alignment is normal. No fractures or bone lesions. ?? Joint spaces: Joint spaces are well maintained. No degenerative changes. ?? Soft tissues: Unremarkable. ?? Impression: No findings to explain pain. Dictated by Rock Liu MD @ 05/19/2023 4:18:39 PM (Electronically Signed) Procedure Note Rock Liu MD - 05/19/2023 For Patients: As a result of the Cures Act, medical imagingexams and procedure reports are released immediately into your electronicmedical record. You may view this report before your referring provider.If you have questions, please contact your health care provider. Indication: Heel pain Technique: Right foot 3 views Comparison: None Findings: Bones: Alignment is normal. No fractures or bone lesions. Joint spaces: Joint spaces are well maintained. No degenerative changes. Soft tissues: Unremarkable. Impression: No findings to explain pain. Dictated by Rock Liu MD @ 05/19/2023 4:18:39 PM (Electronically Signed) Melly HAN GENERAL IMAGIN G * LC HCV ANTIBODY RFX TO QUANT PCR (07/26/2022 4:24 PM CDT) Pathologist [facility] HCV Ab Non Reactive Non Reactive 07/30/2022 7:10 AM CDT [facility] Blood BLOOD SPECIMEN / Unknown Venipuncture / Unknown 07/26/2022 4:24 PM CDT 07/26/2022 4:24 PM CDT Narrative [facility] - 07/30/2022 7:10 AM CDT Performed at: ??[address] ??[id number] Luncheonette Operator: Armin Yañez MD, Phone: ??[phone] Mellisa Fagan MD LABORATORY [facility] [address] [place] [address] * LC HIV-1/O/2, 4TH GENERATION (07/26/2022 4:24 PM CDT) [facility] HIV Scr 4th Gen Non Reactive Non Reactive 07/29/2022 1:09 PM CDT [facility] Comment: HIV Negative HIV-1/HIV-2 antibodies and HIV-1 p24 antigen were NOT detected. There is no laboratory evidence of HIV infection. Blood BLOOD SPECIMEN / Unknown Venipuncture / Unknown 07/26/2022 4:24 PM CDT 07/26/2022 4:24 PM CDT Narrative [facility] - 07/29/2022 1:09 PM CDT Performed at: ??01 - [facility] [address] [facility], [place], [place] ??[id number] Luncheonette Operator: Armin Yañez MD, Phone: ??[phone] Mellisa Fagan MD LABORATORY [facility] ([facility]) [address] [place] [address], * DIRECTOR OF REVENUE THIN PREP PAP SCREEN IMAGED (07/26/2022 4:15 PM CDT) Case Report Gynecologic Cytology Report ? Case: [id number] ? Authorizing Provider: ??Mellisa Fagan MD Collected: ? 07/26/2022 1615 ? Ordering Location: ? [facility] ?? Received: ?07/26/2022 1633 ? Clinic ? First Screen: ?Donal Carpenter ? Rescreen: ?Ashlyn Soni ? Specimen: ?DIRECTOR OF REVENUE ThinPrep Vial Screening, Cervical ? 08/26/2022 2:19 PM CDT [facility] INTERPRETATION/ RESULT NEGATIVE FOR INTRAEPITHELIAL LESION OR MALIGNANCY (NIL) (none) 08/26/2022 2:19 PM CDT [facility] [employer] LABORATORY-C ENTRAL LABORATORY IMEN ADEQUACY Satisfactory for evaluation Endocervical component present 08/26/2022 2:19 PM CDT [facility]AL LAB[facility] HPV REQUEST HPV not requested 2022 2:19 PM CDT [facility] Date of LMP unknown 08/26/2022 2:19 PM CDT [facility] Last Pap Date unknown 08/26/2022 2:19 PM CDT [facility] Last Pap Result First Pap/Unknown 2:19 PM CDT [facility] LAB[facility]ORY Abnormal Pap or Hoxie Bx in last 5 years Yes 08/26/2022 2:19 PM CDT [facility]AL LABORATORY Menstrual Status Hormonally Suppressed 08/26/2022 2:19 PM CDT [facility] ENTRAL LABORATORY Hoxie Bx Done Today No 08/26/2022 2:19 PM CDT [facility] EN[facility] LAB[facility]ATORY Additional Information None given 08/26/2022 2:19 PM CDT [facility] Comment: Cytology is screened at [facility] - [address], [place] [address] and [facility] - [address], [place] [address] [facility] - [address] [place] [address] [facility] - [address], [place] [address] Automated Review Successful 08/26/2022 2:19 PM CDT [facility] Comment:Specimen processed s uccessfully by automated razor sharpener device, ThinPrep Imaging System, [employer] Note The pap test is a screening technique, not a diagnostic procedure. It is used primarily to screen for squamous cancers and precursor lesions. Published studies have shown that it is subject to both false negative and false positive results. The pap test should not be used as the sole means to diagnose or exclude pre-malignant and malignant lesions. 08/26/2022 2:19 PM CDT [facility] Other (Cervical) Non-Blood / Unknown 07/26/2022 4:15 PM CDT 07/26/2022 4:33 PM CDT Mellisa Fagan MD PATHOLOGY/CYTOL OGY [facility] [address] [place] [address], [place] from Last 3 Months or Most Recently Relevant to Health Maintenance Advance Directives * Full Code (Latest Code Status on File) Date Activated Date Inactivated Comments 11/04/2022 8:15 AM 11/04/2022 4:06 PM Question Answer Comments Code Status Discussion: Reviewed Preferences * Full Code Date Activated Date Inactivated Comments 09/14/2022 1:18 PM 09/14/2022 5:24 PM Question Answer Comments Code Status Discussion: Reviewed Preferences Care Teams Digital Operations Analyst Relationship Specialty [place] [address] [place] [address] PCP - General Family Practice 07/26/22
--- OUTSIDE RECORDS SUMMARY | 2023-07-31 10:41 | XMS_ITS | Clinical Summary ---
Author Name Unknown Organization [facility] Address [address] [place] [id number] Care Team Providers Care Equity Structurer Name Role Phone Kari Bingham MD Unavailable Clinic, [facility] Primary Care Provider Allergies Active Allergy Reactions [...] History Relation Comments Cancer Father History of cance r on the paternal side Cancer Mother History of cance r on the maternal side Coronary Artery Disease [...] Comments Blood Pressure 120/64 02/21/2023 8:30 PM ASSOCIATE FINANCIAL ANALYST Pulse 88 02/21/2023 8:30 PM ASSOCIATE FINANCIAL ANALYST Temperature 36.9 ??C (98.5 ??F) 02/21/2023 5:17 PM CS T Respiratory Rate 18 02/21/2023 8:30 PM ASSOCIATE FINANCIAL ANALYST Oxygen Saturation 98% 02/21/2023 8:30 PM ASSOCIATE FINANCIAL ANALYST Inhaled Oxygen Concentration - - Weight 108.9 kg (240 lb) 11/28/2022 11:18 AM CDT Height 170.2 cm (5' 7) 10/12/2017 8:08 AM CDT Body Mass Index 37.59 10/12/2017 8:08 AM CDT Plan of Treatment Health Maintenance Due Date Last Done Comments ADVANCE CARE PLANNING 1994 ANNUAL REVIEW OF HM ORDERS 1994 IPV IMMUNIZATION (4 of 4 - 4-dose series) 1998 08/28/1995, 06/26/1995, 02/22/1995 HIV SCREENING 2009 HEPATITIS C SCREENING 2012 COVID-19 Vaccine ( season) 2022 09/08/2020 INFLUENZA VACCINE (#1) 2022 PHQ-2 (once per calendar year) 2023 YEARLY PREVENTIVE VISIT 07/27/2023 07/27/19 23, 11/06/2020, 04/15/2020 PAP 07/26/2025 07/26/2022, 07/26/2022 DTAP/TDAP/TD IMMUNIZATION (8 - Td or Tdap) 07/26/2032 07/26/2022, 08/15/2012, 11/14/2006, Additional history exists HEPATITIS B IMMUNIZATION Completed 996, 02/22/1995, 1994 MENINGITIS IMMUNIZATION Aged Out 11/14/2006 No l onger eligible based on patient's age to complete this topic CHLAMYDIA SCREENING Discontinued 04/10/2014 HPV IMMUNIZATION Aged Out No longer e ligible based on patient's age to complete this topic Pneumococcal Vaccine: Pediatrics (0 to 5 Years) and At-Risk Patients (6 to 64 Years) Aged Out No longer eligible based on patient's age to complete this topic RSV MONOCLONAL ANTIBODY Aged Out No l onger eligible based on patient's age to complete this topic Procedures Procedure Name Priority Date/Time Associated Diagnosis Comments REMOVE IMPACTED EAR WAX Routine 06/21/2000 1:35 P M ASSOCIATE FINANCIAL ANALYST Impacted Cerumen from Last 3 Months or Most Recently Relevant to Health Maintenance Care Teams Equity Structurer Relationship Specialty Start Date End Date Clinic, [facility] [address] [place], [place] [id number] PCP - General 11/28/22 Kari Bingham MD [address] [place] [address] [address] [place] [address] Ophthalmology 04/15/20
--- NOTE | 2023-07-31 11:46 | W.ANESCHARGE ---
Anesthesia Charges Start Date/Time Anesthesia Start Date: 07/31/23 Anesthesia Start Time: 11:21 Stop Date/Time Anesthesia Stop Date: 07/31/23 Anesthesia Stop Time: 11:44
--- NOTE | 2023-07-31 12:53 | W.ANESCHARGE ---
Anesthesia Charges Start Date/Time Anesthesia Start Date: 07/31/23 Anesthesia Start Time: 11:21 Stop Date/Time Anesthesia Stop Date: 07/31/23 Anesthesia Stop Time: 11:44
== END 2023-07-31 10:38 | disposition home or self-care (01) ==
LOC: OP CLINIC 10:38
PROVIDERS: PCP Family Medicine; Visit Provider Internal Medicine Gastroenterology
DX: K92.1 Melena (principal); K62.89 Other specified diseases of anus and rectum; Z80.0 Family history of malignant neoplasm of digestive organs; Z83.79 Family history of other diseases of the digestive system
CPT/HCPCS: 00811; 45380; 88305; J2704